=== PATIENT | female | born 1940 | race Caucasian/White ===

== ENCOUNTER 2017-05-04 11:15 | Observation (INO) | payer OTHER ==
[2017-05-04 12:42] VITALS: BMI 25.7
[2017-05-04 12:43] LABS: Absolute Lymphocytes (CBC) 1.1 K/uL (0.7-4.9); Absolute Monocytes 0.5 K/uL (0.1-1.3); Absolute Neutrophil 5.6 K/uL (1.8-8.0); Basophils % 0.8 % (0-1.3); Eosinophils % 1.9 % (0-4.4); Hematocrit 39.7 % (36.0-45.0); Lymphocytes % 14.3 % (15.3-44.8); MCH 28.5 pg (27.0-35.0); MCV 87.2 fL (80-100); MPV 8.8 fL (7.6-11.3); Monocytes % 7.4 % (3.3-12.3); RBC Red Blood Cell Count 4.55 M/uL (3.86-4.86)
[2017-05-04] MEDS ORDERED: DIPHENHYDRAMINE 25 MG TAB/CAP PO PRN (12:48)
[2017-05-04] MEDS ORDERED: POLYETHYL GLY 3350 17 GM/DOSE PO PRN (12:48)
[2017-05-04] MEDS ORDERED: ONDANSETRON 4 MG (ODT) TAB PO PRN (12:48)
[2017-05-04] MEDS ORDERED: ONDANSETRON 4 MG/2 ML VIAL IV PRN (12:48)
[2017-05-04] MEDS ORDERED: ACETAMINOPHEN 325 MG TABLET PO PRN (12:48)
[2017-05-04] MEDS ORDERED: LOPERAMIDE HCL 2 MG CAPSULE PO PRN (12:48)
[2017-05-04] MEDS ORDERED: ALBUTEROL 2.5 MG/3 ML NEB SOL NEB PRN (12:51)
[2017-05-04 12:56] LABS: Protime INR 0.98
[2017-05-04 13:02] LABS: Potassium 4.3 mEq/L (3.6-5.0)
[2017-05-04 13:08] LABS: Albumin 4.5 g/dL (3.2-5.5); Bilirubin Direct 0.1 mg/dL (0-0.2); Bilirubin Total 0.7 mg/dL (0.3-1.2); Phosphorus 3.2 mg/dL (2.5-4.3)
[2017-05-04 13:12] LABS: Urine Appearance CLEAR; Urine Bilirubin NEGATIVE (NEG); Urine Blood NEGATIVE (NEG); Urine Color YELLOW; Urine Glucose NEGATIVE (NEG); Urine Protein NEGATIVE (NEG); Urine Specific Gravity <=1.005 (1.005-1.030); Urine Urobilinogen 0.2 mg/dL (0.2-1.0)
--- NOTE | 2017-05-04 13:27 | RAD REPORT ---
EXAM DESCRIPTION: RAD - Chest Pa And Lat (2 Views) - 05/04/2017 1:20 pm CLINICAL HISTORY: Abdominal pain, shortness of breath, pyelonephritis diagnosis COMPARISON: August 2016 TECHNIQUE: PA and lateral views of the chest were obtained. FINDINGS: The lungs are clear of a peripheral mass or consolidation. Lung base markings are accentua palma slightly believed to be atelectasis from a more shallow inspiratory effort. True lung base infilt rate is unlikely. No failure or volume overload. Trachea is midline. Heart size is normal and centr al vasculature is within normal limits. No pleural effusion or pneumothorax seen. No acute bony fin ding noted. No aortic abnormality. IMPRESSION: No acute cardiopulmonary process. No significant change from comparison.
[2017-05-04 13:41] LABS: Thyroid Stimulating Hormone 3.92 uIU/mL (0.34-5.60)
[2017-05-04] MEDS: LEVALBUTEROL 1.25 MG/3 ML NEB IH SCH ×2 (13:42→19:24)
[2017-05-04] MEDS: IPRATROPIUM BROM 0.5MG/2.5ML IH SCH ×2 (13:42→19:24)
[2017-05-04 13:49] LABS: Urine Microscopic Reflex ORDER UMIC
[2017-05-04 14:46] LABS: Urine Bacteria 20-50 /HPF (<20); Urine Culture Reflex Order NOT NEEDED; Urine RBC <5 /HPF (NONE SEEN)
[2017-05-04] MEDS: NACHLORIDE 0.45% 1,000 ML IV SCH (15:10)
[2017-05-04] MEDS: CEFTRIAXONE/SWI 1gm 1 GM/10 ML SYR IV SCH (15:10)
--- NOTE | 2017-05-04 16:26 | EKG ---
Test Date: 2017-05-04 Test Time: 14:19:36 Head Kiln Operator: CHEMO MEASUREMENT RESULTS: Intervals: Rate: 66 [place]: 146 QRSD: 84 QT: 410 QTc: 429 [place]: P: 55 [place]: 146 QRS: 52 T: 50 INTERPRETIVE STATEMENTS: Normal sinus rhythm Normal ECG Compared to ECG 01/07/2015 04:45:26 Sinus arrhythmia no longer present Electronically Signed On 05-04-17 16:24:23 CDT by Maximilian Hayes
[2017-05-04] MEDS ORDERED: GLUCAGON 1 MG/VIAL IM PRN (17:22)
[2017-05-04] MEDS ORDERED: D50W 25 GM/50 ML SYRINGE IV PRN (17:22)
[2017-05-04] MEDS: INSULIN -REGULAR HUMAN 50 UNIT/0.5 ML ML SQ SCH (20:59)
[2017-05-05] MEDS: IPRATROPIUM BROM 0.5MG/2.5ML IH SCH ×4 (01:17→14:07)
[2017-05-05] MEDS: LEVALBUTEROL 1.25 MG/3 ML NEB IH SCH ×4 (01:17→14:07)
[2017-05-05 06:19] LABS: Absolute Lymphocytes (CBC) 1.3 K/uL (0.7-4.9); Absolute Monocytes 0.7 K/uL (0.1-1.3); Absolute Neutrophil 5.5 K/uL (1.8-8.0); Basophils % 0.5 % (0-1.3); Eosinophils % 1.8 % (0-4.4); Hematocrit 36.6 % (36.0-45.0); Lymphocytes % 17.5 % (15.3-44.8); MCH 28.4 pg (27.0-35.0); MCV 86.6 fL (80-100); MPV 8.7 fL (7.6-11.3); Monocytes % 8.6 % (3.3-12.3); RBC Red Blood Cell Count 4.23 M/uL (3.86-4.86)
[2017-05-05 06:47] LABS: Potassium 4.8 mEq/L (3.6-5.0)
[2017-05-05] MEDS: INSULIN -REGULAR HUMAN 50 UNIT/0.5 ML ML SQ SCH ×4 (07:30→20:43)
[2017-05-05] MEDS: NACHLORIDE 0.45% 1,000 ML IV SCH ×2 (08:10→09:45)
[2017-05-05 11:10] LABS: A1c Component 0.68 mg/dL; Hemoglobin A1c 7.3 % (4-6.0)
--- NOTE | 2017-05-05 13:14 | RAD REPORT ---
EXAM DESCRIPTION: RAD - Chest Single View - 05/05/2017 12:07 pm CLINICAL HISTORY: Device placement PICC line placement COMPARISON: May 04, 2017 FINDINGS: A PICC line has been inserted with its tip in the superior vena cava. The lungs appear clear of acute infiltrate. The heart is normal size. IMPRESSION: PICC line with its tip in the superior vena cava
[2017-05-05] MEDS: CEFTRIAXONE/SWI 1gm 1 GM/10 ML SYR IV SCH (13:17)
[2017-05-05] MEDS ORDERED: METFORMIN HCL 500 MG PO PRN (17:38)
--- NOTE | 2017-05-05 17:46 | P.PN ---
Subjective Date of Service: 05/05/17 Chief Complaint: NO ISSUES WITH IV ABX. FEELS A LOT BETTER. Subjective: Improving Review of Systems 10-point ROS is otherwise unremarkable Physical Examination - Vital Signs Temperature: 97.3 F Blood Pressure: 108/58 Pulse: 67 Respirations: 18 Pulse Ox (%): 99 - Physical Exam General: Alert, In no apparent distress HEENT: Atraumatic, PERRLA, EOMI Neck: Supple, JVD not distended Respiratory: Clear to auscultation bilaterally, Normal air movement Cardiovascular: Regular rate/rhythm, Normal S1 S2 Gastrointestinal: Normal bowel sounds, No tenderness Musculoskeletal: No tenderness Integumentary: No rashes Neurological: Normal speech, Normal tone, Normal affect Lymphatics: No axilla or inguinal lymphadenopathy - Studies Laboratory Data (last 24 hrs) 05/05/17 05:57: Sodium 139, Potassium 4.8, BUN 16, Creatinine 0.89, Glucose 165 H, Magnesium 2.0 05/05/17 05:57: WBC 7.6, Hgb 12.0, Hct 36.6, Plt Count 183 Medications List Reviewed: Yes Assessment And Plan - Current Problems (Diagnosis) (1) Acute pyelonephritis Onset Date: 05/05/17 Current Visit: Yes Status: Acute Plan: CLINICAL DIAGNOSIS LOT BETTER ON IV ROCEPHIN SHE IS ALLERGIC TO MOST ORAL ABX- MAINLY DYSPNEA, ETC BUT I EXPECTED IT IS NOT ACTUAL ABX BUT THE FILLER SHE IS ALLERGIC TO. I WOULD HOPE TO GIVE HER 10 DAYS OF ROCEPHIN (2) Flank pain Onset Date: 05/05/17 Current Visit: Yes Status: Acute
[2017-05-05] MEDS ORDERED: METFORMIN HCL 500 MG TAB PO PRN (18:10)
[2017-05-05] MEDS ORDERED: INSULIN ASPART 1 UNIT SQ SCH (21:00)
[2017-05-06] MEDS: NACHLORIDE 0.45% 1,000 ML IV SCH (05:34)
[2017-05-06 05:41] LABS: Absolute Lymphocytes (CBC) 1.4 K/uL (0.7-4.9); Absolute Monocytes 0.7 K/uL (0.1-1.3); Absolute Neutrophil 5.4 K/uL (1.8-8.0); Basophils % 0.5 % (0-1.3); Eosinophils % 3.7 % (0-4.4); Hematocrit 37.8 % (36.0-45.0); Lymphocytes % 17.5 % (15.3-44.8); MCV 86.7 fL (80-100); MPV 8.4 fL (7.6-11.3); Monocytes % 9.3 % (3.3-12.3); RBC Red Blood Cell Count 4.36 M/uL (3.86-4.86)
[2017-05-06] MEDS ORDERED: LEVOTHYROXINE SOD 0.025 MG TAB PO SCH (06:00)
[2017-05-06 06:22] LABS: Potassium 5.2 mEq/L (3.6-5.0)
[2017-05-06] MEDS ORDERED: INSULIN LISPRO 100 UNIT/1 ML SQ SCH (07:30)
[2017-05-06] MEDS: INSULIN -REGULAR HUMAN 50 UNIT/0.5 ML ML SQ SCH (07:30)
[2017-05-06] MEDS ORDERED: LACTOBACILLUS/ACIDOPHILUS TAB PO SCH (09:00)
[2017-05-06] MEDS ORDERED: BISOPROLOL 5 MG TABLET PO SCH (09:00)
[2017-05-06] MEDS ORDERED: HOME MED 1 EA UNK (Multivitamin [Multivitamins] 1 CAP) PO SCH (09:00)
[2017-05-06] MEDS ORDERED: MULTIVITAMIN TAB PO SCH (09:00)
[2017-05-06] MEDS ORDERED: ASPIRIN 81 MG CHEWABLE TABLET PO SCH (09:00)
[2017-05-06] MEDS ORDERED: HOME MED 1 EA UNK (L.Acidoph,Paracasei, B.Lactis [Probiotic] 1 EACH) PO SCH (09:00)
[2017-05-06 11:45] VITALS: O2SAT 97
[2017-05-06 13:34] VITALS: BP 130/63; TEMP 97.9
[2017-05-06] MEDS: CEFTRIAXONE/SWI 1gm 1 GM/10 ML SYR IV SCH (13:49)
--- NOTE | 2017-06-08 13:11 | P.DS ---
Discharge Date: 06/08/17 Disposition: DC HOME/HOME HEALTH CARE Discharge Condition: FAIR Reason for Admission: NO ISSUES WITH IV ABX. FEELS A LOT BETTER. - Problems (1) Acute pyelonephritis Onset Date: 05/05/17 Status: Acute (2) Flank pain Onset Date: 05/05/17 Status: Acute Hospital Course: MS. CABRAL HAS UTI , RESISTANT TO MANY ABX AND ALSO SHE IS ALLERGIC TO MOST ORAL ABX. SHE MAY HAVE ALLERGY TO THE FILLER OF THE ABX . SO FAR ON IV ROCEPHIN SHE IS DOING GOOD. SHE IS DC ED HOME ON IV ABX FOR 10 DAYS ABOUT. Vital Signs/Physical Exam: Temp Pulse Resp BP Pulse Ox 97.9 F 66 18 130/63 93 05/06/17 12:00 05/06/17 12:00 05/06/17 12:00 05/06/17 12:00 05/06/17 12:00 Laboratory Data at Discharge: WBC 7.8 K/uL (4.3-10.9) 05/06/17 05:24 Hgb 12.6 g/dL (12.0-15.0) 05/06/17 05:24 Hct 37.8 % (36.0-45.0) 05/06/17 05:24 Plt Count 188 K/uL (152-406) 05/06/17 05:24 PT 11.6 SECONDS (9.5-12.5) 05/04/17 12:20 INR 0.98 05/04/17 12:20 APTT 28.3 SECONDS (24.3-36.9) 05/04/17 12:20 Sodium 140 mEq/L (135-145) 05/06/17 05:24 Potassium 5.2 mEq/L (3.6-5.0) H 05/06/17 05:24 BUN 16 mg/dL (6-20) 05/06/17 05:24 Creatinine 0.82 mg/dL (0.44-1.00) 05/06/17 05:24 Glucose 138 mg/dL (65-120) H 05/06/17 05:24 Phosphorus 3.2 mg/dL (2.5-4.3) 05/04/17 12:20 Magnesium 2.0 mg/dL (1.8-2.5) 05/06/17 05:24 Total Bilirubin 0.7 mg/dL (0.3-1.2) 05/04/17 12:20 AST 26 IU/L (10-42) 05/04/17 12:20 ALT 22 IU/L (10-60) 05/04/17 12:20 Alkaline Phosphatase 61 IU/L (42-121) 05/04/17 12:20 Home Medications: Aspirin 81 mg PO DAILY 01/07/15 Bisoprolol Fumarate [Zebeta*] 2.5 mg PO DAILY 01/07/15 Cinnamon Bark [Cinnamon] 500 mg PO BID 01/07/15 Insulin Aspart [Novolog Flexpen] 1 unit SQ BID 01/07/15 Metformin HCl [Glucophage] 500 mg PO PRN PRN 01/07/15 Multivitamin [Multivitamins] 1 cap PO DAILY 01/07/15 L.acidoph,Paracasei, B.lactis [Probiotic] 1 each PO DAILY 05/04/17 Levothyroxine [Synthroid] 25 mcg PO [id number] 05/04/17 Ceftriaxone 1 gm/Ns 50 ml [Rocephin 1Gm/50 ml Ivpb] 1 gm IV DAILY 10 Days bag 05/06/17 New Medications: Ceftriaxone 1 gm/Ns 50 ml [Rocephin 1Gm/50 ml Ivpb] 1 gm IV DAILY 10 Days bag Followup: Leonard Tavares MD [Primary Care Provider] - 1 Week (follow up in the office in 1 week.)
== END 2017-05-06 14:35 | disposition home health service (06) ==
LOC: 4TH 11:37
PROVIDERS: ADMIT Internal Medicine; ATTEND Internal Medicine
PROC: 02HV33Z Insertion of Infusion Device into Superior Vena Cava, Percutaneous Approach (ICD-10-PCS; principal; 2017-05-05)
DX: N10 Acute pyelonephritis (principal); E11.9 Type 2 diabetes mellitus without complications; Z88.2 Allergy status to sulfonamides; Z88.0 Allergy status to penicillin
CPT/HCPCS: 36415 ×3; 36569; 71045; 71046; 80048 ×3; 80076; 82306; 82607; 82962 ×8; 83036; 83735 ×3; 84100; 84443; 85025 ×3; 85610; 85730; 87086; 87088; 93005; 94640; G0378; G0379; J0696 ×3; 81003; 81015

== ENCOUNTER 2017-10-28 12:00 | Emergency (ER) | payer OTHER ==
[2017-10-28 12:58] LABS: Protime INR 1.01
--- NOTE | 2017-10-28 12:58 | RAD REPORT ---
EXAM DESCRIPTION: RAD - Chest Single View - 10/28/2017 12:36 pm CLINICAL HISTORY: Chest pain;Congestion Chest pain. COMPARISON: Chest Pa And Lat (2 Views) dated 07/13/2017; Chest Single View dated 05/05/2017; Chest Pa A nd Lat (2 Views) dated 05/04/2017; Chest Pa And Lat (2 Views) dated 08/21/2016 FINDINGS: Portable technique limits examination quality. The lungs are grossly clear. The heart is normal in size. No displaced fractures.Left sided electroni c device obscures a portion of the left mid lung parenchyma. IMPRESSION: No acute intrathoracic process suspected.
[2017-10-28 13:00] LABS: ALT/SGPT 27 U/L (12-78); AST/SGOT 21 U/L (15-37); Absolute Lymphocytes (CBC) 1.5 K/uL (0.7-4.9); Absolute Monocytes 0.5 K/uL (0.1-1.3); Absolute Neutrophil 4.3 K/uL (1.8-8.0); Alkaline Phosphatase 74 U/L (45-117); BUN Blood Urea Nitrogen 18 mg/dL (7-18); Basophils % 0.7 % (0-1.3); Bicarbonate 29 mmol/L (21-32); Bilirubin Direct 0.2 mg/dL (0-0.2); Bilirubin Total 0.6 mg/dL (0.2-1.0); Glucose Level 184 mg/dL (74-106); Hematocrit 39.6 % (36.0-45.0); MCH 29.3 pg (27.0-35.0); MCV 87.1 fL (80-100); MPV 9.1 fL (7.6-11.3); Magnesium 2.2 mg/dL (1.8-2.4); Monocytes % 8.2 % (3.3-12.3); NT PRO-BNP 115 pg/mL (<450); Potassium 3.9 mmol/L (3.5-5.1); Protein, Total 8.1 g/dL (6.4-8.2); RBC Red Blood Cell Count 4.55 M/uL (3.86-4.86); Sodium Level 140 mmol/L (136-145); Troponin (Emerg Dept Use Only) < 0.02 ng/mL (0.0-0.045)
[2017-10-28 14:02] LABS: Urine Blood NEGATIVE (NEG); Urine Glucose NEGATIVE (NEG); Urine Protein NEGATIVE (NEG); Urine Specific Gravity 1.015 (1.005-1.030); Urine pH 6.5 (5.0-7.0)
--- NOTE | 2017-10-28 14:20 | ER ---
Nurse's Notes [facility] Name: Marie Puri Age: 76 yrs Sex: Female : 1940 Arrival Date: 10/28/2017 Time: 12:01 Bed 2 Private MD: Leonard Tavares V Diagnosis: Syncope and collapse-Near;Weakness Presentation: 10/28 12:06 Presenting complaint: Patient states: "I was just out eating lunch with my friend and aa5 all of a sudden I felt heavy all over and lightheaded like I was going to pass out". Pt also reports chest pressure. Pt also reports mild SOB. Pt states "I've been having this episodes and I see a doctor at [facility] and he put a heart monitor on me about 2 weeks ago". Transition of care: patient was not received from another setting of care. Onset of symptoms was October 2017. Risk Assessment: Do you want to hurt yourself or someone else? Patient reports no desire to harm self or others. Initial Sepsis Screen: Does the patient meet any 2 criteria? No. Patient's initial sepsis screen is negative. Does the patient have a suspected source of infection? No. Patient's initial sepsis screen is negative. Care prior to arrival: None. 12:06 Method Of Arrival: Wheelchair aa5 12:06 Acuity: ARGELIA 2 aa5 Historical: - Allergies: 12:09 Stadol; aa5 12:09 Morphine; aa5 12:09 Toprol XL; aa5 12:09 Phenergan; aa5 - PMHx: 12:09 Diverticulitis; mitral valve prolapse; Pancreatitis; Kidney stones; fatty liver; aa5 Hypothyroidism; Diabetes - IDDM; - PSHx: 12:08 cardiac ablations; Cholecystectomy; colon resection; aa5 - Immunization history:: Adult Immunizations unknown. - Social history:: Smoking status: Patient/guardian denies using tobacco. - Ebola Screening: : No symptoms or risks identified at this time. Screenin:44 Abuse screen: Denies threats or abuse. Nutritional screening: No deficits noted. tw2 Tuberculosis screening: No symptoms or risk factors identified. Fall Risk None identified. Assessment: 12:42 General: Appears in no apparent distress. well groomed, Behavior is calm, cooperative, tw2 appropriate for age. Pain: Complains of pain in chest Pain does not radiate. Pain began suddenly. Neuro: Level of Consciousness is awake, alert, obeys commands, Oriented to person, place, time, situation. Cardiovascular: Reports chest pressure Heart tones S1 S2 Capillary refill < 3 seconds Patient's skin is warm and dry. pt is wearing heart monitor from [facility] MD will fax result of monitor to our facility. Respiratory: Airway is patent Respiratory effort is even, unlabored, Respiratory pattern is regular, symmetrical, Breath sounds are clear bilaterally. GI: No signs and/or symptoms were reported involving the gastrointestinal system. Abdomen is flat, Bowel sounds present X 4 quads. : No signs and/or symptoms were reported regarding the genitourinary system. EENT: No signs and/or symptoms were reported regarding the EENT system. Derm: Skin is intact, is healthy with good turgor, Skin temperature is warm. Musculoskeletal: Range of motion: intact in all extremities. 12:45 Reassessment: Patient appears in no apparent distress at this time. No changes from tw2 previously documented assessment. Patient and/or family updated on plan of care and expected duration. Pain level reassessed. Patient is alert, oriented x 3, equal unlabored respirations, skin warm/dry/pink. 13:42 Reassessment: assisted to the bathroom;. hj 13:45 Reassessment: Patient appears in no apparent distress at this time. No changes from tw2 previously documented assessment. Patient and/or family updated on plan of care and expected duration. Pain level reassessed. Patient is alert, oriented x 3, equal unlabored respirations, skin warm/dry/pink. 14:31 Reassessment: Patient appears in no apparent distress at this time. No changes from tw2 previously documented assessment. Patient and/or family updated on plan of care and expected duration. Pain level reassessed. Patient is alert, oriented x 3, equal unlabored respirations, skin warm/dry/pink. Vital Signs: 12:09 BP 162 / 58; Pulse 62; Resp 16 S; Temp 97.7(TE); Pulse Ox 98% on R/A; Weight 65.77 kg aa5 (R); Height 5 ft. 2 in. (157.48 cm) (R); Pain 3/10; 12:45 BP 161 / 82; Pulse 62; Resp 19; Pulse Ox 99% on R/A; tw2 13:42 BP 136 / 64; Pulse 65; Resp 18; Pulse Ox 99% on R/A; hj 14:24 BP 126 / 66; Pulse 54; Resp 17; Pulse Ox 100% on R/A; tw2 12:09 Body Mass Index 26.52 (65.77 kg, 157.48 cm) aa5 ED Course: 12:01 Patient arrived in ED. mr 12:01 Leonard Tavares MD is Private Physician. mr 12:07 Triage completed. aa5 12:07 Arm band placed on. aa5 12:10 Placed in gown. Bed in low position. Side rails up X2. Adult w/ patient. Cardiac tw2 monitor on. Pulse ox on. NIBP on. Warm blanket given. 12:14 Russel Nguyen MD is Attending Physician. kdr 12:19 Zari Ramirez RN is Primary Nurse. tw2 12:19 Inserted saline lock: 22 gauge in right antecubital area, using aseptic technique. tw2 Blood collected. Patient maintains SpO2 saturation greater than 95% on room air. 12:35 XRAY Chest (1 view) In Process Unspecified. EDMS 13:04 Urine collected: clean catch specimen, cloudy, andrew colored. jb1 14:18 Leonard Tavares MD is Referral Physician. kdr 14:32 No provider procedures requiring assistance completed. IV discontinued, intact, tw2 bleeding controlled, No redness/swelling at site. Pressure dressing applied. Administered Medications: No medications were administered Outcome: 14:19 Discharge ordered by . kdr 14:32 Discharged to home ambulatory, with friend. tw2 14:32 Condition: stable 14:32 Discharge instructions given to patient, friend, Instructed on discharge instructions, follow up and referral plans. Demonstrated understanding of instructions, follow-up care. 14:32 Patient left the ED. tw2 Signatures: Dispatcher [employer] EDMS Mau Croft jb1 Russel Nguyen MD MD kdr Rivera, Maria ChavarriaEva, RN RN aa5 Demetrio Robles, Zari Miller RN, ISAIAS RN tw2 Corrections: (The following items were deleted from the chart) 12:07 12:06 Presenting complaint: Patient states: "I was just out eating lunch with my friend aa5 and all of a sudden I felt heavy all over and lightheaded like I was going to pass out". Pt also reports chest pressure. Pt also reports mild SOB. aa5 12:10 12:06 Acuity: ARGELIA 3 aa5 aa5
--- NOTE | 2017-10-28 14:20 | EDPHYS ---
Physician Documentation [facility] Name: Marie Puri Age: 76 yrs Sex: Female : 1940 Arrival Date: 10/28/2017 Time: 12:01 Bed 2 Private MD: Leonard Tavares V ED Physician Russel Nguyen HPI: 10/28 18:39 This 76 yrs old Female presents to ER via Wheelchair with complaints of Chest kdr Pressure. 18:39 The patient has experienced near-syncope. Onset: The symptoms/episode began/occurred kdr suddenly, just prior to arrival. Duration: This was a single episode, that lasted 15 minute(s). Context: the episode(s) was witnessed, by a bystander, by a friend, occurred at a restaurant, occurred while the patient was eating, Just prior to the episode the patient experienced. Associated injury: The patient did not suffer any apparent associated injury. Associated signs and symptoms: Pertinent positives: dizziness, lightheadedness, palpitations, shortness of breath, tingling. Current symptoms: Currently, the patient is not experiencing any symptoms, the patient feels back to baseline. The patient has experienced similar episodes in the past, This has been an ongoing problem for the last year or two that has become worse in the last few months. Historical: - Allergies: 12:09 Stadol; aa5 12:09 Morphine; aa5 12:09 Toprol XL; aa5 12:09 Phenergan; aa5 - PMHx: 12:09 Diverticulitis; mitral valve prolapse; Pancreatitis; Kidney stones; fatty liver; aa5 Hypothyroidism; Diabetes - IDDM; - PSHx: 12:08 cardiac ablations; Cholecystectomy; colon resection; aa5 - Immunization history:: Adult Immunizations unknown. - Social history:: Smoking status: Patient/guardian denies using tobacco. - Ebola Screening: : No symptoms or risks identified at this time. ROS: 18:39 Constitutional: Negative for fever, chills, and weight loss, Eyes: Negative for injury, kdr pain, redness, and discharge, ENT: Negative for injury, pain, and discharge, Neck: Negative for injury, pain, and swelling, Respiratory: Negative for shortness of breath, cough, wheezing, and pleuritic chest pain, Abdomen/GI: Negative for abdominal pain, nausea, vomiting, diarrhea, and constipation, Back: Negative for injury and pain, : Negative for injury, bleeding, discharge, and swelling, MS/Extremity: Negative for injury and deformity, Skin: Negative for injury, rash, and discoloration, Psych: Negative for depression, anxiety, suicide ideation, homicidal ideation, and hallucinations, Allergy/Immunology: Negative for hives, rash, and allergies, Endocrine: Negative for neck swelling, polydipsia, polyuria, polyphagia, and marked weight changes, Hematologic/Lymphatic: Negative for swollen nodes, abnormal bleeding, and unusual bruising. 18:39 Cardiovascular: Positive for palpitations, Negative for chest pain, edema, orthopnea, paroxysmal nocturnal dyspnea. Exam: 18:39 Constitutional: This is a well developed, well nourished patient who is awake, alert, kdr and in no acute distress. Head/Face: Normocephalic, atraumatic. Eyes: Pupils equal round and reactive to light, extra-ocular motions intact. Lids and lashes normal. Conjunctiva and sclera are non-icteric and not injected. Cornea within normal limits. Periorbital areas with no swelling, redness, or edema. Neck: Trachea midline, no thyromegaly or masses palpated, and no cervical lymphadenopathy. Supple, full range of motion without nuchal rigidity, or vertebral point tenderness. No Meningismus. Chest/axilla: Normal chest wall appearance and motion. Nontender with no deformity. No lesions are appreciated. Cardiovascular: Regular rate and rhythm with a normal S1 and S2. No gallops, murmurs, or rubs. Normal PMI, no JVD. No pulse deficits. Respiratory: Lungs have equal breath sounds bilaterally, clear to auscultation and percussion. No rales, rhonchi or wheezes noted. No increased work of breathing, no retractions or nasal flaring. Abdomen/GI: Soft, non-tender, with normal bowel sounds. No distension or tympany. No guarding or rebound. No evidence of tenderness throughout. Back: No spinal tenderness. No costovertebral tenderness. Full range of motion. Skin: Warm, dry with normal turgor. Normal color with no rashes, no lesions, and no evidence of cellulitis. MS/ Extremity: Pulses equal, no cyanosis. Neurovascular intact. Full, normal range of motion. Neuro: Awake and alert, GCS 15, oriented to person, place, time, and situation. Cranial nerves II-XII grossly intact. Motor strength 5/5 in all extremities. Sensory grossly intact. Cerebellar exam normal. Normal gait. Psych: Awake, alert, with orientation to person, place and time. Behavior, mood, and affect are within normal limits. Vital Signs: 12:09 BP 162 / 58; Pulse 62; Resp 16 S; Temp 97.7(TE); Pulse Ox 98% on R/A; Weight 65.77 kg aa5 (R); Height 5 ft. 2 in. (157.48 cm) (R); Pain 3/10; 12:45 BP 161 / 82; Pulse 62; Resp 19; Pulse Ox 99% on R/A; tw2 13:42 BP 136 / 64; Pulse 65; Resp 18; Pulse Ox 99% on R/A; hj 14:24 BP 126 / 66; Pulse 54; Resp 17; Pulse Ox 100% on R/A; tw2 12:09 Body Mass Index 26.52 (65.77 kg, 157.48 cm) aa5 MDM: 14:19 Patient medically screened. kdr 18:39 Data reviewed: vital signs, nurses notes, lab test result(s), EKG, radiologic studies. kdr Counseling: I had a detailed discussion with the patient and/or guardian regarding: the historical points, exam findings, and any diagnostic results supporting the discharge/admit diagnosis, lab results, radiology results, the need for outpatient follow up. Physician consultation: Leonard Tavares MD regarding admission, consult, patient's condition, and will see patient in office, tomorrow. 10/28 12:15 Order name: Basic Metabolic Panel; Complete Time: 14: kdr 10/28 12:15 Order name: CBC with Diff; Complete Time: 14: kdr 10/28 12:15 Order name: LFT's; Complete Time: 14: kdr 10/28 12:15 Order name: Magnesium; Complete Time: 14: kdr 10/28 12:15 Order name: NT PRO-BNP; Complete Time: 14: kdr 10/28 12:15 Order name: PT-INR; Complete Time: 14: kdr 10/28 12:15 Order name: Troponin (emerg Dept Use Only); Complete Time: 14: kdr 10/28 12:15 Order name: XRAY Chest (1 view); Complete Time: 14:01 [facility] 10/28 12:15 Order name: EKG; Complete Time: 12:15 [facility] 10/28 12:15 Order name: Cardiac monitoring; Complete Time: 12: [facility] 10/28 12:15 Order name: EKG - Nurse/Tech; Complete Time: 12: [facility] 10/28 12:15 Order name: IV Saline Lock; Complete Time: 12: [facility] 10/28 12:15 Order name: Labs collected and sent; Complete Time: 12: [facility] 10/28 13:14 Order name: Urine Dipstick--Ancillary (enter results); Complete Time: 14:17 10/28 12:15 Order name: O2 Per Protocol; Complete Time: : [facility] 10/28 12:15 Order name: O2 Sat Monitoring; Complete Time: : [facility] Administered Medications: No medications were administered Disposition: 10/28/17 14:19 Discharged to Home. Impression: Syncope and collapse - Near, Weakness. - Condition is Stable. - Discharge Instructions: Near-Syncope, [id number], Weakness, [id number]. - Medication Reconciliation Form, Thank You Letter form. - Follow up: Leonard Tavares MD; When: Tomorrow; Reason: If symptoms return, Further diagnostic work-up, Recheck today's complaints, Continuance of care, Re-evaluation by your physician. - Problem is an acute exacerbation. - Symptoms are resolved. Signatures: Dispatcher [employer] EDOK Russel Nguyen MD MD kdr Eva Chavarria RN RN aa5 Zari Ramirez RN RN tw2 Corrections: (The following items were deleted from the chart) 14:32 14:19 10/28/2017 14:19 Discharged to Home. Impression: Syncope and collapse - Near; tw2 Weakness. Condition is Stable. Forms are Medication Reconciliation Form, Thank You Letter, Antibiotic Education, Prescription Opioid Use. Follow up: Leonard Tavares; When: Tomorrow; Reason: If symptoms return, Further diagnostic work-up, Recheck today's complaints, Continuance of care, Re-evaluation by your physician. Problem is an acute exacerbation. Symptoms are resolved. kdr
[2017-10-28 15:01] VITALS: TEMP 97.7
[2017-10-28 15:04] VITALS: BP 126/66; O2SAT 100
--- NOTE | 2017-10-29 06:56 | EKG ---
Test Date: 2017-10-28 Test Time: 12:19:09 [place] Sweep: CHEMO MEASUREMENT RESULTS: Intervals: Rate: 65 [place]: 146 QRSD: 80 QT: 398 QTc: 413 [place]: P: 55 [place]: 146 QRS: 41 T: 43 INTERPRETIVE STATEMENTS: Normal sinus rhythm Normal ECG Compared to ECG 05/04/2017 14:19:36 No significant changes Electronically Signed On 10-29-17 06:54:46 CDT by Maximilian Hayes
== END 2017-10-28 14:32 | disposition home or self-care (01) ==
LOC: ER 12:00
DX: R53.1 Weakness (principal); I34.1 Nonrheumatic mitral (valve) prolapse; Z88.5 Allergy status to narcotic agent; Z88.8 Allergy status to other drugs, medicaments and biological substances
CPT/HCPCS: 36415; 71045; 80048; 80076; 81003; 83735; 83880; 84484; 85025; 85610; 93005; 99285

== ENCOUNTER 2017-11-09 12:12 | Observation (INO) | payer OTHER ==
[2017-11-09 13:20] LABS: Urine Appearance CLEAR; Urine Bilirubin NEGATIVE (NEG); Urine Blood NEGATIVE (NEG); Urine Color YELLOW; Urine Glucose NEGATIVE (NEG); Urine Protein NEGATIVE (NEG); Urine Urobilinogen 0.2 mg/dL (0.2-1.0)
[2017-11-09 13:31] LABS: Urine Microscopic Reflex ORDER UMIC
[2017-11-09 13:39] LABS: Urine Bacteria 20-50 /HPF (<20); Urine Culture Reflex Order REFLEXED; Urine RBC <5 /HPF (NONE SEEN)
[2017-11-09] MEDS ORDERED: INFLUENZA VACCINE (for 3y+) 0.5 ML DOSE IMVAC ONE (14:00)
[2017-11-09] MEDS ORDERED: ONDANSETRON 4 MG/2 ML VIAL IV PRN (14:00)
[2017-11-09] MEDS ORDERED: ACETAMINOPHEN 325 MG TABLET PO PRN (14:00)
[2017-11-09] MEDS ORDERED: DIPHENHYDRAMINE 25 MG TAB/CAP PO PRN (14:00)
[2017-11-09] MEDS ORDERED: POLYETHYL GLY 3350 17 GM/DOSE PO PRN (14:00)
[2017-11-09] MEDS ORDERED: ONDANSETRON 4 MG (ODT) TAB PO PRN (14:00)
[2017-11-09] MEDS ORDERED: LOPERAMIDE HCL 2 MG CAPSULE PO PRN (14:00)
[2017-11-09] MEDS: NACHLORIDE 0.45% 1,000 ML IV SCH (14:55)
[2017-11-09] MEDS: Ciprofloxacin 200mg IV 200 MG/100 ML IV.SOLN. IV SCH ×2 (14:56→21:46)
--- NOTE | 2017-11-09 14:59 | RAD REPORT ---
EXAM DESCRIPTION: RAD - Chest Pa And Lat (2 Views) - 11/09/2017 2:47 pm CLINICAL HISTORY: recurrent UTI Chest pain. COMPARISON: Chest Single View dated 10/28/2017; Chest Pa And Lat (2 Views) dated 07/13/2017; Chest Sing le View dated 05/05/2017; Chest Pa And Lat (2 Views) dated 05/04/2017 FINDINGS: The lungs are clear. The heart is normal in size. No displaced fractures. IMPRESSION: No acute or concerning finding suspected.
[2017-11-09 15:31] LABS: Absolute Lymphocytes (CBC) 1.2 K/uL (0.7-4.9); Absolute Monocytes 0.5 K/uL (0.1-1.3); Absolute Neutrophil 4.5 K/uL (1.8-8.0); Basophils % 0.6 % (0-1.3); Eosinophils % 2.3 % (0-4.4); Hematocrit 38.2 % (36.0-45.0); MCH 29.2 pg (27.0-35.0); MCV 87.1 fL (80-100); MPV 8.5 fL (7.6-11.3); Monocytes % 8.1 % (3.3-12.3); RBC Red Blood Cell Count 4.39 M/uL (3.86-4.86)
[2017-11-09 16:06] VITALS: BMI 25.0
[2017-11-09 16:18] LABS: Albumin 3.9 g/dL (3.4-5.0); Bilirubin Direct 0.1 mg/dL (0-0.2); Bilirubin Total 0.6 mg/dL (0.2-1.0); Magnesium 2.3 mg/dL (1.8-2.4); Phosphorus 3.1 mg/dL (2.5-4.9); Thyroid Stimulating Hormone 2.5 uIU/mL (0.360-3.740)
[2017-11-09] MEDS ORDERED: PNEUMOCOCCAL VACCINE 0.5 ML IMVAC ONE (17:00)
[2017-11-09] MEDS ORDERED: GLUCAGON 1 MG/VIAL IM PRN (20:40)
[2017-11-09] MEDS ORDERED: D50W 25 GM/50 ML SYRINGE IV PRN (20:40)
[2017-11-09] MEDS: INSULIN -REGULAR HUMAN 50 UNIT/0.5 ML ML SQ SCH (21:00)
[2017-11-09] MEDS: DIAZEPAM 5 MG TABLET PO SCH (21:00)
[2017-11-09 23:34] LABS: UR MICROALBUMIN < 0.5 mg/dL (< 1.9)
[2017-11-10] MEDS: LEVOTHYROXINE SOD 0.025 MG TAB PO SCH (05:19)
[2017-11-10 06:35] LABS: Potassium 4.1 mmol/L (3.5-5.1)
--- NOTE | 2017-11-10 06:41 | RAD REPORT ---
EXAM DESCRIPTION: CT - Abdomen Pelvis Wo Contrast - 11/10/2017 12:43 am CLINICAL HISTORY: Left-sided abdominal pain, history of fatty liver disease, pancreatitis in diverti culosis.; patient is status post appendectomy, cholecystectomy and bowel resection COMPARISON: CT study December 2016 TECHNIQUE: Axial [address] imaging of the abdomen and pelvis was performed without IV contrast. No IV contrast was given because of allergy, abnormal renal function, patient refusal or physician re quest. Oral contrast was given. All CT scans are performed using dose optimization technique as appropriate and may include automated exposure control or mA/KV adjustment according to patient size. FINDINGS: No suspicious findings in the lung bases. Normal size liver shows fatty infiltration pattern. No focal abnormality on noncontrast imaging. No p ancreatitis findings or acute pancreatic process. No splenic abnormality. [place] artifact is present f rom clips in the midline upper abdomen. Gallbladder is absent. No biliary tree dilatation. There is slight fullness of each renal pelvis without caliceal dilatation. No hydroureter. No obstruc ting ureteral calculi. There is a single nonobstructing calyx calcification in each kidney. No perine phric stranding. No significant adrenal finding. Isodense renal masses and pyelonephritis cannot be excluded in the absence of IV contrast. The urinary bladder is without significant finding. No dilated bowel loops or bowel wall thickening. No free air, free fluid or inflammatory stranding. R ectosigmoid region anastomosis shows no acute finding. Patient has a relatively mild left-sided diver ticulosis pattern. Oral contrast has reached the distal rectum. An active GI process is not confirmed . Numerous surgical clips are seen in the lower pelvis. No hernia, mass or bulky lymphadenopathy. Pat ient does have a mild congested appearance to the central mesenteric fat that matches prior imaging. Patient has central mesenteric lymph node pattern that matches the December 2016 study. Disc and bony degenerative changes are present. Uterus and ovaries show no suspicious findings. No ac [place] vascular finding suspected on a noncontrast study. IMPRESSION: No obstruction, free air or surgically emergent finding. Central mesenteric fat congestion and mesenteric lymph node pattern is similar to December 2016. This is nonspecific. The periaortic lymph node pattern is stable as well. Fatty infiltration of the liver. No new or progressive finding from December 2016. Full assessment is limited is the absence of IV contrast.
--- NOTE | 2017-11-10 06:53 | EKG ---
Test Date: 2017-11-09 Test Time: 14:56:55 Jewelry Enameler: CHEMO MEASUREMENT RESULTS: Intervals: Rate: 58 SC: 152 QRSD: 78 QT: 406 QTc: 398 [place]: P: 52 SC: 152 QRS: 61 T: 45 INTERPRETIVE STATEMENTS: Sinus bradycardia with sinus arrhythmia Nonspecific T wave abnormality Abnormal ECG Compared to ECG 10/28/2017 12:19:09 T-wave abnormality now present Sinus rhythm no longer present Electronically Signed On 11-10-17 06:50:44 CDT by Maximilian Hayes
[2017-11-10] MEDS: INSULIN -REGULAR HUMAN 50 UNIT/0.5 ML ML SQ SCH ×4 (07:30→21:00)
[2017-11-10 07:51] LABS: Absolute Lymphocytes (CBC) 1.4 K/uL (0.7-4.9); Absolute Monocytes 0.7 K/uL (0.1-1.3); Absolute Neutrophil 4.4 K/uL (1.8-8.0); Basophils % 0.7 % (0-1.3); Eosinophils % 3.3 % (0-4.4); Hematocrit 36.4 % (36.0-45.0); Lymphocytes % 20.6 % (15.3-44.8); MCH 29.7 pg (27.0-35.0); MCV 85.9 fL (80-100); Monocytes % 10.5 % (3.3-12.3); RBC Red Blood Cell Count 4.24 M/uL (3.86-4.86)
[2017-11-10] MEDS: ENOXAPARIN 40 MG/0.4 ML SQ SCH ×2 (09:00→09:31)
[2017-11-10] MEDS: Ciprofloxacin 200mg IV 200 MG/100 ML IV.SOLN. IV SCH ×3 (09:00→22:40)
[2017-11-10] MEDS: NACHLORIDE 0.45% 1,000 ML IV SCH ×2 (09:30→23:20)
--- NOTE | 2017-11-10 17:36 | P.PN ---
Subjective Date of Service: 11/10/17 Chief Complaint: UTI Subjective: Improving (CLIFTON IS DOING A LOT BETTER JUST WITH 3 CIPRO INJECTIONS.) Review of Systems 10-point ROS is otherwise unremarkable Physical Examination - Vital Signs Temperature: 97.2 F Blood Pressure: 127/60 Pulse: 63 Respirations: 16 Pulse Ox (%): 98 - Physical Exam General: Alert, In no apparent distress HEENT: Atraumatic, PERRLA, EOMI Neck: Supple, JVD not distended Respiratory: Clear to auscultation bilaterally, Normal air movement Cardiovascular: Regular rate/rhythm, Normal S1 S2 Gastrointestinal: Normal bowel sounds, No tenderness Musculoskeletal: No tenderness Integumentary: No rashes Neurological: Normal speech, Normal tone, Normal affect Lymphatics: No axilla or inguinal lymphadenopathy - Studies Laboratory Data (last 24 hrs) 11/10/17 06:53: WBC 6.7, Hgb 12.6, Hct 36.4, Plt Count 166 11/10/17 05:50: Sodium 142, Potassium 4.1, BUN 15, Creatinine 0.80, Glucose 128 H, Magnesium 2.0 Medications List Reviewed: Yes Assessment And Plan - Current Problems (Diagnosis) (1) Diabetes type 2, controlled Current Visit: Yes Status: Chronic Plan: LOW DOSE. SHE GETS SE OF ALMOST ANY MEDICATION SHE TAKES AGAIN AND AGAIN. EVEN LANTUS MAKES HER MILD SHORT OF BREATH Qualifiers: Diabetes mellitus skilled nursing insulin use: with skilled nursing use (2) Recurrent UTI Onset Date: 11/10/17 Current Visit: Yes Status: Acute Plan: SHE HAS TOLERATED CIPRO IV BUT NOT ORAL IN [facility]. SHE WANTS TO TRY ORAL ABX AGAIN. SHE IS NOT WANTING TO DO PICC LINE AND IV ABX AT HOME. WE HAVE ONLY TWO DAYS HERE FOR OBSERVATION. SHE IS AWARE. I TALKED TO GERRY AND TWO DAYS WERE OKAY BY MEDICARE FOR OBSERVATION.
[2017-11-10] MEDS: DIAZEPAM 5 MG TABLET PO SCH (21:00)
[2017-11-11 05:13] LABS: Absolute Lymphocytes (CBC) 1.5 K/uL (0.7-4.9); Absolute Monocytes 0.6 K/uL (0.1-1.3); Absolute Neutrophil 4.4 K/uL (1.8-8.0); Basophils % 0.6 % (0-1.3); Eosinophils % 3.2 % (0-4.4); Hematocrit 35.3 % (36.0-45.0); Lymphocytes % 21.5 % (15.3-44.8); MCH 29.5 pg (27.0-35.0); MCV 86.1 fL (80-100); MPV 8.9 fL (7.6-11.3); Monocytes % 9.4 % (3.3-12.3)
[2017-11-11 05:26] LABS: Magnesium 2.1 mg/dL (1.8-2.4); Potassium 4.2 mmol/L (3.5-5.1)
[2017-11-11] MEDS: LEVOTHYROXINE SOD 0.025 MG TAB PO SCH (06:00)
[2017-11-11] MEDS: INSULIN -REGULAR HUMAN 50 UNIT/0.5 ML ML SQ SCH (07:30)
[2017-11-11 08:44] VITALS: O2SAT 97
[2017-11-11] MEDS ORDERED: CIPROFLOXACIN HCL 250 MG TAB PO SCH (09:00)
[2017-11-11] MEDS: ENOXAPARIN 40 MG/0.4 ML SQ SCH (09:32)
--- NOTE | 2017-11-11 13:10 | P.DS ---
Admission Date: 11/09/17 Discharge Date: 11/11/17 Disposition: ROUTINE DISCHARGE Discharge Condition: FAIR Reason for Admission: UTI - Problems (1) Diabetes type 2, controlled Status: Chronic Qualifiers: Diabetes mellitus custodial insulin use: with intermediate frame tender use (2) Recurrent UTI Onset Date: 11/10/17 Status: Acute Hospital Course: SHE TOLERATED CIPRO- ORALLY ALSO . DC HOME WITH 2 WEEKS OF ABX. Vital Signs/Physical Exam: Temp Pulse Resp BP Pulse Ox 97.4 F 61 16 133/61 98 11/11/17 08:00 11/11/17 08:00 11/11/17 08:00 11/11/17 08:00 11/11/17 08:00 General: Alert, In no apparent distress HEENT: Atraumatic, PERRLA, EOMI Neck: Supple, JVD not distended Respiratory: Clear to auscultation bilaterally, Normal air movement Cardiovascular: Regular rate/rhythm, Normal S1 S2 Gastrointestinal: Normal bowel sounds, No tenderness Musculoskeletal: No tenderness Integumentary: No rashes Neurological: Normal speech, Normal tone, Normal affect Lymphatics: No axilla or inguinal lymphadenopathy Laboratory Data at Discharge: WBC 6.8 K/uL (4.3-10.9) 11/11/17 04:18 Hgb 12.1 g/dL (12.0-15.0) 11/11/17 04:18 Hct 35.3 % (36.0-45.0) L 11/11/17 04:18 Plt Count 185 K/uL (152-406) 11/11/17 04:18 PT 11.8 SECONDS (9.5-12.5) 11/09/17 15:16 INR 1.00 11/09/17 15:16 APTT 33.1 SECONDS (24.3-36.9) 11/09/17 15:16 Sodium 140 mmol/L (136-145) 11/11/17 04:18 Potassium 4.2 mmol/L (3.5-5.1) 11/11/17 04:18 BUN 13 mg/dL (7-18) 11/11/17 04:18 Creatinine 0.80 mg/dL (0.55-1.3) 11/11/17 04:18 Glucose 129 mg/dL (74-106) H 10/04/18 04:18 Phosphorus 3.1 mg/dL (2.5-4.9) 11/09/17 15:16 Magnesium 2.1 mg/dL (1.8-2.4) 11/11/17 04:18 Total Bilirubin 0.6 mg/dL (0.2-1.0) 11/09/17 15:16 AST 19 U/L (15-37) 11/09/17 15:16 ALT 26 U/L (12-78) 11/09/17 15:16 Alkaline Phosphatase 70 U/L (45-117) 11/09/17 15:16 Home Medications: Bisoprolol Fumarate [Zebeta*] 5 mg PO DAILY 11/09/17 Diazepam [Valium] 5 mg PO BEDTIME 11/09/17 Insulin Aspart [Novolog Flexpen] See Protocol SQ ACHS 11/09/17 Levothyroxine Sodium 25 mcg PO [id number] 11/09/17 Metformin HCl [Metformin HCl ER] 500 mg PO BID PRN 11/09/17 Ciprofloxacin HCl [Cipro 250 MG Tablet*] 250 mg PO BID #14 tab 11/11/17 New Medications: Ciprofloxacin HCl [Cipro 250 MG Tablet*] 250 mg PO BID #14 tab Followup: Leonard Tavares MD [Primary Care Provider] - 1-2 Weeks
[2017-11-11 13:58] VITALS: BP 148/2; TEMP 97.2
[2017-11-13 13:47] LABS: Vitamin D 1,25-Dihydroxy Total 43 pg/mL (18-72); Vitamin D,1,25-OH2, D2 <8 pg/mL
== END 2017-11-11 12:52 | disposition home or self-care (01) ==
LOC: 2ND 12:34
PROVIDERS: ADMIT Internal Medicine; ATTEND Internal Medicine
DX: N39.0 Urinary tract infection, site not specified (principal); E11.9 Type 2 diabetes mellitus without complications; Z88.0 Allergy status to penicillin; Z88.2 Allergy status to sulfonamides
CPT/HCPCS: 36415 ×2; 71046; 74176; 80048 ×3; 80076; 82043; 82570; 82607; 82652; 82962 ×8; 83036; 83735 ×3; 84100; 84443; 85025 ×3; 85610; 85730; 87040; 87077; 87086; 87088; 87186; 93005; G0378; G0379; J0744 ×4; J1650; 81003; 81015

== ENCOUNTER 2019-03-18 10:14 | Emergency (ER) | payer OTHER ==
--- OUTSIDE RECORDS SUMMARY | 2019-03-18 10:16 | XMS REPORT ---
:1940 [facility] Address [address] [place] [address] Care Team Providers Name Role Phone Unavailable Unavailable Unavailable Payers Payer Name Policy Type Policy Number Effective Date Expiration Date Problems This patient has no known problems. Allergies, Adverse Reactions, Alerts Allergy Name Allergy Status Severity Reaction(s) Onset Inactive Treating Comments Type Date Date Clinician Beta-Blockers DA Active SV 2017-02 (Beta-Adrenerg 02-23 ic Bloc 00:00: 00 morphine DA Active SV 2017-02 00:00: 00 metoprolol DA Active SV 2017-02 00:00: 00 promethazine DA Active SV 2017-02 00:00: 00 butorphanol DA Active SV 2017-02 00:00: 00 Medications This patient has no known medications. Results Test Description Test Time Test Comments Text Results Atomic Results Result Comments BASIC METABOLIC PANEL 2018-05-17 09:20:00 Test Item Value Reference Range Comments SODIUM (test code=NA) 140 MMOL/L 137-145 POTASSIUM (test code=K) 4.2 MMOL/L 3.5-5.1 CHLORIDE (test code=CL) 105 MMOL/L 98-107 CARBON DIOXIDE (test code=CO2) 27 MMOL/L 22-30 GLUCOSE (test code=GLU) 166 MG/DL 74-106 BLOOD UREA NITROGEN (test 19 MG/DL 7-17 code=BUN) GLOMERULAR FILTRATION RATE (test > 60 Reporting units: ml/min/1.73 m2 code=GFR) (Modified MDRD Formula)Reference Range: > or=60 ml/min/1.73 m2 CREATININE (test code=CREAT) 0.90 MG/DL 0.52-1.04 CALCIUM (test code=CA) 9.8 MG/DL 8.4-10.2 [id number] 09:20:00 Test Item Value Reference Range Comments MAGNESIUM (test code=MAG) 2.0 MG/DL 1.6-2.3 PROTHROMBIN [id number] 09:17:00 Test Item Value Reference Range Comments PROTHROMBIN TIME PATIENT (test 10.2 SECONDS 9.6-11.6 code=PTP) INTERNATIONAL NORMAL RATIO 1.0 0.8-1.1 The INR is to be used only (test code=INR) for monitoring oral anticoagulanttherapy. INDICATION INR VALUE 1. Prophylaxis, deep venous thrombosis, including high risk surgery. 2.0 - 3.0 2. Prophylaxis, deep venous thrombosis, hip surgery, treatment for deep venous thrombosis or pulmonary prevention of systemic embolism in patients with valvular heart disease, atrial fibrillation, tissue heart valve, or acute myocardial infarction. 2.0 - 3.0 3. Mechanical prosthesis heart valves, recurrent systemic embolism. 3.0 - 4.5 PTT [id number] 09:17:00 Test Item Value Reference Range Comments PTT ACTIVATED (test code=APTT) 29.1 SECONDS 22.0-33.0 CBC W/AUTO [id number] 09:12:00 Test Item Value Reference Range Comments WHITE BLOOD CELL (test code=WBC) 6.4 K/MM3 3.8-9.8 RED BLOOD CELL (test code=RBC) 4.60 M/MM3 3.58-4.97 HEMOGLOBIN (test code=HGB) 13.1 G/DL 11.2-14.9 HEMATOCRIT (test code=HCT) 40.3 % 33.2-43.5 MEAN CELL VOLUME (test code=MCV) 88 fL 80.7-99.1 MEAN CELL HGB (test code=MCH) 28.5 pg 27.0-34.1 MEAN CELL HGB CONCETRATION (test code=MCHC) 32.5 % 32.2-35.7 RED CELL DISTRIBUTION WIDTH (test code=RDW) 13.2 % 12.1-15.2 PLATELET COUNT (test code=PLT) 186 K/MM3 129-368 MEAN PLATELET VOLUME (test code=MPV) 10.3 fl 7.4-10.4 NEUTROPHIL % (test code=NT%) 66.3 % 43-75 IMMATURE GRANULOCYTE % (test code=IG%) 0.3 % 0.0-2.0 LYMPHOCYTE % (test code=LY%) 20.6 % 14-44 MONOCYTE % (test code=MO%) 8.9 % 4-13 EOSINOPHIL % (test code=EO%) 3.1 % 0-6 BASOPHIL % (test code=BA%) 0.8 % 0-2 NUCLEATED RBC % (test code=NRBC%) 0.0 % 0-1.0 NEUTROPHIL # (test code=NT#) 4.24 K/mm3 2.0-7.6 IMMATURE GRANULOCYTE # (test code=IG#) 0.02 x10 3/uL 0-0.03 LYMPHOCYTE # (test code=LY#) 1.32 K/mm3 1.0-3.8 MONOCYTE # (test code=MO#) 0.57 K/mm3 0.1-0.8 EOSINOPHIL # (test code=EO#) 0.20 K/mm3 0.0-0.2 BASOPHIL # (test code=BA#) 0.05 K/mm3 0.0-0.2 NUCLEATED RBC # (test code=NRBC#) 0.00 K/mm3 0.0-0.1 BASIC METABOLIC [id number] 13:19:00 Test Item Value Reference Range Comments SODIUM (test code=NA) 140 MMOL/L 137-145 POTASSIUM (test code=K) 4.8 MMOL/L 3.5-5.1 CHLORIDE (test code=CL) 105 MMOL/L 98-107 CARBON DIOXIDE (test code=CO2) 26 MMOL/L 22-30 GLUCOSE (test code=GLU) 138 MG/DL 74-106 BLOOD UREA NITROGEN (test 21 MG/DL 7-17 code=BUN) GLOMERULAR FILTRATION RATE > 60 Reporting units: ml/min/1.73 (test code=GFR) m2 (Modified MDRD Formula)Reference Range: > or=60 ml/min/1.73 m2 CREATININE (test code=CREAT) 0.80 MG/DL 0.52-1.04 CALCIUM (test code=CA) 10.3 MG/DL 8.4-10.2 [id number] 13:19:00 Test Item Value Reference Range Comments MAGNESIUM (test code=MAG) 1.8 MG/DL 1.6-2.3 PROTHROMBIN [id number] 13:08:00 Test Item Value Reference Range Comments PROTHROMBIN TIME PATIENT (test 10.4 SECONDS 9.6-11.6 code=PTP) INTERNATIONAL NORMAL RATIO 1.0 0.8-1.1 The INR is to be used only (test code=INR) for monitoring oral anticoagulanttherapy. INDICATION INR VALUE 1. Prophylaxis, deep venous thrombosis, including high risk surgery. 2.0 - 3.0 2. Prophylaxis, deep venous thrombosis, hip surgery, treatment for deep venous thrombosis or pulmonary prevention of systemic embolism in patients with valvular heart disease, atrial fibrillation, tissue heart valve, or acute myocardial infarction. 2.0 - 3.0 3. Mechanical prosthesis heart valves, recurrent systemic embolism. 3.0 - 4.5 CBC W/AUTO [id number] 12:57:00 Test Item Value Reference Range Comments WHITE BLOOD CELL (test code=WBC) 6.8 K/MM3 3.8-9.8 RED BLOOD CELL (test code=RBC) 4.53 M/MM3 3.58-4.97 HEMOGLOBIN (test code=HGB) 12.9 G/DL 11.2-14.9 HEMATOCRIT (test code=HCT) 39.5 % 33.2-43.5 MEAN CELL VOLUME (test code=MCV) 87 fL 80.7-99.1 MEAN CELL HGB (test code=MCH) 28.5 pg 27.0-34.1 MEAN CELL HGB CONCETRATION (test code=MCHC) 32.7 % 32.2-35.7 RED CELL DISTRIBUTION WIDTH (test code=RDW) 13.0 % 12.1-15.2 PLATELET COUNT (test code=PLT) 195 K/MM3 129-368 MEAN PLATELET VOLUME (test code=MPV) 10.2 fl 7.4-10.4 NEUTROPHIL % (test code=NT%) 72.2 % 43-75 IMMATURE GRANULOCYTE % (test code=IG%) 0.4 % 0.0-2.0 LYMPHOCYTE % (test code=LY%) 17.5 % 14-44 MONOCYTE % (test code=MO%) 8.0 % 4-13 EOSINOPHIL % (test code=EO%) 1.3 % 0-6 BASOPHIL % (test code=BA%) 0.6 % 0-2 NUCLEATED RBC % (test code=NRBC%) 0.0 % 0-1.0 NEUTROPHIL # (test code=NT#) 4.9 K/mm3 2.0-7.6 IMMATURE GRANULOCYTE # (test code=IG#) 0.03 x10 3/uL 0-0.03 LYMPHOCYTE # (test code=LY#) 1.2 K/mm3 1.0-3.8 MONOCYTE # (test code=MO#) 0.54 K/mm3 0.1-0.8 EOSINOPHIL # (test code=EO#) 0.1 K/mm3 0.0-0.2 BASOPHIL # (test code=BA#) 0.04 K/mm3 0.0-0.2 NUCLEATED RBC # (test code=NRBC#) 0.0 K/mm3 0.0-0.1
[2019-03-18] MEDS ORDERED: NA CHLORIDE 0.9% 1,000 ML ONE (10:31)
[2019-03-18 10:44] LABS: Urine Bacteria <20 /HPF (<20); Urine RBC <5 /HPF (NONE SEEN)
[2019-03-18 10:45] LABS: Urine Culture Reflex Order NOT NEEDED
[2019-03-18 10:56] LABS: Absolute Lymphocytes (CBC) 1.4 K/uL (0.7-4.9); Basophils % 0.6 % (0-1.3); Hematocrit 42.5 % (36.0-45.0); Lymphocytes % 18.7 % (15.3-44.8); MPV 8.5 fL (7.6-11.3); RBC Red Blood Cell Count 4.85 M/uL (3.86-4.86)
[2019-03-18 11:09] LABS: Albumin 4.3 g/dL (3.4-5.0); Bilirubin Direct 0.2 mg/dL (0-0.2); Bilirubin Total 0.7 mg/dL (0.2-1.0); Potassium 3.7 mmol/L (3.5-5.1); Protein, Total 8.7 g/dL (6.4-8.2)
--- NOTE | 2019-03-18 12:09 | RAD REPORT ---
EXAM DESCRIPTION: CT - Abdomen Pelvis W Contrast - 03/18/2019 11:42 am CLINICAL HISTORY: Abdominal pain COMPARISON: 2016 TECHNIQUE: Computed axial tomography of the abdomen pelvis was obtained. 100 cc [id number] was admin istered intravenously. Oral contrast was not requested which limits evaluation of bowel. All CT scans are performed using dose optimization technique as appropriate and may include automated exposure control or mA/KV adjustment according to patient size. FINDINGS: The liver, spleen, pancreas, adrenal and kidneys appear unremarkable. There is no evidence of diverticulitis. Sigmoidectomy. Resolution of abdominal lymphadenopathy Mild stranding persists within the mesentery IMPRESSION: No acute abnormality is displayed.
--- NOTE | 2019-03-18 13:50 | ER ---
Nurse's Notes [facility] Name: Marie Puri Age: 78 yrs Sex: Female : 1940 Arrival Date: 03/18/2019 Time: 10:15 Bed 8 Private MD: Diagnosis: Unspecified abdominal pain Presentation: 03/18 10:26 Presenting complaint: Patient states: LLQ PAIN AND URINARY FREQUENCY, H/O bp DIVERTICULITIS AND UTI. Transition of care: patient was not received from another setting of care. Onset of symptoms is unknown. Risk Assessment: Do you want to hurt yourself or someone else? Patient reports no desire to harm self or others. Initial Sepsis Screen: Does the patient meet any 2 criteria? No. Patient's initial sepsis screen is negative. Does the patient have a suspected source of infection? No. Patient's initial sepsis screen is negative. Care prior to arrival: None. 10:26 Method Of Arrival: Ambulatory bp 10:26 Acuity: ARGELIA 3 bp Triage Assessment: 10:27 General: Appears in no apparent distress. comfortable, Behavior is cooperative, bp appropriate for age, anxious. Pain: Complains of pain in abdomen. EENT: No deficits noted. Neuro: No deficits noted. Cardiovascular: No deficits noted. Respiratory: No deficits noted. GI: Reports lower abdominal pain. 10:29 : Reports urinary frequency. Derm: No deficits noted. Musculoskeletal: No deficits bp noted. Historical: - Allergies: 10:27 Morphine; bp 10:27 Phenergan; bp 10:27 Stadol; bp 10:27 Toprol XL; bp - Home Meds: 10:27 Unable to obtain [Active]; bp - PMHx: 10:27 Diabetes - IDDM; Diverticulitis; fatty liver; Hypothyroidism; Kidney stones; mitral bp valve prolapse; Pancreatitis; - Immunization history:: Adult Immunizations up to date. - Coronavirus screen:: The patient has NOT traveled to [place], [place], or [place] in the past 14 days. Proceed with normal triage process as indicated. The patient has NOT had contact with known/suspected case of Coronavirus? Proceed with normal triage procedures. - Social history:: Smoking status: Patient denies any tobacco usage or history of. - Ebola Screening: : No symptoms or risks identified at this time. Screenin:29 Abuse screen: Denies threats or abuse. Denies injuries from another. Nutritional bp screening: No deficits noted. Tuberculosis screening: No symptoms or risk factors identified. Fall Risk None identified. Assessment: 10:29 General: SEE TRIAGE NOTE. bp 11:40 Reassessment: PT RETURNED FROM CT. ALL CURRENT ORDERS COMPLETED. hb 13:48 Reassessment: PER PROVIDER, DISPO ON HOLD FOR FINAL LAB RESULTS. LAB CONTACTED FOR bp RESULTS. 14:27 Reassessment: PT D/C HOME AMBULATORY WITH FAMILY, DX WITH ABDOMINAL PAIN. bp Vital Signs: 10:27 BP 154 / 69; Pulse 64; Resp 19; Temp 98; Pulse Ox 100% ; Pain 4/10; bp 11:39 BP 117 / 57; Pulse 56; Resp 17; Pulse Ox 98% ; hb 12:39 BP 142 / 60; Pulse 66; Resp 19; Pulse Ox 99% ; bp 13:49 BP 130 / 59; Pulse 56; Resp 17; Temp 98; Pulse Ox 99% ; bp 14:27 BP 123 / 70; Pulse 57; Resp 17; Temp 98; Pulse Ox 100% ; bp ED Course: 10:15 Patient arrived in ED. as 10:18 Domingo Merrill, DAMASO is PHCP. pm1 10:18 Bright Pacheco MD is Attending Physician. pm1 10:20 Daniel Pastrana, ISAIAS is Primary Nurse. bp 10:27 Triage completed. bp 10:27 Arm band placed on. bp 10:29 Patient has correct armband on for positive identification. Bed in low position. Call bp light in reach. Side rails up X2. 10:31 Radiology exam delayed due to lab results not completed at this time. (BUN/Creatinine). mw3 10:50 Inserted saline lock: 20 gauge in right antecubital area, using aseptic technique. hb Blood collected. 11:04 Urine Microscopic Only Sent. bp 11:31 CT completed. Patient tolerated procedure well. Patient moved back from CT. bq 11:44 CT Abd/Pelvis - IV Contrast Only In Process Unspecified. EDMS 14:27 No provider procedures requiring assistance completed. IV discontinued, intact, bp bleeding controlled, No redness/swelling at site. Pressure dressing applied. Administered Medications: 10:40 Drug: NS 0.9% 1000 ml Route: IV; Rate: 1000 ml; Site: right antecubital; bp 14:29 Follow up: IV Status: Completed infusion; IV Intake: 1000ml bp Intake: 14:29 IV: 1000ml; Total: 1000ml. bp Outcome: 13:50 Discharge ordered by . pm1 14:27 Discharged to home ambulatory, with family. bp 14:27 Condition: stable 14:27 Discharge instructions given to patient, Instructed on discharge instructions, follow up and referral plans. medication usage, Demonstrated understanding of instructions, follow-up care, medications, Prescriptions given X 2. 14:30 Patient left the ED. bp Signatures: Dispatcher [employer] EDMS Liberty Costello Amelia as Marinas, Patrick, SAFETY OFFICER SAFETY OFFICER pm1 Amanda Evans, RN RN Daniel Laguna RN RN Verito Mccauley mw3
--- NOTE | 2019-03-18 13:50 | EDPHYS ---
Physician Documentation [facility] Name: Marie Puri Age: 78 yrs Sex: Female : 1940 Arrival Date: 03/18/2019 Time: 10:15 Bed 8 Private MD: ED Physician Bright Pacheco HPI: 03/18 10:37 This 78 yrs old Female presents to ER via Ambulatory with complaints of pm1 Abdominal Pain. 10:37 The patient presents with abdominal pain in the left lower quadrant. Onset: The pm1 symptoms/episode began/occurred yesterday. The symptoms do not radiate. Associated signs and symptoms: Pertinent positives: nausea, increased urinary frequency, elevated blood sugar readings, Pertinent negatives: chest pain, diarrhea, fever, headache, shortness of breath, vomiting. The symptoms are described as crampy, Bloated. Modifying factors: The symptoms are alleviated by nothing, the symptoms are aggravated by nothing. Severity of pain: in the emergency department the pain is a 4 / 10. The patient has experienced similar episodes in the past, a few times, today's symptoms are similar, to when the patient was apparently diagnosed with to clinical diagnosis of diverticulitis and urinary tract infections. The patient has not recently seen a physician, the patient's primary care provider is Dr. Tavares. Historical: - Allergies: 10:27 Morphine; bp 10:27 Phenergan; bp 10:27 Stadol; bp 10:27 Toprol XL; bp - Home Meds: 10:27 Unable to obtain [Active]; bp - PMHx: 10:27 Diabetes - IDDM; Diverticulitis; fatty liver; Hypothyroidism; Kidney stones; mitral bp valve prolapse; Pancreatitis; - Immunization history:: Adult Immunizations up to date. - Coronavirus screen:: The patient has NOT traveled to [place], [place], or [place] in the past 14 days. Proceed with normal triage process as indicated. The patient has NOT had contact with known/suspected case of Coronavirus? Proceed with normal triage procedures. - Social history:: Smoking status: Patient denies any tobacco usage or history of. - Ebola Screening: : No symptoms or risks identified at this time. ROS: 10:37 Constitutional: Negative for fever, chills, and weight loss, Cardiovascular: Negative pm1 for chest pain, palpitations, and edema, Respiratory: Negative for shortness of breath, cough, wheezing, and pleuritic chest pain. 10:37 Back: Negative for injury and pain. 10:37 MS/Extremity: Negative for injury and deformity, Skin: Negative for injury, rash, and discoloration, Neuro: Negative for headache, weakness, numbness, tingling, and seizure. 10:37 Abdomen/GI: Positive for abdominal pain, nausea, Negative for vomiting, diarrhea, constipation. 10:37 : Positive for urinary frequency, Negative for flank pain, burning with urination. 10:37 All other systems are negative. Exam: 10:37 Constitutional: This is a well developed, well nourished patient who is awake, alert, pm1 and in no acute distress. Head/Face: Normocephalic, atraumatic. Neck: Trachea midline, no thyromegaly or masses palpated, and no cervical lymphadenopathy. Supple, full range of motion without nuchal rigidity, or vertebral point tenderness. No Meningismus. Chest/axilla: Normal chest wall appearance and motion. Nontender with no deformity. No lesions are appreciated. Cardiovascular: Regular rate and rhythm with a normal S1 and S2. No gallops, murmurs, or rubs. No pulse deficits. Respiratory: Lungs have equal breath sounds bilaterally, clear to auscultation and percussion. No rales, rhonchi or wheezes noted. No increased work of breathing, no retractions or nasal flaring. Abdomen/GI: Soft, non-tender, with normal bowel sounds. No distension or tympany. No guarding or rebound. No evidence of tenderness throughout. Back: No spinal tenderness. No costovertebral tenderness. Full range of motion. Skin: Warm, dry with normal turgor. Normal color with no rashes, no lesions, and no evidence of cellulitis. MS/ Extremity: Pulses equal, no cyanosis. Neurovascular intact. Full, normal range of motion. 10:37 Neuro: Orientation: is normal, Motor: is normal, moves all fours. Vital Signs: 10:27 BP 154 / 69; Pulse 64; Resp 19; Temp 98; Pulse Ox 100% ; Pain 4/10; bp 11:39 BP 117 / 57; Pulse 56; Resp 17; Pulse Ox 98% ; hb 12:39 BP 142 / 60; Pulse 66; Resp 19; Pulse Ox 99% ; bp 13:49 BP 130 / 59; Pulse 56; Resp 17; Temp 98; Pulse Ox 99% ; bp 14:27 BP 123 / 70; Pulse 57; Resp 17; Temp 98; Pulse Ox 100% ; bp MDM: 10:19 Patient medically screened. pm1 10:34 ED course: Patient reports current pain 4/10. Patient denies nausea that was present pm1 yesterday. Refused pain and nausea medications offered in the ER. 10:34 Data reviewed: vital signs. Data interpreted: Pulse oximetry: on room air is 100 %. pm1 Interpretation: normal. 13:49 Counseling: I had a detailed discussion with the patient and/or guardian regarding: the pm1 historical points, exam findings, and any diagnostic results supporting the discharge/admit diagnosis, lab results, radiology results, the need for outpatient follow up, to return to the emergency department if symptoms worsen or persist or if there are any questions or concerns that arise at home. 13:49 Differential diagnosis: appendicitis, bowel obstruction, diverticulitis, Mesenteric pm1 ischemia or infarction, non-specific abd pain, pancreatitis, Pyelonephritis, urinary tract infection, Adhesions. 13:49 Special discussion: Based on the patient's Hx, exam, and Dx evaluation, there is no pm1 indication for emergent surgery or inpatient Tx. It is understood by the patient/guardian that if the Sx's persist or worsen they need to return immediately for re-evaluation. 13:49 Special discussion: I discussed with the patient/guardian in detail that at this point pm1 there is no indication for admission to the hospital. It is understood, however, that if the symptoms persist or worsen the patient needs to return immediately for re-evaluation. 03/18 10:26 Order name: Basic Metabolic Panel; Complete Time: 11:48 pm03/18 10:26 Order name: CBC with Diff; Complete Time: 11:02 pm03/18 10:26 Order name: Creatinine for Radiology; Complete Time: 11:48 pm03/18 10:26 Order name: Hepatic Function; Complete Time: 11:48 pm03/18 10:26 Order name: Lipase; Complete Time: 11:48 pm03/18 10:26 Order name: Urine Microscopic Only pm1 03/18 10:26 Order name: IV Saline Lock; Complete Time: 11:03 pm03/18 10:26 Order name: Labs collected and sent; Complete Time: 11:03 pm1 03/18 10:26 Order name: CT Abd/Pelvis - IV Contrast Only; Complete Time: 12:17 pm1 03/18 10:26 Order name: Urine Dipstick-Ancillary (obtain specimen); Complete Time: 10:37 pm1 03/18 10:45 Order name: Urine Microscopic Only EDMS Administered Medications: 10:40 Drug: NS 0.9% 1000 ml Route: IV; Rate: 1000 ml; Site: right antecubital; bp 14:29 Follow up: IV Status: Completed infusion; IV Intake: 1000ml bp Disposition: 15:03 Co-signature as Attending Physician, Bright Pacheco MD. rn Disposition: 03/18/19 13:50 Discharged to Home. Impression: Unspecified abdominal pain. - Condition is Stable. - Discharge Instructions: Abdominal Pain, Adult. - Prescriptions for Bentyl 20 mg Oral Tablet - take 1 tablet by ORAL route every 6 hours As needed; 20 tablet. Zofran 4 mg Oral Tablet - take 1 tablet by ORAL route every 12 hours As needed; 20 tablet. - Medication Reconciliation Form, Thank You Letter, Antibiotic Education, Prescription Opioid Use form. - Follow up: Emergency Department; When: As needed; Reason: Worsening of condition. Follow up: Private Physician; When: 2 - 3 days; Reason: Recheck today's complaints, Continuance of care, Re-evaluation by your physician. - Problem is new. - Symptoms have improved. Signatures: Dispatcher [employer] EDVT Bright Pacheco MD MD rn Marinas, Patrick, DAMASO HANG GLIDING INSTRUCTOR pm1 Daniel Pastrana RN RN bp Corrections: (The following items were deleted from the chart) 14:30 13:50 03/18/2019 13:50 Discharged to Home. Impression: Unspecified abdominal pain. bp Condition is Stable. Forms are Medication Reconciliation Form, Thank You Letter, Antibiotic Education, Prescription Opioid Use. Follow up: Emergency Department; When: As needed; Reason: Worsening of condition. Follow up: Private Physician; When: 2 - 3 days; Reason: Recheck today's complaints, Continuance of care, Re-evaluation by your physician. Problem is new. Symptoms have improved. pm1
[2019-03-18 14:48] VITALS: TEMP 98
[2019-03-18 14:53] VITALS: BP 123/70; O2SAT 100
== END 2019-03-18 14:30 | disposition home or self-care (01) ==
LOC: ER 10:14
DX: R10.32 Left lower quadrant pain (principal); Z88.5 Allergy status to narcotic agent; Z88.6 Allergy status to analgesic agent; Z88.8 Allergy status to other drugs, medicaments and biological substances
CPT/HCPCS: 96361; 85025; 80048; 36415; 80076; 81015; 83690; 74177; 96360; 99284; Q9967; J7030

== ENCOUNTER 2020-08-30 13:59 | Emergency (ER) | payer OTHER ==
--- OUTSIDE RECORDS SUMMARY | 2020-08-30 14:02 | XMS REPORT | Continuity of Care Document ---
:1940 Author Organization [facility] t Address [address] [place] [address] Care Team Providers Name Role Phone Unavailable Unavailable Unavailable Payers Payer Name Policy Type Policy Number Effective Date Expiration Date S ource Problems This patient has no known problems. Allergies, Adverse Reactions, Alerts Allergy Allergy Status Severity Reaction(s) Onset Inactive Treating Comm ents Source Name Type Date Date Clinician Beta-Blo DA Active 2017-02 [facility] ckers 02-23 (Beta-Ad 00:00: [address] morphine DA Active SV 2017-02 [facility] 02-23 00:00: [address] metoprol DA Active SV 2017-02 [facility] ol 02-23 00:00: [address] prometha DA Active SV 2017-02 [facility] zine 02-23 00:00: [address] butorpha DA Active SV 2017-02 [facility] nol 02-23 00:00: [address] Medications This patient has no known medications. Procedures This patient has no known procedures. Results Test Description Test Time Test Comments Results Result Comments Source BASIC METABOLIC PANEL 2018-05-17 09:20:00 Test Item Value Reference Range Interpretation Comme nts SODIUM (test code = NA) 140 MMOL/L 137-145 N POTASSIUM (test code = K) 4.2 MMOL/L 3.5-5.1 N CHLORIDE (test code = CL) 105 MMOL/L 98-107 N CARBON DIOXIDE (test code = CO2) 27 MMOL/L 22-30 N GLUCOSE (test code = GLU) 166 MG/DL 74-106 H BLOOD UREA NITROGEN (test code = 19 MG/DL 7-17 H BUN) GLOMERULAR FILTRATION RATE (test > 60 Reporting units: ml/min/1.73 code = GFR) m2 (Modified M DRD Formula)Referen ce Range: > or = 60 ml/min/1.7 3 m2 CREATININE (test code = CREAT) 0.90 MG/DL 0.52-1.04 N CALCIUM (test code = CA) 9.8 MG/DL 8.4-10.2 N [id number] 09:20:00 Test Item Value Reference Range Interpretation Comments MAGNESIUM (test code = MAG) 2.0 MG/DL 1.6-2.3 N PROTHROMBIN [id number] 09:17:00 Test Item Value Reference Range Interpretation Comments PROTHROMBIN TIME 10.2 SECONDS 9.6-11.6 N PATIENT (test code = PTP) INTERNATIONAL NORMAL 1.0 0.8-1.1 N The INR is to be RATIO (test code = used only for INR) monitoring oral anticoagulantth erap y. INDICATION I NR VALUE ---- ---- ---- -------1. Prophylaxis, de ep venous thrombos is, including hig h risk surgery. 2.0 - 3.0 2. Prophylaxis, de ep venous thrombos is, hip surgery, treatment for d eep venous thrombosis or pulmonary prevention of systemic emboli sm in patients wit h valvular heart disease, atrial fibrillation, tissue heart va lve, or acute myocar dial infarction. 2.0 - 3 .0 3. Mechanical prosthesis hear t valves, recurrent syste bebeto embolism. 3.0 - 4.5 PTT [id number] 09:17:00 Test Item Value Reference Range Interpretation Comments PTT ACTIVATED (test code = APTT) 29.1 SECONDS 22.0-33.0 N CBC W/AUTO [id number] 09:12:00 Test Item Value Reference Range Interpretation Comments WHITE BLOOD CELL (test code = 6.4 K/MM3 3.8-9.8 N WBC) RED BLOOD CELL (test code = 4.60 M/MM3 3.58-4.97 N RBC) HEMOGLOBIN (test code = HGB) 13.1 G/DL 11.2-14.9 N HEMATOCRIT (test code = HCT) 40.3 % 33.2-43.5 N MEAN CELL VOLUME (test code = 88 fL 80.7-99.1 N MCV) MEAN CELL HGB (test code = MCH) 28.5 pg 27.0-34.1 N MEAN CELL HGB CONCETRATION 32.5 % 32.2-35.7 N (test code = MCHC) RED CELL DISTRIBUTION WIDTH 13.2 % 12.1-15.2 N (test code = RDW) PLATELET COUNT (test code = 186 K/MM3 129-368 N PLT) MEAN PLATELET VOLUME (test code 10.3 fl 7.4-10.4 N = MPV) NEUTROPHIL % (test code = NT%) 66.3 % 43-75 N IMMATURE GRANULOCYTE % (test 0.3 % 0.0-2.0 N code = IG%) LYMPHOCYTE % (test code = LY%) 20.6 % 14-44 N MONOCYTE % (test code = MO%) 8.9 % 4-13 N EOSINOPHIL % (test code = EO%) 3.1 % 0-6 N BASOPHIL % (test code = BA%) 0.8 % 0-2 N NUCLEATED RBC % (test code = 0.0 % 0-1.0 N NRBC%) NEUTROPHIL # (test code = NT#) 4.24 K/mm3 2.0-7.6 N IMMATURE GRANULOCYTE # (test 0.02 x10 3/uL 0-0.03 N code = IG#) LYMPHOCYTE # (test code = LY#) 1.32 K/mm3 1.0-3.8 N MONOCYTE # (test code = MO#) 0.57 K/mm3 0.1-0.8 N EOSINOPHIL # (test code = EO#) 0.20 K/mm3 0.0-0.2 N BASOPHIL # (test code = BA#) 0.05 K/mm3 0.0-0.2 N NUCLEATED RBC # (test code = 0.00 K/mm3 0.0-0.1 N NRBC#) BASIC METABOLIC [id number] 13:19:00 Test Item Value Reference Range Interpretation Comments SODIUM (test code = 140 MMOL/L 137-145 N NA) POTASSIUM (test code = 4.8 MMOL/L 3.5-5.1 N K) CHLORIDE (test code = 105 MMOL/L 98-107 N CL) CARBON DIOXIDE (test 26 MMOL/L 22-30 N code = CO2) GLUCOSE (test code = 138 MG/DL 74-106 H GLU) BLOOD UREA NITROGEN 21 MG/DL 7-17 H (test code = BUN) GLOMERULAR FILTRATION > 60 Report ing units: RATE (test code = GFR) ml/mi n/1.73 m2 (Modified MDRD Formula)Referen ce Range: > or = 6 0 ml/min/1.73 m2 CREATININE (test code 0.80 MG/DL 0.52-1.04 N = CREAT) CALCIUM (test code = 10.3 MG/DL 8.4-10.2 H CA) [id number] 13:19:00 Test Item Value Reference Range Interpretation Comments MAGNESIUM (test code = MAG) 1.8 MG/DL 1.6-2.3 N PROTHROMBIN [id number] 13:08:00 Test Item Value Reference Range Interpretation Comments PROTHROMBIN TIME 10.4 SECONDS 9.6-11.6 N PATIENT (test code = PTP) INTERNATIONAL NORMAL 1.0 0.8-1.1 N The INR is to be RATIO (test code = used only for INR) monitoring oral anticoagulantth erap y. INDICATION I NR VALUE ---- ---- ---- -------1. Prophylaxis, de ep venous thrombos is, including hig h risk surgery. 2.0 - 3.0 2. Prophylaxis, de ep venous thrombos is, hip surgery, treatment for d eep venous thrombosis or pulmonary prevention of systemic emboli sm in patients wit h valvular heart disease, atrial fibrillation, tissue heart va lve, or acute myocar dial infarction. 2.0 - 3 .0 3. Mechanical prosthesis hear t valves, recurrent syste bebeto embolism. 3.0 - 4.5 CBC W/AUTO [id number] 12:57:00 Test Item Value Reference Range Interpretation Comments WHITE BLOOD CELL (test code = 6.8 K/MM3 3.8-9.8 N WBC) RED BLOOD CELL (test code = 4.53 M/MM3 3.58-4.97 N RBC) HEMOGLOBIN (test code = HGB) 12.9 G/DL 11.2-14.9 N HEMATOCRIT (test code = HCT) 39.5 % 33.2-43.5 N MEAN CELL VOLUME (test code = 87 fL 80.7-99.1 N MCV) MEAN CELL HGB (test code = MCH) 28.5 pg 27.0-34.1 N MEAN CELL HGB CONCETRATION 32.7 % 32.2-35.7 N (test code = MCHC) RED CELL DISTRIBUTION WIDTH 13.0 % 12.1-15.2 N (test code = RDW) PLATELET COUNT (test code = 195 K/MM3 129-368 N PLT) MEAN PLATELET VOLUME (test code 10.2 fl 7.4-10.4 N = MPV) NEUTROPHIL % (test code = NT%) 72.2 % 43-75 N IMMATURE GRANULOCYTE % (test 0.4 % 0.0-2.0 N code = IG%) LYMPHOCYTE % (test code = LY%) 17.5 % 14-44 N MONOCYTE % (test code = MO%) 8.0 % 4-13 N EOSINOPHIL % (test code = EO%) 1.3 % 0-6 N BASOPHIL % (test code = BA%) 0.6 % 0-2 N NUCLEATED RBC % (test code = 0.0 % 0-1.0 N NRBC%) NEUTROPHIL # (test code = NT#) 4.9 K/mm3 2.0-7.6 N IMMATURE GRANULOCYTE # (test 0.03 x10 3/uL 0-0.03 N code = IG#) LYMPHOCYTE # (test code = LY#) 1.2 K/mm3 1.0-3.8 N MONOCYTE # (test code = MO#) 0.54 K/mm3 0.1-0.8 N EOSINOPHIL # (test code = EO#) 0.1 K/mm3 0.0-0.2 N BASOPHIL # (test code = BA#) 0.04 K/mm3 0.0-0.2 N NUCLEATED RBC # (test code = 0.0 K/mm3 0.0-0.1 N NRBC#)
[2020-08-30 16:26] LABS: Urine Blood Negative (Negative); Urine Glucose Negative (Negative); Urine Protein Negative (Negative); Urine Specific Gravity 1.015 (1.005-1.030); Urine pH 7.5 (5.0-7.0)
[2020-08-30 17:09] LABS: Basophils % 0.7 % (0-1.3); Hematocrit 36.7 % (36.0-45.0); Lymphocytes % 17.8 % (15.3-44.8); MPV 8.4 fL (7.6-11.3); RBC Red Blood Cell Count 4.38 M/uL (3.86-4.86)
[2020-08-30 17:15] LABS: Albumin 3.6 g/dL (3.4-5.0); Bilirubin Direct 0.1 mg/dL (0-0.2); Bilirubin Total 0.5 mg/dL (0.2-1.0); Potassium 4.1 mmol/L (3.5-5.1); Protein, Total 7.6 g/dL (6.4-8.2)
--- NOTE | 2020-08-30 17:44 | ER ---
Nurse's Notes [facility] Name: Marie Puri Age: 79 yrs Sex: Female : 1940 Arrival Date: 08/30/2020 Time: 14:15 Bed 8 Private MD: Leonard Tavares V Diagnosis: Hyperglycemia, unspecified Presentation: 08/30 15:12 Chief complaint: Patient states: Blood sugar was 253 this morning. I had nausea, kg diarrhea, brain fog all starting about 10:00 am. I took 3 units of novolog flex pen and its gone back down and I feel better now. Blood sugar in triage is 105. Coronavirus screen: Client denies travel out of the [place] in the last 14 days. At this time, unable to obtain information related to travel outside the [place] At this time, the client does not indicate any symptoms associated with coronavirus-19. Ebola Screen: Patient negative for fever greater than or equal to 101.5 degrees Fahrenheit, and additional compatible Ebola Virus Disease symptoms Patient denies exposure to infectious person. Patient denies travel to an Ebola-affected area in the 21 days before illness onset. Initial Sepsis Screen: Does the patient meet any 2 criteria? No. Patient's initial sepsis screen is negative. Does the patient have a suspected source of infection? No. Patient's initial sepsis screen is negative. Risk Assessment: Do you want to hurt yourself or someone else? Patient reports no desire to harm self or others. Onset of symptoms was August 30, 2020. 15:12 Method Of Arrival: Ambulatory kg 15:12 Acuity: ARGELIA 3 kg Triage Assessment: 15:18 General: Appears Behavior is calm, cooperative, appropriate for age, quiet. Pain: kg Complains of pain in Generalized and joints and muscles. Historical: - Allergies: 15:18 Morphine; kg 15:18 Phenergan; kg 15:18 Stadol; kg 15:18 Toprol XL; kg 15:18 Albuterol; kg - PMHx: 15:18 Diabetes - IDDM; Diverticulitis; fatty liver; Hypothyroidism; Kidney stones; mitral kg valve prolapse; Pancreatitis; - PSHx: 15:18 Colonresection; kg - Immunization history:: Adult Immunizations up to date, Client reports receiving the 2nd dose of the Covid vaccine, Date received: April 2020. - Social history:: Smoking status: Patient denies any tobacco usage or history of. Screenin:23 Abuse screen: Denies threats or abuse. Denies injuries from another. Nutritional kg screening: No deficits noted. Tuberculosis screening: No symptoms or risk factors identified. Fall Risk None identified. No fall in past 12 months (0 pts). No secondary diagnosis (0 pts). IV access (20 points). Ambulatory Aid- None/Bed Rest/Nurse Assist (0 pts). Gait- Normal/Bed Rest/Wheelchair (0 pts) Mental Status- Oriented to own ability (0 pts). Total Dejesus Fall Scale indicates No Risk (0-24 pts). Assessment: 17:15 General: Appears in no apparent distress. comfortable, Behavior is calm, cooperative, ap3 appropriate for age, talkitive. General: Reports feeling ill for. Pain: Denies pain. Neuro: Level of Consciousness is awake, alert, obeys commands, Oriented to person, place, time, situation, Appropriate for age. Cardiovascular: Denies chest pain. Respiratory: Airway is patent Respiratory effort is even, unlabored, Respiratory pattern is regular, symmetrical. GI: Reports diarrhea, nausea, Patient currently denies vomiting. : No signs and/or symptoms were reported regarding the genitourinary system. EENT: No signs and/or symptoms were reported regarding the EENT system. Derm: No signs and/or symptoms reported regarding the dermatologic system. Vital Signs: 15:12 BP 143 / 60; Pulse 57; Resp 20; Temp 97.4(TE); Pulse Ox 100% on R/A; Weight 65.32 kg; kg Height 5 ft. 2 in. (157.48 cm); Pain 7/10; 17:14 BP 138 / 89; Pulse 84; Resp 17; Pulse Ox 98% on R/A; ap3 15:12 Body Mass Index 26.34 (65.32 kg, 157.48 cm) kg ED Course: 14:15 Patient arrived in ED. am2 14:15 Leonard Tavares MD is Private Physician. am2 15:18 Triage completed. kg 15:23 Patient has correct armband on for positive identification. kg 16:09 [facility] Saenz [facility]-C [facility] kb 16:09 Vitor So MD is Attending Physician. kb 16:16 Margarita Segura, RN is Primary Nurse. ap3 17:16 Arm band placed on right wrist. ap3 17:44 Acetone, Serum Sent. sv 17:53 IV discontinued, intact, bleeding controlled, No redness/swelling at site. Pressure dh3 dressing applied. 18:25 No provider procedures requiring assistance completed. ap3 18:26 IV discontinued. ap3 Administered Medications: No medications were administered Outcome: 17:44 Discharge ordered by MD. kb 18:26 Discharged to home ambulatory, with friend. ap3 18:26 Condition: good 18:26 Discharge instructions given to patient, Instructed on discharge instructions, follow up and referral plans. Demonstrated understanding of instructions, follow-up care. 18:26 Patient left the ED. ap3 Signatures: Sharona Saenz, ROUGHER OPERATOR-C ROUGHER OPERATOR-Shakira Hawthorne RN ISAIAS Margarita Franz am2 aRnda Alexander 3 Margarita Segura RN RN ap3 Stephani Garg RN RN kg
--- NOTE | 2020-08-30 17:44 | EDPHYS ---
Physician Documentation [facility] Name: Marie Puri Age: 79 yrs Sex: Female : 1940 Arrival Date: 08/30/2020 Time: 14:15 Bed 8 Private MD: Leonard Tavares V ED Physician Vitor So HPI: 08/30 18:24 This 79 yrs old Female presents to ER via Ambulatory with complaints of High kb Blood Sugar. 18:24 The patient or guardian reports hyperglycemia. Onset: The symptoms/episode kb began/occurred 3 week(s) ago. Associated signs and symptoms: Pertinent positives: diarrhea, nausea. Current symptoms: In the emergency department the patient's symptoms have resolved. The patient has experienced similar episodes in the past. The patient has not recently seen a physician. Patient reports episodes of nausea diarrhea malaise and weakness daily for 2 to 3 weeks. States normally associated with high blood sugar, sometimes low. Had symptoms today, Blood sugar read high, took insulin and sugar came back down to normal; symptoms resolved after that. States she googled her symptoms and read about ketoacidosis and was concerned that she had it so she came in to get checked. . Historical: - Allergies: 15:18 Morphine; kg 15:18 Phenergan; kg 15:18 Stadol; kg 15:18 Toprol XL; kg 15:18 Albuterol; kg - PMHx: 15:18 Diabetes - IDDM; Diverticulitis; fatty liver; Hypothyroidism; Kidney stones; mitral kg valve prolapse; Pancreatitis; - PSHx: 15:18 Colonresection; kg - Immunization history:: Adult Immunizations up to date, Client reports receiving the 2nd dose of the Covid vaccine, Date received: April 2020. - Social history:: Smoking status: Patient denies any tobacco usage or history of. ROS: 18:28 Cardiovascular: Negative for chest pain, palpitations, and edema, Respiratory: Negative kb for shortness of breath, cough, wheezing, and pleuritic chest pain. 18:28 Constitutional: Positive for malaise. 18:28 Abdomen/GI: Positive for nausea, diarrhea, Negative for abdominal pain. 18:28 All other systems are negative. Exam: 18:28 Constitutional: This is a well developed, well nourished patient who is awake, alert, kb and in no acute distress. Head/Face: Normocephalic, atraumatic. ENT: Moist Mucous membranes Cardiovascular: Regular rate and rhythm with a normal S1 and S2. No gallops, murmurs, or rubs. No pulse deficits. Respiratory: Respirations even and unlabored. No increased work of breathing, no retractions or nasal flaring. Abdomen/GI: Soft, non-tender. No distention Skin: Warm, dry with normal turgor. Normal color. MS/ Extremity: Pulses equal, no cyanosis. Neurovascular intact. Full, normal range of motion. Neuro: Awake and alert, GCS 15, oriented to person, place, time, and situation. Moves all extremities. Normal gait. Psych: Awake, alert, with orientation to person, place and time. Behavior, mood, and affect are within normal limits. Vital Signs: 15:12 BP 143 / 60; Pulse 57; Resp 20; Temp 97.4(TE); Pulse Ox 100% on R/A; Weight 65.32 kg; kg Height 5 ft. 2 in. (157.48 cm); Pain 7/10; 17:14 BP 138 / 89; Pulse 84; Resp 17; Pulse Ox 98% on R/A; ap3 15:12 Body Mass Index 26.34 (65.32 kg, 157.48 cm) kg MDM: 16:09 Patient medically screened. kb 18:27 Data reviewed: vital signs, nurses notes. Data interpreted: Pulse oximetry: on room air kb is 98 %. Interpretation: normal. Counseling: I had a detailed discussion with the patient and/or guardian regarding: the historical points, exam findings, and any diagnostic results supporting the discharge/admit diagnosis, lab results, the need for outpatient follow up, a family practitioner, to return to the emergency department if symptoms worsen or persist or if there are any questions or concerns that arise at home. 08/30 15:47 Order name: Glucose, Ancillary Testing; Complete Time: 16:09 EDMS 08/30 16:10 Order name: Basic Metabolic Panel; Complete Time: 17:38 kb 08/30 16:10 Order name: CBC with Diff; Complete Time: 17:38 kb 08/30 16:10 Order name: Hepatic Function; Complete Time: 17:38 kb 08/30 16:10 Order name: Lipase; Complete Time: 17:38 kb 08/30 16:15 Order name: Acetone, Serum kb 08/30 16:10 Order name: IV Saline Lock; Complete Time: 16:55 kb 08/30 16:10 Order name: Labs collected and sent; Complete Time: 16:55 kb 08/30 16:16 Order name: Acetone Level; Complete Time: 17:05 EDMS 08/30 16:17 Order name: Urine Dipstick-Ancillary (obtain specimen); Complete Time: 16:28 kb 08/30 16:26 Order name: Urine Dipstick-Ancillary; Complete Time: 16:29 EDMS Administered Medications: No medications were administered Disposition Summary: 08/30/20 17:44 Discharge Ordered Location: Home kb Condition: Stable kb Diagnosis - Hyperglycemia, unspecified kb Followup: kb - With: Emergency Department - When: As needed - Reason: Worsening of condition Followup: kb - With: Private Physician - When: 2 - 3 days - Reason: Recheck today's complaints, Continuance of care, Re-evaluation by your physician Discharge Instructions: - Discharge Summary Sheet kb - Hyperglycemia, [id number] kb Forms: - Medication Reconciliation Form kb - Thank You Letter kb - Antibiotic Education kb - Prescription Opioid Use kb Addendum: 09/01/2020 17:08 Co-signature as Attending Physician, Vitor So MD. m a2 Signatures: Dispatcher [employer] Sharona Villar, [employer]-C [employer]-Vitor Sommer MD MD ma2 Stephani Garg, RN RN kg
[2020-08-30 19:09] VITALS: TEMP 97.4
[2020-08-30 19:10] VITALS: BP 138/89; O2SAT 98
== END 2020-08-30 18:26 | disposition home or self-care (01) ==
LOC: ER 13:59
DX: E11.65 Type 2 diabetes mellitus with hyperglycemia (principal); Z88.5 Allergy status to narcotic agent; Z88.8 Allergy status to other drugs, medicaments and biological substances
CPT/HCPCS: 36415; 80048; 80076; 81003; 82010; 82947; 83690; 85025; 99283

== ENCOUNTER 2022-03-05 06:10 | Emergency (ER) | payer OTHER ==
--- OUTSIDE RECORDS SUMMARY | 2022-03-05 06:15 | XMS REPORT | Continuity of Care Document ---
:1940 Author Organization [facility] t Address [address] [place] [address] Care Team Providers Name Role Phone GIOVANNY MOSQUEDA Primary Care Physician Unavailable ANAMARIA WESLEY Attending Clinician Unavailable GEORGI Attending Clinician Unavailable Carol ESPARZA, Edward Hernadez Attending Clinician Unavailable MEREDITH BAE Attending Clinician Unavailable Jimi Spring MD Attending Clinician Meredith Bae MD Attending Clinician GEORGI Admitting Clinician Unavailable MEREDITH BAE Admitting Clinician Unavailable Meredith Bea MD Admitting Clinician Payers Payer Name Policy Type Policy Number Effective Date Expiration Date S anamaria MEDICARE PART A [id number] 2005 \\T\\ [id number] 00:00:00 MEDICAID OF [place] [id number] 2011 00:00:00 Problems Condition Condition Condition Status Onset Resolution Last Treating Co mments Source Name Details Category Date Date Treatment Clinician Date Chest Chest Disease Active 2022-0 Univers pain, pain, 7-06 ity of unspec[place] type d type 00 [facility] Branch Urinary Urinary Disease Active Univers tract tract 1-06 [place]y of infection, [place], [place] site site 00 Medical unspecifie unspecifie Br anch d d Primary Primary Disease Active Univers hypothyroi hypothyroi 3-08 it y of dism dism 00:00: [place] [facility] Left Left Disease Active Univers carotid carotid 3-08 ity of bruit bruit 00:00: [place] [facility] Obesity Obesity Disease Active Overview: Univ ers 6-04 Formattin ity of 00:00: g of this [place] note Medical might be Branch different from the original. 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 Utility Allergies, Adverse Reactions, Alerts Allergy Allergy Status Severity Reaction(s) Onset Inactive Treating Comm ents Source Name Type Date Date Clinician Beta-Blo DA Active 2017-02 [facility] ckers 02-23 (Beta-Ad 00:00: Onemo [facility] 00 [facility] morphine DA Active 2017-02 [facility] 02-23 00:00: [address] metoprol DA Active 2017-02 [facility] ol 02-23 00:00: [address] prometha DA Active 2017-02 [facility] zine 02-23 00:00: [address] butorpha DA Active 2017-02 [facility] nol 02-23 00:00: [address] Epinephr Propensi Active Palpitations 2011-02 Univers ine ty to 2-19 ity of adverse 00:00: [place] reaction 00 Medical s Branch Pentazoc Propensi Active Hallucinatio 2011-02 Univers ine ty to ns 2-19 ity of Lactate adverse 00:00: [place] reaction 00 Medical s Branch EPINEPHR DRUG Active Palpitations 2011-02 Un tay INE INGREDI 2-19 ity of 00:00: [place] 00 Medical Branch PENTAZOC DRUG Active Hallucinates 2011-02 Un tay INE INGREDI 2-19 ity of LACTATE 00:00: [place] 00 Medical Branch Butorpha Propensi Active Shortness of Can't Univers nol ty to Breath 4-14 breath ity of Tartrate adverse 00:00: [place] reaction 00 Medical s Branch BUTORPHA DRUG Active SOB Univers NOL INGREDI 4-14 ity of TARTRATE 00:00: [place] 00 Medical Branch Sitaglip Propensi Active Unknown - [place] Univers tin ty to See comments 4-14 ed and ity of adverse 00:00: dizzy [place] reaction 00 spells Medical s Branch Metformi Propensi Active Unknown - Severe Uni vers n ty to See comments 4-14 abdominal i ty of adverse 00:00: cramps,ga [place] reaction 00 s and Medical s nausea Branch Morphine Propensi Active Shortness of Can't Univers ty to Breath 4-14 breath ity of adverse 00:00: [place] reaction 00 Medical s Branch Prometha Propensi Active Unknown - Muscle Uni vers zine Hcl ty to See comments 4-14 spasms it y of adverse 00:00: [place] reaction 00 Medical s Branch Metoprol Propensi Active Shortness of Can't Univers ol ty to Breath 4-14 breath ity of Succinat adverse 00:00: [place] e reaction 00 Medical s Branch SITAGLIP DRUG Active Unknown-Cmnt Un tay TIN INGREDI 4-14 ity of 00:00: [place] 00 Medical Branch METFORMI DRUG Active Unknown-Cmnt Un tay N INGREDI 4-14 ity of 00:00: [place] 00 Medical Branch MORPHINE DRUG Active SOB Univers INGREDI 4-14 ity of 00:00: [place] 00 Medical Branch PROMETHA DRUG Active Unknown-Cmnt Un tay ZINE HCL INGREDI 4-14 ity of 00:00: [place] 00 Medical Branch METOPROL DRUG Active SOB Univers OL INGREDI 4-14 ity of SUCCINAT 00:00: [place] E 00 Medical Branch Social History Social Habit Start Date Stop Date Quantity Comments Source Exposure to 2021-08-04 2021-08-14 Not sure University SARS-CoV-2 00:00:00 00:29:00 [place] [facility] (event) Branch Alcohol intake 2021-08-14 2021-08-14 Current University of 00:00:00 00:00:00 non-drinker of [facility] alcohol Branch (finding) Sex Ass[birth year] At [birth year] Universit y of 00:00:00 00:00:00 [facility] Smoking Status Start Date Stop Date Source Never smoker [facility] [place] Medications Ordered Filled Start Stop Current Ordering Indication Dosage Frequency Signature Comments Components Source Medication Medication Date Date Medication? Clinician (SIG) Name Name enoxaparin Yes 40mg 40 mg, Unive rs (LOVENOX) 08-14 Subcutaneo ity of injection 22:00: [place], [place]ILY, [place] 40 mg 00 First dose Medical on Anai Branch 08/14/21 at 1700, Until Discontinu ed, Routine insulin Yes 5U 5 Units, Univer s glargine 08-14 Subcutaneo ity o f (LANTUS 14:00: us, DAILY, [place] U-100) 00 First dose Medical injection 5 on Anai Branch Units 08/14/21 at 0900, Until Discontinu ed, Routine MULTI-VITAM Yes alpha-amarilys Univers IN ORAL 08-14 c- 1 ity of 13:23: tablet [place] 21 daily Medical Branch ASPIRIN 81 Yes 1 daily Univ ers MG ORAL TAB 07 ity of 13:23: [place] [id number] Medical Branch bisoprolol Yes 2.5mg Take 2.5 Un tay (ZEBETA) 5 7-07 mg by ity of mg tablet 13:23: mouth 2 [place] 21 (two) Medical times Branch daily. Alpha Yes 1{tbl} Take 1 Tab Univ ers Lipoic Acid -07 by mouth ity of (THIOCTIC 13:23: daily. [place] ACID) 200 21 Medical mg Tab Branch TURMERIC Yes 400mg Take 400 Univ ers ROOT 7-07 mg by ity of EXTRACT 13:23: mouth [place] ORAL 21 daily. Medical Branch MULTI-VITAM Yes alpha-amarilys Univers IN ORAL - c- 1 ity of 13:23: tablet [place] 21 daily Medical Branch ASPIRIN 81 Yes 1 daily Univ ers MG ORAL TAB 7-07 ity of 13:23: [place] 21 Medical Branch bisoprolol 0 Yes 2.5mg Take 2.5 Un tay (ZEBETA) 5 7-07 mg by ity of mg tablet 13:23: mouth 2 [place] 21 (two) Medical times Branch daily. Alpha 2021-0 Yes 1{tbl} Take 1 Tab Univ ers Lipoic Acid 07 by mouth ity of (THIOCTIC 13:23: daily. [place] ACID) 200 21 Medical mg Tab Branch TURMERIC 0 Yes 400mg Take 400 Univ ers ROOT 7-07 mg by ity of EXTRACT 13:23: mouth [place] ORAL 21 daily. Medical Branch pantoprazol Yes 40mg 40 mg, Univ ers e 08-14 Slow IV ity of (PROTONIX) 13:00: Push, [place] injection 00 Q12H, Medical 40 mg First dose Branch on Anai 08/14/21 at 0800, Until Discontinu ed metoprolol Yes 25mg 25 mg, Unive rs tartrate 08-14 Oral, BID, ity o f (LOPRESSOR) 13:00: First dose [place] tablet 25 00 on Anai Medical mg 08/14/21 at Branch 0800, Until Discontinu ed Sliding 0 Yes Subcutaneo [facility] ers Scale 08-14 us, TID ity of Insulin - 13:00: MEALS, [place] Lispro 00 First dose Medical (HumaLOG) + on Anai Branch Fsbg 08/14/21 at Testing 0800, Until Discontinu ed, Routine magnesium 0 Yes 400mg 400 mg, Univ ers oxide 08-14 Oral, BID, ity of (MAG-OX 13:00: First [place] 400) tablet 00 on Anai Medica l 400 mg 08/14/21 at Branch 0800, Until Discontinu ed, Routine sucralfate 0 Yes 1g 1,000 mg Uni vers (CARAFATE) 08-14 (1 g), ity of 100 mg/mL 12:30: Oral, [place] suspension 00 AC+HS, Medical 1,000 mg First dose Branc h on Anai 08/14/21 at 0730, Until Discontinu ed, Routine levothyroxi 0 Yes 25ug 25 mcg, Uni vers ne 7-07 Oral, ity of (SYNTHROID) 11:00: QAM-0600, [place] tablet 25 00 First dose Medi favian mcg on Anai Branch 08/14/21 at 0600, Until Discontinu ed, Routine aspirin 0 Yes 81mg 81 mg, Univers chewable 08-14 Oral, QAM ity of tablet 81 11:00: WITH [place] mg 00 BREAKFAST, Medical First dose Branch on Anai 08/14/21 at 0600, Until Discontinu ed, Routine ondansetron 0 Yes 4mg 4 mg, Slow Univers (ZOFRAN 08-14 IV Push, ity of (PF)) 10:44: Q6HPRN, [place] injection 4 33 Starting Medi favian mg on Anai Branch 08/14/21 at 0544, Until Discontinu ed, Routine, Nausea and Vomiting (N/V) glucagon Yes 1mg 1 mg, Univers (GLUCAGEN 08-14 Intramuscu ity of DIAGNOSTIC 10:42: lar, PRN, [place] KIT) 49 Starting Medical injection 1 on Anai Branch mg 08/14/21 at 0542, Until Discontinu ed, ARMANDO, Blood Glucose < or = 70 mg/dL and patient is unable to swallow or has mental changes. dextrose 0 Yes 250mL 250 mL, IV Un tay 10% (D10W) 08-14 Infusion, ity of bolus 10:42: PRN - SEE [place] infusion 49 INSTRUCTIO Medic al 250 mL NS, Branch Administer over 60 Minutes, Other, If blood glucose is < or = 70 mg/dL and patient is unable to swallow or has mental status changes, Starting on Anai 08/14/21 at 0542
If blood glucose is < or = 70 mg/dL and patient is unable to swallow or has mental status changes (Give glucagon order if patient needs fluid restrictio n): IF IV access available: Dextrose 10%. 1. 125 mL (? bag) of D10W IV infusion - equivalent to 12.5 g dextrose 2. Blood glucose - draw blood glucose 15 minutes after D10W Administra tion. 3. If blood glucose is < 80 mg/dL, repeat.
aspirin [id number] No 324mg 324 mg, Unive rs chewable 08-14 Oral, ONCE ity of tablet 324 04:45: 03:38 NOW, 1 [place] mg 00 :00 dose, On Medical 08/13/21 Branch at 2345, Routine iopamidol 2021- No [id number] 80mL 80 mL, U nivers (ISOVUE 08-14 Intravenou ity o f 370-500 mL) 04:07: 04:07 s, ONCE, 1 [place] injection 00 :00 dose, On Medica l 80 mL 08/13/21 Branch at 2315, Routine pantoprazol 2021- No [id number] 40mg Take 1 Univers e 40 mg EC 08-14 tablet by ity of tablet 00:00: 04:59 mouth [place] 00 :00 daily for Medical 30 days. [place] pantoprazol 2021- No [id number] 40mg Take 1 Univers e 40 mg EC 08-14 tablet by ity of tablet 00:00: 04:59 mouth [place] 00 :00 daily for Medical 30 days. [place] LEVOTHYROXI Yes [id number] TAKE 1 Univers NE 25 mcg 6-13 TABLET BY ity o f tablet 00:00: MOUTH ONCE 00 DAILY IN [facility] THE [place] MORNING LEVOTHYROXI Yes [id number] TAKE 1 Univers NE 25 mcg 6-13 TABLET BY ity o f tablet 00:00: MOUTH ONCE [place] 00 DAILY IN [facility] THE [place] MORNING insulin Yes [id number] INJECT 5 U nivers aspart 2-20 UNITS ity of U-100 00:00: UNDER THE [place] (NOVOLOG 00 SKIN THREE Medic al FLEXPEN TIMES A Branch U-100 DAY BEFORE INSULIN) MEAL 100 unit/mL injection insulin Yes [id number] INJECT 5 U nivers aspart 2-20 UNITS ity of U-100 00:00: UNDER THE [place] (NOVOLOG 00 SKIN THREE Medic al FLEXPEN TIMES A Branch U-100 DAY BEFORE INSULIN) MEAL 100 unit/mL injection Insulin Yes QID, Univers [place], 7-05 DX:E11.9 ity of Disposable, 00:00: [place] (NOVOFINE 00 30) 30 Branch gauge x 1/3" Ndle Insulin 2017-0 Yes QID, Univers [place], 7-05 DX:E11.9 ity of Disposable, 00:00: [place] (NOVOFINE 00 Medical 30) 30 Branch gauge x 1/3" Ndle estradiol 2016-0 Yes 2g Insert 2 g Un tay (ESTRACE) 1-12 into ity of 0.01 % (0.1 00:00: vagina [place] mg/gram) 00 weekly. Medical vaginal Branch cream estradiol 2016-0 Yes 2g Insert 2 g Un tay (ESTRACE) 1-12 into ity of 0.01 % (0.1 00:00: vagina [place] mg/gram) 00 weekly. Medical vaginal Branch cream blood sugar Yes Use as Univ ers diagnostic 3-28 directed, ity of (ONETOUCH 00:00: TID, [place] VERIO) 00 DX:E11.9 Medical strip Branch lancets Yes Use as Univers (ONE TOUCH 3-28 directed, ity of DELICA) 33 00:00: TID, [place] gauge Misc 00 DX:E11.9 Medic al Branch blood sugar 0 Yes Use as Univ ers diagnostic 3-28 directed, ity of (ONETOUCH 00:00: TID, [place] VERIO) 00 DX:E11.9 Medical strip Branch lancets 0 Yes Use as Univers (ONE TOUCH 3-28 directed, ity of DELICA) 33 00:00: TID, [place] gauge Misc 00 DX:E11.9 Medic al Branch Vital Signs Vital Name Observation Time Observation Value Comments Source Systolic blood 2021-08-14 17:01:00 131 mm[Hg] Univer sity of pressure [facility] Diastolic blood 2021-08-14 17:01:00 66 mm[Hg] Unive rsity of pressure [facility] Heart rate 2021-08-14 17:01:00 55 /min General acute hospital Body temperature 2021-08-14 17:01:00 35.94 Lita [facility] Respiratory rate 2021-08-14 17:01:00 18 /min [facility] Oxygen saturation in 2021-08-14 17:01:00 95 /min [facility] Arterial blood by [facility] Pulse oximetry Branch Body weight 2021-08-14 09:22:00 65.998 kg General acute hospital BMI 2021-08-14 09:22:00 26.61 kg/m2 General acute hospital Body height 2021-08-14 05:27:00 157.5 cm General acute hospital Procedures Procedure Date / Time Performing Clinician Source Performed POCT GLUCOSE (AUTOMATED) 2021-08-14 17:01:00 Meredith Bae [facility] TRANSTHORACIC ECHO (TTE) 2021-08-14 15:00:00 Meredith Bae [facility] COMPLETE [facility] POCT GLUCOSE (AUTOMATED) 2021-08-14 13:04:00 Meredith Bae [facility] SODIUM, URINE RANDOM 2021-08-14 11:46:00 Meredith Bae [facility] PROTEIN CREAT RATIO 2021-08-14 11:46:00 Meredith Bae [facility] URINE RANDOM [facility] URINALYSIS 2021-08-14 09:54:00 Meredith Bae [facility] FREE T4 2021-08-14 09:53:00 Kindra Monzon [facility] acute hospital THYROID STIMULATING 2021-08-14 09:53:00 Meredith Bae [facility] HORMONE [facility] BASIC METABOLIC PANEL 2021-08-14 09:53:00 Meredith Bae [facility] (NA, K, CL, CO2, Medical Branch GLUCOSE, BUN, CREATININE, CA) LIPID PANEL 2021-08-14 09:53:00 Meredith Bae [facility] ([id number])(TOTAL Medical Branch CHOLESTEROL, TRIGLYCERIDES, HDL) PROTHROMBIN TIME / INR 2021-08-14 09:53:[address] [facility] N-TERMINAL PRO-BNP 2021-08-14 09:53:00 Meredith Bae [facility] FREE T3 2021-08-14 09:53:00 Kindra Monzon [facility] acute hospital PROCALCITONIN 2021-08-14 09:53:00 Meredith Bae [facility] MAGNESIUM 2021-08-14 09:53:00 Kathia, [facility] TROPONIN I 2021-08-14 09:53:00 Kathia margarita [facility] CT CHEST PULMONARY 2021-08-14 04:11:51 Jimi Spring [facility] ANGIOGRAM [facility] Branch COVID-19 (ID NOW RAPID 2021-08-14 03:56:00 Jimi Spring [facility] TESTING) Medical [place] COMP. METABOLIC PANEL 2021-08-14 03:38:00 Jimi Spring [facility] ([id number]) [facility] CBC WITH DIFF 2021-08-14 03:38:00 Clementine, [facility] GLYCOSYLATED HEMOGLOBIN 2021-08-14 03:38:00 Kathia [facility] (A1C) [facility] N-TERMINAL PRO-BNP 2021-08-14 03:38:00 ClementineJimi hernadez [facility] PHOSPHORUS 2021-08-14 03:38:00 Clementine, [facility] MAGNESIUM 2021-08-14 03:38:00 Clementine, [facility] TROPONIN I 2021-08-14 03:38:00 Clementine, [facility] HB ECG ROUTINE & RHYTHM 2021-08-14 03:28:10 Clementine [facility] STRIP [facility] Encounters Start End Encounter Admission Attending Care Care Encounter Source Date/Time Date/Time Type Type Clinicians Facility Department ID 2021-10-01 2021-10-01 Outpatient Lew WESLEY [facility] [id number] Univers 00:00:00 00:00:00 ANAMARIA ity [facility] 2021-09-04 2021-09-04 Outpatient TREVOR KELLER [address] [place] 00:00:00 00:00:00 HN [id number] da [facility] Outre h Program 2021-08-15 2021-08-15 Transition JASON Medina [id number] Univers 00:00:00 00:00:00 of Care Edward THOMPSON [id number] itRachel [id number] [facility] [id number] [facility] 403 Branch 2021-08-13 2021-08-14 Outpatient X KATHIA [facility] KHANH [id number] Univers 22:23:00 13:20:00 MEREDITH ity [facility] 2021-08-13 2021-08-14 Emergency Jimi Spring [facility] [id number] Univers 22:23:00 13:20:00 [id number] [id number] [facility] 081 Branch 2020-03-21 2020-03-21 Outpatient [facility] [id number] [facility] 00:00:00 00:00:00 Results Test Description Test Time Test Comments Results Result Comments Source Transthoracic echo (TTE) 2021-08-14 17:28:13 Test Item Value Reference Range Interpretation Comme nts Height (test code = 1438759881) in Weight (test code = 0753999927) lbs Systolic BP (test code = 4089907526) mmHg Diastolic BP (test code = 7917199650) mmHg Heart Rate (test code = 9129587196) bpm BSA (test code = 9636864154) 1.67 m2 LVOT diameter (test code = 9893862655) 2.01 cm LA size (test code = 6401123483) 3.6 cm Ao root annulus (test code = 2.37 cm 3508706634) Ao root diam (test code = 8259347184) 2.37 cm Aortic root (test code = 1204868954) 2.37 cm IVS (test code = 4420540276) 0.74 cm Interventricular Septum Diastolic 0.74 cm Thickness by 2D (test code = 0791291) LVIDD (test code = 7807805645) 4.10 cm EF(Teich) (test code = 8726063608) 58.50 % LVIDS (test code = 7799867542) 2.90 cm FS (test code = 7123841433) 31 % EF - 2D (test code = 36408496) 58.50 % LAV(MOD-sp4) (test code = 0120265177) 21.90 mL E wave decelartion time (test code = 0.23 s 2417172091) MV Peak A Jose (test code = 0736622748) 69.1 cm/s MV Peak E Jose (test code = 8037179006) 79.6 cm/s E/A ratio (test code = 1271256649) ratio MV E/e' septal (test code = 9579637154) 7.4 cm/s Tapse (test code = 3290634794) 2.40 cm LVOT stroke volume (test code = 75.50 cm3 3033466289) LVOT peak jose (test code = 7490477408) 104.9 cm/s LVOT mn grad (test code = 5633436990) mmHg AV LVOT peak gradient (test code = mmHg 0766630406) LVOT peak VTI (test code = 6803122424) 23.9 cm LV V1 mean (test code = 5751779508) 65.20 cm/s Aortic valve mean velocity (test code = 73.4 cm/s 7263143409) Ao peak jose (test code = 3183020039) 109.1 cm/s Ao VTI (test code = 9693514387) 23.8 cm AV area by cont VTI (test code = 3.2 cm2 5104888556) AV area peak jose (test code = 3.0 cm2 3896388261) Ao max PG (test code = 6132339766) 4.80 mm[Hg] AV peak gradient (test code = mmHg 6642868292) AV valve area (test code = 6728444393) 3.20 cm2 AV mean gradient (test code = mmHg 9345237243) TR Peak Jose (test code = 8929012542) 223.9 cm/s Triscuspid Valve Regurgitation Peak mmHg Gradient (test code = 5207987950) LA Volume Index (BP) (test code = 14.7 mL/m2 5140934497) LA volume (BP) (test code = 7941537905) 24.5 mL LAV(MOD-sp2) (test code = 6979938636) 27.00 mL Radiology Study observation (narrative) (test code = 63572-2) TAMI (test code = TAMI) ?Left?Ventricle: Left ventricle size is normal. Normal wall thickness. Normal wall motion. Normal systolic function with a visually estimated EF of 60 - 65%. Indeterminate diastolic func tion. ?Tricuspid?Valve: Right ventricular systolic pressure is normal. ?RA pressure is 0-5 mmHg. ?Right?Ventricle: Normal systolic function. [facility]14 17:04:45 Test Item Value Reference Range Interpretation Comments POCT GLU (test code = 5910802079) 137 mg/dL 70-110 H Lab Interpretation (test code = Abnormal 42239-7) [facility]-07 15:42:38 Test Item Value Reference Range Interpretation Comments Procalcitonin (test 0.02 ng/mL <0.07 code = 0916482764) TAMI (test code = TAMI) INTERPRETATION OF PROCALCITONIN RESULTS IN ADULTS >= 18 YEARS OF AGE Initiation and discontinuation of antibiotics on patients with suspected or confirmed Lower Respiratory Tract Infection in Adults >= 18 years of age. + +-------- --------+ + -----+|Procalcitonin |Interpretation ?|Antibiotic ? ? |Considerations ? |ng/mL ? | ?|recommendation | ? + +-------- --------+ + -----+| <0.1 ? | Bacterial ? ? ?| Strongly ? ? ?| ? | ?| infection very | discouraged ? | Overruling: ? | ?| unlikely ? ? ? | ? | ? Clinically unstable ? ? ? + +-------- --------+ + ? High risk for adverse ? ? | <0.25 ?| Bacterial ? ? ?| Discouraged ? | ? outcome ? | ?| infection ? ? ?| ? | ? SEE IMPORTANT NOTE ?| ?| unlikely ? ? ? | ? | ? + +-------- --------+ + -----+| >=0.25 ? ? ? | Bacterial ? ? ?| Encouraged ? ?| ? | ?| infection ? ? ?| ? | ? | ?| likely ? | ? | Consider treatment failure ?+ +------- ---------+ -+ if levels does not decrease | >0.5 ? | Bacterial ? ? ?| Strongly ? ? ?| appropriately ? | ?| infection very | encouraged ? ?| ? | ?| likely ? | ? | ? + +-------- --------+ + -----+ Discontinuation of antibiotics in high-acuity patients with suspected or confirmed sepsis in Adults >= 18 years of age. + +-------- --------+ + -----+|Procalcitonin |Interpretation ?|Antibiotic ? ? |Considerations ? |ng/mL ? | ?|recommendation | ? + +-------- --------+ + -----+| <0.25 ?| Bacterial ? ? ?| Strongly ? ? ?| ? | ?| infection very | discouraged ? | Overruling: ? | ?| unlikely ? ? ? | ? | ? Clinically unstable ? ? ? + +-------- --------+ + ? High risk for adverse ? ? | <0.5 or drop | Bacterial ? ? ?| Discouraged ? | ? outcome ? | >80% from ? ?| infection ? ? ?| ? | ? SEE IMPORTANT NOTE ?| highest PCT ?| unlikely ? ? ? | ? | ? | level ?| ?| ? | ? + +-------- --------+ + -----+| >=0.5 ?| Bacterial ? ? ?| Encouraged ? ?| ? | ?| infection ? ? ?| ? | ? | ?| likely ? | ? | Consider treatment failure ?+ +------- ---------+ -+ if levels does not decrease | >1.0 ? | Bacterial ? ? ?| Strongly ? ? ?| appropriately ? | ?| infection very | encouraged ? ?| ? | ?| likely ? | ? | ? + +-------- --------+ + -----+ Percentage of drop of Procalcitonin calculation for Discontinuation of antibiotics in high-acuity patients with suspected or confirmed sepsis in Adults >= 18 years of age. ? Procalcitonin highest{}-Procalcitonin current{}Delta Procalcitonin = x100% ? Procalcitonin current {} IMPORTANT NOTE: Procalcitonin may be elevated without bacterial infection by physiologic stress related to trauma, lawrence, chronic dialysis, metastatic cancer, surgery in the past seven days, malaria, some fungal infections, and some forms of vasculitis. The interpretation algorithm may not apply to patients with immunosuppression (equivalent of >10 mg of prednisone daily), HIV with CD4 cell count < 350 cells/mm3, active malignancy on systemic chemotherapy, solid organ transplant or hematopoietic stem cell transplantation, or hospital acquired pneumonia. Additionally, some clinical trials of procalcitonin have excluded patients with shock requiring vasopressor use, acute respiratory failure requiring mechanical ventilation, or those with known lung abscess/empyema. For further information please refer to:[email or web address] Lab Interpretation Normal (test code = 83287-3) [facility] [id number] 15:39:57 Test Item Value Reference Range Interpretation Comments FREE T3 (test code = 8780327758) 2.88 pg/mL 2.77-5.27 Lab Interpretation (test code = Normal 95937-4) [facility] [id number] 15:39:57 Test Item Value Reference Range Interpretation Comments FREE T4 (test code = See_Comment [Autom ated message] 0245278524) The system [employer] generated this result transmitted ref erence range: 0.78 - 2 .20 ng/dL:. The ref erence range was not u sed to interpret this result as normal/abnor mal. Lab Interpretation (test Normal code = 58316-4) [facility] GLUCOSE (AUTOMATED)2021-08-14 13:12:49 Test Item Value Reference Range Interpretation Comments POCT GLU (test code = 5337560081) 137 mg/dL 70-110 H Lab Interpretation (test code = Abnormal 28388-6) [facility] [id number] 12:18:53 Test Item Value Reference Range Interpretation Comments TSH (test code = See_Comment H [Automated message] [id number]) The system [employer] generated this result transmitted ref erence range: 0.45 - 4 .70 mIU/L. The refe rence range was not u sed to interpret this result as normal/abnor mal. Lab Interpretation (test Abnormal code = 84900-1) [facility]21)(TOTAL CHOLESTEROL, TRIGLYCERIDES, HDL)2021-08-14 11:48:08 Test Item Value Reference Range Interpretation Comments CHOL (test code = 180 mg/dL 120-200 6237980036) HDL (test code = 47 mg/dL >50 L 9539068523) HDLC RATIO (test code = See_Comment [Au tomated message] 6681955858) The system Fair[employer] generated this result transmit palma reference range : <=4.5. The refe rence range was not u sed to interpret th is result as normal/abnormal . TRIG (test code = 101 mg/dL 30-170 5980871773) LDL CHOL (test code = 113 mg/dL See_Comment [Auto mated message] 22342-5) The system [employer] generated this result transmit palma reference range : <=160. The refe rence range was not u sed to interpret th is result as normal/abnormal . VLDL (test code = 20 mg/dL 5-60 1066648266) Lab Interpretation (test Abnormal code = 18358-2) [facility]TR[facility] [id number] 11:17:30 Test Item Value Reference Interpretation Comments Range TROPONIN I (test 0.003 ng/mL See_Comment [Automated code = 8376945727) message] The system which generated this result transmitted reference range : <=0.034. The reference range was not used to interpret this result as normal/abnormal . TAMI (test code = Reference (Normal) TAMI) Range (defined by the 99th percentile reference limit): <= 0.034 ng/mL Note: Cardiac troponin begins to rise 3-4 hours after the onset of ischemia. Repeat in 4-6 hours if the sample was drawn within 3-4 hours of the onset of the symptom and found normal. Diagnosis of myocardial injury is made with acute changes in cTn concentrations with at least one serial sample above the 99th percentile upper reference limit (URL), taken together with the patient's clinical presentation. Biotin has been reported to cause a negative bias, interpret results relative to patient's use of biotin. Lab Interpretation Normal (test code = 10417-7) [facility] [id number] 11:13:08 Test Item Value Reference Range Interpretation Comments NT-proBNP (test code 225 pg/mL See_Comment [Autom ated = 4746232715) message] The system which generated this result transmitted reference range : <=450. The reference range was not used to interpret this result as normal/abnormal . TAMI (test code = TAMI) Biotin has been reported to cause a negative bias, interpret results relative to patient's use of biotin. Lab Interpretation Normal (test code = 71387-2) [facility]2022-07-07 10:54:42 Test Item Value Reference Range Interpretation Comments MAGNESIUM (test code = 7867376795) 1.9 mg/dL 1.7-2.4 Lab Interpretation (test code = Normal 93407-6) [facility]OL[facility] PAN[facility] (NA, K, CL, CO2, GLUCOSE, BUN, CREATININE, CA)2021-08-14 10:54:22 Test Item Value Reference Range Interpretation Comments NA (test code = 138 mmol/L 135-145 2823928983) K (test code = 4.1 mmol/L 3.5-5.0 8604217130) CL (test code = 104 mmol/L 98-108 8626740082) CO2 TOTAL (test code = 27 mmol/L 23-31 3309173092) AGAP (test code = 2-16 0216583293) BUN (test code = 16 mg/dL 7-23 6275222245) GLUCOSE (test code = 149 mg/dL 70-110 H 0117557663) CREATININE (test code = 0.84 mg/dL 0.50-1.04 0857610717) CALCIUM (test code = 9.4 mg/dL 8.6-10.6 9366042747) eGFR (test code = mL/min/1.73m2 6603526384) TAMI (test code = TAMI) Association of Glomerular Filtration Rate (GFR) and Staging of Kidney Disease* + --+ --+ ------+| GFR (mL/min/1.73 m2) ?| With Kidney Damage ?| ?Without Kidney Damage+ --------+ --------+ +| ?>90 ?| ?Stage one ?| ? Normal ?+ ---+ ---+ -------+| ?60-89 ?| ?Stage two ?| ? Decreased GFR ? + --+ --+ ------+| ?30-59 ?| ?Stage three ?| ? Stage three ? + --+ --+ ------+| ?15-29 ?| ?Stage four ? | ? Stage four ?+ ---+ ---+ -------+| ?<15 (or dialysis) ? ?| ?Stage five ? | ? Stage five ?+ ---+ ---+ -------+ *Each stage assumes the associated GFR level has been in effect for at least three months. ?Stages 1 to 5, with or without kidney disease, indicate chronic kidney disease. Notes: Determination of stages one and two (with eGFR >59mL/min/1.73 m2) requires estimation of kidney damage for at least three months as defined by structural or functional abnormalities of the kidney, manifested by either:Pathological abnormalities or Markers of kidney damage (including abnormalities in the composition of the blood or urine or abnormalities in imaging tests). Lab Interpretation Abnormal (test code = 77921-6) [facility] AreaProthrombin Time / [id number] 10:44:01 Test Item Value Reference Range Interpretation Comments PROTIME PATIENT (test See_Comment [Auto mated message] code = 5964-2) The system [employer] generated this result transmitted ref erence range: 12.0 - 1 4.7 Seconds. The re ference range was not u sed to interpret this result as normal/abnor mal. INR (test code = 6301-6) Nor mal INR <1.1; Warfarin Therap eutic range 2.0 to 3. 0 or 2.5 to 3.5, dep ending upon the indica tions. Lab Interpretation (test Normal code = 08678-4) [facility] AreaGLYCOSYLATED HEMOGLOBIN (A1C)2021-08-14 10:13:38 Test Item Value Reference Range Interpretation Comments HGB A1C (test code = 7.8 % 4.0-5.7 H 4548-4) TAMI (test code = TAMI) Reference RangesNormal: <5.7%Prediabetes: 5.7 - 6.4%Diabetes: > 6.5% Lab Interpretation (test Abnormal code = 26418-0) [facility] AreaTR[facility]IN [id number] 04:14:57 Test Item Value Reference Interpretation Comments Range TROPONIN I (test 0.001 ng/mL See_Comment [Automated code = 2509648948) message] The system which generated this result transmitted reference range : <=0.034. The reference range was not used to interpret this result as normal/abnormal . TAMI (test code = Reference (Normal) TAMI) Range (defined by the 99th percentile reference limit): <= 0.034 ng/mL Note: Cardiac troponin begins to rise 3-4 hours after the onset of ischemia. Repeat in 4-6 hours if the sample was drawn within 3-4 hours of the onset of the symptom and found normal. Diagnosis of myocardial injury is made with acute changes in cTn concentrations with at least one serial sample above the 99th percentile upper reference limit (URL), taken together with the patient's clinical presentation. Biotin has been reported to cause a negative bias, interpret results relative to patient's use of biotin. Lab Interpretation Normal (test code = 12866-0) [facility] [id number] 04:11:41 Test Item Value Reference Range Interpretation Comments NT-proBNP (test code 192 pg/mL See_Comment [Autom ated = 9312311413) message] The system which generated this result transmitted reference range : <=450. The reference range was not used to interpret this result as normal/abnormal . TAMI (test code = TAMI) Biotin has been reported to cause a negative bias, interpret results relative to patient's use of biotin. Lab Interpretation Normal (test code = 99296-8) [facility]2022-07-07 04:03:40 Test Item Value Reference Range Interpretation Comments MAGNESIUM (test code = 5337357388) 1.8 mg/dL 1.7-2.4 Lab Interpretation (test code = Normal 26351-3) [facility] AreaCOMP. METABOLIC PANEL (55456)2021-08-14 04:03:20 Test Item Value Reference Range Interpretation Comments NA (test code = 138 mmol/L 135-145 0544287607) K (test code = 4.2 mmol/L 3.5-5.0 0816765627) CL (test code = 102 mmol/L 98-108 2585057760) CO2 TOTAL (test code = 27 mmol/L 23-31 0833321175) AGAP (test code = 2-16 8817225189) BUN (test code = 18 mg/dL 7-23 0518159440) GLUCOSE (test code = 207 mg/dL 70-110 H 0764591883) CREATININE (test code = 0.88 mg/dL 0.50-1.04 0312683229) TOTAL BILI (test code = 0.6 mg/dL 0.1-1.9 7494595635) CALCIUM (test code = 9.7 mg/dL 8.6-10.6 8890255823) T PROTEIN (test code = 7.1 g/dL 6.3-8.2 0652861945) ALBUMIN (test code = 4.3 g/dL 3.5-5.0 0047247066) ALK PHOS (test code = 77 U/L 34-122 3206537661) ALTv (test code = 21 U/L 5-35 1742-6) AST(SGOT) (test code = 29 U/L 13-40 7601967510) eGFR (test code = mL/min/1.73m2 1367282558) TAMI (test code = TAMI) Association of Glomerular Filtration Rate (GFR) and Staging of Kidney Disease* + --+ --+ ------+| GFR (mL/min/1.73 m2) ?| With Kidney Damage ?| ?Without Kidney Damage+ --------+ --------+ +| ?>90 ?| ?Stage one ?| ? Normal ?+ ---+ ---+ -------+| ?60-89 ?| ?Stage two ?| ? Decreased GFR ? + --+ --+ ------+| ?30-59 ?| ?Stage three ?| ? Stage three ? + --+ --+ ------+| ?15-29 ?| ?Stage four ? | ? Stage four ?+ ---+ ---+ -------+| ?<15 (or dialysis) ? ?| ?Stage five ? | ? Stage five ?+ ---+ ---+ -------+ *Each stage assumes the associated GFR level has been in effect for at least three months. ?Stages 1 to 5, with or without kidney disease, indicate chronic kidney disease. Notes: Determination of stages one and two (with eGFR >59mL/min/1.73 m2) requires estimation of kidney damage for at least three months as defined by structural or functional abnormalities of the kidney, manifested by either:Pathological abnormalities or Markers of kidney damage (including abnormalities in the composition of the blood or urine or abnormalities in imaging tests). Lab Interpretation Abnormal (test code = 24373-2) [facility]OSPH[facility]2022-[facility]-07 04:03:20 Test Item Value Reference Range Interpretation Comments PHOSPHORUS (test code = 0499225920) 3.3 mg/dL 2.5-5.0 Lab Interpretation (test code = Normal 51590-1) [facility] WITH [id number] 03:51:16 Test Item Value Reference Range Interpretation Comments WBC (test code = See_Comment [Automated message] 6690-2) The system [employer] generated this result transmitted ref erence range: 4.30 - 1 1.10 10*3/?L. The re ference range was not u sed to interpret this result as normal/abnor mal. RBC (test code = See_Comment [Automated message] 789-8) The system [employer] generated this result transmitted ref erence range: 3.93 - 5 .25 10*6/?L. The re ference range was not u sed to interpret this result as normal/abnor mal. HGB (test code = 12.2 g/dL 11.6-15.0 718-7) HCT (test code = 37.0 % 35.7-45.2 4544-3) MCV (test code = 85.3 fL 80.6-95.5 787-2) MCH (test code = 28.1 pg 25.9-32.8 785-6) MCHC (test code = 33.0 g/dL 31.6-35.1 786-4) RDW-SD (test code 41.0 fL 39.0-49.9 = 16904-3) RDW-CV (test code 13.0 % 12.0-15.5 = 788-0) PLT (test code = See_Comment [Automated message] 777-3) The system whic h generated this result transmitted ref erence range: 166 - 35 8 10*3/?L. The re ference range was not u sed to interpret this result as normal/abnor mal. MPV (test code = 9.9 fL 9.5-12.9 23736-1) NRBC/100 WBC (test See_Comment [Automat ed message] code = 7086339253) The syste m which generated this result transmitted ref erence range: 0.0 - 10 .0 /100 WBCs. The refer ence range was not u sed to interpret this result as normal/abnor mal. NRBC x10^3 (test <0.01 See_Comment [Automated message] code = 1777890358) The syste m which generated this result transmitted ref erence range: 10*3/?L. The reference range was not used to interpr et this result as normal/abnormal . GRAN MAT (NEUT) % 62.2 % (test code = 770-8) IMM GRAN % (test 0.30 % code = 1515019985) LYMPH % (test code 21.3 % = 736-9) MONO % (test code 11.8 % = 5905-5) EOS % (test code = 3.4 % 713-8) BASO % (test code 1.0 % = 706-2) GRAN MAT 4.33 10*3/uL 1.88-7.09 x10^3(ANC) (test code = 1505409910) IMM GRAN x10^3 <0.03 0.00-0.06 (test code = 0303290223) LYMPH x10^3 (test 1.48 10*3/uL 1.32-3.29 code = 731-0) MONO x10^3 (test 0.82 10*3/uL 0.33-0.92 code = 742-7) EOS x10^3 (test 0.24 10*3/uL 0.03-0.39 code = 711-2) BASO x10^3 (test 0.07 10*3/uL 0.01-0.07 code = 704-7) [facility]OL[facility] [id number] 09:20:00 Test Item Value Reference Range Interpretation Comments SODIUM (test code = 140 MMOL/L 137-145 N NA) POTASSIUM (test code = 4.2 MMOL/L 3.5-5.1 N K) CHLORIDE (test code = 105 MMOL/L 98-107 N CL) CARBON DIOXIDE (test 27 MMOL/L 22-30 N code = CO2) GLUCOSE (test code = 166 MG/DL 74-106 H GLU) BLOOD UREA NITROGEN 19 MG/DL 7-17 H (test code = BUN) GLOMERULAR FILTRATION > 60 Report ing units: RATE (test code = GFR) ml/mi n/1.73 m2 (Modified MDRD Formula)Referen ce Range: > or = 6 0 ml/min/1.73 m2 CREATININE (test code 0.90 MG/DL 0.52-1.04 N = CREAT) CALCIUM (test code = 9.8 MG/DL 8.4-10.2 N CA) [id number] 09:20:00 Test Item Value Reference Range Interpretation Comments MAGNESIUM (test code = MAG) 2.0 MG/DL 1.6-2.3 N PROTHROMBIN [id number] 09:17:00 Test Item Value Reference Range Interpretation Comments PROTHROMBIN TIME 10.2 SECONDS 9.6-11.6 N PATIENT (test code = PTP) INTERNATIONAL NORMAL 1.0 0.8-1.1 N The INR is to be RATIO (test code = used only for INR) monitoring oral anticoagulantth erap y. INDICATION I NR VALUE ---- ---- ---- -------1. Prophylaxis, de ep venous thrombos is, including high risk surgery. 2.0 - 3.0 2. Prophylaxis, deep venous thrombosis, hip surgery, treatm ent for deep venous thrombosis or pulmonary prevention of systemic emboli sm in patients wit h valvular heart disease, atrial fibrillation, tissue heart va lve, or acute myocar dial infarction. 2.0 - 3.0 3. Watch Electrician al prosthesis hear t valves, recurre nt systemic emboli sm. 3.0 - 4.5 PTT [id number] 09:17:00 Test Item Value Reference Range Interpretation Comments PTT ACTIVATED (test code = APTT) 29.1 SECONDS 22.0-33.0 N CBC W/AUTO [id number] 09:12:00 Test Item Value Reference Range Interpretation [...] 0.00 K/mm3 0.0-0.1 N NRBC#) BASIC METABOLIC [id number] 13:19:00 Test Item Value Reference Range Interpretation [...] code = 10.3 MG/DL 8.4-10.2 H CA) [id number] 13:19:00 Test Item Value Reference Range Interpretation Comments MAGNESIUM (test code = MAG) 1.8 MG/DL 1.6-2.3 N PROTHROMBIN [id number] 13:08:00 Test Item Value Reference Range Interpretation Comments PROTHROMBIN TIME 10.4 SECONDS 9.6-11.6 N PATIENT (test code = PTP) INTERNATIONAL NORMAL 1.0 0.8-1.1 N The INR is to be RATIO (test code = used only for INR) monitoring oral anticoagulantth erap y. INDICATION I NR VALUE ---- ---- ---- -------1. Prophylaxis, de ep venous thrombos is, including high risk surgery. 2.0 - 3.0 2. Prophylaxis, deep venous thrombosis, hip surgery, treatm ent for deep venous thrombosis or pulmonary prevention of systemic emboli sm in patients wit h valvular heart disease, atrial fibrillation, tissue heart va lve, or acute myocar dial infarction. 2.0 - 3.0 3. Watch Electrician al prosthesis hear t valves, recurre nt systemic emboli sm. 3.0 - 4.5 CBC W/AUTO [id number] 12:57:00 Test Item Value Reference Range Interpretation [...]
[2022-03-05 06:56] LABS: Absolute Lymphocytes (CBC) 1.2 K/uL (0.7-4.9); Hematocrit 36.8 % (36.0-45.0); Lymphocytes % 17.6 % (15.3-44.8); MCV 84.3 fL (80-100); MPV 7.9 fL (7.6-11.3); RBC Red Blood Cell Count 4.37 M/uL (3.86-4.86)
[2022-03-05 07:13] LABS: Troponin High Sensitivity 10.8 pg/mL (<58.9)
[2022-03-05 07:18] LABS: Potassium 4.3 mmol/L (3.5-5.1)
[2022-03-05] MEDS ORDERED: ONDANSETRON 4 MG/2 ML VIAL ONE (07:58)
[2022-03-05] MEDS ORDERED: NITROGLYCERIN 0.4 MG/TAB SL ONE (07:58)
--- NOTE | 2022-03-05 08:47 | RAD REPORT ---
EXAM DESCRIPTION: RAD - Chest Single View - 03/05/2022 7:01 am CLINICAL HISTORY: CHEST PAIN Chest pain. COMPARISON: Chest Pa And Lat (2 Views) dated 11/09/2017; Chest Single View dated 10/28/2017; Chest Pa And Lat (2 Views) dated 07/13/2017; Chest Single View dated 05/05/2017 FINDINGS: Portable technique limits examination quality. The lungs are grossly clear. The heart is normal in size. No displaced fractures. IMPRESSION: No acute intrathoracic process suspected.
--- NOTE | 2022-03-05 09:54 | ER ---
[facility]: Marie Puri Age: 81 yrs Sex: Female : 1940 Arrival Date: 03/05/2022 Time: 06:19 Bed 8 Private MD: Diagnosis: Chest pain, unspecified Presentation: 03/05 06:19 Chief complaint: EMS states: She woke up around 5 am this morning to go to the bathroom kd3 and she started having chest pressure that caused her to "feel a little faint". Pt did not fall or loose consciousness. On arrival pt blood pressure was 182/92. pt was given nitro and aspirin in route and pt states that her symptoms improved with the medications. Ebola Screen: No symptoms or risks identified at this time. Risk Assessment: Do you want to hurt yourself or someone else? Patient reports no desire to harm self or others. Onset of symptoms was March 05, 2022. 06:19 Method Of Arrival: EMS: [facility] kd3 06:19 Acuity: ARGELIA 3 kd3 06:30 Coronavirus screen: Vaccine status: Patient reports receiving the 2nd dose of the covid kd3 vaccine. moderna. Initial Sepsis Screen: Does the patient meet any 2 criteria? No. Patient's initial sepsis screen is negative. Does the patient have a suspected source of infection? No. Patient's initial sepsis screen is negative. Triage Assessment: 06:23 General: Appears in no apparent distress. Behavior is calm, cooperative. Pain: kd3 Complains of pain in chest and left upper quadrant. Neuro: Level of Consciousness is awake, alert, obeys commands, Oriented to person, place, time, situation. Cardiovascular: Patient's skin is warm and dry. Respiratory: Airway is patent Trachea midline Respiratory effort is even, unlabored, Respiratory pattern is regular, symmetrical. Historical: - Allergies: 06:23 Albuterol; kd3 06:23 Morphine; kd3 06:23 Phenergan; kd3 06:23 Stadol; kd3 06:23 Toprol XL; kd3 - Home Meds: 06:23 levothyroxine 25 mcg tab 1 tab once daily [Active]; bisoprolol fumarate 5 mg oral tab 1 kd3 tab 1/2 in the morning and 1/2 at night [Active]; Starlix 60 mg Oral tab 0.5 tab 3 times per day [Active]; Protonix 40 mg Oral TbEC 1 tab every other day [Active]; Zofran 4 mg Oral tab 1 tab 3 times per day for as needed [Active]; [place]-3 oral cap daily [Active]; CoQ-10 30 mg oral cap daily [Active]; Benadryl Oral prn at night for sleep [Active]; Novolog Sub-Q [Active]; - PMHx: 06:23 Diabetes - IDDM; Diverticulitis; fatty liver; Kidney stones; mitral valve prolapse; kd3 Pancreatitis; Hypothyroidism; - PSHx: 06:23 Colonresection; kd3 - Immunization history:: Adult Immunizations up to date. - Social history:: Smoking status: unknown. Screenin:50 [facility] ED Fall Risk Assessment (Adult) History of falling in the last 3 months, kl including since admission No falls in past 3 months (0 pts) Confusion or Disorientation No (0 pts) Intoxicated or Sedated No (0 pts) Impaired Gait No (0 pts) Mobility Assist Device Used No (0 pt) Altered Elimination No (0 pt) Score/Fall Risk Level 0 - 2 = Low Risk Oriented to surroundings, Maintained a safe environment. Abuse screen: Denies threats or abuse. Nutritional screening: No deficits noted. Tuberculosis screening: No symptoms or risk factors identified. Assessment: 06:49 General: Appears distressed, Behavior is anxious. Pain: Denies pain. Neuro: No deficits kl noted. Level of Consciousness is awake, alert, obeys commands, Oriented to person, place, time, situation, Gang Supervisor Pipe Lines are equal bilaterally Moves all extremities. Gait is steady, Speech is normal, Facial symmetry appears normal. Cardiovascular: Heart tones S1 S2 Rhythm is sinus bradycardia. Respiratory: No deficits noted. Airway is patent Trachea midline Respiratory effort is even, unlabored. GI: No deficits noted. No signs and/or symptoms were reported involving the gastrointestinal system. : No deficits noted. No signs and/or symptoms were reported regarding the genitourinary system. EENT: No deficits noted. No signs and/or symptoms were reported regarding the EENT system. Derm: No deficits noted. No signs and/or symptoms reported regarding the dermatologic system. 08:01 Reassessment: Pt reported burning feeling in chest/abdomen followed by heavy pressure ld1 in chest. Notified ERP. See MAR for orders. 2 repeat EKG's completed at bedside with ERP. Vital Signs: 06:30 BP 126 / 69; Pulse 51; Resp 19; Temp 98.3(O); Pulse Ox 98% on R/A; kd3 06:38 Weight 64.86 kg; Height 5 ft. 2 in. (157.48 cm); kd3 07:18 BP 123 / 57; Pulse 49; Resp 18; Pulse Ox 99% on R/A; ld1 08:02 BP 135 / 64; Pulse 60; Resp 20; Pulse Ox 95% on R/A; Pain 8/10; ld1 09:50 BP 121 / 57; Pulse 53; Resp 18; Pulse Ox 100% on R/A; Pain 3/10; ld1 06:38 Body Mass Index 26.15 (64.86 kg, 157.48 cm) kd3 ED Course: 06:19 Patient arrived in ED. kd3 06:21 Gaston Troncoso MD is Attending Physician. bs3 06:23 Triage completed. kd3 06:23 Arm band placed on right wrist. kd3 06:50 EKG completed in triage. Results shown to MD. kl 07:03 XRAY Chest (1 view) In Process Unspecified. EDMS 07:10 Attending Physician role handed off by Gaston Troncoso MD jr11 07:10 Dhruv Moctezuma MD is Attending Physician. jr11 07:18 Chantel Sharp, ISAIAS is Primary Nurse. ld1 10:14 Patient has correct armband on for positive identification. Placed in gown. Bed in low ld1 position. Call light in reach. Side rails up X2. quilt maker on. Pulse ox on. NIBP on. Door closed. Noise minimized. Warm blanket given. 10:14 No provider procedures requiring assistance completed. IV discontinued, intact, ld1 bleeding controlled, No redness/swelling at site. Administered Medications: 08:01 Drug: Zofran (Ondansetron) 4 mg Route: IVP; Site: right antecubital; ld1 08:38 Follow up: Response: No adverse reaction; Nausea is decreased ld1 08:01 Drug: Nitrostat (nitroglycerin) 0.4 mg Route: Sublingual; ld1 08:08 Drug: Nitrostat (nitroglycerin) 0.4 mg Route: Sublingual; ld1 08:38 Follow up: Response: No adverse reaction; Pain is decreased ld1 Medication: 10:14 VIS not applicable for this client. ld1 Outcome: 09:53 Discharge ordered by . tyler 10:14 Discharged to home ambulatory. ld1 10:14 Condition: stable 10:14 Discharge instructions given to patient, Instructed on discharge instructions, follow up and referral plans. Demonstrated understanding of instructions, follow-up care. 10:14 Patient left the ED. ld1 Signatures: Dispatcher [employer] EDAbida Reilly RN RN kl Chantel Sharp RN RN ld1 Michelle Mulligan RN RN kd3 Dhruv Moctezuma MD MD jr11 Gaston Troncoso MD MD bs3
--- NOTE | 2022-03-05 09:54 | EDPHYS ---
Physician Documentation [facility] Name: Marie Puri Age: 81 yrs Sex: Female : 1940 Arrival Date: 03/05/2022 Time: 06:19 Bed 8 Private MD: MERISSA Physician Dhruv Moctezuma HPI: 03/05 06:35 This 81 yrs old Female presents to ER via EMS with complaints of weakness, bs3 chest pain. 06:50 She reports a history of SVT status post 2 ablations, hypertension, diabetes chronic bs3 abdominal pain with a negative work-up in the past who presents with an episode of chest discomfort, abdominal discomfort and feeling of fogginess. It started suddenly today after going to the bathroom prior to arrival she notes that she went to urinate and then tried to have a bowel movement but was unable to she got up and felt fine she walked to her bed she sat down and then developed the symptoms she noted a fogginess without any associated numbness tingling or weakness, a vague left-sided chest discomfort abdominal discomfort EMS was called for EMS they performed an EKG which was normal they checked her glucose which was normal they gave her aspirin and nitroglycerin she now notes that she feels well. She notes similar symptoms happened in August for which she went to the hospital but had a negative work-up. She did have a sensation that she could not catch her breath when this was going on but now denies that symptom and feels like she is at her baseline she felt like she was going to pass out but did not actually pass out. Historical: - Allergies: 06:23 Albuterol; kd3 06:23 Morphine; kd3 06:23 Phenergan; kd3 06:23 Stadol; kd3 06:23 Toprol XL; kd3 - Home Meds: 06:23 levothyroxine 25 mcg tab 1 tab once daily [Active]; bisoprolol fumarate 5 mg oral tab 1 kd3 tab 1/2 in the morning and 1/2 at night [Active]; Starlix 60 mg Oral tab 0.5 tab 3 times per day [Active]; Protonix 40 mg Oral TbEC 1 tab every other day [Active]; Zofran 4 mg Oral tab 1 tab 3 times per day for as needed [Active]; Wann-3 oral cap daily [Active]; CoQ-10 30 mg oral cap daily [Active]; Benadryl Oral prn at night for sleep [Active]; Novolog Sub-Q [Active]; - PMHx: 06:23 Diabetes - IDDM; Diverticulitis; fatty liver; Kidney stones; mitral valve prolapse; kd3 Pancreatitis; Hypothyroidism; - PSHx: 06:23 Colonresection; kd3 - Immunization history:: Adult Immunizations up to date. - Social history:: Smoking status: unknown. ROS: 06:50 Constitutional: Negative for fever, chills ENT: Negative for injury, pain, and bs3 discharge, MS/Extremity: Negative for injury and deformity, Psych: Negative for depression, anxiety, suicide ideation, homicidal ideation, and hallucinations. Exam: 06:50 Constitutional: This is a well developed, well nourished patient who is awake, alert, bs3 and in no acute distress. Head/Face: Normocephalic, atraumatic. Eyes: Pupils equal round and reactive to light, extra-ocular motions intact. Lids and lashes normal. ENT: mmm, no posterior phyarngeal erythema Chest/axilla: Normal chest wall appearance and motion. Nontender with no deformity. No lesions are appreciated. Cardiovascular: Regular rate and rhythm with a normal S1 and S2. symmetric pulses in upper extremities Respiratory: Lungs have equal breath sounds bilaterally, clear to auscultation, no respiratory distress Abdomen/GI: Soft, non-tender, no rebound or guarding Skin: Warm, dry with normal turgor. Normal color with no rashes, no lesions, and no evidence of cellulitis. MS/ Extremity: Pulses equal, no cyanosis. Neurovascular intact. Full, normal range of motion. Neuro: Awake and alert, GCS 15, oriented to person, place, time, and situation. Cranial nerves II-XII grossly intact. Motor strength 5/5 in all extremities. Sensory grossly intact. Patient with normal gait no orthostatic symptoms 07:12 ECG was reviewed by the Attending Physician. EKG interpreted by me shows sinus jr11 bradycardia, normal axis, normal intervals, normal axis, no acute ST changes. Vital Signs: 06:30 BP 126 / 69; Pulse 51; Resp 19; Temp 98.3(O); Pulse Ox 98% on R/A; kd3 06:38 Weight 64.86 kg; Height 5 ft. 2 in. (157.48 cm); kd3 07:18 BP 123 / 57; Pulse 49; Resp 18; Pulse Ox 99% on R/A; ld1 08:02 BP 135 / 64; Pulse 60; Resp 20; Pulse Ox 95% on R/A; Pain 8/10; ld1 09:50 BP 121 / 57; Pulse 53; Resp 18; Pulse Ox 100% on R/A; Pain 3/10; ld1 06:38 Body Mass Index 26.15 (64.86 kg, 157.48 cm) kd3 MDM: 06:22 Patient medically screened. bs3 06:50 Differential diagnosis: acute myocardial infarction, anxiety, pulmonary embolus, bs3 Syncope, TIA, gastritis. HEART Score: History: Slightly Suspicious (0), ECG: Normal (0), Age: > or = 65 years (2), Risk Factors: 1 or 2 risk factors (1), Troponin:. The patient was not given aspirin in the Emergency Department. Administered by EMS. Data reviewed: vital signs, nurses notes, lab test result(s), EKG. Management of patient was discussed with the following: Primary Care Provider: Discussed case with Dr. Tavares who agrees with the plan. Independent interpretation of the following test(s) in the Emergency Department EKG: See my EKG interpretation above. ED course: plan to do serial trop, telemetry, unlikely cva/tia given no unilateral symptoms, slurred speech. Pt feeling well now, I considered imaging of her abdomen but she is pain free currently, I considered dissection but pain was not ripping or tearing, she is at her baseline now, with normal vitals. ED course: ecg nsr [address] elevation or depression qtc normal. 07:47 HEART Score: History: Slightly Suspicious (0), ECG: Normal (0), Age: > or = 65 years jr11 (2), Risk Factors: > or = 3 Risk factors for atherosclerotic disease (2), Troponin: > 1 and < 3 x normal limit (1), Total Score = 5. ED course: Pt again with nausea and CP, EKG interpreted by me shows sinus bradycardia normal axis, normal intervals, no acute ST changes. Given persistent pain, will admit for provocative testing and a heart score 5.. 08:27 Consideration of Admission/Observation Escalation of care including jr11 admission/observation considered. cardiology . ED course: spoke with Jim Barr, will see in clinic today with repeat trop. 09:52 ED course: HEART score now 4, d/w cards, rec OP follow up today. I also spoke w Jesika scott who said to follow cards recs. . 03/05 06:34 Order name: Basic Metabolic Panel; Complete Time: 07:18 bs3 03/05 06:34 Order name: CBC with Diff; Complete Time: 07:18 bs3 03/05 06:34 Order name: Troponin HS; Complete Time: 07:18 bs3 03/05 06:34 Order name: XRAY Chest (1 view); Complete Time: 08:52 bs3 03/05 06:43 Order name: Glucose, Ancillary Testing; Complete Time: 07:18 EDMS 03/05 09:05 Order name: Troponin High Sensitivity; Complete Time: 09:51 jr11 03/05 06:34 Order name: EKG; Complete Time: 06:35 bs3 03/05 06:34 Order name: Cardiac monitoring; Complete Time: 06:50 bs3 03/05 06:34 Order name: EKG - Nurse/Tech; Complete Time: 06:50 bs3 03/05 06:34 Order name: IV Saline Lock; Complete Time: 06:50 bs3 03/05 06:34 Order name: Labs collected and sent; Complete Time: 06:51 bs3 03/05 06:34 Order name: O2 Per Protocol; Complete Time: 06:52 bs3 03/05 06:34 Order name: O2 Sat Monitoring; Complete Time: 06:52 bs3 Administered Medications: 08:01 Drug: Zofran (Ondansetron) 4 mg Route: IVP; Site: right antecubital; ld1 08:38 Follow up: Response: No adverse reaction; Nausea is decreased ld1 08:01 Drug: Nitrostat (nitroglycerin) 0.4 mg Route: Sublingual; ld1 08:08 Drug: Nitrostat (nitroglycerin) 0.4 mg Route: Sublingual; ld1 08:38 Follow up: Response: No adverse reaction; Pain is decreased ld1 Disposition Summary: 03/05/22 09:53 Discharge Ordered Location: Home [facility] Condition: Stable [facility] Diagnosis - Chest pain, unspecified jr11 Discharge Instructions: - Discharge Summary Sheet jr11 - Nonspecific Chest Pain, Adult jr11 Forms: - Medication Reconciliation Form jr11 - Thank You Letter jr11 - Antibiotic Education jr11 - Prescription Opioid Use jr11 Signatures: Dispatcher [employer] EDChantel Ross RN RN ld1 Michelle Mulligan RN RN kd3 Dhruv Moctezuma MD MD jr11 Gaston Troncoso MD MD bs3
[2022-03-05 10:21] VITALS: TEMP 98.3
[2022-03-05 10:25] VITALS: BP 121/57; O2SAT 100
--- NOTE | 2022-03-06 13:18 | EKG ---
Test Date: 2022-03-05 Test Time: 07:43:33 Information Technology Program Manager: KYARA MEASUREMENT RESULTS: Intervals: Rate: 55 DE: 152 QRSD: 88 QT: 424 QTc: 405 [place]: P: 52 DE: 152 QRS: 46 T: 38 INTERPRETIVE STATEMENTS: Sinus bradycardia Otherwise normal ECG Compared to ECG 03/05/2022 07:38:42 Sinus arrhythmia no longer present Electronically Signed On 03-06-22 13:15:32 LEASE ADMINISTRATION ANALYST by Kenneth Hager
--- NOTE | 2022-03-06 13:19 | EKG ---
Test Date: 2022-03-05 Test Time: 07:38:42 Continuous Improvement Coordinator: LUISA MEASUREMENT RESULTS: Intervals: Rate: 57 CA: 150 QRSD: 86 QT: 426 QTc: 414 [place]: P: 50 CA: 150 QRS: 44 T: 31 INTERPRETIVE STATEMENTS: Sinus bradycardia with marked sinus arrhythmia Otherwise normal ECG Compared to ECG 03/05/2022 06:22:17 No significant changes Electronically Signed On 03-06-22 13:15:34 REAL ESTATE ASSET MANAGER by Kenneth Hager
--- NOTE | 2022-03-06 13:19 | EKG ---
Test Date: 2022-03-05 Test Time: 06:22:17 Roller Hand: PAUL MEASUREMENT RESULTS: Intervals: Rate: 51 DE: 158 QRSD: 80 QT: 420 QTc: 387 [place]: P: 50 DE: 158 QRS: 41 T: 37 INTERPRETIVE STATEMENTS: Sinus bradycardia Otherwise normal ECG Compared to ECG 03/05/2022 06:21:51 No significant changes Electronically Signed On 03-06-22 13:15:36 HEAD SAWYER AUTOMATIC by Kenneth Hager
--- NOTE | 2022-03-06 13:19 | EKG ---
Test Date: 2022-03-05 Test Time: 06:21:51 [facility] Sales: PAUL MEASUREMENT RESULTS: Intervals: Rate: 53 TN: 144 QRSD: 86 QT: 426 QTc: 399 [place]: P: 93 TN: 144 QRS: 45 T: 24 INTERPRETIVE STATEMENTS: Sinus bradycardia Otherwise normal ECG Compared to ECG 11/09/2017 14:56:55 Sinus arrhythmia no longer present T-wave abnormality no longer present Electronically Signed On 03-06-22 13:15:39 PUBLIC HEALTH SANITARIAN by Kenneth Hager
== END 2022-03-05 10:14 | disposition home or self-care (01) ==
LOC: ER 06:10
DX: R07.89 Other chest pain (principal); E11.9 Type 2 diabetes mellitus without complications; E03.9 Hypothyroidism, unspecified; I34.1 Nonrheumatic mitral (valve) prolapse; Z79.4 Long term (current) use of insulin; Z88.5 Allergy status to narcotic agent; Z88.8 Allergy status to other drugs, medicaments and biological substances
CPT/HCPCS: 93005 ×4; 85025; 80048; 36415; 82947; 84484 ×2; 71045; 96374; 99284; J2405

== ENCOUNTER 2022-03-19 01:07 | Observation (INO) | payer OTHER ==
--- OUTSIDE RECORDS SUMMARY | 2022-03-19 01:11 | XMS REPORT | Continuity of Care Document ---
:1940 [facility] t Address [address] [place] [address] Care Team Providers Name Role Phone Leonard Suarez Primary Care Physician Doctor Unassigned, [place] Attending Clinician Unavailable ANAMARIA WESLEY Attending Clinician Unavailable GEORGI Attending Clinician Unavailable Edward Medina RN Attending Clinician Unavailable MEREDITH BAE Attending Clinician Unavailable Jimi Spring MD Attending Clinician Meredith Bae MD Attending Clinician GEORGI Admitting Clinician Unavailable MEREDITH BAE Admitting Clinician Unavailable Meredith Bae MD Admitting Clinician Payers Payer Name Policy Type Policy Number Effective Date Expiration Date S ource Problems Condition Condition Condition Status Onset Resolution Last Treating Co mments Source Name Details Category Date Date Treatment Clinician Date SVT SVT Disease Active Univers (supravent (supravent 08-16 it y of ricular ricular 00:00: [place] tachycardi tachycardi 00 Me dical a) a) Branch History of History of Disease Active U nivers cardiac cardiac 7 [place] radiof[place] radiofrequ [place] en[place] ency 00 Medical ablation ablation Branch Chest Chest Disease Active Univers pain, pain, 706 ity of unspecifie unspecifie [place] d type d type 00 Medical Branch Urinary Urinary Disease Active Univers tract tract 1-06 [place] of infection, [place], [place] 00 Medical unspecifie unspecifie Br anch d d Primary Primary Disease Active Univers hypothyroi hypothyroi 3-08 it y of dism dism 00:00: [place] 00 Medical Branch Left Left Disease Active Univers carotid carotid 308 ity of bruit bruit 00:00: [place] 00 Medical Branch Obesity Obesity Disease Active Overview: Univ ers 6 Formattin ity of 00:00: g of this [place] 00 note Medical might be Branch different from the original. 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 Allergies, Adverse Reactions, Alerts Allergy Allergy Status Severity Reaction(s) Onset Inactive Treating Comm ents Source Name Type Date Date Clinician Beta-Blo DA Active SV 2017-02 [facility] ckers 02-23 (Beta-Ad 00:00: [place] renergic 00 [facility] morphine DA Active SV 2017-02 [facility] 02-23 00:[facility]: [address] metoprol DA Active SV 2017-02 [facility] ol 02-23 00:00: [address] prometha DA Active SV 2017-02 [facility] zine 02-23 00:00: [address] butorpha DA Active SV 2017-02 [facility] nol 02-23 00:00: [address] Epinephr Propensi Active Palpitations 2011-02 Univers ine ty to 2-19 ity of adverse 00:00: [place] reaction 00 Medical s Branch Pentazoc Propensi Active Hallucinatio 2011-02 Univers ine ty to ns 2-19 ity of Lactate adverse 00:00: [place] reaction 00 Medical s Branch EPINEPHR DRUG Active Palpitations 2011-02 Un tay INE INGREDI 2-19 ity of 00:00: [place] 00 Medical Branch PENTAZOC DRUG Active Hallucinates [...] s Branch Metoprol Propensi Active Shortness of 0 Can't Univers ol ty to Breath 4-14 [...] OL INGREDI 4-14 ity of SUCCINAT 00:00: [place] E 00 Medical [place] Social History Social Habit Start Date Stop Date Quantity Comments Source Exposure to 2021-08-04 2021-08-14 Not sure [facility]-CoV-2 00:00:00 00:29:00 [place] Medical (event) Branch Alcohol intake 2021-08-14 2021-08-14 Current University of 00:00:00 00:00:00 non-drinker of [facility] alcohol (finding) [place] Tobacco use and 2017-03-30 2017-03-30 Smokeless tobacco Un iversity of exposure 00:00:00 00:00:00 non-user [facility] Sex Assigned At [birth year] Universit y of 00:00:00 00:00:00 [facility] Smoking Status Start Date Stop Date Source Never smoked tobacco [facility] Medications Ordered Filled Start Stop Current Ordering [...] ity o f (LANTUS 14:00: [place], [place]ILY[place] U-100) 00 First dose Medical injection 5 on Anai Branch Units 08/14/21 at 0900, Until Discontinu ed, Routine MULTI-VITAM Yes alpha-amarilys Univers IN ORAL 08-14 c- 1 ity of 13:23: tablet [place] daily Medical Branch ASPIRIN 81 Yes 1 daily Univ ers MG ORAL TAB 08-14 ity of 13:23: [place] Medical Branch bisoprolol Yes 2.5mg Take 2.5 Un tay (ZEBETA) 5 -07 mg by ity of mg tablet 13:23: mouth 2 [place] [address] (two) Medical times Branch daily. Alpha Yes 1{tbl} Take 1 Tab Univ ers Lipoic Acid 07 by mouth ity of (THIOCTIC 13:23: daily. [place] ACID) 200 21 Medical mg Tab Branch TURMERIC Yes 400mg Take 400 Univ ers ROOT 7-07 mg by ity of EXTRACT 13:23: mouth [place] ORAL 21 daily. Medical Branch MULTI-VITAM Yes alpha-amarilys Univers IN ORAL 08-14 c- 1 ity of 13:23: tablet [place] 21 daily Medical Branch ASPIRIN 81 0 Yes 1 daily Univ ers MG ORAL TAB 7-07 ity of 13:23: Medical Branch bisoprolol Yes 2.5mg Take 2.5 Un tay (ZEBETA) 5 7-07 mg by ity of mg tablet 13:23: mouth 2 [place] 21 (two) Medical times Branch daily. Alpha Yes 1{tbl} Take 1 Tab Univ ers Lipoic Acid 7-07 by mouth ity of (THIOCTIC 13:23: daily. [place] ACID) 200 21 Medical mg Tab Branch TURMERIC Yes 400mg Take 400 Univ ers ROOT 7-07 mg by ity of EXTRACT 13:23: mouth [place] ORAL 21 daily. Medical Branch MULTI-VITAM Yes alpha-amarilys Univers IN ORAL 08-14 c- 1 ity of 13:23: tablet [place] 21 daily Medical Branch ASPIRIN 81 0 Yes 1 daily Univ ers MG ORAL TAB 7-07 ity of 13:23: Medical Branch bisoprolol Yes 2.5mg Take 2.5 Un tay (ZEBETA) 5 7-07 mg by ity of mg tablet 13:23: mouth 2 [place] (two) Medical times Branch daily. Alpha 0 Yes 1{tbl} Take 1 Tab Univ ers Lipoic Acid 7-07 by mouth ity of (THIOCTIC 13:23: daily. [place] ACID) 200 21 Medical mg Tab Branch TURMERIC Yes 400mg Take 400 Univ ers ROOT 7-07 mg by ity of EXTRACT 13:23: mouth [place] ORAL 21 daily. Medical Branch pantoprazol Yes 40mg 40 mg, Univ ers e 7-07 Slow IV ity of (PROTONIX) 13:00: Push, [place] injection 00 Q12H, Medical 40 mg First dose Branch on Wed08/14/21 at 0800, Until Discontinu ed metoprolol 0 Yes 25mg 25 mg, Unive rs tartrate 08-14 Oral, BID, ity o f (LOPRESSOR) 13:00: First dose [place] tablet 25 00 on Anai Medical mg 08/14/21 at Branch 0800, Until Discontinu ed Sliding 2021-0 Yes Subcutaneo Univ ers Scale 08-14 us, TID ity of Insulin - 13:00: MEALS, [place] Lispro 00 First dose Medical (HumaLOG) + on Anai Branch Fsbg 08/14/21 at Testing 0800, Until Discontinu ed, Routine magnesium Yes 400mg 400 mg, Univ ers oxide [...] at 0730, Until Discontinu ed, Routine levothyroxi Yes 25ug 25 mcg, Uni vers ne 08-14 Oral, ity of (SYNTHROID) 11:00: QAM-0600, T [...] to swallow or has mental changes. dextrose Yes 250mL 250 mL, IV Un tay 10% (D10W) 08-14 Infusion, ity of bolus 10:42: PRN - SEE [place] infusion 49 INSTRUCTIO Medic al 250 mL [...] glucose is < 80 mg/dL, repeat.
aspirin 2021- No 324mg 324 mg, Unive rs chewable 08-14 Oral, ONCE ity of tablet 324 04:45: 03:38 NOW, 1 [place] mg 00 :00 dose, On Medical 08/13/21 Branch at 2345, Routine iopamidol 2021- No [id number] 80mL 80 mL, U nivers (ISOVUE 08-14 Intravenou ity o f 370-500 mL) 04:07: 04:07 s, ONCE, 1 [place] injection 00 :00 dose, On Medica l 80 mL 08/13/21 Branch at 2315, Routine pantoprazol 2021- No [id number] 40mg Take 1 Univers e 40 mg EC 08-14 tablet by ity of tablet 00:00: 04:59 mouth [place] 00 :00 daily for Medical 30 days. Branch pantoprazol 2021- No [id number] 40mg Take 1 Univers e 40 mg EC 08-14 tablet by ity of tablet 00:00: 04:59 mouth [place] 00 :00 daily for Medical 30 days. Branch LEVOTHYROXI Yes [id number] TAKE 1 Univers NE 25 mcg 6-13 TABLET BY ity o f tablet 00:00: MOUTH ONCE [place] 00 DAILY IN Medical THE Branch MORNING LEVOTHYROXI Yes [id number] TAKE 1 Univers NE 25 mcg 6-13 TABLET BY ity o f tablet 00:00: MOUTH ONCE [place] 00 DAILY IN Medical THE Branch MORNING LEVOTHYROXI Yes [id number] TAKE 1 Univers NE 25 mcg 6-13 TABLET BY ity o f tablet 00:00: MOUTH ONCE [place] 00 DAILY IN [facility] THE Branch MORNING insulin Yes [id number] INJECT 5 U nivers aspart 2-20 UNITS ity of U-100 00:00: UNDER THE [place] (NOVOLOG 00 SKIN THREE Medic al FLEXPEN TIMES A Branch U-100 DAY BEFORE INSULIN) MEAL 100 unit/mL injection insulin Yes [id number] INJECT 5 U nivers aspart 2-20 UNITS ity of U-100 00:00: UNDER THE [place] (NOVOLOG 00 SKIN THREE Medic al FLEXPEN TIMES A Branch U-100 DAY BEFORE INSULIN) MEAL 100 unit/mL injection insulin Yes [id number] INJECT 5 U nivers aspart 2-20 UNITS ity of U-100 00:00: UNDER THE [place] (NOVOLOG 00 SKIN THREE Medic al FLEXPEN TIMES A Branch U-100 DAY BEFORE INSULIN) MEAL 100 unit/mL injection Insulin Yes QID, Univers [place], 7 DX:E11.9 ity of Disposable, 00:00: [place] (NOVOFINE 00 Medical 30) 30 Branch gauge x 1/3" Ndle Insulin Yes QID, Univers [place], 7 DX:E11.9 ity of Disposable, 00:00: [place] (NOVOFINE 00 Medical 30) 30 Branch gauge x 1/3" Ndle Insulin Yes QID, Univers [place], 7 DX:E11.9 ity of Disposable, 00:00: [place] (NOVOFINE Medical 30) 30 Branch gauge x 1/3" Ndle estradiol Yes 2g Insert 2 g Un tay (ESTRACE) 1-12 into ity of 0.01 % (0.1 00:00: vagina [place] mg/gram) 00 weekly. Medical vaginal Branch cream estradiol 2017-0 Yes 2g Insert 2 g Un tay (ESTRACE) 1-12 into ity of 0.01 % (0.1 00:00: vagina [place] mg/gram) 00 weekly. Medical vaginal Branch cream estradiol 2017-0 Yes 2g Insert 2 g Un tay (ESTRACE) 1-12 into ity of 0.01 % (0.1 00:00: vagina [place] mg/gram) 00 weekly. Medical vaginal Branch cream blood sugar 0 Yes Use as Univ ers diagnostic 3-28 directed, ity of (ONETOUCH 00:00: TID, [place] VERIO) 00 DX:E11.9 Medical strip Branch lancets 0 Yes Use as Univers (ONE TOUCH 3-28 directed, ity of DELICA) 33 00:00: TID, [place] gauge Misc 00 DX:E11.9 Medic al Branch blood sugar 0 Yes Use as Univ ers diagnostic 3-28 directed, ity of (ONETOUCH 00:00: TID, [place] VERIO) 00 DX:E11.9 Medical strip Branch lancets 2015-0 Yes Use as Univers (ONE TOUCH 3-28 directed, ity of DELICA) 33 00:00: TID, [place] gauge Misc 00 DX:E11.9 Medic al Branch blood sugar 2016-0 Yes Use as Univ ers diagnostic 3-28 directed, ity of (ONETOUCH 00:00: TID, [place] VERIO) 00 DX:E11.9 Medical strip Branch lancets 0 Yes Use as Univers (ONE TOUCH 3-28 directed, ity of DELICA) 33 00:00: TID, [place] gauge Misc 00 DX:E11.9 Medic al Branch Vital Signs Vital Name Observation Time Observation Value Comments Source Systolic blood 2021-08-14 17:01:00 131 mm[Hg] Univer sity of pressure [facility] Diastolic blood 2021-08-14 17:01:00 66 mm[Hg] Unive rsity of pressure [facility] Heart rate 2021-08-14 17:01:00 55 /min [facility] Body temperature 2021-08-14 17:01:00 35.94 Lita [facility] Respiratory rate 2021-08-14 17:01:00 18 /min [facility] Oxygen saturation in 2021-08-14 17:01:00 95 /min [facility] Arterial blood by [facility] Pulse oximetry [place] Body weight 2021-08-14 09:22:00 65.998 kg [facility] BMI 2021-08-14 09:22:00 26.61 kg/m2 [facility] Body height 2021-08-14 05:27:00 157.5 cm [facility] Procedures Procedure Date / Time Performing Clinician Source Performed EXTERNAL PROVIDER 2022-03-10 06:01:00 Doctor Unassigned, No [facility] RECORDS Name [facility] POCT GLUCOSE (AUTOMATED) 2021-08-14 17:01:00 Meredith Bae [facility] TRANSTHORACIC ECHO (TTE) 2021-08-14 15:00:00 Meredith Bae [facility] COMPLETE [facility] POCT GLUCOSE (AUTOMATED) 2021-08-14 13:04:00 Meredith Bae [facility] SODIUM, URINE RANDOM 2021-08-14 11:46:[address] [facility] PROTEIN CREAT RATIO 2021-08-14 11:46:00 Meredith Bae [facility] URINE RANDOM [facility] URINALYSIS 2021-08-14 09:54:00 Meredith Bae [facility] FREE T4 2021-08-14 09:53:00 Kindra Monzon [facility] THYROID STIMULATING 2021-08-14 09:53:00 Meredith Bae [facility] HORMONE [facility] BASIC METABOLIC PANEL 2021-08-14 09:53:00 Meredith Bae [facility] (NA, K, CL, CO2, Medical [place] GLUCOSE, BUN, CREATININE, CA) LIPID PANEL 2021-08-14 09:53:00 Meredith Bae [facility] ([id number])(TOTAL [facility] CHOLESTEROL, TRIGLYCERIDES, HDL) PROTHROMBIN TIME / INR 2021-08-14 09:53:00 Meredith Bae [facility] N-TERMINAL PRO-BNP 2021-08-14 09:53:00 Meredith Bae [facility] FREE T3 2021-08-14 09:53:00 Kindra Monzon [facility] PROCALCITONIN 2021-08-14 09:53:00 Kathia [facility] MAGNESIUM 2021-08-14 09:53:00 Kathia [facility] TROPONIN I 2021-08-14 09:53:[address] [facility] [address] CHEST PULMONARY 2021-08-14 04:11:51 Jimi Spring [facility] ANGIOGRAM [facility] COVID-19 (ID NOW RAPID 2021-08-14 03:56:00 Jimi Spring [facility] TESTING) [facility] COMP. METABOLIC PANEL 2021-08-14 03:38:00 Jimi Spring [facility] ([id number]) [facility] CBC WITH DIFF 2021-08-14 03:38:00 Clementine, [facility] GLYCOSYLATED HEMOGLOBIN 2021-08-14 03:38:00 Kathia [facility] (A1C) [facility] N-TERMINAL PRO-BNP 2021-08-14 03:38:00 Jimi Spring [facility] PHOSPHORUS 2021-08-14 03:38:00 Clementine [facility] MAGNESIUM 2021-08-14 03:38:00 Clementine [facility] TROPONIN I 2021-08-14 03:38:00 Clementine [facility] HB ECG ROUTINE & RHYTHM 2021-08-14 03:28:10 Clementine [facility] STRIP [facility] Encounters Start End Encounter Admission Attending Care Care Encounter Source Date/Time Date/Time Type Type Clinicians Facility Department ID 2022-03-10 2022-03-10 Orders Doctor PIERSON [id number] Univers 00:00:00 00:00:00 Only Unassigned, BAKARI [id number] ity of [place] [facility] [id number] [place] [id number] [facility] 009 Branch 2021-10-01 2021-10-01 Outpatient R LUPILLO [facility] [id number] Univers 00:00:00 00:00:00 [facility] 2021-09[facility]04 2021-09-04 Outpatient TREVOR KELLER [facility] [address]61 [place] 00:00:00 00:00:00 HN [id number] [facility] 2021-08-15 2021-08-15 Transition CarolESTEFANÍAAndrew [id number] Univers 00:00:00 00:00:00 of Care Edward [id number] [facility] [id number] [facility] [id number] [facility] 403 Branch 2021-08-13 2021-08-14 Outpatient X KATHIA [facility] [id number] Univers 22:23:00 13:20:00 [facility] 2021-08-13 2021-08-14 Emergency ClementineJimi [facility] [id number]. [id number] [facility] 22:23:00 13:20:00 Meredith Bae 350.1.13.10 ity [place] 4.2.7.2.686 [facility] [id number] [facility] 081 Branch 2020-03-21 2020-03-21 Outpatient SLEH SLE [id number] SLE 00:00:00 00:00:00 Results Test Description Test Time Test Comments Results Result Comments Source Transthoracic echo (TTE) 2021-08-14 17:28:13 Test Item Value Reference Range Interpretation Comme nts Height (test code = 6000130755) in Weight (test code = 8140269473) lbs Systolic BP (test code = 0099076724) mmHg Diastolic BP (test code = 0166805946) mmHg Heart Rate (test code = 9618836852) bpm BSA (test code = 9888710055) 1.67 m2 LVOT diameter (test code = 8011895694) 2.01 cm LA size (test code = 3301215474) 3.6 cm Ao root annulus (test code = 2.37 cm 9663660008) Ao root diam (test code = 8377112333) 2.37 cm Aortic root (test code = 2697605660) 2.37 cm IVS (test code = 9993877567) 0.74 cm Interventricular Septum Diastolic 0.74 cm Thickness by 2D (test code = 3473849) LVIDD (test code = 1085369576) 4.10 cm EF(Teich) (test code = 3715427525) 58.50 % LVIDS (test code = 0369518545) 2.90 cm FS (test code = 5562052697) 31 % EF - 2D (test code = 63394040) 58.50 % LAV(MOD-sp4) (test code = 1992789777) 21.90 mL E wave decelartion time (test code = 0.23 s 2126288246) MV Peak A [place] (test code = 9413617245) 69.1 cm/s MV Peak E [place] (test code = 6228105106) 79.6 cm/s E/A ratio (test code = 5846822809) ratio MV E/e' septal (test code = 5642817669) 7.4 cm/s Tapse (test code = 9392149164) 2.40 cm LVOT stroke volume (test code = 75.50 cm3 7953229968) LVOT peak jose (test code = 0505974699) 104.9 cm/s LVOT mn grad (test code = 2317806606) mmHg AV LVOT peak gradient (test code = mmHg 4270184052) LVOT peak VTI (test code = 7197410424) 23.9 cm LV V1 mean (test code = 6954658960) 65.20 cm/s Aortic valve mean velocity (test code = 73.4 cm/s 5932769247) Ao peak jose (test code = 6505948661) 109.1 cm/s Ao VTI (test code = 8639525226) 23.8 cm AV area by cont VTI (test code = 3.2 cm2 7365883210) AV area peak jose (test code = 3.0 cm2 4678142201) Ao max PG (test code = 6261946808) 4.80 mm[Hg] AV peak gradient (test code = mmHg 7345713159) AV valve area (test code = 8497905453) 3.20 cm2 AV mean gradient (test code = mmHg 3232742380) TR Peak [place] (test code = 3279436562) 223.9 cm/s Triscuspid Valve Regurgitation Peak mmHg Gradient (test code = 4239173970) LA Volume Index (BP) (test code = 14.7 mL/m2 8940508572) LA volume (BP) (test code = 8231287349) 24.5 mL LAV(MOD-sp2) (test code = 4559067994) 27.00 mL Radiology Study observation (narrative) (test code = 95349-9) TAMI (test code = TAMI) ?Left?Ventricle: Left ventricle size is normal. Normal wall thickness. Normal wall motion. Normal systolic function with a visually estimated EF of 60 - 65%. Indeterminate diastolic func tion. ?Tricuspid?Valve: Right ventricular systolic pressure is normal. ?RA pressure is 0-5 mmHg. ?Right?Ventricle: Normal systolic function. [facility]21-08-14 17:04:45 Test Item Value Reference Range Interpretation Comments POCT GLU (test code = 2971165222) 137 mg/dL 70-110 H Lab Interpretation (test code = Abnormal 22259-4) [facility]AL[facility]IN2022-07-07 15:42:38 Test Item Value Reference Range Interpretation Comments Procalcitonin (test 0.02 ng/mL <0.07 code = 2539251919) TAMI (test code = TAMI) INTERPRETATION OF [...] lung abscess/empyema. For further information please refer to:[email or web address] Lab Interpretation Normal (test code = 31771-5) [facility] [id number] 15:39:57 Test Item Value Reference Range Interpretation Comments FREE T3 (test code = 6476034137) 2.88 pg/mL 2.77-5.27 Lab Interpretation (test code = Normal 29488-4) [facility] HospitalFREE [id number] 15:39:57 Test Item Value Reference Range Interpretation Comments FREE T4 (test code = See_Comment [Autom ated message] 6929675256) The system Efield generated this result transmitted ref erence range: 0.78 - 2 .20 ng/dL:. The ref erence range was not u sed to interpret this result as normal/abnor mal. Lab Interpretation (test Normal code = 98006-2) [facility]ATED)2021-08-14 13:12:49 Test Item Value Reference Range Interpretation Comments POCT GLU (test code = 6962668913) 137 mg/dL 70-110 H Lab Interpretation (test code = Abnormal 36849-8) [facility] HospitalTHYROID STIMULATING [id number] 12:18:53 Test Item Value Reference Range Interpretation Comments TSH (test code = See_Comment H [Automated message] 9533388082) The system [employer] generated this result transmitted ref erence range: 0.45 - 4 .70 mIU/L. The refe rence range was not u sed to interpret this result as normal/abnor mal. Lab Interpretation (test Abnormal code = 69520-2) [facility] HospitalLIPID PANEL (48283)(TOTAL CHOLESTEROL, TRIGLYCERIDES, HDL)2021-08-14 11:48:08 Test Item Value Reference Range Interpretation Comments CHOL (test code = 180 mg/dL 120-200 0072804639) HDL (test code = 47 mg/dL >50 L 2133969725) HDLC RATIO (test code = See_Comment [Au tomated message] 2894180859) The system Efield generated this result transmit palma reference range : <=4.5. The refe rence range was not u sed to interpret th is result as normal/abnormal . TRIG (test code = 101 mg/dL 30-170 5833049429) LDL CHOL (test code = 113 mg/dL See_Comment [Auto mated message] 92148-3) The system [employer] generated this result transmit palma reference range : <=160. The refe rence range was not u sed to interpret th is result as normal/abnormal . VLDL (test code = 20 mg/dL 5-60 7665285560) Lab Interpretation (test Abnormal code = 44540-0) [facility] HospitalTROPONIN [id number] 11:17:30 Test Item Value Reference Interpretation Comments Range TROPONIN I (test 0.003 ng/mL See_Comment [Automated code = 0024743002) message] The system which generated this result [...] biotin. Lab Interpretation Normal (test code = 19742-6) [facility] HospitalN-TERMINAL [id number] 11:13:08 Test Item Value Reference Range Interpretation Comments NT-proBNP (test code 225 pg/mL See_Comment [Autom ated = 5394853037) message] The system which generated this result transmitted reference range : <=450. The reference range was not used to interpret this result as normal/abnormal . TAMI (test code = TAMI) Biotin has been reported to cause a negative bias, interpret results relative to patient's use of biotin. Lab Interpretation Normal (test code = 33988-5) [facility]MAG[facility]UM2022-07-07 10:54:42 Test Item Value Reference Range Interpretation Comments MAGNESIUM (test code = 3549275691) 1.9 mg/dL 1.7-2.4 Lab Interpretation (test code = Normal 05556-2) [facility] HospitalBASI METABOLIC PANEL (NA, K, CL, CO2, GLUCOSE, BUN, CREATININE, CA)2021-08-14 10:54:22 Test Item Value Reference Range Interpretation Comments NA (test code = 138 mmol/L 135-145 9388559600) K (test code = 4.1 mmol/L 3.5-5.0 1430483313) CL (test code = 104 mmol/L 98-108 8539157639) CO2 TOTAL (test code = 27 mmol/L 23-31 1706513454) AGAP (test code = 2-16 5640264937) BUN (test code = 16 mg/dL 7-23 4422992127) GLUCOSE (test code = 149 mg/dL 70-110 H 3399453824) CREATININE (test code = 0.84 mg/dL 0.50-1.04 2848026626) CALCIUM (test code = 9.4 mg/dL 8.6-10.6 5974386487) eGFR (test code = mL/min/1.73m2 4412617292) TAMI (test code = TAMI) Association of [...] tests). Lab Interpretation Abnormal (test code = 89867-6) [facility] HospitalProthrombin Time / [id number] 10:44:01 Test Item Value Reference Range Interpretation Comments PROTIME PATIENT (test See_Comment [Auto mated message] code = 5964-2) The system wh ich generated this result transmitted ref erence range: 12.0 - 1 4.7 Seconds. The re ference range was not u sed to interpret this result as normal/abnor mal. INR (test code = 6301-6) Nor mal INR <1.1; Warfarin Therap eutic range 2.0 to 3. 0 or 2.5 to 3.5, dep ending upon the indica tions. Lab Interpretation (test Normal code = 13490-4) [facility] HospitalGLYCOSYLATED HEMOGLOBIN (A1C)2021-08-14 10:13:38 Test Item Value Reference Range Interpretation Comments HGB A1C (test code = 7.8 % 4.0-5.7 H 4548-4) TAMI (test code = TAMI) Reference RangesNormal: <5.7%Prediabetes: 5.7 - 6.4%Diabetes: > 6.5% Lab Interpretation (test Abnormal code = 56914-5) [facility] HospitalTROPON[facility] [id number] 04:14:57 Test Item Value Reference Interpretation Comments Range TROPONIN I (test 0.001 ng/mL See_Comment [Automated code = 2461100265) message] The system which generated this result [...] biotin. Lab Interpretation Normal (test code = 84759-9) [facility] HospitalN-TERMINAL [id number] 04:11:41 Test Item Value Reference Range Interpretation Comments NT-proBNP (test code 192 pg/mL See_Comment [Autom ated = 5318090536) message] The system which generated this result transmitted reference range : <=450. The reference range was not used to interpret this result as normal/abnormal . TAMI (test code = TAMI) Biotin has been reported to cause a negative bias, interpret results relative to patient's use of biotin. Lab Interpretation Normal (test code = 27820-1) [facility] Test Item Value Reference Range Interpretation Comments MAGNESIUM (test code = 1668797584) 1.8 mg/dL 1.7-2.4 Lab Interpretation (test code = Normal 73212-0) [facility] ([id number])2021-08-14 04:03:20 Test Item Value Reference Range Interpretation Comments NA (test code = 138 mmol/L 135-145 0539270732) K (test code = 4.2 mmol/L 3.5-5.0 1756823914) CL (test code = 102 mmol/L 98-108 0569121192) CO2 TOTAL (test code = 27 mmol/L 23-31 1984923752) AGAP (test code = 2-16 6132455794) BUN (test code = 18 mg/dL 7-23 5358111977) GLUCOSE (test code = 207 mg/dL 70-110 H 4247446386) CREATININE (test code = 0.88 mg/dL 0.50-1.04 0908601333) TOTAL BILI (test code = 0.6 mg/dL 0.1-1.8 2321086362) CALCIUM (test code = 9.7 mg/dL 8.6-10.6 9296219441) T PROTEIN (test code = 7.1 g/dL 6.3-8.2 3550489803) ALBUMIN (test code = 4.3 g/dL 3.5-5.0 2759524087) ALK PHOS (test code = 77 U/L 34-122 6879931883) ALTv (test code = 21 U/L 5-35 1742-6) AST(SGOT) (test code = 29 U/L 13-40 0613892617) eGFR (test code = mL/min/1.73m2 3464395292) TAMI (test code = TAMI) Association of [...] tests). Lab Interpretation Abnormal (test code = 91374-2) [facility] Test Item Value Reference Range Interpretation Comments PHOSPHORUS (test code = 3934269305) 3.3 mg/dL 2.5-5.0 Lab Interpretation (test code = Normal 98171-8) [facility] WITH [id number] 03:51:16 Test Item Value Reference Range Interpretation Comments WBC (test code = See_Comment [Automated message] 6690-2) The system [employer] generated this result transmitted ref erence range: 4.30 - 1 1.10 10*3/?L. The re ference range was not u sed to interpret this result as normal/abnor mal. RBC (test code = See_Comment [Automated message] 789-8) The system [employer] generated this result transmitted ref erence range: [...] RDW-SD (test code 41.0 fL 39.0-49.9 = 40512-2) RDW-CV (test code 13.0 % 12.0-15.5 = 788-0) PLT (test code = See_Comment [Automated message] 777-3) The system [employer] generated this result transmitted ref erence range: 166 - 35 8 10*3/?L. The re ference range was not u sed to interpret this result as normal/abnor mal. MPV (test code = 9.9 fL 9.5-12.9 52004-5) NRBC/100 WBC (test See_Comment [Automat ed message] code = 9803642603) The syste m which generated this result transmitted ref erence range: 0.0 - 10 .0 /100 WBCs. The refer ence range was not u sed to interpret this result as normal/abnor mal. NRBC x10^3 (test <0.01 See_Comment [Automated message] code = 3912637189) The syste m which generated this result transmitted ref erence range: 10*3/?L. The reference range was not used to interpr et this result as normal/abnormal . GRAN MAT (NEUT) % 62.2 % (test code = 770-8) IMM GRAN % (test 0.30 % code = 1837842194) LYMPH % (test code 21.3 % = 736-9) MONO % (test code 11.8 % = 5905-5) EOS % (test code = 3.4 % 713-8) BASO % (test code 1.0 % = 706-2) GRAN MAT 4.33 10*3/uL 1.88-7.09 x10^3(ANC) (test code = 4994010117) IMM GRAN x10^3 <0.03 0.00-0.06 (test code = 3222865632) LYMPH x10^3 (test 1.48 10*3/uL 1.32-3.29 code = 731-0) MONO x10^3 (test 0.82 10*3/uL 0.33-0.92 code = 742-7) EOS x10^3 (test 0.24 10*3/uL 0.03-0.39 code = 711-2) BASO x10^3 (test 0.07 10*3/uL 0.01-0.07 code = 704-7) [facility] [id number] 09:20:00 Test Item Value Reference Range Interpretation [...] code = 9.8 MG/DL 8.4-10.2 N CA) [id number] 09:20:00 Test Item Value Reference Range Interpretation Comments MAGNESIUM (test code = MAG) 2.0 MG/DL 1.6-2.3 N PROTHROMBIN [id number] 09:17:00 Test Item Value Reference Range Interpretation Comments PROTHROMBIN TIME 10.2 SECONDS 9.6-11.6 N PATIENT (test code = PTP) INTERNATIONAL NORMAL 1.0 0.8-1.1 N The INR is to be RATIO (test code = used only for INR) monitoring oral anticoagulantth erap y. INDICATION INR VALUE ---- ---- ---- -------1. Prophylaxis, de ep venous thrombos is, including high risk surgery. 2.0 - 3.0 2. Prophylaxis, deep venous thrombosis, hip surgery, treatm ent for deep venous thrombosis or pulmonary prevention of systemic emboli sm in patients wit h valvular heart disease, atrial fibrillation, tissue heart va lve, or acute myocar dial infarction. 2.0 - 3.0 3. Professional Employer Consultant al prosthesis hear t valves, recurre nt systemic emboli sm. 3.0 - 4.5 PTT [id number] 09:17:00 Test Item Value Reference Range Interpretation Comments PTT ACTIVATED (test code = APTT) 29.1 SECONDS 22.0-33.0 N CBC W/AUTO [id number] 09:12:00 Test Item Value Reference Range Interpretation [...] 0.00 K/mm3 0.0-0.1 N NRBC#) BASIC METABOLIC [id number] 13:19:00 Test Item Value Reference Range Interpretation [...] code = 10.3 MG/DL 8.4-10.2 H CA) [id number] 13:19:00 Test Item Value Reference Range Interpretation Comments MAGNESIUM (test code = MAG) 1.8 MG/DL 1.6-2.3 N PROTHROMBIN [id number] 13:08:00 Test Item Value Reference Range Interpretation Comments PROTHROMBIN TIME 10.4 SECONDS 9.6-11.6 N PATIENT (test code = PTP) INTERNATIONAL NORMAL 1.0 0.8-1.1 N The INR is to be RATIO (test code = used only for INR) monitoring oral anticoagulantth erap y. INDICATION INR VALUE ---- ---- ---- -------1. Prophylaxis, de ep venous thrombos is, including high risk surgery. 2.0 - 3.0 2. Prophylaxis, deep venous thrombosis, hip surgery, treatm ent for deep venous thrombosis or pulmonary prevention of systemic emboli sm in patients wit h valvular heart disease, atrial fibrillation, tissue heart va lve, or acute myocar dial infarction. 2.0 - 3.0 3. Professional Employer Consultant al prosthesis hear t valves, recurre nt systemic emboli sm. 3.0 - 4.5 CBC W/AUTO [id number] 12:57:00 Test Item Value Reference Range Interpretation [...]
[2022-03-19] MEDS ORDERED: ASPIRIN 81 MG CHEWABLE TABLET ONE ×2 (01:45→08:20)
[2022-03-19 02:00] LABS: Absolute Lymphocytes (CBC) 1.4 K/uL (0.7-4.9); Hematocrit 37.6 % (36.0-45.0); Lymphocytes % 20.2 % (15.3-44.8); MCV 83.3 fL (80-100); MPV 7.9 fL (7.6-11.3); RBC Red Blood Cell Count 4.52 M/uL (3.86-4.86)
[2022-03-19 02:18] LABS: Urine Blood Negative (Negative); Urine Glucose Negative (Negative); Urine Protein Negative (Negative)
[2022-03-19 02:21] LABS: Potassium 3.9 mmol/L (3.5-5.1); Troponin High Sensitivity 10.4 pg/mL (<58.9)
--- NOTE | 2022-03-19 02:34 | EDPHYS ---
Physician Documentation [facility] Name: Marie Puri Age: 81 yrs Sex: Female : 1940 Arrival Date: 03/19/2022 Time: 01:11 Bed 17 Private MD: ED Physician Zac Lester HPI: 03/19 02:24 This 81 yrs old Female presents to ER via EMS with complaints of Shortness Of gerardo Breath. 02:24 The patient has shortness of breath at rest, with light activity. Onset: The gerardo symptoms/episode began/occurred 1 day(s) ago. Duration: The symptoms are intermittent, with no pattern. The patient's shortness of breath is aggravated by nothing, is alleviated by nothing. Associated signs and symptoms: Pertinent positives: non-productive cough. Severity of symptoms: At their worst the symptoms were mild in the emergency department the symptoms are unchanged. The patient has experienced similar episodes in the past. Historical: - Allergies: 01:20 Morphine; aa9 01:20 Phenergan; aa9 01:20 Stadol; aa9 01:20 Toprol XL; aa9 01:20 Albuterol; aa9 01:20 PENICILLINS; aa9 - Home Meds: 01:20 levothyroxine 25 mcg tab 1 tab once daily [Active]; Novolog Sub-Q [Active]; Zofran 4 mg aa9 Oral tab 1 tab 3 times per day for as needed [Active]; Starlix 60 mg Oral tab 0.5 tab 3 times per day [Active]; Protonix 40 mg Oral TbEC 1 tab Every other day [Active]; - PMHx: 01:20 Diabetes - IDDM; fatty liver; Hypothyroidism; Kidney stones; Pancreatitis; mitral valve aa9 prolapse; - PSHx: 01:20 Colonresection; aa9 - Immunization history:: Client reports receiving the 2nd dose of the Covid vaccine. - Social history:: Smoking status: Patient denies any tobacco usage or history of. ROS: 02:25 Constitutional: Negative for fever, chills, and weight loss, Eyes: Negative for injury, gerardo pain, redness, and discharge, ENT: Negative for injury, pain, and discharge, Neck: Negative for injury, pain, and swelling, Abdomen/GI: Negative for abdominal pain, nausea, vomiting, diarrhea, and constipation, Back: Negative for injury and pain, : Negative for injury, bleeding, discharge, and swelling, MS/Extremity: Negative for injury and deformity, Skin: Negative for injury, rash, and discoloration, Neuro: Negative for headache, weakness, numbness, tingling, and seizure, Psych: Negative for depression, anxiety, suicide ideation, homicidal ideation, and hallucinations, Allergy/Immunology: Negative for hives, rash, and allergies, Endocrine: Negative for neck swelling, polydipsia, polyuria, polyphagia, and marked weight changes, Hematologic/Lymphatic: Negative for swollen nodes, abnormal bleeding, and unusual bruising. 02:25 Cardiovascular: Positive for chest pain. 02:25 Respiratory: Positive for shortness of breath. Exam: 02:25 Constitutional: This is a well developed, well nourished patient who is awake, alert, gerardo and in no acute distress. Head/Face: Normocephalic, atraumatic. Eyes: Pupils equal round and reactive to light, extra-ocular motions intact. Lids and lashes normal. Conjunctiva and sclera are non-icteric and not injected. Cornea within normal limits. Periorbital areas with no swelling, redness, or edema. ENT: Nares patent. No nasal discharge, no septal abnormalities noted. Tympanic membranes are normal and external auditory canals are clear. Oropharynx with no redness, swelling, or masses, exudates, or evidence of obstruction, uvula midline. Mucous membranes moist. Neck: Trachea midline, no thyromegaly or masses palpated, and no cervical lymphadenopathy. Supple, full range of motion without nuchal rigidity, or vertebral point tenderness. No Meningismus. Chest/axilla: Normal chest wall appearance and motion. Nontender with no deformity. No lesions are appreciated. Cardiovascular: Regular rate and rhythm with a normal S1 and S2. No gallops, murmurs, or rubs. Normal PMI, no JVD. No pulse deficits. Respiratory: Lungs have equal breath sounds bilaterally, clear to auscultation and percussion. No rales, rhonchi or wheezes noted. No increased work of breathing, no retractions or nasal flaring. Abdomen/GI: Soft, non-tender, with normal bowel sounds. No distension or tympany. No guarding or rebound. No evidence of tenderness throughout. Back: No spinal tenderness. No costovertebral tenderness. Full range of motion. Skin: Warm, dry with normal turgor. Normal color with no rashes, no lesions, and no evidence of cellulitis. MS/ Extremity: Pulses equal, no cyanosis. Neurovascular intact. Full, normal range of motion. Neuro: Awake and alert, GCS 15, oriented to person, place, time, and situation. Cranial nerves II-XII grossly intact. Motor strength 5/5 in all extremities. Sensory grossly intact. Cerebellar exam normal. Normal gait. Psych: Awake, alert, with orientation to person, place and time. Behavior, mood, and affect are within normal limits. 02:25 ECG was reviewed by the Attending Physician. Vital Signs: 01:18 BP 148 / 67; Pulse 54; Resp 16 S; Temp 97.8(O); Pulse Ox 99% on R/A; Weight 63.5 kg aa9 (R); Height 5 ft. 1 in. (154.94 cm) (R); Pain 0/10; 01:45 BP 123 / 62; Pulse 55; Resp 19 S; Pulse Ox 94% on R/A; aa9 01:18 Body Mass Index 26.45 (63.50 kg, 154.94 cm) aa9 MDM: 01:24 Patient medically screened. gerardo 02:26 Differential diagnosis: Anemia Anxiety Reaction CHF exacerbation, abnormal EKG, acute gerardo pericarditis, coronary artery disease chest wall pain, Cholelithiasis esophagitis, gastritis, hiatal hernia, pancreatitis, pneumonia, pulmonary embolus, stable angina, thoracic aortic disection, unstable angina, Myocardial Infarction pulmonary edema, Pulmonary Embolism reactive airway disease, Sepsis. Antibiotic administration: Not indicated. HEART Score: History: Slightly Suspicious (0), ECG: Non specific repolarization disturbance / LBTB / PM (1), Age: > or = 65 years (2), Risk Factors: > or = 3 Risk factors for atherosclerotic disease (2), [Hypercholesterolemia] [Hypertension] [+ Family HX] Troponin: < or = 1 x Normal Limit (0). The patient was given aspirin in the Emergency Department. Immunization status: Pneumococcal vaccine: within last 5 years. Influenza vaccine: within last 5 years. Data reviewed: vital signs, nurses notes, lab test result(s), EKG, radiologic studies, CT scan. Consideration of Admission/Observation Patient was admitted/placed on observation. 03/19 01:12 Order name: Basic Metabolic Panel; Complete Time: 02:22 tw5 03/19 01:12 Order name: CBC with Diff; Complete Time: 02:22 tw5 03/19 01:12 Order name: D-Dimer; Complete Time: 02:22 tw03/19 01:12 Order name: NT PRO-BNP; Complete Time: 02:22 tw5 03/19 01:12 Order name: Troponin HS; Complete Time: 02:22 tw5 03/19 01:12 Order name: COVID-19/FLU A+B tw5 03/19 01:12 Order name: XRAY Chest (1 view) tw5 03/19 01:53 Order name: Lipase; Complete Time: 02:22 EDHI 03/19 02:18 Order name: Urine Dipstick-Ancillary; Complete Time: 02:22 EDHI 03/19 02:31 Order name: CT Aorta for Dissection: RO PE/DVT [facility] 03/19 02:45 Order name: Echo with Doppler EDHI 03/19 04:52 Order name: Troponin High Sensitivity EDHI 03/19 01:12 Order name: EKG; Complete Time: 01:13 tw5 03/19 01:12 Order name: Cardiac monitoring; Complete Time: 01:36 tw03/19 01:12 Order name: EKG - Nurse/Tech; Complete Time: 02:01 03/19 01:12 Order name: IV Saline Lock; Complete Time: 01:36 tw03/19 01:12 Order name: Labs collected and sent; Complete Time: 01:36 tw03/19 01:12 Order name: O2 Per Protocol; Complete Time: 01:36 tw03/19 01:12 Order name: O2 Sat Monitoring; Complete Time: 01:36 tw03/19 01:30 Order name: Urine Dipstick-Ancillary (obtain specimen); Complete Time: 02:16 [facility] 03/19 02:41 Order name: CONS Physician Consult EDHI EC:25 Rate is 49 beats/min. Rhythm is regular. QRS [place] is Normal. [place] interval is normal. QRS gerardo interval is normal. QT interval is normal. No Q waves. T waves are Normal. No ST changes noted. Clinical impression: Sinus bradycardia and No evidence of ischemia. Interpreted by me. Reviewed by me. Administered Medications: 02:01 Drug: Aspirin Chewable Tablet 162 mg Route: PO; aa9 02:51 Follow up: Response: No adverse reaction aa9 02:52 Drug: ProTONIX (pantoprazole) 40 mg Route: IVP; Site: right antecubital; aa9 11:24 Follow up: Response: No adverse reaction ll1 Disposition Summary: 03/19/22 02:33 Hospitalization Ordered Hospitalization Status: Observation gerardo Provider: Leonard Tavares cha Condition: Stable gerardo Problem: new gerardo Symptoms: have improved gerardo Bed/Room Type: Standard gerardo Location: [facility] ER HOLD(03/19/22 02:56) Room Assignment: ERHOLD-(03/19/22 02:56) Diagnosis - Chest pain, unspecified gerardo - Functional dyspepsia gerardo - Dyspnea gerardo - Bradycardia, unspecified gerardo - Diverticulosis of large intestine without perforation or abscess without bleeding gerardo Forms: - Medication Reconciliation Form gerardo - SBAR form gerardo Signatures: Dispatcher [employer] EDMS Zac Lester MD MD cha Garcia, Cindy RN RN Vaishali Nunn tw5 Rach Moeller RN RN aaMary Weinstein RN ll1 Corrections: (The following items were deleted from the chart) 01:52 01:29 LIPASE+C.LAB.BRZ ordered. [facility] EDHI 02:56 02:33 Telemetry/MedSurg (observation) [facility] 02:56 02:33 [facility]
--- NOTE | 2022-03-19 02:34 | ER ---
Nurse's Notes [facility] Name: Marie Puri Age: 81 yrs Sex: Female : 1940 Arrival Date: 03/19/2022 Time: 01:11 Bed 17 Private MD: Diagnosis: Chest pain, unspecified;Functional dyspepsia;Dyspnea;Bradycardia, unspecified;Diverticulosis of large intestine without perforation or abscess without bleeding Presentation: 03/19 01:18 Chief complaint: EMS states: toned out for 81 F with chest pain radiating to the back aa9 and SOB, FSBS 120, pt stable en route. Coronavirus screen: Vaccine status: Patient reports receiving the 2nd dose of the covid vaccine. Ebola Screen: No symptoms or risks identified at this time. Initial Sepsis Screen: Does the patient meet any 2 criteria? No. Patient's initial sepsis screen is negative. Does the patient have a suspected source of infection? No. Patient's initial sepsis screen is negative. Risk Assessment: Do you want to hurt yourself or someone else? Patient reports no desire to harm self or others. Onset of symptoms was March 18, 2022 at 22:00. 01:18 Method Of Arrival: EMS: [facility] aa9 01:18 Acuity: ARGELIA 3 aa9 Triage Assessment: 01:21 General: Appears comfortable, Behavior is calm, cooperative, appropriate for age. Pain: aa9 Denies pain. Neuro: Level of Consciousness is awake, alert, obeys commands, Oriented to person, place, time, situation. Cardiovascular: Reports nausea, shortness of breath, Patient's skin is warm and dry. Respiratory: Reports shortness of breath at rest Airway is patent Respiratory effort is even, unlabored, Onset: The symptoms/episode began/occurred just prior to arrival. GI: Abdomen is flat, non-distended, Reports epigastric pain. : No signs and/or symptoms were reported regarding the genitourinary system. Derm: Skin is intact, is fragile. Musculoskeletal: No signs and/or symptoms reported regarding the musculoskeletal system. 03:26 Respiratory: the patient has mild shortness of breath. aa9 Historical: - Allergies: 01:20 Morphine; aa9 01:20 Phenergan; aa9 01:20 Stadol; aa9 01:20 Toprol XL; aa9 01:20 Albuterol; aa9 01:20 PENICILLINS; aa9 - Home Meds: 01:20 levothyroxine 25 mcg tab 1 tab once daily [Active]; Novolog Sub-Q [Active]; Zofran 4 mg aa9 Oral tab 1 tab 3 times per day for as needed [Active]; Starlix 60 mg Oral tab 0.5 tab 3 times per day [Active]; Protonix 40 mg Oral TbEC 1 tab Every other day [Active]; - PMHx: 01:20 Diabetes - IDDM; fatty liver; Hypothyroidism; Kidney stones; Pancreatitis; mitral valve aa9 prolapse; - PSHx: 01:20 Colonresection; aa9 - Immunization history:: Client reports receiving the 2nd dose of the Covid vaccine. - Social history:: Smoking status: Patient denies any tobacco usage or history of. Screenin:37 Abuse screen: Denies threats or abuse. Denies injuries from another. Nutritional aa9 screening: No deficits noted. Tuberculosis screening: No symptoms or risk factors identified. 03:26 [facility] ED Fall Risk Assessment (Adult) History of falling in the last 3 months, aa9 including since admission No falls in past 3 months (0 pts) Confusion or Disorientation No (0 pts) Intoxicated or Sedated No (0 pts) Impaired Gait No (0 pts) Mobility Assist Device Used No (0 pt) Altered Elimination No (0 pt) Score/Fall Risk Level 0 - 2 = Low Risk Oriented to surroundings, Maintained a safe environment. Assessment: 01:23 General: Reports neighbor states, "I don't know what is wrong with her, she was fine aa9 this morning but lately she has been c/o chest pain and ABD pain, her regular doctors have done a MRI, CT and X-ray with everything coming back normal. I don't think there is anything actually wrong with her. The last few months she has been like this, I don't know ifs like Alzheimer's or something.". 03:06 Reassessment: Patient appears in no apparent distress at this time. Patient and/or aa9 family updated on plan of care and expected duration. Pain level reassessed. Sofia Palmer (Neighbor) [phone]. 03:27 Cardiovascular: Rhythm is sinus bradycardia. aa9 03:27 Respiratory: Breath sounds are clear. aa9 11:23 Reassessment: No changes from previously documented assessment. Patient and/or family ll1 updated on plan of care and expected duration. Pain level reassessed. Patient is alert, oriented x 3, equal unlabored respirations, skin warm/dry/pink. Vital Signs: 01:18 BP 148 / 67; Pulse 54; Resp 16 S; Temp 97.8(O); Pulse Ox 99% on R/A; Weight 63.5 kg aa9 (R); Height 5 ft. 1 in. (154.94 cm) (R); Pain 0/10; 01:45 BP 123 / 62; Pulse 55; Resp 19 S; Pulse Ox 94% on R/A; aa9 01:18 Body Mass Index 26.45 (63.50 kg, 154.94 cm) aa9 ED Course: 01:11 Patient arrived in ED. tw5 01:18 Rach Moeller, RN is Primary Nurse. aa9 01:20 Triage completed. aa9 01:23 Arm band placed on. aa9 01:24 Zac Lester MD is Attending Physician. gerardo 01:29 XRAY Chest (1 view) In Process Unspecified. EDMS 01:35 Inserted saline lock: 20 gauge in right antecubital area, using aseptic technique. aa9 Blood collected. 01:36 COVID-19/FLU A+B Sent. aa9 01:36 Basic Metabolic Panel Sent. aa9 01:36 Troponin HS Sent. aa9 01:36 CBC with Diff Sent. aa9 01:36 D-Dimer Sent. aa9 01:36 NT PRO-BNP Sent. aa9 02:32 Leonard Tavares MD is Hospitalizing Provider. gerardo 02:51 CT Aorta for Dissection: RO PE/DVT Sent. aa9 03:06 Patient has correct armband on for positive identification. Bed in low position. Call aa9 light in reach. Side rails up X2. Adult w/ patient. 03:26 No provider procedures requiring assistance completed. Patient admitted, IV remains in aa9 place. 11:23 IV discontinued, intact, bleeding controlled, No redness/swelling at site. Pressure ll1 dressing applied. Administered Medications: 02:01 Drug: Aspirin Chewable Tablet 162 mg Route: PO; aa9 02:51 Follow up: Response: No adverse reaction aa9 02:52 Drug: ProTONIX (pantoprazole) 40 mg Route: IVP; Site: right antecubital; aa9 11:24 Follow up: Response: No adverse reaction ll1 Medication: 03:06 VIS not applicable for this client. aa9 Outcome: 02:33 Decision to Hospitalize by Provider. gerardo 03:27 Admitted to ER Hold. Please see [facility] for further documentation. aa9 03:27 Condition: stable 03:27 Instructed on the need for admit. 11:24 Patient left the ED. ll1 Signatures: Dispatcher [employer] EDZac Pickett MD MD cha Lewis, Lynsay, ISAIAS RN ll1 Vaishali Nunn tw5 Rach Moeller RN RN aa9
[2022-03-19] MEDS ORDERED: PANTOPRAZOLE 40 MG INJ ONE ×2 (02:44→08:21)
[2022-03-19 02:51] LABS: SARS-COV-2 RT PCR NEGATIVE (NEGATIVE)
[2022-03-19] MEDS ORDERED: ONDANSETRON 4 MG/2 ML VIAL IV PRN (03:28)
[2022-03-19] MEDS ORDERED: SODIUM CHLORIDE 0.9% 10ML INJ IV PRN (03:28)
[2022-03-19] MEDS ORDERED: ACETAMINOPHEN 325 MG TABLET PO PRN (03:28)
[2022-03-19] MEDS ORDERED: MORPHINE 2 MG/ML SYR IV PRN (03:28)
[2022-03-19 03:49] VITALS: BMI 26.4
--- NOTE | 2022-03-19 07:54 | EKG ---
Test Date: 2022-03-19 Test Time: 01:57:28 Manufacturing Plant Technician: NICANOR MEASUREMENT RESULTS: Intervals: Rate: 49 ME: 154 QRSD: 82 QT: 438 QTc: 395 [place]: P: 45 ME: 154 QRS: 38 T: 37 INTERPRETIVE STATEMENTS: Marked sinus bradycardia with sinus arrhythmia Abnormal ECG Compared to ECG 03/05/2022 07:43:33 No significant changes Electronically Signed On 03-19-22 07:53:43 JUNIOR HIGH SCHOOL TEACHER by Kenneth Hager
[2022-03-19] MEDS ORDERED: PNEUMOCOCCAL VACCINE 0.5 ML IMVAC ONE (08:00)
[2022-03-19] MEDS ORDERED: INFLUENZA VACCINE (for 6+ mo) 0.5 ML DOSE IMVAC ONE (08:00)
[2022-03-19] MEDS ORDERED: ENOXAPARIN 60 MG/0.6 ML SQ ONE (08:21)
[2022-03-19] MEDS ORDERED: ENOXAPARIN 60 MG/0.6 ML SQ SCH (09:00)
[2022-03-19] MEDS ORDERED: PANTOPRAZOLE 40 MG INJ IVP SCH (09:00)
[2022-03-19] MEDS ORDERED: ASPIRIN EC 81 MG TAB PO SCH (09:00)
[2022-03-19 09:33] VITALS: O2SAT 94
[2022-03-19 11:25] VITALS: BP 111/44; TEMP 97.7
--- NOTE | 2022-03-19 16:29 | RAD REPORT ---
EXAM DESCRIPTION: RAD - Chest Single View - 03/19/2022 1:27 am CLINICAL HISTORY: SOB TECHNIQUE: Frontal view of the chest. COMPARISON: No relevant prior studies available. FINDINGS: Lungs: Unremarkable. No consolidation. Pleural space: Unremarkable. No pneumothorax. Heart: Unremarkable. No cardiomegaly. Mediastinum: Unremarkable. Bones/joints: Unremarkable. Vasculature: Thoracic aortic atherosclerosis. IMPRESSION: No acute disease. Electronically signed by: Samir Partida MD 03/19/2022 1:35 AM TRAINS SERVICE CONDUCTOR Due to temporary technical issues with the PACS/Fluency reporting system, reports are being signed by the in house radiologists without review as a courtesy to insure prompt reporting. The interpreting radiologist is fully responsible for the content of the report.
--- NOTE | 2022-03-19 16:41 | RAD REPORT ---
EXAM DESCRIPTION: CT - Angio Aorta For Dissection - 03/19/2022 7:08 am CLINICAL HISTORY: The patient is 81 years old and is Female; CHEST AND ABD PAIN TECHNIQUE: Axial computed tomographic angiography images of the chest, abdomen and pelvis with intra venous contrast. Sagittal and coronal reformatted images were created and reviewed. This CT exam was performed using one or more of the following dose reduction techniques: automated exposure cont rol, adjustment of the mA and/or kV according to patient size, and/or use of iterative reconstruction technique. MIP reconstructed images were created and reviewed. COMPARISON: No relevant prior studies available. FINDINGS: VASCULATURE: AORTA: No acute findings. No aortic aneurysm. No dissection. PULMONARY ARTERIES: Unremarkable as visualized. No pulmonary embolism is identified. GREAT VESSELS OF AORTIC ARCH: No acute findings. No dissection. No arterial occlusion or sig nificant stenosis. CELIAC TRUNK AND MESENTERIC ARTERIES: No acute findings. No occlusion or significant stenosis. RENAL ARTERIES: No acute findings. No occlusion or significant stenosis. ILIAC ARTERIES: No acute findings. No occlusion or significant stenosis. CHEST: LUNGS: Unremarkable. No mass. No consolidation. PLEURAL SPACE: Unremarkable. No significant effusion. No pneumothorax. HEART: Unremarkable. No cardiomegaly. No significant pericardial effusion. ABDOMEN: LIVER: Unremarkable. No mass. GALLBLADDER AND BILE DUCTS: The gallbladder is not seen and is likely surgically absent. No du ctal dilation. PANCREAS: The pancreas is atrophic. No ductal dilation. SPLEEN: Unremarkable. No splenomegaly. ADRENALS: Unremarkable. No mass. KIDNEYS AND URETERS: Unremarkable. No hydronephrosis. No solid mass. STOMACH AND BOWEL: The stomach is filled with fluid and air. The small bowel is normal in calibe r. Stool is present throughout colon. No evidence of bowel obstruction. No significant bowel wall thi ckening. Colonic diverticulosis is noted, without associated inflammatory changes to suggest divertic ulitis. PELVIS: APPENDIX: No findings to suggest acute appendicitis. BLADDER: The bladder is well distended. REPRODUCTIVE: Unremarkable as visualized. CHEST, ABDOMEN and PELVIS: INTRAPERITONEAL SPACE: Calcified phleboliths are present within the pelvis. No significant flu id collection. No free air. BONES/JOINTS: Multilevel degenerative change of the spine is present. There is no acute fractu re. No dislocation. SOFT TISSUES: Unremarkable. LYMPH NODES: Unremarkable. No enlarged lymph nodes. IMPRESSION: 1. No evidence of aortic aneurysm or dissection. 2. Colonic diverticulosis without evidence of diverticulitis. Electronically signed by: Carmen Joseph MD 03/19/2022 3:32 AM MACHINE SORTER Due to temporary technical issues with the PACS/Fluency reporting system, reports are being signed by the in house radiologists without review as a courtesy to insure prompt reporting. The interpreting radiologist is fully responsible for the content of the report.
--- NOTE | 2022-03-19 21:32 | P.SSS ---
Patient History Date of Service: 03/19/22 Reason for admission: ABDOMEN PAIN History of Present Illness: CLIFTON HAS MANY COMPLAINTS WITH VERY FEW PHYSICAL EVIDENCE AND ONCE AGAIN AFTER MRA DONE OF ABDOMEN SHE HAD LUQ ABDOMNE PAIN AND SHE ENDS UP IN ER. ER DOCTOR ENDED UP ADMITTING HER BUT I SEE NO NEW FINDINGS. SHE HAS NORMAL LAB, NORMAL MRA, NORMAL CT SCAN. SHE HAS HAD NORMAL EGD, NORMAL COLONOSCOPY BUT HAS CHRONIC COMPLAINTS OF ABDOMEN OR HEART. PUGH BY DR HAMLIN IS NORMAL ALSO. SHE MAY HE HYPOCHONDRIAC AND SYMPTOMS EXACERBATE WITH HER WORRIES ABOUT THEM. SHE IS STABLE. I SENT RX FOR HYOSCIAMINE SL. SHE KNOWS TO AVOID ER UNLESS SHE HAS ANY NEW SYMPTOMS. TOO MANY CT SCANS BY ER DOCTOR FOR NO REASON IS NOT A GOOD IDEA FOR ONE'S HEALTH. Allergies albuterol Allergy (Verified 05/04/17 12:13) Anaphylaxis amoxicillin [From Augmentin] Allergy (Verified 11/09/17 13:38) Anaphylaxis azithromycin [From Zithromax] Allergy (Verified 11/09/17 13:38) Anaphylaxis cefuroxime [From Ceftin] Allergy (Verified 11/09/17 13:38) Anaphylaxis Cephalosporins Allergy (Verified 11/09/17 13:38) Anaphylaxis ciprofloxacin Allergy (Verified 11/09/17 13:38) Anaphylaxis clavulanic acid [From Augmentin] Allergy (Verified 11/09/17 13:38) Anaphylaxis glimepiride Allergy (Verified 11/09/17 13:38) Nausea/Vomiting insulin aspart Allergy (Verified 11/09/17 13:38) Anaphylaxis insulin detemir [From Levemir U-100 Insulin] Allergy (Verified 11/09/17 13:38) Nausea/Vomiting iodine Allergy (Verified 11/09/17 13:38) Itching levofloxacin [From Levaquin] Allergy (Verified 11/09/17 13:38) Anaphylaxis metformin [From Glucophage] Allergy (Verified 11/09/17 13:38) Nausea/Vomiting metoprolol succinate [From Toprol XL] Allergy (Verified 05/04/17 12:13) Anaphylaxis morphine Allergy (Verified 05/04/17 12:13) Anaphylaxis Penicillins Allergy (Verified 11/09/17 13:38) Anaphylaxis pentazocine [From Talwin] Allergy (Verified 11/09/17 13:38) Anaphylaxis Phenothiazines Allergy (Verified 11/09/17 13:38) Anaphylaxis promethazine HCl [From Phenergan] Allergy (Verified 05/04/17 12:13) Anaphylaxis Quinolones Allergy (Verified 11/09/17 13:38) Anaphylaxis sitagliptin [From Januvia] Allergy (Verified 11/09/17 13:38) Nausea/Vomiting Sulfa (Sulfonamide Antibiotics) Allergy (Verified 11/09/17 13:38) Anaphylaxis Stadol NS Allergy (Uncoded 01/07/15 03:44) Anaphylaxis Home Medications: Diazepam [Valium] 5 mg PO BEDTIME 11/09/17 Insulin Aspart [Novolog Flexpen] See Protocol SQ ACHS 11/09/17 Levothyroxine Sodium 25 mcg PO SYUSP8UR 11/09/17 Metformin HCl [Metformin ER Osmotic] 500 mg PO BID PRN 11/09/17 bisoproloL fumarate [Zebeta*] 5 mg PO DAILY 11/09/17 Ciprofloxacin HCl [Cipro 250 MG Tablet*] 250 mg PO BID #14 tab 11/11/17 - Past Medical/Surgical History Has patient received pneumonia vaccine in the past: No Diabetic: Yes -: Hypothyroidism -: svt- HX OF ARRYTHMIAS -: IDDM -: KIDNEY STONES -: FATTY LIVER -: MVP -: DIVERTICULITIS -: PANCREATITIS -: UTI -: colon resection -: 2 heart ablasions -: Cholesystectomy -: Appendectomy - Family History Father -: Diabetes Notes: dementia Mother Notes: parkinsons - Social History Smoking Status: Never smoker Alcohol use: No CD- Drugs: No Caffeine use: No Physical Examination - Vital Signs Temperature: 97.7 F Blood Pressure: 111/44 Pulse: 52 Respirations: 17 Pulse Ox (%): 99 - Physical Exam General: Alert, In no apparent distress HEENT: Atraumatic, PERRLA, Mucous membr. moist/pink, EOMI, Sclerae nonicteric Neck: Supple, 2+ carotid pulse no bruit, No LAD, Without JVD or thyroid abnormality Respiratory: Clear to auscultation bilaterally, Normal air movement Cardiovascular: Regular rate/rhythm, Normal S1 S2 Gastrointestinal: Normal bowel sounds, No tenderness Musculoskeletal: No tenderness Integumentary: No rashes Neurological: Normal gait, Normal speech, Normal strength at 5/5 x4 extr, Normal tone, Normal affect Lymphatics: No axilla or inguinal lymphadenopathy - Studies Laboratory Data (last 24 hrs) 03/19/22 01:33: WBC 7.00, Hgb 12.4, Hct 37.6, Plt Count 235 03/19/22 01:33: Sodium 135 L, Potassium 3.9, BUN 14, Creatinine 1.03 H, Glucose 136 H, Lipase 195 03/19/22 01:28: Lipase Cancelled - Diagnosis (Problem(s)) (1) Pain in the abdomen Status: Acute Plan: NONSPECIFIC POSSIBLE ANXIETY RELATED HYPOCHONDRIAC FINDING. SHE HAS NO POSITIVE REPORTS IBS AND SPASTIC COLON ARE POSSIBLE. SHE IS TAKING XANAX LEFT BY SON AT HOME. Qualifiers: Abdominal location: upper abdomen, unspecified Qualified Code(s): R10.10 - Upper abdominal pain, unspecified - Disposition Disposition: DC HOME/HOME HEALTH CARE Condition: GOOD
== END 2022-03-19 11:23 | disposition home health service (06) ==
LOC: ER 01:07 → ERHOLD 02:36
PROVIDERS: ADMIT Internal Medicine; ATTEND Internal Medicine
DX: R10.10 Upper abdominal pain, unspecified (principal); E03.9 Hypothyroidism, unspecified; E11.8 Type 2 diabetes mellitus with unspecified complications; K85.90 Acute pancreatitis without necrosis or infection, unspecified; Z88.1 Allergy status to other antibiotic agents; Z91.09 Other allergy status, other than to drugs and biological substances; Z88.6 Allergy status to analgesic agent; Z88.8 Allergy status to other drugs, medicaments and biological substances; Z79.4 Long term (current) use of insulin; Z20.822 Contact with and (suspected) exposure to COVID-19; Z23 Encounter for immunization
CPT/HCPCS: 0240U; 36415; 71045; 71275; 74175; 80048; 81003; 83690; 83880; 84484; 85025; 85379; 93005; C9113; G0378; J1650; Q9967

== ENCOUNTER 2022-06-19 01:28 | Inpatient (IN) | payer OTHER ==
--- OUTSIDE RECORDS SUMMARY | 2022-06-19 01:33 | XMS REPORT | Continuity of Care Document ---
:1940 Author Organization [facility] t Address [address] [facility] [address] [place] [address] Care Team Providers Name Role Phone Kristian Suarezesh Primary Care Physician JOSE DAVID SCHWAB Attending Clinician Unavailable MD MIRANDA SEXTON Attending Clinician Unavailable Doctor Unassigned, [place] Attending Clinician Unavailable ANAMARIA WESLEY Attending Clinician Unavailable GEORGI Attending Clinician Unavailable Edward Medina RN Attending Clinician Unavailable MEREDITH BAE Attending Clinician Unavailable Jimi Spring MD Attending Clinician Meredith Bae MD Attending Clinician MD MIRANDA SEXTON Admitting Clinician Unavailable GEORGI Admitting Clinician Unavailable MEREDITH BAE Admitting [...] of Disease Active U nivers cardiac cardiac 08-16 [place]y [place] en[place] 00 Medical ablation ablation Branch Chest Chest Disease Active Univers pain, pain, 7 ity of unspecifie [place] d type d type 00 Medical Branch Urinary Urinary Disease Active Univers tract tract 1-06 [place]y of infection, infection, [place] site 00 Medical unspecifie unspecifie Br anch d d Primary Primary Disease Active Univers hypothyroi hypothyroi 308 it y of dism dism 00:00: [place] 00 Medical Branch Left Left Disease Active Univers carotid carotid 308 ity of bruit bruit 00:00: [place] 00 Medical Branch Obesity Obesity Disease Active Overview: Univ ers 6-04 Formattin ity of 00:00: g of this [place] 00 note Medical might be Branch different from the original. 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 Allergies, Adverse Reactions, Alerts Allergy Allergy Status Severity Reaction(s) Onset Inactive Treating Comm ents Source Name Type Date Date Clinician Beta-Blo DA Active SV 2017-02 [facility] ckers 02-23 (Beta-Ad 00:00: [place] renergic 00 [facility] morphine DA Active SV 2017-02 [facility] 02-23 00:00: [address] metoprol DA Active SV 2017-02 [facility] ol 02-23 00:00: [address] prometha DA Active SV 2017-02 [facility] zine 02-23 00:00: [address] butorpha DA Active SV 2017-02 [facility] nol 02-23 00:00: [address] Epinephr Propensi Active Palpitations 2011-02 Univers [...] ZINE HCL INGREDI 4-14 ity of 00:00: [place] 00 [facility] METOPROL DRUG Active SOB [facility] OL INGREDI 4-14 ity of SUCCINAT 00:00: [place] E [address] [place] [address] Social History Social Habit Start Date Stop Date Quantity Comments Source Exposure to 2021-08-04 2021-08-14 Not sure [facility] 00:00:00 00:29:00 [place] Medical (event) [place] Alcohol intake 2021-08-14 2021-08-14 Current University 00:00:00 00:00:00 non-drinker of [facility] alcohol (finding) [place] Tobacco use and 2017-03-30 2017-03-30 Smokeless tobacco Un iversity of exposure 00:00:00 00:00:00 non-user [facility] Sex Assigned At [birth year] [facility]:00 [facility] Smoking Status Start Date Stop Date Source Never smoked tobacco [facility] Medications Ordered Filled Start Stop Current Ordering [...] 08-14 c- 1 ity of 13:23: tablet [place] daily Medical Branch ASPIRIN 81 Yes 1 daily Univ ers MG ORAL TAB 08-14 ity of 13:23: [place] [facility] bisoprolol Yes 2.5mg Take 2.5 Un tay (ZEBETA) 5 08-14 mg by ity of mg tablet 13:23: mouth [address] [place] [address] (two) Medical times Branch daily. Alpha 2022-0 Yes 1{tbl} Take 1 Tab Univ ers Lipoic Acid 7-07 by mouth ity of (THIOCTIC 13:23: daily. [place] ACID) 200 21 Medical mg Tab Branch TURMERIC 0 Yes 400mg Take 400 Univ ers ROOT 7-07 mg by ity of EXTRACT 13:23: mouth [place] ORAL 21 daily. Medical Branch MULTI-VITAM Yes alpha-amarilys Univers IN ORAL 7-07 c- 1 ity of 13:23: tablet [place] 21 daily Medical Branch ASPIRIN 81 2021-0 Yes 1 daily Univ ers MG ORAL TAB 7-07 ity of 13:23: [place] 21 Medical Branch bisoprolol Yes 2.5mg Take 2.5 [...] Branch MULTI-VITAM Yes alpha-amarilys Univers IN ORAL 07 c- 1 ity of 13:23: tablet [place] 21 daily Medical Branch ASPIRIN 81 0 Yes 1 daily Univ ers MG ORAL TAB 7-07 ity of 13:23: Medical Branch bisoprolol 0 Yes 2.5mg Take [...] [place] ORAL 21 daily. Medical Branch pantoprazol 0 Yes 40mg 40 mg, Univ ers e [...] Until Discontinu ed Sliding 0 Yes Subcutaneo Univ ers Scale 08-14 us, [...] g), ity of 100 mg/mL 12:30: Oral, [place] suspension 00 AC+HS, Medical 1,000 mg First [...] at 0600, Until Discontinu ed, Routine ondansetron Yes 4mg 4 mg, Slow Univers (ZOFRAN 08-14 IV Push, ity of (PF)) 10:44: Q6HPRN, [place] injection 4 33 Starting Medi favian mg [...] ity of bolus 10:42: PRN - SEE [place] infusion 49 INSTRUCTIO Medic al 250 mL [...] Branch at 2345, Routine iopamidol 2021- No [id number] 80mL 80 mL, U nivers (ISOVUE 08-14 Intravenou ity o f 370-500 mL) 04:07: 04:07 s, ONCE, 1 [place] injection 00 :00 dose, On Medica l 80 mL 08/13/21 Branch at 2315, Routine pantoprazol 2021- No [id number] 40mg Take 1 Univers e 40 mg EC 08-14 tablet by ity of tablet 00:00: 04:59 mouth [place] 00 :00 daily for Medical 30 days. [place] pantoprazol 0 2021- No [id number] 40mg Take 1 Univers e 40 mg EC 08-14 tablet by ity of tablet 00:00: 04:59 mouth [place] 00 :00 daily for Medical 30 days. Branch LEVOTHYROXI 2018- Yes [id number] TAKE 1 Univers NE 25 mcg 6-13 TABLET BY ity o f tablet 00:00: MOUTH ONCE [place] 00 DAILY IN [facility] THE [place] MORNING LEVOTHYROXI 2018- Yes [id number] TAKE 1 Univers NE 25 mcg 6-13 TABLET BY ity o f tablet 00:00: MOUTH ONCE [place] 00 DAILY IN [facility] THE [place] MORNING LEVOTHYROXI Yes [id number] TAKE 1 Univers NE 25 mcg 6-13 TABLET BY ity o f tablet 00:00: MOUTH ONCE [place] 00 DAILY IN [facility] THE [place] MORNING insulin 2018- Yes [id number] INJECT 5 U nivers aspart 2-20 UNITS ity of U-100 00:00: UNDER THE [place] (NOVOLOG 00 SKIN THREE Medic al FLEXPEN TIMES A Branch U-100 DAY BEFORE INSULIN) MEAL 100 unit/mL injection insulin 2018- Yes [id number] INJECT 5 U nivers aspart 2-20 UNITS ity of U-100 00:00: UNDER THE [place] (NOVOLOG 00 SKIN THREE Medic al FLEXPEN TIMES A Branch U-100 DAY BEFORE INSULIN) MEAL 100 unit/mL injection insulin 2018- Yes [id number] INJECT 5 U nivers aspart 2-20 UNITS ity of U-100 00:00: UNDER THE [place] (NOVOLOG 00 SKIN THREE Medic al FLEXPEN TIMES A Branch U-100 DAY BEFORE INSULIN) MEAL 100 unit/mL injection Insulin 2017- Yes QID, Univers [place], 7-05 DX:E11.9 ity of Disposable, 00:00: [place] (NOVOFINE Medical 30) 30 Branch gauge x 1/3" Ndle Insulin 2017- Yes QID, Univers [place], 7-05 DX:E11.9 ity of Disposable, 00:00: [place] (NOVOFINE 00 Medical 30) 30 Branch gauge x 1/3" Ndle Insulin 2017-0 Yes QID, Univers [place], 7-05 DX:E11.9 ity of Disposable, 00:00: [place] (NOVOFINE 00 Medical 30) 30 Branch gauge x 1/3" Ndle estradiol 2017-0 Yes 2g Insert 2 g [...] 00 DX:E11.9 Medic al Branch blood sugar 2015-0 Yes Use as Univ ers diagnostic 3-28 directed, ity of (ONETOUCH 00:00: TID, [place] VERIO) 00 DX:E11.9 Medical strip Branch lancets 2016-0 Yes Use as Univers (ONE TOUCH 3-28 directed, ity of DELICA) 33 00:00: TID, [place] gauge Misc 00 DX:E11.9 Medic al Branch blood sugar 2016-0 Yes Use as Univ ers diagnostic 3-28 directed, ity of (ONETOUCH 00:00: TID, [place] VERIO) 00 DX:E11.9 Medical strip Branch lancets 2016-0 Yes Use as Univers (ONE TOUCH 3-28 [...] [place] Heart rate 2021-08-14 17:01:00 55 /min [facility] Body temperature 2021-08-14 17:01:00 35.94 Lita [facility] Respiratory rate 2021-08-14 17:01:00 18 /min [facility] Oxygen saturation in 2021-08-14 17:01:00 95 /min [facility] Arterial blood by [facility] Pulse oximetry Branch Body weight 2021-08-14 09:22:00 65.998 kg [facility] BMI 2021-08-14 09:22:00 26.61 kg/m2 [facility] Body height 2021-08-14 05:27:00 157.5 cm [facility] Procedures Procedure Date / Time Performing Clinician Source Performed EXTERNAL PROVIDER 2022-03-10 06:01:00 Doctor Unassigned, No [facility] RECORDS Name [facility] POCT GLUCOSE (AUTOMATED) 2021-08-14 17:01:00 Meredith Bae [facility] TRANSTHORACIC ECHO (TTE) 2021-08-14 15:00:00 Meredith Bae [facility] COMPLETE [facility] POCT GLUCOSE (AUTOMATED) 2021-08-14 13:04:00 Meredith Bae [facility] SODIUM, URINE RANDOM 2021-08-14 11:46:00 Meredith Bae [facility] PROTEIN CREAT RATIO 2021-08-14 11:46:00 Meredith Bae [facility] URINE RANDOM [facility] URINALYSIS 2021-08-14 09:54:00 Meredith Bae [facility] FREE T4 2021-08-14 09:53:00 Kindra Monzon [facility] THYROID STIMULATING 2021-08-14 09:53:00 Meredith Bae [facility] HORMONE [facility] BASIC METABOLIC PANEL 2021-08-14 09:53:00 Meredith Bae [facility] (NA, K, CL, CO2, Medical Branch GLUCOSE, BUN, CREATININE, CA) LIPID PANEL 2021-08-14 09:53:00 Meredith Bae [facility] ([id number])(TOTAL Medical Branch CHOLESTEROL, TRIGLYCERIDES, HDL) PROTHROMBIN TIME / INR 2021-08-14 09:53:00 Kathia margarita [facility] N-TERMINAL PRO-BNP 2021-08-14 09:53:00 Kathia margarita [facility] FREE T3 2021-08-14 09:53:00 Kindra Monzon [facility] PROCALCITONIN 2021-08-14 09:53:00 Kathia margarita [facility] MAGNESIUM 2021-08-14 09:53:00 Kathia [facility] TROPONIN I 2021-08-14 09:53:00 Kathia [facility] CT CHEST PULMONARY 2021-08-14 04:11:51 Jimi Spring [facility] ANGIOGRAM [facility] Branch COVID-19 (ID NOW RAPID 2021-08-14 03:56:00 Jimi Spring [facility] TESTING) Medical Branch COMP. METABOLIC PANEL 2021-08-14 03:38:00 Jimi Spring [facility] ([id number]) [facility] CBC WITH DIFF 2021-08-14 03:38:00 Clementine [facility] GLYCOSYLATED HEMOGLOBIN 2021-08-14 03:38:00 Kathia [facility] (A1C) [facility] N-TERMINAL PRO-BNP 2021-08-14 03:38:00 Jimi Spring [facility] PHOSPHORUS 2021-08-14 03:38:00 Clementine Jimi Felipe [facility] MAGNESIUM 2021-08-14 03:38:00 Clementine, [facility] TROPONIN I 2021-08-14 03:38:00 Clementine [facility] HB ECG ROUTINE & RHYTHM 2021-08-14 03:28:10 Clementine [facility] [place] [facility] STRIP [facility] Branch Encounters Start End Encounter Admission Attending Care Care Encounter Source Date/Time Date/Time Type Type Clinicians Facility Department ID 2022-05-11 2022-05-11 Outpatient JOSE DAVID SCHWAB [facility] [id number] [place] 00:00:00 00:00:00 687 Method i 2022-05-11 2022-05-11 Outpatient ZAHEER, JOSE DAVID [facility] [id number] [place] 00:00:00 00:00:[address] 2022-05-11 2022-05-11 Outpatient ZAHEER, JOSE DAVID [facility] [id number] [place] 00:00:00 00:00:00 942 Method i 2022-05-11 2022-05-11 Outpatient ZAHEER, JOSE DAVID [facility] [id number] [place] 00:00:00 00:00:00 121 Method i 2022-03-26 2022-03-26 Emergency DARSHAN, [facility] [id number] [place] 00:00:00 00:00:00 MIRANDA 355 Method i 2022-03-10 2022-03-10 Orders Doctor DANGELO [id number] Univers 00:00:00 00:00:00 Only Unassigned, BAKARI 350.1.13.10 [facility] 4.2.7[facility]2.686 [place] [id number] [facility] 009 Branch 2021-10-01 2021-10-01 Outpatient R LUPILLO [facility] [id number] Univers 00:00:00 00:00:00 ANAMARIA [facility] 2021-09-04 2021-09-04 Outpatient TREVOR KELLER [facility] 861 [facility] 00:00:00 00:00:00 HN 0728 da [facility] Program 2021-08-15 2021-08-15 Transition JASON Medina [id number] Univers 00:00:00 00:00:00 of Care Edward THOMPSON 350.1.13.10 ity of [place] 4[place]2.686 [place] [id number] [facility] 403 Branch 2021-08-13 2021-08-14 Outpatient X KATHIA [facility]EN [facility] [id number] Univers 22:23:00 13:20:00 MEREDITH [facility] 2021-08-13 2021-08-14 Emergency Jimi Sprign [facility] 1.2.840. [id number] Univers 22:23:00 13:20:00 Meredith [facility]ae [facility] 4.2.7.2.686 [facility] [id number] [facility] 081 Branch 2020-03-21 2020-03-21 Outpatient SLE SLE [id number] SLE 00:00:00 00:00:00 Results Test Description Test Time Test Comments Results Result Comments Source Influenza virus A and B and 2022-03-26 23:23:12 Test Item Value Reference Range Interpretation Comme nts SARS-CoV-2 (COVID-19) RNA [Presence] in Respiratory specimen by Not detected ANNABELLE with probe detection (test code = 59261-3) Whether patient resides in a congregate care setting (test code = N o 05291-8) Date and time of symptom onset (test code = 46701-2) Unknown Whether the patient was hospitalized for condition of interest No (test code = 23033-5) Whether the patient was admitted to intensive care unit (ICU) for N o condition of interest (test code = 05489-8) Whether patient is employed in a healthcare setting (test code = No 10379-4) Whether the patient has symptoms related to condition of interest N o (test code = 08805-6) status (test code = 60189-2) No ALBERT HARVEY ELDONTransthoracic echo (TTE)2021-08-14 17:28:13 Test Item Value Reference Range Interpretation Comments Height (test code = in 9195947646) Weight (test code = lbs 6098201321) Systolic BP (test code = mmHg 9914842182) Diastolic BP (test code mmHg = 9131114988) Heart Rate (test code = bpm 4294881169) BSA (test code = 1.67 m2 9295847744) LVOT diameter (test code 2.01 cm = 6008403240) LA size (test code = 3.6 cm 7674471299) Ao root annulus (test 2.37 cm code = 7486454013) Ao root diam (test code 2.37 cm = 5447129267) Aortic root (test code = 2.37 cm 8769076379) IVS (test code = 0.74 cm 3591998416) Interventricular Septum 0.74 cm Diastolic Thickness by 2D (test code = 5772230) LVIDD (test code = 4.10 cm 9741056936) EF(Teich) (test code = 58.50 % 2578171438) LVIDS (test code = 2.90 cm 3385769264) FS (test code = 31 % 2464818393) EF - 2D (test code = 58.50 % 81568649) LAV(MOD-sp4) (test code 21.90 mL = 4431672353) E wave decelartion time 0.23 s (test code = 7760598033) MV Peak A Jose (test code 69.1 cm/s = 0419637169) MV Peak E Jose (test code 79.6 cm/s = 8080720751) E/A ratio (test code = ratio 2177429377) MV E/e' septal (test 7.4 cm/s code = 2157327023) Tapse (test code = 2.40 cm 8582336418) LVOT stroke volume (test 75.50 cm3 code = 4635474069) LVOT peak jose (test code 104.9 cm/s = 9891129666) LVOT mn grad (test code mmHg = 1284511827) AV LVOT peak gradient mmHg (test code = 7278756225) LVOT peak VTI (test code 23.9 cm = 2403873828) LV V1 mean (test code = 65.20 cm/s 6107362855) Aortic valve mean 73.4 cm/s velocity (test code = 2230286820) Ao peak jose (test code = 109.1 cm/s 0346094607) Ao VTI (test code = 23.8 cm 3711979264) AV area by cont VTI 3.2 cm2 (test code = 0123148902) AV area peak jose (test 3.0 cm2 code = 3697694534) Ao max PG (test code = 4.80 mm[Hg] 1184467222) AV peak gradient (test mmHg code = 9978871467) AV valve area (test code 3.20 cm2 = 9240352482) AV mean gradient (test mmHg code = 9291201547) TR Peak Jose (test code = 223.9 cm/s 1184577553) Triscuspid Valve mmHg Regurgitation Peak Gradient (test code = 8010213858) LA Volume Index (BP) 14.7 mL/m2 (test code = 9872327657) LA volume (BP) (test 24.5 mL code = 5395106303) LAV(MOD-sp2) (test code 27.00 mL = 0553083251) Radiology Study observation (narrative) (test code = 77560-0) TAMI (test code = TAMI) ?Left?Ventricle: Left ventricle size is normal. Normal wall thickness. Normal wall motion. Normal systolic function with a visually estimated EF of 60 - 65%. Indeterminate diastolic function. ?Tricuspid?Valve: Right ventricular systolic pressure is normal. ?RA pressure is 0-5 mmHg. ?Right?Ventricle: Normal systolic function. [facility]2021-[facility]-14 17:04:45 Test Item Value Reference Range Interpretation Comments POCT GLU (test code = 4019149731) 137 mg/dL 70-110 H Lab Interpretation (test code = Abnormal 77998-8) [facility]2022-07-07 15:42:38 Test Item Value Reference Range Interpretation Comments Procalcitonin (test 0.02 ng/mL <0.07 code = 1406192939) TAMI (test code = TAMI) INTERPRETATION OF [...] lung abscess/empyema. For further information please refer to:[email or web address] Lab Interpretation Normal (test code = 45563-3) [facility] [id number] 15:39:57 Test Item Value Reference Range Interpretation Comments FREE T3 (test code = 2454552600) 2.88 pg/mL 2.77-5.27 Lab Interpretation (test code = Normal 13227-7) [facility] [id number] 15:39:57 Test Item Value Reference Range Interpretation Comments FREE T4 (test code = See_Comment [Autom ated message] 3742764620) The system [employer] generated this result transmitted ref erence range: 0.78 - 2 .20 ng/dL:. The ref erence range was not u sed to interpret this result as normal/abnor mal. Lab Interpretation (test Normal code = 71387-3) [facility]2021-08-14 13:12:49 Test Item Value Reference Range Interpretation Comments POCT GLU (test code = 9047435395) 137 mg/dL 70-110 H Lab Interpretation (test code = Abnormal 65059-1) [facility] STIMULATING [id number] 12:18:53 Test Item Value Reference Range Interpretation Comments TSH (test code = See_Comment H [Automated message] 2563955057) The system [employer] generated this result transmitted ref erence range: 0.45 - 4 .70 mIU/L. The refe rence range was not u sed to interpret this result as normal/abnor mal. Lab Interpretation (test Abnormal code = 97794-3) [facility] (92280)(TOTAL CHOLESTEROL, TRIGLYCERIDES, HDL)2021-08-14 11:48:08 Test Item Value Reference Range Interpretation Comments CHOL (test code = 180 mg/dL 120-200 5019847007) HDL (test code = 47 mg/dL >50 L 6537298936) HDLC RATIO (test code = See_Comment [Au tomated message] 4383941014) The system [employer] generated this result transmit palma reference range : <=4.5. The refe rence range was not u sed to interpret th is result as normal/abnormal . TRIG (test code = 101 mg/dL 30-170 0982714442) LDL CHOL (test code = 113 mg/dL See_Comment [Auto mated message] 87982-8) The system [employer] generated this result transmit palma reference range : <=160. The refe rence range was not u sed to interpret th is result as normal/abnormal . VLDL (test code = 20 mg/dL 5-60 4729274968) Lab Interpretation (test Abnormal code = 66638-1) [facility]TR[facility] [id number] 11:17:30 Test Item Value Reference Interpretation Comments Range TROPONIN I (test 0.003 ng/mL See_Comment [Automated code = 9274327432) message] The system which generated this result [...] biotin. Lab Interpretation Normal (test code = 85850-0) [facility] System[facility]MINAL [id number] 11:13:08 Test Item Value Reference Range Interpretation Comments NT-proBNP (test code 225 pg/mL See_Comment [Autom ated = 5896498480) message] The system which generated this result transmitted reference range : <=450. The reference range was not used to interpret this result as normal/abnormal . TAMI (test code = TAMI) Biotin has been reported to cause a negative bias, interpret results relative to patient's use of biotin. Lab Interpretation Normal (test code = 82938-3) [facility]UM2022-07-07 10:54:42 Test Item Value Reference Range Interpretation Comments MAGNESIUM (test code = 3196724652) 1.9 mg/dL 1.7-2.4 Lab Interpretation (test code = Normal 20252-1) [facility]OLIC PANEL (NA, K, CL, CO2, GLUCOSE, BUN, CREATININE, CA)2021-08-14 10:54:22 Test Item Value Reference Range Interpretation Comments NA (test code = 138 mmol/L 135-145 0102841672) K (test code = 4.1 mmol/L 3.5-5.0 1614257005) CL (test code = 104 mmol/L 98-108 9206888057) CO2 TOTAL (test code = 27 mmol/L 23-31 1448758782) AGAP (test code = 2-16 5576537823) BUN (test code = 16 mg/dL 7-23 0121620620) GLUCOSE (test code = 149 mg/dL 70-110 H 3963810467) CREATININE (test code = 0.84 mg/dL 0.50-1.04 2710445842) CALCIUM (test code = 9.4 mg/dL 8.6-10.6 7735408079) eGFR (test code = mL/min/1.73m2 1537633994) TAMI (test code = TAMI) Association of [...] tests). Lab Interpretation Abnormal (test code = 12470-7) [facility] SystemProthrombin Time / [id number] 10:44:01 Test Item Value Reference Range Interpretation Comments PROTIME PATIENT (test See_Comment [Auto mated message] code = 5964-2) The system [employer] generated this result transmitted ref erence range: 12.0 - 1 4.7 Seconds. The re ference range was not u sed to interpret this result as normal/abnor mal. INR (test code = 6301-6) Nor mal INR <1.1; Warfarin Therap eutic range 2.0 to 3. 0 or 2.5 to 3.5, dep ending upon the indica tions. Lab Interpretation (test Normal code = 31165-3) [facility] SystemGLYCOSYLATED HEMOGLOBIN (A1C)2021-08-14 10:13:38 Test Item Value Reference Range Interpretation Comments HGB A1C (test code = 7.8 % 4.0-5.7 H 4548-4) TAMI (test code = TAMI) Reference RangesNormal: <5.7%Prediabetes: 5.7 - 6.4%Diabetes: > 6.5% Lab Interpretation (test Abnormal code = 69599-4) [facility] SystemTROP[facility]IN [id number] 04:14:57 Test Item Value Reference Interpretation Comments Range TROPONIN I (test 0.001 ng/mL See_Comment [Automated code = 9788518961) message] The system which generated this result [...] biotin. Lab Interpretation Normal (test code = 39832-2) [facility] SystemN-TERMINAL [id number] 04:11:41 Test Item Value Reference Range Interpretation Comments NT-proBNP (test code 192 pg/mL See_Comment [Autom ated = 0825155087) message] The system which generated this result transmitted reference range : <=450. The reference range was not used to interpret this result as normal/abnormal . TAMI (test code = TAMI) Biotin has been reported to cause a negative bias, interpret results relative to patient's use of biotin. Lab Interpretation Normal (test code = 75552-1) [facility]UM2022-07-07 04:03:40 Test Item Value Reference Range Interpretation Comments MAGNESIUM (test code = 2341765993) 1.8 mg/dL 1.7-2.4 Lab Interpretation (test code = Normal 22156-5) [facility] SystemCOMP. METABOLIC PANEL (58621)2021-08-14 04:03:20 Test Item Value Reference Range Interpretation Comments NA (test code = 138 mmol/L 135-145 0377741058) K (test code = 4.2 mmol/L 3.5-5.0 5186236436) CL (test code = 102 mmol/L 98-108 9729936233) CO2 TOTAL (test code = 27 mmol/L 23-31 2085856152) AGAP (test code = 2-16 9532266346) BUN (test code = 18 mg/dL 7-23 5732055635) GLUCOSE (test code = 207 mg/dL 70-110 H 2639858688) CREATININE (test code = 0.88 mg/dL 0.50-1.04 6482693666) TOTAL BILI (test code = 0.6 mg/dL 0.1-1.9 9955820215) CALCIUM (test code = 9.7 mg/dL 8.6-10.6 5495518911) T PROTEIN (test code = 7.1 g/dL 6.3-8.2 9282413537) ALBUMIN (test code = 4.3 g/dL 3.5-5.0 2576715150) ALK PHOS (test code = 77 U/L 34-122 8633638369) ALTv (test code = 21 U/L 5-35 1742-6) AST(SGOT) (test code = 29 U/L 13-40 9862505125) eGFR (test code = mL/min/1.73m2 3165701281) TAMI (test code = TAMI) Association of [...] tests). Lab Interpretation Abnormal (test code = 22461-3) [facility] Test Item Value Reference Range Interpretation Comments PHOSPHORUS (test code = 0924777924) 3.3 mg/dL 2.5-5.0 Lab Interpretation (test code = Normal 18758-2) [facility] WITH [id number] 03:51:16 Test Item Value Reference Range Interpretation Comments WBC (test code = See_Comment [Automated message] 6690-2) The system [employer] generated this result transmitted ref erence range: 4.30 - 1 1.10 10*3/?L. The re ference range was not u sed to interpret this result as normal/abnor mal. RBC (test code = See_Comment [Automated message] 789-8) The system [employer] generated this result transmitted ref erence range: [...] RDW-SD (test code 41.0 fL 39.0-49.9 = 45810-0) RDW-CV (test code 13.0 % 12.0-15.5 = 788-0) PLT (test code = See_Comment [Automated message] 777-3) The system [employer] generated this result transmitted ref erence range: 166 - 35 8 10*3/?L. The re ference range was not u sed to interpret this result as normal/abnor mal. MPV (test code = 9.9 fL 9.5-12.9 44314-1) NRBC/100 WBC (test See_Comment [Automat ed message] code = 0683709532) The syste m which generated this result transmitted ref erence range: 0.0 - 10 .0 /100 WBCs. The refer ence range was not u sed to interpret this result as normal/abnor mal. NRBC x10^3 (test <0.01 See_Comment [Automated message] code = 9220316979) The syste m which generated this result transmitted ref erence range: 10*3/?L. The reference range was not used to interpr et this result as normal/abnormal . GRAN MAT (NEUT) % 62.2 % (test code = 770-8) IMM GRAN % (test 0.30 % code = 4584375256) LYMPH % (test code 21.3 % = 736-9) MONO % (test code 11.8 % = 5905-5) EOS % (test code = 3.4 % 713-8) BASO % (test code 1.0 % = 706-2) GRAN MAT 4.33 10*3/uL 1.88-7.09 x10^3(ANC) (test code = 1969989427) IMM GRAN x10^3 <0.03 0.00-0.06 (test code = 2975781877) LYMPH x10^3 (test 1.48 10*3/uL 1.32-3.29 code = 731-0) MONO x10^3 (test 0.82 10*3/uL 0.33-0.92 code = 742-7) EOS x10^3 (test 0.24 10*3/uL 0.03-0.39 code = 711-2) BASO x10^3 (test 0.07 10*3/uL 0.01-0.07 code = 704-7) [facility] MET[facility]OL[facility] [id number] 09:20:00 Test Item Value Reference Range Interpretation [...] code = 9.8 MG/DL 8.4-10.2 N CA) [id number] 09:20:00 Test Item Value Reference Range Interpretation Comments MAGNESIUM (test code = MAG) 2.0 MG/DL 1.6-2.3 N PROTHROMBIN [id number] 09:17:00 Test Item Value Reference Range Interpretation [...] myocar dial infarction. 2.0 - 3.0 3. [employer] Inspector al prosthesis hear t valves, recurre nt systemic emboli sm. 3.0 - 4.5 PTT [id number] 09:17:00 Test Item Value Reference Range Interpretation Comments PTT ACTIVATED (test code = APTT) 29.1 SECONDS 22.0-33.0 N CBC W/AUTO [id number] 09:12:00 Test Item Value Reference Range Interpretation [...] 0.00 K/mm3 0.0-0.1 N NRBC#) BASIC METABOLIC [id number] 13:19:00 Test Item Value Reference Range Interpretation [...] code = 10.3 MG/DL 8.4-10.2 H CA) [id number] 13:19:00 Test Item Value Reference Range Interpretation Comments MAGNESIUM (test code = MAG) 1.8 MG/DL 1.6-2.3 N PROTHROMBIN [id number] 13:08:00 Test Item Value Reference Range Interpretation [...] va lve, or acute myocar dial infarction. 2. 0 - 3.0 3. [employer] Inspector al prosthesis hear t valves, recurre nt systemic emboli sm. 3.0 - 4.5 CBC W/AUTO [id number] 12:57:00 Test Item Value Reference Range Interpretation [...]
[2022-06-19 03:03] LABS: Absolute Lymphocytes (CBC) 1.4 K/uL (0.7-4.9); Hematocrit 34.9 % (36.0-45.0); Lymphocytes % 20.3 % (15.3-44.8); MCV 82.3 fL (80-100); MPV 7.9 fL (7.6-11.3); RBC Red Blood Cell Count 4.24 M/uL (3.86-4.86)
[2022-06-19 03:17] LABS: Troponin High Sensitivity 10.8 pg/mL (<58.9)
--- NOTE | 2022-06-19 05:55 | EDPHYS ---
Physician Documentation [facility] Name: Marie Puri Age: 81 yrs Sex: Female : 1940 Arrival Date: 06/19/2022 Time: 01:28 Bed 14 Private MD: ED Physician Bright Pacheco HPI: 06/19 01:56 This 81 yrs old Female presents to ER via Ambulatory with complaints of Weakness, Chest rn Pressure, Nausea, High Blood Pressure. 01:57 The patient or guardian reports chest pain that is located primarily in the substernal rn area. Onset: yesterday. The pain does not radiate. Associated signs and symptoms: Pertinent positives: shortness of breath, Pertinent negatives: abdominal pain, cough, lower extremity swelling, syncope. The chest pain is described as aching. Duration: The patient or guardian reports multiple episodes, that are intermittent. Modifying factors: The symptoms are alleviated by nothing. the symptoms are aggravated by nothing. Severity of pain: At its worst the pain was mild in the emergency department the pain is unchanged. The patient has not experienced similar symptoms in the past. The patient has not recently seen a physician. Historical: - Allergies: 01:45 Albuterol; vc1 01:45 Morphine; vc1 01:45 PENICILLINS; vc1 01:45 Phenergan; vc1 01:45 Stadol; vc1 01:45 Toprol XL; vc1 - Home Meds: 09:15 Benadryl Oral prn at night for sleep [Active]; bisoprolol fumarate 5 mg Oral tab 1 tab eh3 1/2 in the morning and 1/2 at night [Active]; CoQ-10 30 mg Oral cap daily [Active]; levothyroxine 20 mcg/mL oral solution [Active]; Novolog Sub-Q [Active]; [place]-3 Oral cap daily [Active]; Protonix 40 mg Oral TbEC 1 tab Every other day [Active]; Starlix 60 mg Oral tab 0.5 tab 3 times per day [Active]; Zofran 4 mg Oral tab 1 tab 3 times per day for as needed [Active]; - PMHx: 01:45 Diabetes - IDDM; Diverticulitis; fatty liver; Hypothyroidism; Kidney stones; mitral vc1 valve prolapse; Pancreatitis; - PSHx: 01:45 Colonresection; vc1 01:49 Heart ablation X2; vc1 - Immunization history:: Client reports receiving the 2nd dose of the Covid vaccine, Moderna. - Social history:: Smoking status: Patient denies any tobacco usage or history of. - Family history:: not pertinent. - Hospitalizations: : No recent hospitalization is reported. ROS: 01:57 Constitutional: Negative for fever, chills, and weight loss, Neck: Negative for injury, rn pain, and swelling, Cardiovascular: Negative for palpitations, and edema, Respiratory: Negative for cough, wheezing, and pleuritic chest pain, Abdomen/GI: Negative for abdominal pain, diarrhea, and constipation, Back: Negative for injury and pain, MS/Extremity: Negative for injury and deformity, Skin: Negative for injury, rash, and discoloration, Neuro: Negative for headache, numbness, tingling, and seizure. Exam: 01:59 Constitutional: This is a well developed, well nourished patient who is awake, alert, rn and in no acute distress. Appears anxious Head/Face: Normocephalic, atraumatic. Cardiovascular: Bradycardic, regular. No pulse deficits. Respiratory: No increased work of breathing, no retractions or nasal flaring. Abdomen/GI: soft, mild left upper abd tenderness, no distension Skin: Warm, dry MS/ Extremity: Pulses equal, no cyanosis. Neuro: Awake and alert, GCS 15, oriented to person, place, time, and situation. Cranial nerves II-XII grossly intact. Motor strength 5/5 in all extremities. Sensory grossly intact. Cerebellar exam normal. Normal gait. 02:16 ECG was reviewed by the Attending Physician. rn Vital Signs: 01:42 BP 130 / 79; Pulse 53; Resp 15; Temp 97.1; Pulse Ox 95% on R/A; vc1 02:31 BP 132 / 68; Pulse 56; Resp 19; Pulse Ox 98% on R/A; kd3 02:39 BP 120 / 61; Pulse 54; Resp 19; Pulse Ox 98% on R/A; kd3 03:21 BP 120 / 56; Pulse 56; Resp 14; Pulse Ox 98% on R/A; kd3 04:26 BP 140 / 65; Pulse 52; Resp 19; Pulse Ox 99% on R/A; kd3 05:05 BP 120 / 51; Pulse 55; Resp 19; Pulse Ox 96% on R/A; kd3 05:48 BP 117 / 51; Pulse 52; Resp 19; Pulse Ox 96% on R/A; kd3 06:46 BP 127 / 65; Pulse 51; Resp 19; Pulse Ox 98% on R/A; kd3 09:15 BP 150 / 65; Pulse 57; Resp 14; Pulse Ox 97% on R/A; eh3 MDM: 01:36 Patient medically screened. rn 05:53 Differential diagnosis: acute myocardial infarction, acute pericarditis, anxiety, rn coronary artery disease chest wall pain, congestive heart failure costochondritis, esophagitis, gastritis, gastroesophageal reflux disease (GERD), pancreatitis, pleurisy, pneumonia, pneumothorax, pulmonary embolus, thoracic aortic disection. Data reviewed: vital signs, nurses notes, lab test result(s), EKG, radiologic studies, CT scan, plain films, and as a result, I will admit patient. Consideration of Admission/Observation Patient was admitted/placed on observation. Escalation of care including admission/observation considered. Counseling: I had a detailed discussion with the patient and/or guardian regarding: the historical points, exam findings, and any diagnostic results supporting the discharge/admit diagnosis, lab results, radiology results, the need for further work-up and treatment in the hospital. Response to treatment: the patient's symptoms have mildly improved after treatment, and as a result, I will admit patient. 06/19 01:50 Order name: Basic Metabolic Panel; Complete Time: 03:30 rn 06/19 01:50 Order name: CBC with Diff; Complete Time: 03:30 rn 06/19 01:50 Order name: NT PRO-BNP; Complete Time: 03:30 rn 06/19 01:50 Order name: Troponin HS; Complete Time: 03:30 rn 06/19 01:50 Order name: XRAY Chest (1 view) rn 06/19 01:50 Order name: CT Chest For PE Angio rn 06/19 03:57 Order name: Abdomen EDME 06/19 01:50 Order name: EKG; Complete Time: 01:50 rn 06/19 01:50 Order name: Cardiac monitoring; Complete Time: 02:29 rn 06/19 01:50 Order name: EKG - Nurse/Tech; Complete Time: 02:29 rn 06/19 01:50 Order name: IV Saline Lock; Complete Time: 02: rn 06/19 01:50 Order name: Labs collected and sent; Complete Time: : rn 06/19 01:50 Order name: O2 Per Protocol; Complete Time: rn 06/19 01:50 Order name: O2 Sat Monitoring; Complete Time: 02:30 rn EC:16 Rate is 51 beats/min. Rhythm is regular. QRS Adrian is Normal. SC interval is normal. QRS rn interval is normal. QT interval is normal. No Q waves. T waves are Normal. No ST changes noted. Clinical impression: Sinus bradycardia. Interpreted by me. Reviewed by me. Administered Medications: No medications were administered Disposition Summary: 06/19/22 05:54 Hospitalization Ordered Hospitalization Status: Observation rn Provider: Leonard Tavares rn Location: Telemetry/MedSurg (observation) rn Condition: Stable rn Problem: new rn Symptoms: have improved rn Bed/Room Type: Standard rn Room Assignment: 221(06/19/22 07:53) jl7 Diagnosis - Chest pain, unspecified rn - Dyspnea, unspecified rn Forms: - Medication Reconciliation Form rn - SBAR form rn Signatures: Dispatcher [employer] EDBright Newell MD MD rn Leal, Jahala RN RN jl7 Halina Gorman RN RN 1 Jacquelyn Chairez, RN RN eh3 Corrections: (The following items were deleted from the chart) 07:53 05:54 rn jl7
--- NOTE | 2022-06-19 05:55 | ER ---
Nurse's Notes [facility] Name: Marie Puri Age: 81 yrs Sex: Female : 1940 Arrival Date: 06/19/2022 Time: 01:28 Bed 14 Private MD: Diagnosis: Chest pain, unspecified;Dyspnea, unspecified Presentation: 06/19 01:42 Chief complaint: Patient states: "I was out in the yard picking up limbs all of a vc1 sudden my chest felt tight, I got SOB and my stomach got upset. I took my blood pressure medicine and a zofran and laid down and I felt better. I woke up around 12 and it started doing the same thing.". 01:42 Method Of Arrival: Ambulatory vc1 01:50 Coronavirus screen: Vaccine status: Patient reports receiving the 2nd dose of the covid vc1 vaccine. Client denies travel out of the [place] in the last 14 days. At this time, the client does not indicate any symptoms associated with coronavirus-19. Ebola Screen: Patient negative for fever greater than or equal to 101.5 degrees Fahrenheit, and additional compatible Ebola Virus Disease symptoms Patient denies exposure to infectious person. Patient denies travel to an Ebola-affected area in the 21 days before illness onset. No symptoms or risks identified at this time. Initial Sepsis Screen: Does the patient meet any 2 criteria? No. Patient's initial sepsis screen is negative. Does the patient have a suspected source of infection? No. Patient's initial sepsis screen is negative. Risk Assessment: Do you want to hurt yourself or someone else? Patient reports no desire to harm self or others. Onset of symptoms was June 18, 2022 at 18:30. 01:50 Acuity: ARGELIA 3 vc1 Triage Assessment: 01:51 General: Appears in no apparent distress. uncomfortable, Behavior is calm, cooperative, vc1 appropriate for age. Pain: Complains of pain in chest Pain does not radiate. EENT: No deficits noted. No signs and/or symptoms were reported regarding the EENT system. Neuro: Level of Consciousness is awake, alert, obeys commands, Oriented to person, place, time, situation. Cardiovascular: Reports chest pain, shortness of breath, Chest pain is described as mild. Respiratory: Airway is patent Respiratory effort is even, unlabored, Respiratory pattern is regular, symmetrical. GI: No deficits noted. No signs and/or symptoms were reported involving the gastrointestinal system. : No deficits noted. No signs and/or symptoms were reported regarding the genitourinary system. Derm: No deficits noted. No signs and/or symptoms reported regarding the dermatologic system. Musculoskeletal: No deficits noted. No signs and/or symptoms reported regarding the musculoskeletal system. Historical: - Allergies: 01:45 Albuterol; vc1 01:45 Morphine; vc1 01:45 PENICILLINS; vc1 01:45 Phenergan; vc1 01:45 Stadol; vc1 01:45 Toprol XL; vc1 - Home Meds: 09:15 Benadryl Oral prn at night for sleep [Active]; bisoprolol fumarate 5 mg Oral tab 1 tab eh3 1/2 in the morning and 1/2 at night [Active]; CoQ-10 30 mg Oral cap daily [Active]; levothyroxine 20 mcg/mL oral solution [Active]; Novolog Sub-Q [Active]; [place]-3 Oral cap daily [Active]; Protonix 40 mg Oral TbEC 1 tab Every other day [Active]; Starlix 60 mg Oral tab 0.5 tab 3 times per day [Active]; Zofran 4 mg Oral tab 1 tab 3 times per day for as needed [Active]; - PMHx: 01:45 Diabetes - IDDM; Diverticulitis; fatty liver; Hypothyroidism; Kidney stones; mitral vc1 valve prolapse; Pancreatitis; - PSHx: 01:45 Colonresection; vc1 01:49 Heart ablation X2; vc1 - Immunization history:: Client reports receiving the 2nd dose of the Covid vaccine, Moderna. - Social history:: Smoking status: Patient denies any tobacco usage or history of. - Family history:: not pertinent. - Hospitalizations: : No recent hospitalization is reported. Screenin:51 [facility] ED Fall Risk Assessment (Adult) History of falling in the last 3 months, vc1 including since admission No falls in past 3 months (0 pts) Confusion or Disorientation No (0 pts) Intoxicated or Sedated No (0 pts) Impaired Gait No (0 pts) Mobility Assist Device Used No (0 pt) Altered Elimination No (0 pt) Score/Fall Risk Level 0 - 2 = Low Risk Oriented to surroundings, Maintained a safe environment, Educated pt \\T\\ family on fall prevention, incl call for assistance when getting out of bed. Abuse screen: Denies threats or abuse. Nutritional screening: No deficits noted. Tuberculosis screening: No symptoms or risk factors identified. Assessment: 02:30 General: Appears in no apparent distress. Behavior is calm, cooperative. Pain: Denies kd3 pain. Neuro: Level of Consciousness is awake, alert, obeys commands, Oriented to person, place, time, situation. Cardiovascular: Patient's skin is warm and dry. Respiratory: Airway is patent Trachea midline Respiratory effort is even, unlabored, Respiratory pattern is regular, symmetrical. 06:46 Reassessment: Patient appears in no apparent distress at this time. Patient and/or kd3 family updated on plan of care and expected duration. Pain level reassessed. Patient is alert, oriented x 3, equal unlabored respirations, skin warm/dry/pink. 09:15 General: Appears in no apparent distress. Behavior is calm, cooperative, appropriate eh3 for age. Pain: Denies pain. Neuro: Level of Consciousness is awake, alert, obeys commands, Oriented to person, place, time, situation. Cardiovascular: Capillary refill < 3 seconds Patient's skin is warm and dry. Respiratory: Airway is patent Respiratory effort is even, unlabored, Respiratory pattern is regular, symmetrical. Vital Signs: 01:42 BP 130 / 79; Pulse 53; Resp 15; Temp 97.1; Pulse Ox 95% on R/A; vc1 02:31 BP 132 / 68; Pulse 56; Resp 19; Pulse Ox 98% on R/A; kd3 02:39 BP 120 / 61; Pulse 54; Resp 19; Pulse Ox 98% on R/A; kd3 03:21 BP 120 / 56; Pulse 56; Resp 14; Pulse Ox 98% on R/A; kd3 04:26 BP 140 / 65; Pulse 52; Resp 19; Pulse Ox 99% on R/A; kd3 05:05 BP 120 / 51; Pulse 55; Resp 19; Pulse Ox 96% on R/A; kd3 05:48 BP 117 / 51; Pulse 52; Resp 19; Pulse Ox 96% on R/A; kd3 06:46 BP 127 / 65; Pulse 51; Resp 19; Pulse Ox 98% on R/A; kd3 09:15 BP 150 / 65; Pulse 57; Resp 14; Pulse Ox 97% on R/A; eh3 ED Course: 01:34 Patient arrived in ED. ja2 01:36 Bright Pacheco MD is Attending Physician. rn 01:50 Arm band placed on right wrist. vc1 01:51 Triage completed. vc1 01:54 Michelle Mulligan, RN is Primary Nurse. kd3 02:30 Basic Metabolic Panel Sent. kd3 02:30 CBC with Diff Sent. kd3 02:30 NT PRO-BNP Sent. kd3 02:30 Troponin HS Sent. kd3 02:30 Inserted saline lock: 20 gauge in right antecubital area, using aseptic technique. kd3 Blood collected. 02:31 Patient has correct armband on for positive identification. Placed in gown. Bed in low kd3 position. Call light in reach. Side rails up X2. Client placed on continuous cardiac and pulse oximetry monitoring. NIBP monitoring applied. monitoring analyst on. 02:41 XRAY Chest (1 view) In Process Unspecified. EDMS 04:20 CT Chest For PE Angio In Process Unspecified. EDMS 04:20 Abdomen In Process Unspecified. EDMS 05:54 Leonard Tavares MD is Hospitalizing Provider. rn 09:15 Assisted to bathroom. Ambulated independently to and from restroom, no issues eh3 encountered. 09:15 IV is patent, with fluids infusing freely, with good blood return. Patient maintains eh3 SpO2 saturation greater than 95% on room air. 10:00 No provider procedures requiring assistance completed. Patient admitted, IV remains in eh3 place. Administered Medications: No medications were administered Medication: 02:31 VIS not applicable for this client. kd3 Outcome: 05:54 Decision to Hospitalize by Provider. rn 09:59 Patient left the ED. eh3 10:00 Admitted to Med/surg accompanied by tech, via wheelchair, room 221, with chart, Report eh3 called to Rubi 10:00 Condition: stable 10:00 Instructed on the need for admit. Signatures: Dispatcher [employer] EDMS Bright Pacheco MD MD rn Alexander, Jessica ja2 Michelle Mulligan RN RN kd3 Halina Gorman RN RN vc1 Chairez, Jacquelyn, RN RN eh3
[2022-06-19 10:34] VITALS: BMI 27.3
[2022-06-19] MEDS: ASPIRIN EC 81 MG TAB PO SCH (11:05)
[2022-06-19] MEDS ORDERED: METFORMIN ER 500 MG TAB PO PRN (17:04)
--- NOTE | 2022-06-19 17:16 | P.HP ---
Certification for Inpatient Patient admitted to: Inpatient With expected LOS: >2 Midnights Practitioner: I am a practitioner with admitting privileges, knowledge of patient current condition, hospital course, and medical plan of care. Services: Services provided to patient in accordance with Admission requirements found in Title 42 Section 412.3 of the Code of Federal Regulations Patient History Date of Service: 06/19/22 Reason for admission: CHEST PAIN History of Present Illness: CLIFTON HAS BEEN HAVE CHEST PAIN ON MINIMAL EXERSION. SHE HAS HAD CATH BY DR. HAMLIN ABOUT 4 YEARS AGO. SHE HAS DM THAT IS MILD. SHE HAS LOT OF ANXIETY AND MANY ABDOMEN RELATED SYMPTOMS THAT AFTER MANY CT SCANS AND SCOPES HAVE NOT PANNED OUT AND THERAPY HAS NOT HELPED. Allergies albuterol Allergy (Verified 05/04/17 12:13) Anaphylaxis amoxicillin [From Augmentin] Allergy (Verified 11/09/17 13:38) Anaphylaxis azithromycin [From Zithromax] Allergy (Verified 11/09/17 13:38) Anaphylaxis cefuroxime [From Ceftin] Allergy (Verified 11/09/17 13:38) Anaphylaxis Cephalosporins Allergy (Verified 11/09/17 13:38) Anaphylaxis ciprofloxacin Allergy (Verified 11/09/17 13:38) Anaphylaxis clavulanic acid [From Augmentin] Allergy (Verified 11/09/17 13:38) Anaphylaxis glimepiride Allergy (Verified 11/09/17 13:38) Nausea/Vomiting insulin aspart Allergy (Verified 11/09/17 13:38) Anaphylaxis insulin detemir [From Levemir U-100 Insulin] Allergy (Verified 11/09/17 13:38) Nausea/Vomiting iodine Allergy (Verified 11/09/17 13:38) Itching levofloxacin [From Levaquin] Allergy (Verified 11/09/17 13:38) Anaphylaxis metformin [From Glucophage] Allergy (Verified 11/09/17 13:38) Nausea/Vomiting metoprolol succinate [From Toprol XL] Allergy (Verified 05/04/17 12:13) Anaphylaxis morphine Allergy (Verified 05/04/17 12:13) Anaphylaxis Penicillins Allergy (Verified 11/09/17 13:38) Anaphylaxis pentazocine [From Talwin] Allergy (Verified 11/09/17 13:38) Anaphylaxis Phenothiazines Allergy (Verified 11/09/17 13:38) Anaphylaxis promethazine HCl [From Phenergan] Allergy (Verified 05/04/17 12:13) Anaphylaxis Quinolones Allergy (Verified 11/09/17 13:38) Anaphylaxis sitagliptin [From Januvia] Allergy (Verified 11/09/17 13:38) Nausea/Vomiting Sulfa (Sulfonamide Antibiotics) Allergy (Verified 11/09/17 13:38) Anaphylaxis Stadol NS Allergy (Uncoded 01/07/15 03:44) Anaphylaxis Home Medications: Diazepam [Valium] 5 mg PO BEDTIME 11/09/17 Insulin Aspart [Novolog Flexpen] See Protocol SQ ACHS 11/09/17 Levothyroxine Sodium 25 mcg PO [id number] 11/09/17 Metformin HCl [Metformin ER Osmotic] 500 mg PO BID PRN 11/09/17 bisoproloL fumarate [Zebeta*] 5 mg PO DAILY 11/09/17 Ondansetron [Zofran (Odt)*] 4 mg PO PRN 06/19/22 Pantoprazole Sodium [Protonix] 40 mg PO DAILY 06/19/22 - Past Medical/Surgical History Diabetic: Yes -: Hypothyroidism -: svt- HX OF ARRYTHMIAS -: IDDM -: KIDNEY STONES -: FATTY LIVER -: MVP -: DIVERTICULITIS -: PANCREATITIS -: UTI -: colon resection -: 2 heart ablasions -: Cholesystectomy -: Appendectomy - Family History Father -: Diabetes Notes: dementia Mother Notes: parkinsons - Social History Smoking Status: Never smoker Alcohol use: No CD- Drugs: No Caffeine use: No Place of Residence: Home Review of Systems 10-point ROS is otherwise unremarkable Cardiovascular: Chest Pain Physical Examination - Vital Signs Temperature: 97.4 F Blood Pressure: 157/70 Pulse: 56 Respirations: 16 Pulse Ox (%): 93 - Physical Exam General: Alert, Acute distress, Mild distress HEENT: Atraumatic, PERRLA, Mucous membr. moist/pink, EOMI, Sclerae nonicteric Neck: Supple, 2+ carotid pulse no bruit, No LAD, Without JVD or thyroid abnormality Respiratory: Clear to auscultation bilaterally, Normal air movement Cardiovascular: Regular rate/rhythm, Normal S1 S2 Gastrointestinal: Normal bowel sounds, No tenderness Musculoskeletal: No tenderness Integumentary: No rashes Neurological: Normal gait, Normal speech, Normal strength at 5/5 x4 extr, Normal tone, Normal affect Lymphatics: No axilla or inguinal lymphadenopathy - Studies Laboratory Data (last 24 hrs) 06/19/22 02:26: WBC 6.70, Hgb 11.7 L, Hct 34.9 L, Plt Count 218 06/19/22 02:26: Sodium 135 L, Potassium 4.0, BUN 21 H, Creatinine 1.12 H, Glucose 161 H Assessment and Plan - Problems (Diagnosis) (1) Unstable angina Current Visit: Yes Status: Acute Plan: LOVENOX SC ASPRIN DAILY. OXYGEN. SHE IS PAINFREE A REST I CALLED IN DR. JACKSON AND HE AGREES WITH CORONARY NATURE OF PAIN. CATH ON [place]. SHE ALSO HAS SOME HYPOCHONDRIAC FACTOR KNOWING HER FOR LONG DURATION. (2) Diabetes Current Visit: Yes Status: Acute (3) IBS (irritable bowel syndrome) Current Visit: Yes Status: Acute - Advance Directives Does patient have a Living Will: No Does patient have a Durable POA for Healthcare: No
[2022-06-19] MEDS ORDERED: ONDANSETRON 4 MG (ODT) TAB PO SCH (18:00)
--- NOTE | 2022-06-19 18:26 | CON ---
Date of Consultation: 06/19/2022 Reason For Consultation: Chest pain and shortness of breath. History Of Present Illness: 81-year-old female with past medical history of diabetes for many years, hypothyroidism, hypertension, atrial fibrillation, mitral valve prolapse, status post ablation as pe r report. She presented with chest pain, pressure-like, related to activity, started in the past 2 w eeks and it is becoming more frequent and doing any mild work will get her chest tightness and signif icant shortness of breath forces her to stop. Denies having any chest pain at rest at this moment. No other complaints. Past Medical History: As outlined above in the HPI. Medications: Refer reconciliation sheet for detailed list. Allergies: SHE IS ALLERGIC TO CEFUROXIME, AZITHROMYCIN, AMOXICILLIN, ALBUTEROL. Family History: No premature coronary artery disease or cancer. Social History: She does not smoke or drink. Does not use any drugs. Review of Systems: All systems reviewed and they were negative except as mentioned in the HPI. Physical Examination: Vital Signs: Reviewed. Head and Neck: Pupils are equal, reactive to light. Intact eye movements. No JVD. No cervical lym phadenopathy. Neck is supple. Thyroid is not enlarged. Lungs: Clear to auscultation bilaterally. No rhonchi, wheezing, or crackles. No accessory muscle u se. Heart: Irregular. No extra sounds. Abdomen: Soft, nontender. Bowel sounds positive. No organomegaly. No masses or hernia. No rigidi ty or rebound. Extremities: No edema, clubbing, or cyanosis. Intact pulses. Skin: No rash. Neurologic: Alert, awake, oriented x3. No acute focal deficits appreciated. Lymph nodes: No cervical or axillary lymphadenopathy. Investigations: Cardiac enzymes x2 are negative. BUN 21, creatinine 1.1. Hemoglobin 11.7. Assessment And Recommendations: 1.Chest pain, new onset and it is at minimal exertion with shortness of breath. This is suggestive of unstable angina. Cardiac enzymes, so far, negative. Recommend aspirin and a beta-anupama if the heart rate and blood pressure allows and monitor throughout the week and we will plan for coronary an giogram early on Wednesday morning. 2.Hypertension. Resume home medications. Adjust further if needed. Recommend to start the patient on Lipitor 40 mg q.h.s. as well. Case discussed with Dr. Tavares. SR/MODL Voice ID: [id number] Report ID: [id number]
[2022-06-19] MEDS ORDERED: D50W 25 GM/50 ML SYRINGE IV PRN (21:14)
[2022-06-19] MEDS ORDERED: GLUCAGON 1 MG/VIAL IM PRN (21:14)
[2022-06-19] MEDS: INSULIN -REGULAR HUMAN 50 UNIT/0.5 ML ML SQ SCH (21:15)
[2022-06-19] MEDS: DIAZEPAM 5 MG TABLET PO SCH (21:39)
[2022-06-20] MEDS: ONDANSETRON 4 MG/2 ML VIAL IV PRN (04:07)
[2022-06-20 05:58] LABS: Hematocrit 36.6 % (36.0-45.0); MCV 81.9 fL (80-100); MPV 7.7 fL (7.6-11.3); RBC Red Blood Cell Count 4.47 M/uL (3.86-4.86)
[2022-06-20] MEDS: LEVOTHYROXINE SOD 0.025 MG TAB PO SCH (06:03)
[2022-06-20] MEDS: ASPIRIN EC 81 MG TAB PO SCH (08:32)
[2022-06-20] MEDS: INSULIN -REGULAR HUMAN 50 UNIT/0.5 ML ML SQ SCH ×4 (08:35→20:48)
[2022-06-20] MEDS: PANTOPRAZOLE 40MG TABLET PO SCH (08:38)
[2022-06-20] MEDS ORDERED: BISOPROLOL 5 MG TABLET PO SCH (09:00)
[2022-06-20] MEDS: LOSARTAN POTASSIUM 50 MG TABLET PO SCH (09:52)
--- NOTE | 2022-06-20 14:12 | PN ---
Date of Progress Note: 06/20/2022 Subjective: Seen by bedside. Continues to have chest pains with activities. Cardiac enzymes are ne gative. Review of Systems: Chest pain with activities. No nausea, vomiting, diarrhea. She has shortness of breath with exertio n. No history of polyuria or urinary urgency. All other systems reviewed and they were negative. Physical Examination: Vital Signs: Temperature is 97.7, pulse 58, breathing at 18, blood pressure 130/60, saturating 97%. General: Pleasant elderly female, in no apparent distress. Head and Neck: Pupils are equal, reactive to light. Intact eye movements. No JVD. No cervical lym phadenopathy. Neck is supple. Thyroid is not enlarged. Lungs: Clear to auscultation bilaterally. No rhonchi, wheezing, or crackles. No accessory muscle u se. Heart: Regular rate and rhythm. No extra sounds. Abdomen: Soft, nontender. Bowel sounds positive. No organomegaly. No masses or hernia. No rigidi ty or rebound. Extremities: No edema, clubbing, or cyanosis. Intact pulses. Skin: No rash. Neurologic: Alert, awake, oriented x3. No acute focal deficits appreciated. Investigations: BUN 18, creatinine 1.05, and troponins x3 are negative. Hemoglobin is 12.0. Assessment And Recommendations: 1.Chest pain with minimal activity and shortness of breath on exertion, suggestive of possible unsta ble angina. To monitor over the weekend, plan for coronary angiogram on Wednesday morning. 2.Hypertension. Blood pressure is controlled. Continue current management. SR/MODL Voice ID: [id number] Report ID: [id number]
[2022-06-20] MEDS ORDERED: NITROGLYCERIN 0.4 MG/TAB SL PRN (14:54)
--- NOTE | 2022-06-20 14:58 | P.PN ---
Subjective Date of Service: 06/20/22 Chief Complaint: CHEST PAIN Subjective: Improving HAD ONE EPISODE OF CHEST PAIN ONCE. Review of Systems 10-point ROS is otherwise unremarkable Physical Examination - Vital Signs Temperature: 97.7 F Blood Pressure: 130/60 Pulse: 58 Respirations: 20 Pulse Ox (%): 97 - Physical Exam General: Mild distress HEENT: Atraumatic, PERRLA, EOMI Neck: Supple, JVD not distended Respiratory: Clear to auscultation bilaterally, Normal air movement Cardiovascular: Regular rate/rhythm, Normal S1 S2 Gastrointestinal: Normal bowel sounds, No tenderness Musculoskeletal: No tenderness Integumentary: No rashes Neurological: Normal speech, Normal tone, Normal affect Lymphatics: No axilla or inguinal lymphadenopathy - Studies Medications List Reviewed: Yes Assessment And Plan - Current Problems (Diagnosis) (1) Unstable angina Current Visit: Yes Status: Acute Plan: LOVENOX SC ASPRIN DAILY. OXYGEN. SHE IS PAINFREE A REST I CALLED IN DR. JACKSON AND HE AGREES WITH CORONARY NATURE OF PAIN. CATH ON [place]. SHE ALSO HAS SOME HYPOCHONDRIAC FACTOR KNOWING HER FOR LONG DURATION. ADD NTG SL PRN. CHEST PAIN OFF AND ON BUT LESS FREQUENT. (2) Diabetes Current Visit: Yes Status: Chronic Plan: A1C IS DOWN TO 7 , DONE AT OFFICE. Qualifiers: Diabetes mellitus type: type 2 (3) IBS (irritable bowel syndrome) Current Visit: Yes Status: Chronic Qualifiers: Irritable bowel syndrome type: without diarrhea Qualified Code(s): K58.9 - Irritable bowel syndrome without diarrhea
[2022-06-20] MEDS: ENOXAPARIN 40 MG/0.4 ML SQ SCH (17:00)
[2022-06-20] MEDS: DIAZEPAM 5 MG TABLET PO SCH (20:50)
[2022-06-20] MEDS: BISOPROLOL 5 MG TABLET PO SCH (20:53)
[2022-06-21] MEDS: LEVOTHYROXINE SOD 0.025 MG TAB PO SCH (06:13)
[2022-06-21] MEDS: ONDANSETRON 4 MG/2 ML VIAL IV PRN (06:20)
[2022-06-21] MEDS: INSULIN -REGULAR HUMAN 50 UNIT/0.5 ML ML SQ SCH ×4 (07:30→21:30)
[2022-06-21] MEDS: LOSARTAN POTASSIUM 50 MG TABLET PO SCH (09:00)
[2022-06-21] MEDS: ASPIRIN EC 81 MG TAB PO SCH (10:29)
[2022-06-21] MEDS: PANTOPRAZOLE 40MG TABLET PO SCH (10:29)
--- NOTE | 2022-06-21 14:49 | EKG ---
Test Date: 2022-06-19 Test Time: 02:12:07 Faculty Support Coordinator: VALENTE MEASUREMENT RESULTS: Intervals: Rate: 51 MI: 158 QRSD: 80 QT: 418 QTc: 385 [place]: P: 49 MI: 158 QRS: 56 T: 37 INTERPRETIVE STATEMENTS: Sinus bradycardia with premature atrial complexes Otherwise normal ECG Compared to ECG 03/19/2022 01:57:28 Atrial premature complex(es) now present Sinus arrhythmia no longer present Electronically Signed On 06-21-22 14:45:28 CDT by Kenneth Hager
--- NOTE | 2022-06-21 15:09 | PN ---
Date of Progress Note: 06/21/2022 Subjective: Seen by bedside. Continues to have on and off chest pain. Review of Systems: Positive for chest pain on and off. No nausea, vomiting, diarrhea. No dysuria, polyuria, or urinary urgency. All other systems reviewed and they were negative. Physical Examination: Vital Signs: Reviewed. Head and Neck: Pupils are equal, reactive to light. Intact eye movements. No JVD. No cervical lym phadenopathy. Neck is supple. Thyroid is not enlarged. Lungs: Clear to auscultation bilaterally. No rhonchi, wheezing, or crackles. No accessory muscle u se. Heart: Regular rate and rhythm. No extra sounds. Abdomen: Soft, nontender. Bowel sounds positive. No organomegaly. No masses or hernia. No rigidi ty or rebound. Extremities: No edema, clubbing, or cyanosis. Intact pulses. Skin: No rash. Neurologic: Alert, awake, oriented x3. No acute focal deficits appreciated. Investigation: Labs were reviewed. Assessment And Recommendations: Unstable angina. Keep n.p.o. past midnight. Plan for coronary jorgito ogram tomorrow. SR/MODL Voice ID: [id number] Report ID: [id number]
[2022-06-21] MEDS: ENOXAPARIN 40 MG/0.4 ML SQ SCH (17:00)
[2022-06-21] MEDS: BISOPROLOL 5 MG TABLET PO SCH (21:00)
[2022-06-21] MEDS ORDERED: BISOPROLOL 5 MG TABLET PO PRN (21:30)
--- NOTE | 2022-06-21 22:20 | P.PN ---
Subjective Date of Service: 06/21/22 Chief Complaint: CHEST PAIN Subjective: No new changes HAD ONE EPISODE OF CHEST PAIN ONCE. SHE HAD ONE EPISODE OF PAIN THIS AM ALSO WITH MINIMAL EXERSION. Physical Examination - Vital Signs Temperature: 97.7 F Blood Pressure: 127/66 Pulse: 60 Respirations: 14 Pulse Ox (%): 96 - Physical Exam General: Oriented x3, Mild distress HEENT: Atraumatic, PERRLA, EOMI Neck: Supple, JVD not distended Respiratory: Clear to auscultation bilaterally, Normal air movement Cardiovascular: Regular rate/rhythm, Normal S1 S2 Gastrointestinal: Normal bowel sounds, No tenderness Musculoskeletal: No tenderness Integumentary: No rashes Neurological: Normal speech, Normal tone, Normal affect Lymphatics: No axilla or inguinal lymphadenopathy - Studies Medications List Reviewed: Yes Assessment And Plan - Current Problems (Diagnosis) (1) Unstable angina Current Visit: Yes Status: Acute Plan: LOVENOX SC ASPRIN DAILY. OXYGEN. SHE IS PAINFREE A REST I CALLED IN DR. JACKSON AND HE AGREES WITH CORONARY NATURE OF PAIN. CATH ON [place]. SHE ALSO HAS SOME HYPOCHONDRIAC FACTOR KNOWING HER FOR LONG DURATION. ADD NTG SL PRN. CHEST PAIN OFF AND ON BUT LESS FREQUENT. CATH IN AM. (2) Diabetes Current Visit: Yes Status: Chronic Plan: A1C IS DOWN TO 7 , DONE AT OFFICE. Qualifiers: Diabetes mellitus type: type 2 (3) IBS (irritable bowel syndrome) Current Visit: Yes Status: Chronic Qualifiers: Irritable bowel syndrome type: without diarrhea Qualified Code(s): K58.9 - Irritable bowel syndrome without diarrhea
[2022-06-21] MEDS: DIAZEPAM 5 MG TABLET PO SCH (22:39)
[2022-06-22] MEDS: LEVOTHYROXINE SOD 0.025 MG TAB PO SCH (06:00)
[2022-06-22] MEDS: INSULIN -REGULAR HUMAN 50 UNIT/0.5 ML ML SQ SCH ×4 (07:30→21:31)
[2022-06-22] MEDS: LOSARTAN POTASSIUM 50 MG TABLET PO SCH (08:17)
[2022-06-22] MEDS: ASPIRIN EC 81 MG TAB PO SCH (08:17)
[2022-06-22] MEDS: PANTOPRAZOLE 40MG TABLET PO SCH (08:20)
[2022-06-22] MEDS: ONDANSETRON 4 MG/2 ML VIAL IV PRN (10:42)
[2022-06-22] MEDS ORDERED: HEPA 1000U/500MLS 2,000 UNIT/1,000 ML BAG IV ONE (11:26)
[2022-06-22] MEDS ORDERED: FENTANYL CITR 100 MCG/2 ML ONE (11:26)
[2022-06-22] MEDS ORDERED: HEPARIN 5000 UNIT/ML 1 ML VIAL ONE (11:26)
[2022-06-22] MEDS ORDERED: LIDOCAINE 1% 20 ML MDV ONE ×2 (11:26→12:10)
[2022-06-22] MEDS ORDERED: MIDAZOLAM HCL 2 MG/2 ML INJ ONE (11:26)
[2022-06-22] MEDS ORDERED: CLOPIDOGREL 75 MG TABLET ONE (11:27)
[2022-06-22] MEDS ORDERED: HEPARIN 10,000 UNIT/10 ML VIAL IV ONE (11:27)
[2022-06-22] MEDS ORDERED: VERAPAMIL HCL 10 MG/4 ML VIAL IV ONE (11:27)
[2022-06-22] MEDS ORDERED: NITROGLYCERIN 100 MCG/ML SYR (for cath lab use only) IV ONE (11:28)
[2022-06-22] MEDS ORDERED: TICAGRELOR 90 MG TABLET PO ONE (11:28)
[2022-06-22] MEDS ORDERED: ATROPINE SULF 1 MG/10 ML SYR IV ONE (11:28)
[2022-06-22] MEDS ORDERED: NA CHLORIDE 0.9% 500 ML ONE (12:05)
[2022-06-22] MEDS ORDERED: METHYLPREDNISOLONE 125 MG INJ ONE (12:09)
[2022-06-22] MEDS ORDERED: DIPHENHYDRAMINE 50 MG/ML VIAL ONE (12:09)
[2022-06-22] MEDS ORDERED: ONDANSETRON 4 MG/2 ML VIAL ONE (13:14)
[2022-06-22] MEDS: ENOXAPARIN 40 MG/0.4 ML SQ SCH (17:29)
--- NOTE | 2022-06-22 18:50 | P.PN ---
Subjective Date of Service: 06/22/22 Chief Complaint: CHEST PAIN Subjective: Improving HAD ONE EPISODE OF CHEST PAIN ONCE. SHE HAD ONE EPISODE OF PAIN THIS AM ALSO WITH MINIMAL EXERSION. DAILY PAIN SHE HAS. CATH TODAY. Review of Systems 10-point ROS is otherwise unremarkable General: Weakness Physical Examination - Vital Signs Temperature: 97.3 F Blood Pressure: 131/60 Pulse: 54 Respirations: 18 Pulse Ox (%): 96 - Physical Exam General: Oriented x3, Mild distress HEENT: Atraumatic, PERRLA, EOMI Neck: Supple, JVD not distended Respiratory: Clear to auscultation bilaterally, Normal air movement Cardiovascular: Regular rate/rhythm, Normal S1 S2 Gastrointestinal: Normal bowel sounds, No tenderness Musculoskeletal: No tenderness Integumentary: No rashes Neurological: Normal speech, Normal tone, Normal affect Lymphatics: No axilla or inguinal lymphadenopathy - Studies Medications List Reviewed: Yes Assessment And Plan - Current Problems (Diagnosis) (1) Unstable angina Current Visit: Yes Status: Acute Plan: LOVENOX SC ASPRIN DAILY. OXYGEN. CATH POS ONE STENT PLACED LAD 90% BLOCKED. (2) Diabetes Current Visit: Yes Status: Chronic Plan: A1C IS DOWN TO 7 , DONE AT OFFICE. Qualifiers: Diabetes mellitus type: type 2 (3) IBS (irritable bowel syndrome) Current Visit: Yes Status: Chronic Qualifiers: Irritable bowel syndrome type: without diarrhea Qualified Code(s): K58.9 - Irritable bowel syndrome without diarrhea
--- NOTE | 2022-06-22 19:17 | OP ---
Date of Procedure: 06/22/2022 Surgeon: ERASMO JACKSON Procedures Performed: 1.Selective coronary angiogram. 2.Left heart catheterization. 3.PCI of severe proximal LAD, used 4.0 x 60 mm Synergy drug-eluting stent. Indication: Unstable angina. Access: Right radial artery 6-Senegalese closed with TR band. Anesthesia: Total sedation time was 45 minutes. Used fentanyl and Versed. Description Of Procedure: After risks, benefits, and alternatives were explained, the patient agreed to procedure and signed informed consent. The patient was brought into the cardiac catheterization laboratory, prepped and draped in the usual sterile fashion. Then, I accessed right radial artery us ing pediatric micropuncture kit, placed 6-Senegalese Slender sheath, then took a 5-Senegalese Louis[place] 4.[address] into the aortic root, over a J-wire, engaged left main and then the right coronary artery, took s tandard views. Then, the catheter was pushed over the wire into the LV, measured the LVEDP and pullb ack did not record any gradient. Then exchanged for 6-[place]e EBU3.5 guide, engaged left main using t he guide, gave systemic heparin to assure ACT level above 250 throughout the procedure and loaded wit h 180 of Brilinta. The patient received aspirin this morning. I took short Run-Through wire into th e left main and then LAD, placed it distally and using a 4.0 x 15 mm Compliant balloon, lesion expand ed very well and then placed 4.0 x 60 mm Synergy drug-eluting stent with excellent results and 0% res idual stenosis and BRITTNI-3 flow postprocedure. Then, I removed the wire and took final angiogram, whi ch was satisfactory. Then, I removed the guide and the sheath and placed TR band with good hemostasi s. Findings: 1.Left main; large, normal. 2.LAD; very large vessel with proximal 90% stenosis, status post successful PCI as outlined above. The rest of the LAD appears to be normal. Normal diagonal branches. 3.Left circumflex; normal, normal OM branches. 4.RCA; it is dominant circulation that is normal. No disease. 5.Elevated LVEDP at 18 mmHg. Conclusion: 1.Severe proximal LAD stenosis, status post successful PCI as above. 2.Elevated LVEDP. Recommendation: Brilinta, aspirin, and statin, low-dose diuretics. SR/MODL Voice ID: [id number] Report ID: [id number]
[2022-06-22] MEDS: DIAZEPAM 5 MG TABLET PO SCH (22:33)
[2022-06-23] MEDS: LEVOTHYROXINE SOD 0.025 MG TAB PO SCH (05:58)
[2022-06-23] MEDS: INSULIN -REGULAR HUMAN 50 UNIT/0.5 ML ML SQ SCH (07:30)
[2022-06-23 08:02] VITALS: BP 107/52; TEMP 97.4
[2022-06-23] MEDS: ASPIRIN EC 81 MG TAB PO SCH (08:11)
[2022-06-23] MEDS: PANTOPRAZOLE 40MG TABLET PO SCH (08:11)
[2022-06-23] MEDS: LOSARTAN POTASSIUM 50 MG TABLET PO SCH (08:12)
[2022-06-23 09:11] VITALS: O2SAT 96
--- NOTE | 2022-06-23 10:12 | RAD REPORT ---
EXAM DESCRIPTION: CT - Abdomen Pelvis W Contrast - 06/19/2022 5:[address] Angiography Chest and CT Abdomen and Pelvis With Intravenous Contrast CLINICAL HISTORY: The patient is 81 years old and is Female; LEFT SIDED ABD PAIN [facility] MAIN TECHNIQUE: Axial computed tomographic angiography images of the chest and axial computed tomography images of the abdomen and pelvis with intravenous contrast. Sagittal and coronal reformatted images were created and reviewed. This CT exam was performed using one or more of the following dose redu ction techniques: automated exposure control, adjustment of the mA and/or kV according to patient s ize, and/or use of iterative reconstruction technique. MIP reconstructed images were created and reviewed. COMPARISON: 03/19/2022 CT angiogram chest abdomen pelvis FINDINGS: CHEST: AORTA: No acute findings. No aortic aneurysm. No dissection. PULMONARY ARTERIES: Unremarkable as visualized. No pulmonary embolism. GREAT VESSELS OF AORTIC ARCH: No acute findings. No dissection. No arterial occlusion or signif icant stenosis. LUNGS: Mosaic appearance of the bilateral lung parenchyma, possibly related to pulmonary obstructiv e disease or alveolar pulmonary edema. PLEURAL SPACE: Unremarkable. No significant effusion. No pneumothorax. HEART: No cardiomegaly. No significant pericardial effusion. ABDOMEN: LIVER: Unremarkable. No mass. GALLBLADDER AND BILE DUCTS: Cholecystectomy. No ductal dilation. PANCREAS: Unremarkable. No ductal dilation. No mass. SPLEEN: Unremarkable. No splenomegaly. ADRENALS: Unremarkable. No mass. KIDNEYS AND URETERS: Unremarkable. No hydronephrosis. No solid mass. STOMACH AND BOWEL: Rectosigmoid anastomosis appears patent, without evidence of obstruction. Descending and remnant sigmoid colonic diverticulosis without evidence of acute diverticuliti s. Small transverse duodenal diverticulum. No evidence of small or large bowel obstruction or abnormal mucosal thickening. PELVIS: APPENDIX: No findings to suggest acute appendicitis. BLADDER: Unremarkable. No mass. REPRODUCTIVE: Unremarkable as visualized. CHEST, ABDOMEN and PELVIS: INTRAPERITONEAL SPACE: Unremarkable. No significant fluid collection. No free air. BONES/JOINTS: No acute fracture. No dislocation. SOFT TISSUES: Unremarkable. VASCULATURE: Moderate calcified atherosclerosis of the abdominal aorta without aneurysmal dilatatio n. Mild to moderate calcified atherosclerosis of the thoracic aorta without aneurysmal dilatatio n. Mild multivessel coronary artery calcifications. LYMPH NODES: Redemonstrated central mesenteric fat stranding and prominent lymph nodes, with larges t measuring 1.1 cm in short axis diameter (axial image 32/91, series CT #501), unchanged from most re cent CT exam, but increased in size compared to 09/30/2021 exam. IMPRESSION: 1. No pulmonary embolism. 2. Mosaic appearance of the bilateral lung parenchyma, possibly related to pulmonary obstructive di sease or alveolar pulmonary edema. In the absence of clinical evidence for pulmonary edema, conside r pulmonary medicine consultation and high-resolution CT for further evaluation. 3. Redemonstrated central mesenteric fat stranding and prominent lymph nodes, with largest measurin g 1.1 cm in short axis diameter (axial image 32/, series CT #501), unchanged from most recent CT ex am, but increased in size compared to 09/30/2021 exam. Nonspecific in that several etiologies, inclu ding sclerosing mesenteritis, enteritis, or lymphoproliferative disease, could have this appearance. Given progression of the largest lymph node, consider further characterization by CT guided biopsy or PET imaging. 4. No other acute thoracic or abdominopelvic abnormality. Electronically signed by: Neil Rowan MD 06/19/2022 4:57 AM CDT Due to temporary technical issues with the PACS/Fluency reporting system, reports are being signed by the in house radiologist without review as a courtesy to ensure prompt reporting. The interpreting r adiologist is fully responsible for the content of the report.
--- NOTE | 2022-06-23 10:49 | RAD REPORT ---
EXAM DESCRIPTION: RAD - Chest Single View - 06/19/2022 2:39 am CLINICAL HISTORY: 81 years, Female, Chest pain;Dyspnea COMPARISON: FINDINGS: Single view of the chest was obtained portable. Prior films were compared. External EKG le ads within the [id number] limits diagnosis. The cardiomediastinal silhouette demonstrate to be unr emarkable. The heart is not enlarged. The thoracic aorta is unremarkable. The pulmonary vasculature i s normal distribution. Costophrenic angles are sharp. No areas of consolidation or masses are seen. The rest of the soft tissue and bony structures demonstrate to be unremarkable. IMPRESSION: NO ACUTE CARDIOPULMONARY DISEASE SEEN. Electronically signed by: Mau Lacey MD 06/19/2022 2:53 AM CDT Due to temporary technical issues with the PACS/Fluency reporting system, reports are being signed by the in house radiologist without review as a courtesy to ensure prompt reporting. The interpreting r adiologist is fully responsible for the content of the report.
--- NOTE | 2022-06-23 17:45 | PN ---
Date of Progress Note: 06/23/2022 Ms. Murillo had a heart catheterization. She had an intervention by Dr. Hager. Overnight, there were no report of arrhythmia or telemetry changes, congestive heart failure or chest pain. Entry sit e of the catheterization was intact without any evidence of hematoma. The patient can go home today on her present regimen. We will see her in the office in the next 2 weeks. LISA/ROSALBA Voice ID: [id number] Report ID: [id number]
== END 2022-06-23 10:35 | disposition home or self-care (01) | DRG 247 ==
LOC: ER 01:28 → ERHOLD 06:28 → 2ND 09:52 → OBSVTOIN 06-21 14:02
PROVIDERS: ADMIT Internal Medicine; ATTEND Internal Medicine
PROC: 027034Z Dilation of Coronary Artery, One Artery with Drug-eluting Intraluminal Device, Percutaneous Approach (ICD-10-PCS; principal; 2022-06-22)
PROC: 4A023N7 Measurement of Cardiac Sampling and Pressure, Left Heart, Percutaneous Approach (ICD-10-PCS; 2022-06-22)
PROC: B2111ZZ Fluoroscopy of Multiple Coronary Arteries using Low Osmolar Contrast (ICD-10-PCS; 2022-06-22)
DX: I25.110 Atherosclerotic heart disease of native coronary artery with unstable angina pectoris (principal); E11.9 Type 2 diabetes mellitus without complications; K58.9 Irritable bowel syndrome, unspecified; I34.1 Nonrheumatic mitral (valve) prolapse; I48.91 Unspecified atrial fibrillation; E03.9 Hypothyroidism, unspecified; F41.9 Anxiety disorder, unspecified; K76.0 Fatty (change of) liver, not elsewhere classified; Z87.19 Personal history of other diseases of the digestive system; Z87.440 Personal history of urinary (tract) infections; Z79.4 Long term (current) use of insulin; Z79.84 Long term (current) use of oral hypoglycemic drugs; Z79.899 Other long term (current) drug therapy; Z88.0 Allergy status to penicillin; Z88.2 Allergy status to sulfonamides; Z88.3 Allergy status to other anti-infective agents; Z88.5 Allergy status to narcotic agent; Z88.8 Allergy status to other drugs, medicaments and biological substances; Z91.041 Radiographic dye allergy status; Z90.49 Acquired absence of other specified parts of digestive tract; Z83.3 Family history of diabetes mellitus; Z82.0 Family history of epilepsy and other diseases of the nervous system
CPT/HCPCS: 36415; 71045; 71275; 74177; 76937; 80048; 82947; 83880; 84484; 85025; 85347; 93005; 93458; 94760; 99285; C1725; C1893; C9600; G0378; J0461; J1200; J1644; J1650; J1815; J2001; J2250; J2405; J2930; J3010; J7040; Q0162; Q9967

== ENCOUNTER 2022-06-27 21:52 | Emergency (ER) | payer OTHER ==
--- OUTSIDE RECORDS SUMMARY | 2022-06-27 21:57 | XMS REPORT | Continuity of Care Document ---
:1940 Author Organization [facility] t Address [address] [place] [address] [place] [id number] Care Team Providers Name Role Phone Leonard Suarez Primary Care Physician Jose David Schwab MD Attending Clinician Jose العلي MD Attending Clinician Doctor Unassigned, [employer] Attending Clinician Unavailable ANAMARIA WESLEY Attending Clinician Unavailable GEORGI Attending Clinician Unavailable Carol ESPARZA, Edward Hernadez Attending Clinician Unavailable MEREDITH BAE Attending Clinician Unavailable Jimi Spring MD Attending Clinician Meredith Bae MD Attending Clinician MD JOSE العلي Admitting Clinician Unavailable GEORGI Admitting Clinician Unavailable [...] Chest Chest Disease Active Univers pain, pain, 08-13 ity of [place] 3-08 ity of bruit bruit 00:00: [place] 00 Medical Branch Obesity Obesity Disease Active Overview: Univ ers 6-04 Formattin ity of 00:00: g of this [place] 00 note Medical might be Branch different from the original. 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 ICD10 Diagnosis Term Assembler Filters Utility Allergies, Adverse Reactions, Alerts Allergy Allergy Status Severity Reaction(s) Onset Inactive Treating Comm ents Source Name Type Date Date Clinician Cefuroxi Propensi Active Shortness Of Methodi me ty to Breath 2-16 st Axetil adverse 00:00: Hospita reaction 00 l s to drug Morphine Propensi Active Shortness Of Methodi ty to Breath 2-16 st adverse 00:00: Hospita reaction 00 l s to drug Penicill Propensi Active GI Bleeding 2022- M ethodi ins ty to 2-16 st adverse 00:00: Hospita reaction 00 l s to drug Prometha Propensi Active Palpitations 0 Methodi zine ty to 2-16 st adverse 00:00: Hospita reaction 00 l s to drug Butorpha Propensi Active Drug Induced Methodi nol ty to Lupus -16 st adverse 00:00: Hospita reaction 00 l s to drug Metoprol Propensi Active GI Method i ol ty to Intolerance 16 st Succinat adverse 00:00: Hospita e reaction 00 l s to drug Beta-Blo DA Active SV 2017- [facility] ckers 02-23 (Beta-Ad 00:00: [facility] 00 [facility] morphine DA Active SV 2017-02 [facility] 02-23 00:00: [address] metoprol DA Active SV 2017- [facility] ol 02-23 00:00: [address] prometha DA Active SV 2017-02 [facility] zine 02-23 00:00: [address] butorpha DA Active SV 2017- [facility] nol [address] [place] 00:00: [address] Epinephr Propensi Active Palpitations 2011-02 Univers ine ty to 2-19 ity of adverse 00:00: [place] reaction Medical s Branch Pentazoc Propensi Active Hallucinatio 2011-02 Univers ine ty to ns 2-19 ity of Lactate adverse 00:00: [place] reaction Medical s [place] EPINEPHR DRUG Active Palpitations 2011-02 Un tay INE INGREDI 2-19 ity of 00:00: [place] Medical [place] PENTAZOC DRUG Active Hallucinates 2011-02 Un tay INE INGREDI 2-19 ity of LACTATE 00:00: Medical Branch Butorpha Propensi Active Shortness of Can't Univers nol ty to Breath 4-14 breath ity of Tartrate adverse 00:00: [place] reaction 00 Medical s Branch BUTORPHA DRUG Active SOB Univers NOL INGREDI 4-14 ity of TARTRATE 00:00: [place] [facility] Sitaglip Propensi Active Unknown - [...] 00 Medical Branch METOPROL DRUG Active SOB 2008- Univers OL INGREDI 4-14 ity of SUCCINAT 00:00: [place] E 00 Medical Branch Family History Family Member Diagnosis Comments Start Date Stop Date Source Natural brother Diabetes [facility] Natural father Cancer [facility] Natural father Diabetes [facility] Social History Social Habit Start Date Stop Date Quantity Comments Source Gender identity [facility] Sexual orientation [facility] Alcohol intake 2022-05-11 2022-05-11 Lifetime [facility] 00:00:00 00:00:00 non-drinker Hospital (finding) History of Social 2022-05-11 2022-05-[address] function 00:00:00 00:00:00 Hospital Tobacco use and 2022-03-26 2022-03-26 Smokeless [facility] exposure 00:00:00 00:00:00 tobacco non-user Hospital Exposure to 2021-08-04 2021-08-14 Not sure [facility]-CoV-2 (event) 00:00:00 00:29:00 [facility] Sex Assigned At [birth year] [facility] 00:00:00 00:00:00 Hospital Smoking Status Start Date Stop Date Source Never smoked tobacco [facility] Medications Ordered Filled Start Stop Current Ordering Indication Dosage Frequency Signature Comments Components Source Medication Medication Date Date Medication? Clinician (SIG) Name Name omega-3s-dh Yes Method i a-epa-fish 05-11 st oil 14:32: Hospita 350-100-225 27 l mg capsule ubidecareno Yes Method i ne/vitamin 05-11 st E mixed 14:32: Hospita (COQ10 SG 27 l 100 ORAL) sucralfate 2022- No 1g Q.25D Take 10 mL Methodi (Carafate) 16 -19 ([address] 100 mg/mL 00:00: 04:59 total) by Ho spita suspension 00 :00 mouth 4 l (four) times a day for 30 days. pantoprazol 2022- No 40mg QD Take 1 Met hodi e 2-16 -19 tablet (40 st (Protonix) 00:00: 04:59 mg total) H ospita 40 MG EC 00 :00 by mouth l tablet daily for 30 days. acetaminoph 2022- No 500mg Q6H Take 1 Me thodi en (Tylenol 2-16 -[address] Extra 00:00: 05:59 (500 mg Hospita Strength) 00 :00 total) by l 500 MG mouth tablet every 6 (six) hours as needed for moderate pain for up to 5 days. NovoLOG Yes INJECT 9 Method i FlexPen 1-[address] U-100 00:00: UNDER THE Hospita Insulin 100 00 SKIN l unit/mL (3 DIRECTED mL) insulin PER pen SLIDING SCALE: BLOOD GLUCOSE GREATER THAN 400 INJECT 12 UNITS UNDER THE SKIN, 301-400 INJECT 10 UNITS, 201-300 INJECT 8 UNITS, 140-200 INJECT 6 UNITS enoxaparin Yes 40mg 40 mg, Unive rs [...] MG ORAL TAB 08-14 ity of 13:23: Medical Branch bisoprolol Yes 2.5mg Take 2.5 Un tay (ZEBETA) 5 7-07 mg by ity of mg tablet 13:23: mouth 2 21 (two) Medical times Branch daily. Alpha [...] 1 daily Univ ers MG ORAL TAB -07 ity of 13:23: Medical Branch bisoprolol Yes 2.5mg Take 2.5 Un tay (ZEBETA) 5 7-07 mg by ity of mg tablet 13:23: mouth 2 21 (two) Medical times Branch daily. Alpha [...] MG ORAL TAB 08-14 ity of 13:23: [place] 21 Medical Branch [...] at Branch 0800, Until Discontinu ed Sliding Yes Subcutaneo Univ ers Scale 08-14 us, [...] Branch 0800, Until Discontinu ed, Routine sucralfate Yes 1g 1,000 mg Uni vers (CARAFATE) 08-14 (1 g), ity of 100 mg/mL 12:30: Oral, [place] suspension 00 AC+HS, Medical 1,000 mg First dose Branc h on Anai 08/14/21 at 0730, Until Discontinu ed, Routine levothyroxi 2021-0 Yes 25ug 25 mcg, Uni vers ne 08-14 Oral, ity of (SYNTHROID) 11:00: QAM-0600, [place] tablet 25 00 First dose Medi favian mcg on Anai Branch 08/14/21 at 0600, Until Discontinu ed, Routine aspirin 2021-0 Yes 81mg 81 mg, Univers chewable 08-14 Oral, QAM ity of tablet 81 11:00: WITH [place] mg 00 BREAKFAST, Medical First dose Branch on Anai 08/14/21 at 0600, Until Discontinu ed, Routine ondansetron 2021- Yes 4mg 4 mg, Slow Univers (ZOFRAN [...] ity of bolus 10:42: PRN - SEE [place] infusion 49 INSTRUCTIO Medic al 250 mL [...] glucose is < 80 mg/dL, repeat.
aspirin No 324mg 324 mg, Unive rs chewable 08-14 Oral, ONCE ity of tablet 324 04:45: 03:38 NOW, 1 [place] mg 00 :00 dose, On Medical 08/13/21 Branch at 2345, Routine iopamidol 2021- No [id number] 80mL 80 mL, U nivers (ISOVUE 08-14 Intravenou ity o f 370-500 mL) 04:07: 04:07 s, ONCE, 1 [place] injection 00 :00 dose, On Medica l 80 mL Wed08/13/21 Branch at 2315, Routine ondansetron Yes 4mg QD Take 1 Meth glenys (ZOFRAN) 4 08-14 tablet (4 st MG tablet 00:00: mg total) Hos seema 00 by mouth l daily. pantoprazol 2021- No [id number] 40mg Take 1 Univers e 40 mg EC 08-14 tablet by ity of tablet 00:00: 04:59 mouth [place] 00 :00 daily for Medical 30 days. [place] pantoprazol 2021- No [id number] 40mg Take 1 Univers e 40 mg EC 08-14 tablet by ity of tablet 00:00: 04:59 mouth [place] 00 :00 daily for Medical 30 days. [place] LEVOTHYROXI Yes [id number] TAKE 1 Univers NE 25 mcg 6-13 TABLET BY ity o f tablet 00:00: MOUTH ONCE [place] [address] [facility] MORNING LEVOTHYROXI Yes [id number] TAKE 1 Univers NE 25 mcg 6-13 TABLET BY ity o f tablet 00:00: MOUTH ONCE [place] [address] [facility] MORNING LEVOTHYROXI Yes [id number] TAKE 1 Univers NE 25 mcg 6-13 TABLET BY ity o f tablet 00:00: MOUTH ONCE [place] [address] [facility] MORNING levothyroxi Yes 25ug QD Take 1 Meth glenys ne 6-13 tablet (25 st (SYNTHROID) 00:00: mcg total) Hospita 25 mcg 00 by mouth l tablet daily. insulin Yes [id number] INJECT 5 U nivers aspart 2-20 UNITS ity of U-100 00:00: UNDER THE [place] (NOVOLOG 00 SKIN THREE Medic al FLEXPEN TIMES A Branch U-100 DAY BEFORE INSULIN) MEAL 100 unit/mL injection insulin Yes [id number] INJECT 5 U nivers aspart 2-20 UNITS ity of U-100 00:00: UNDER THE [place] (NOVOLOG 00 SKIN THREE Medic al FLEXPEN TIMES A Branch U-100 DAY BEFORE INSULIN) MEAL 100 unit/mL injection insulin Yes [id number] INJECT 5 U nivers aspart 2-20 UNITS ity of U-100 00:00: UNDER THE [place] (NOVOLOG 00 SKIN THREE Medic al FLEXPEN TIMES A Branch U-100 DAY BEFORE INSULIN) MEAL 100 unit/mL injection Insulin Yes QID, Univers [place], 7 DX:E11.9 ity of Disposable, 00:00: [place] (NOVOFINE 00 Medical 30) 30 Branch gauge x 1/3" Ndle Insulin Yes QID, Univers [place], 7 DX:E11.9 ity of Disposable, 00:00: [place] (NOVOFINE 00 Medical 30) 30 Branch gauge x 1/3" Ndle Insulin [id number] Yes QID, Univers [place], 7 DX:E11.9 ity of Disposable, 00:00: [place] (NOVOFINE 00 Medical 30) 30 Branch gauge x 1/3" Ndle estradiol Yes 2g Insert 2 g Un tay (ESTRACE) 1-12 into ity of 0.01 % (0.1 00:00: vagina [place] mg/gram) 00 weekly. Medical vaginal Branch cream estradiol Yes 2g Insert 2 g Un tay (ESTRACE) 1-12 into ity of 0.01 % (0.1 00:00: vagina [place] mg/gram) 00 weekly. Medical vaginal Branch cream estradiol Yes 2g Insert 2 g Un tay (ESTRACE) 1-12 into ity of 0.01 % (0.1 00:00: vagina [place] mg/gram) 00 weekly. Medical vaginal Branch cream blood sugar Yes Use as Univ ers diagnostic 3-28 directed, ity of (ONETOUCH 00:00: TID, [place] VER) 00 DX:E11.9 Medical strip Branch lancets 0 Yes Use as Univers (ONE TOUCH 3-28 directed, ity of DELICA) 33 00:00: TID, [facility] Mis 00 DX:E11.9 Medic al Branch blood sugar 0 Yes Use as Univ ers diagnostic 3-28 directed, ity of (ONETOUCH 00:00: TID, [place] VER) 00 DX:E11.9 Medical strip Branch lancets 0 Yes Use as Univers (ONE TOUCH 3-28 directed, ity of DELICA) 33 00:00: TID, [facility] Mis 00 DX:E11.9 Medic al Branch blood sugar Yes Use as Univ ers diagnostic 3-28 directed, ity of (ONETOUCH 00:00: TID, [place] VER) 00 DX:E11.9 Medical strip Branch lancets Yes Use as Univers (ONE TOUCH 3-28 directed, ity of DELICA) 33 00:00: TID, [facility] 00 DX:E11.9 Medic al Branch bisoprolol 2014-02 Yes 5mg QD Take 1 Metho di (ZEBETA) 5 1-30 tablet (5 st MG tablet 00:00: mg total) Hos seema 00 by mouth l daily. aspirin 81 2014-02 Yes 81mg QD Chew 1 Metho di mg chewable 1-30 tablet (81 st tablet 00:00: mg total) Hospit a 00 daily. l Vital Signs Vital Name Observation Time Observation Value Comments Source Systolic blood 2021-08-14 17:01:00 131 mm[Hg] Univer sity pressure [facility] Diastolic blood 2021-08-14 17:01:00 66 mm[Hg] Unive [facility] Heart rate 2021-08-14 17:01:00 55 /min [facility] Body temperature 2021-08-14 17:01:00 35.94 Lita [facility] Respiratory rate 2021-08-14 17:01:00 18 /min [facility] Oxygen saturation in 2021-08-14 17:01:00 95 /min [facility] blood by [facility] Pulse oximetry Branch Body weight 2021-08-14 09:22:00 65.998 kg [facility] BMI 2021-08-14 09:22:00 26.61 kg/m2 [facility] Body height 2021-08-14 05:27:00 157.5 cm [facility] Systolic blood 2022-05-11 19:25:00 137 mm[Hg[facility] pressure Diastolic blood 2022-05-11 19:25:00 81 mm[Hg] [facility] pressure Heart rate 2022-05-11 19:25:00 52 /min [facility] Body temperature 2022-05-11 19:25:00 36.5 Lita [facility] Body height 2022-05-11 19:25:00 154.9 cm [facility] Body weight 2022-05-11 19:25:00 65.772 kg [facility] BMI 2022-05-11 19:25:00 27.40 kg/m2 [facility] Oxygen saturation in 2022-05-11 19:25:00 98 /min [facility] Arterial blood by Pulse oximetry Respiratory rate 2022-03-27 05:22:00 16 /min [facility] Procedures Procedure Date / Time Performing Clinician Source Performed LACTIC ACID LEVEL 2022-03-27 03:53:00 Jose العلي [facility] CT ABDOMEN PELVIS W 2022-03-27 00:53:28 [facility] PRE[facility]ARY 2022-03-26 23:04:26 Jose العلي [facility] INTERPRETATION COVID-19, INFLUENZA A&B, 2022-03-26 22:53:00 [facility] AND RSV QUALITATIVE RT-PCR URINALYSIS SCREEN AND 2022-03-26 20:46:00 [facility] MICROSCOPY, WITH REFLEX TO CULTURE URINE CULTURE 2022-03-26 20:45:00 [facility] XR CHEST 2 VW 2022-03-26 20:24:48 [facility] CBC WITH PLATELET AND 2022-03-26 20:06:00 [facility]FFERENTIAL COMPREHENSIVE METABOLIC 2022-03-26 20:06:00 [facility] PANEL LIPASE LEVEL 2022-03-26 20:06:00 Hernandez, [facility] TROPONIN T 2022-03-26 20:06:00 Hernandez, [facility] B NATRIURETIC PEPTIDE 2022-03-26 20:06:[address] [facility] ESTIMATED GFR 2022-03-26 20:06:00 [facility] ECG 12-LEAD 2022-03-26 19:49:31 Hernandez, [facility] XR CHEST EXTERNAL STUDY 2022-03-19 07:23:35 Jose David Schwab [facility] MRI ABD/PELVIC EXTERNAL 2022-03-18 17:55:59 Jose David Schwab [facility] STUDY US ABDOMINAL EXTERNAL 2022-03-18 15:23:45 Jose David Schwab [facility] STUDY EXTERNAL PROVIDER RECORDS 2022-03-10 06:01:00 Doctor Unassigned, [facility] [employer] [facility] POCT GLUCOSE (AUTOMATED) 2021-08-14 17:01:00 Meredith Bae [facility] TRANSTHORACIC ECHO (TTE) 2021-08-14 15:00:[address] [facility] POCT GLUCOSE (AUTOMATED) 2021-08-14 13:04:00 Meredith Bae [facility] SODIUM, URINE RANDOM 2021-08-14 11:46:00 Meredith Bae [facility] PROTEIN CREAT RATIO URINE 2021-08-14 11:46:00 Meredith Bae [facility] URINALYSIS 2021-08-14 09:54:00 Deborah margarita [place] [facility] FREE T4 2021-08-14 09:53:00 Kindra Monzon [facility] THYROID STIMULATING 2021-08-14 09:53:00 Meredith Bae [facility] HORMONE [facility] BASIC METABOLIC PANEL 2021-08-14 09:53:00 Meredith Bae [facility] (NA, K, CL, CO2, GLUCOSE, Medica l Branch BUN, CREATININE, CA) LIPID PANEL ([id number])(TOTAL 2021-08-14 09:53:00 Meredith Bae [facility] CHOLESTEROL, [facility] TRIGLYCERIDES, HDL) PROTHROMBIN TIME / INR 2021-08-14 09:53:00 Meredith Bae [facility] N-TERMINAL PRO-BNP 2021-08-14 09:53:00 Deborah margarita [facility] FREE T3 2021-08-14 09:53:00 Kindra Monzon [facility] PROCALCITONIN 2021-08-14 09:53:00 Deborah [facility] MAGNESIUM 2021-08-14 09:53:00 Deborah [facility] TROPONIN I 2021-08-14 09:53:00 Deborah margarita [facility] CT CHEST PULMONARY 2021-08-14 04:11:51 Jimi Spring [facility] ANGIOGRAM [facility] Branch COVID-19 (ID NOW RAPID 2021-08-14 03:56:00 ClementineJiim hernadez [facility] TESTING) [facility] COMP. METABOLIC PANEL 2021-08-14 03:38:00 Jimi Spring [facility] (18022) [facility] CBC WITH DIFF 2021-08-14 03:38:00 Clementine, [facility] GLYCOSYLATED HEMOGLOBIN 2021-08-14 03:38:00 Deborah margarita [facility] (A1C) [facility] N-TERMINAL PRO-BNP 2021-08-14 03:38:00 ClementineJimi hernadez [facility] PHOSPHORUS 2021-08-14 03:38:00 Clementine, [facility] MAGNESIUM 2021-08-14 03:38:00 Clementine, [facility] TROPONIN I 2021-08-14 03:38:00 Clementine, [facility] HB ECG ROUTINE & RHYTHM 2021-08-14 03:28:10 Jimi Spring [facility] STRIP Medical Branch Plan of Care Planned Activity Planned Date Details Comments Source Future Scheduled 2022-06-14 SHINGLES VACCINES (1 [facility] Test 17:44:09 of 2) [code = SHINGLES VACCINES (1 of 2)] Future Scheduled 2022-06-14 65+ [facility]OCOCCAL [facility] Test 17:44:09 VACCINE (1 - PCV) [code = 65+ PNEUMOCOCCAL VACCINE (1 - PCV)] Future Scheduled 2022-06-14 COVID-19 VACCINE (3 - [facility] Test 17:44:09 Booster for Moderna series) [code = COVID-19 VACCINE (3 - Booster for Moderna series)] Future Scheduled 2022-06-14 INFLUENZA VACCINE [facility] Test 17:44:09 [code = INFLUENZA VACCINE] Encounters Start End Encounter Admission Attending Care Care Encounter Source Date/Time Date/Time Type Type Clinicians Facility Department ID 2022-05-11 2022-05-11 [facility] Jose David Schwab 1.2.840.1 [id number] Methodi 15:41:33 23:59:00 Encounter Russel [id number] 3.430.2.7 Hospit a .3.680469 l .8 2022-05-11 2022-05-11 Office Jose David Schwab 1.2.840.1 [id number] Methodi 14:30:00 16:14:02 Visit Russel [id number] 3.430.2.7 Hospit a .3.461858 l .8 2022-05-11 2022-05-11 [facility] Jose David Schwab 1.2.840.1 [id number] Methodi 15:40:24 15:40:24 Encounter Russel [address]8460.1.[address] 3.430.2.7 Hospit a .3.687835 l .8 2022-05-11 2022-05-11 [facility] Jose David Schwab 1.2.840.1 [id number] 2 [id number] Methodi 15:33:23 15:39:00 Encounter Russel [id number] 3.430.2.7 Hospit a .3.125968 l .8 2022-05-11 2022-05-11 Outpatient JOSE DAVID SCHWAB [facility] [id number] [place] 00:00:00 00:00:[address] 2022-05-11 2022-05-11 Orders Zaheer, Jose David 1.2.840.1 [id number] Methodi 00:00:00 00:00:00 Only Russel [id number] 3.430.2.7 Hospit a .3.054598 l .8 2022-05-11 2022-05-11 Travel 1.2.840.1 1.2.560.100 [id number] Methodi 00:00:00 00:00:[address] 3.430.2.7 0.2.7.3.698 Ho spita .3.373282 084.8 l .8 2022-05-11 2022-05-11 Outpatient ZAHEER[facility] [id number] [place] 00:00:00 00:00:[address] 2022-05-11 2022-05-11 Outpatient ZAHEER, JOSE DAVID [facility] [id number] [place] 00:00:00 00:00:[address] 2022-05-11 2022-05-11 Outpatient ZAHEER[facility] [id number] [place] 00:00:00 00:00:[address] 2022-04-13 2022-04-13 Telephone Zaheer, Jose David 1.2.840.1 [id number] Methodi 00:00:00 00:00:[id number] 3.430.2.7 Hospit a .3.300202 l .8 2022-03-26 2022-03-26 Emergency Darshan, 1.2.840.1 [id number] Methodi 13:42:00 23:22:[address] Hero 3.430.2.7 Hospit a .3.312574 l .8 2022-03-26 2022-03-26 Emergency DARSHAN, [facility] [id number] [place] 00:00:00 00:00:[address] JOSE [address] 2022-03-10 2022-03-10 Orders Doctor DANGELO 1.2.840.114 [id number] Univers 00:00:00 00:00:00 Only Unassigned, BAKARI 350.1.13.10 ity of [employer] [facility] 4.2.7.2.686 Jose as [id number] [facility] 009 Branch 2021-10-01 2021-10-01 [facility] [id number] Univers 00:00:00 00:00:00 [facility]-09-04 2021-09-04 Outpatient SAPPHIRE_JOSE G NYBAMBI [facility] 861 [place] 00:00:00 00:00:00 HN 0728 [facility] 2021-08-15 2021-08-15 Transition JASON Medina 1.2.840.114 [id number] Univers 00:00:00 00:00:00 of Care Edward THOMPSON 350.1.13.10 ity [facility] 4.2.7.2.686 [place] [id number] [facility] 403 Branch 2021-08-13 2021-08-14 Outpatient X [facility]AH [facility] [id number] Univers 22:23:00 13:20:00 MEREDITH [facility] 2021-08-13 2021-08-14 Emergency Jimi Spring [facility] 1.2.840. 114 [id number] Univers 22:23:00 13:20:00 Meredith Bae 350.1.13.10 ity of [place] 4.2.7.2.686 [place] [id number] [facility] 081 Branch 2020-03-21 2020-03-21 Outpatient SLEH SLEH [id number] SLE 00:00:00 00:00:00 Results Test Description Test Time Test Comments Results Result Comments Source ECG 12 lead 2022-03-27 13:30:27 Test Item Value Reference Range Interpretation Comme nts Ventricular rate (test code = 253) 53 Atrial rate (test code = 255) 53 IN interval (test code = 266) 142 QRSD interval (test code = 260) 78 QT interval (test code = 264) 418 QTC interval (test code = 265) 392 P axis 1 (test code = 267) 72 QRS axis 1 (test code = 268) 57 T wave axis (test code = 270) 40 EKG impression (test code = 273) Sinus bradycardia with sinus arrhythmia-Otherwise normal ECG-No previous ECGs available- [facility] and B [id number] 23:23:12 Test Item Value Reference Range Interpretation Comments SARS-CoV-2 (COVID-19) RNA Not detected [Presence] in Respiratory specimen by ANNABELLE with probe detection (test code = 62548-6) Whether patient resides in a No congregate care setting (test code = 60742-6) Date and time of symptom onset Unknown (test code = 48883-5) Whether the patient was No hospitalized for condition of interest (test code = 73821-1) Whether the patient was admitted No to intensive care unit (ICU) for condition of interest (test code = 34775-7) Whether patient is employed in a No healthcare setting (test code = 71440-8) Whether the patient has symptoms No related to condition of interest (test code = 84370-3) status (test code = No 77168-3) ALBERT HARVEY [facility] [id number] 22:29:00 Test Item Value Reference Range Interpretation Comments Urine culture (test SEE COMMENT Bacteriu anette screen code = 9565719) negative. [facility]E)2021-08-14 17:28:13 Test Item Value Reference Range Interpretation Comments Height (test code = in 5252738951) Weight (test code = lbs 1161227973) Systolic BP (test code = mmHg 0778003176) Diastolic BP (test code mmHg = 5373479662) Heart Rate (test code = bpm 8230689500) BSA (test code = 1.67 m2 5653365032) LVOT diameter (test code 2.01 cm = 8669900852) LA size (test code = 3.6 cm 7671213256) Ao root annulus (test 2.37 cm code = 9686112427) Ao root diam (test code 2.37 cm = 3130956385) Aortic root (test code = 2.37 cm 6483677431) IVS (test code = 0.74 cm 6075935903) Interventricular Septum 0.74 cm Diastolic Thickness by 2D (test code = 1540417) LVIDD (test code = 4.10 cm 4413301705) EF(Teich) (test code = 58.50 % 0803273197) LVIDS (test code = 2.90 cm 6947965794) FS (test code = 31 % 9090710351) EF - 2D (test code = 58.50 % 72632994) LAV(MOD-sp4) (test code 21.90 mL = 9224861920) E wave decelartion time 0.23 s (test code = 9310151043) MV Peak A Halima (test code 69.1 cm/s = 2292505461) MV Peak E Halima (test code 79.6 cm/s = 9242742134) E/A ratio (test code = ratio 9372454836) MV E/e' septal (test 7.4 cm/s code = 8489966148) Tapse (test code = 2.40 cm 8830796538) LVOT stroke volume (test 75.50 cm3 code = 1714645221) LVOT peak halima (test code 104.9 cm/s = 4852067121) LVOT mn grad (test code mmHg = 3446084649) AV LVOT peak gradient mmHg (test code = 8021852239) LVOT peak VTI (test code 23.9 cm = 5953342438) LV V1 mean (test code = 65.20 cm/s 0892588116) Aortic valve mean 73.4 cm/s velocity (test code = 2523909098) Ao peak halima (test code = 109.1 cm/s 7570193581) Ao VTI (test code = 23.8 cm 6777126131) AV area by cont VTI 3.2 cm2 (test code = 8118560825) AV area peak halima (test 3.0 cm2 code = 5267077540) Ao max PG (test code = 4.80 mm[Hg] 5266984540) AV peak gradient (test mmHg code = 3222922536) AV valve area (test code 3.20 cm2 = 5788597686) AV mean gradient (test mmHg code = 9108691690) TR Peak Halima (test code = 223.9 cm/s 5080389598) Triscuspid Valve mmHg Regurgitation Peak Gradient (test code = 5561604717) LA Volume Index (BP) 14.7 mL/m2 (test code = 7401649724) LA volume (BP) (test 24.5 mL code = 8148401293) LAV(MOD-sp2) (test code 27.00 mL = 9372460554) Radiology Study observation (narrative) (test code = 96500-9) TAMI (test code = TAMI) ?Left?Ventricle: Left ventricle size is normal. Normal wall thickness. Normal wall motion. Normal systolic function with a visually estimated EF of 60 - 65%. Indeterminate diastolic function. ?Tricuspid?Valve: Right ventricular systolic pressure is normal. ?RA pressure is 0-5 mmHg. ?Right?Ventricle: Normal systolic function. [facility] 17:04:45 Test Item Value Reference Range Interpretation Comments POCT GLU (test code = 2031631099) 137 mg/dL 70-110 H Lab Interpretation (test code = Abnormal 00831-4) [facility] 15:42:38 Test Item Value Reference Range Interpretation Comments Procalcitonin (test 0.02 ng/mL <0.07 code = 8426574442) TAMI (test code = TAMI) INTERPRETATION OF [...] lung abscess/empyema. For further information please refer to:[email or web address] Lab Interpretation Normal (test code = 93967-2) [facility] [id number] 15:39:57 Test Item Value Reference Range Interpretation Comments FREE T3 (test code = 1154909741) 2.88 pg/mL 2.77-5.27 Lab Interpretation (test code = Normal 18453-4) [facility] [id number] 15:39:57 Test Item Value Reference Range Interpretation Comments FREE T4 (test code = See_Comment [Autom ated message] 0267862335) The system [employer] generated this result transmitted ref erence range: 0.78 - 2 .20 ng/dL:. The ref erence range was not u sed to interpret this result as normal/abnor mal. Lab Interpretation (test Normal code = 16840-8) [facility]14 13:12:49 Test Item Value Reference Range Interpretation Comments POCT GLU (test code = 6765521574) 137 mg/dL 70-110 H Lab Interpretation (test code = Abnormal 74721-5) [facility] STIMULATING [id number] 12:18:53 Test Item Value Reference Range Interpretation Comments TSH (test code = See_Comment H [Automated message] 8311560997) The system [employer] generated this result transmitted ref erence range: 0.45 - 4 .70 mIU/L. The refe rence range was not u sed to interpret this result as normal/abnor mal. Lab Interpretation (test Abnormal code = 15613-8) [facility]LIP[facility] (30046)(TOTAL CHOLESTEROL, TRIGLYCERIDES, HDL)2021-08-14 11:48:08 Test Item Value Reference Range Interpretation Comments CHOL (test code = 180 mg/dL 120-200 8102676500) HDL (test code = 47 mg/dL >50 L 8259584720) HDLC RATIO (test code = See_Comment [Au tomated message] 4164002482) The system [employer] generated this result transmit palma reference range : <=4.5. The refe rence range was not u sed to interpret th is result as normal/abnormal . TRIG (test code = 101 mg/dL 30-170 4611426869) LDL CHOL (test code = 113 mg/dL See_Comment [Auto mated message] 63499-7) The system [employer] generated this result transmit palma reference range : <=160. The refe rence range was not u sed to interpret th is result as normal/abnormal . VLDL (test code = 20 mg/dL 5-60 6633894294) Lab Interpretation (test Abnormal code = 30772-6) [facility]TR[facility] [id number] 11:17:30 Test Item Value Reference Interpretation Comments Range TROPONIN I (test 0.003 ng/mL See_Comment [Automated code = 4248518379) message] The system which generated this result [...] biotin. Lab Interpretation Normal (test code = 30847-8) [facility]N-TERMINAL [id number] 11:13:08 Test Item Value Reference Range Interpretation Comments NT-proBNP (test code 225 pg/mL See_Comment [Autom ated = 3364257061) message] The system which generated this result transmitted reference range : <=450. The reference range was not used to interpret this result as normal/abnormal . TAMI (test code = TAMI) Biotin has been reported to cause a negative bias, interpret results relative to patient's use of biotin. Lab Interpretation Normal (test code = 00673-6) [facility]2022-[facility]-07 10:54:42 Test Item Value Reference Range Interpretation Comments MAGNESIUM (test code = 4633013326) 1.9 mg/dL 1.7-2.4 Lab Interpretation (test code = Normal 25763-0) [facility]OLIC PANEL (NA, K, CL, CO2, GLUCOSE, BUN, CREATININE, CA)2021-08-14 10:54:22 Test Item Value Reference Range Interpretation Comments NA (test code = 138 mmol/L 135-145 5630215080) K (test code = 4.1 mmol/L 3.5-5.0 9683192521) CL (test code = 104 mmol/L 98-108 1800100388) CO2 TOTAL (test code = 27 mmol/L 23-31 7213372017) AGAP (test code = 2-16 7322848228) BUN (test code = 16 mg/dL 7-23 7062776595) GLUCOSE (test code = 149 mg/dL 70-110 H 5248881412) CREATININE (test code = 0.84 mg/dL 0.50-1.04 7238321743) CALCIUM (test code = 9.4 mg/dL 8.6-10.6 5500758215) eGFR (test code = mL/min/1.73m2 3905166685) TAMI (test code = TAMI) Association of [...] tests). Lab Interpretation Abnormal (test code = 92063-4) [facility] CenterProthrombin Time / [id number] 10:44:01 Test Item Value Reference Range Interpretation [...] tions. Lab Interpretation (test Normal code = 14729-1) [facility] CenterGLYCOSYLATED HEMOGLOBIN (A1C)2021-08-14 10:13:38 Test Item Value Reference Range Interpretation Comments HGB A1C (test code = 7.8 % 4.0-5.7 H 4548-4) TAMI (test code = TAMI) Reference RangesNormal: <5.7%Prediabetes: 5.7 - 6.4%Diabetes: > 6.5% Lab Interpretation (test Abnormal code = 22989-5) [facility] CenterTROPONIN [id number] 04:14:57 Test Item Value Reference Interpretation Comments Range TROPONIN I (test 0.001 ng/mL See_Comment [Automated code = 1558070422) message] The system which generated this result [...] biotin. Lab Interpretation Normal (test code = 45272-0) [facility]N-TERMINAL [id number] 04:11:41 Test Item Value Reference Range Interpretation Comments NT-proBNP (test code 192 pg/mL See_Comment [Autom ated = 9202009347) message] The system which generated this result transmitted reference range : <=450. The reference range was not used to interpret this result as normal/abnormal . TAMI (test code = TAMI) Biotin has been reported to cause a negative bias, interpret results relative to patient's use of biotin. Lab Interpretation Normal (test code = 72169-5) [facility]2022-[facility]-07 04:03:40 Test Item Value Reference Range Interpretation Comments MAGNESIUM (test code = 4259220345) 1.8 mg/dL 1.7-2.4 Lab Interpretation (test code = Normal 62211-2) [facility] CenterCOM. METABOLIC PANEL (52848)2021-08-14 04:03:20 Test Item Value Reference Range Interpretation Comments NA (test code = 138 mmol/L 135-145 8581715708) K (test code = 4.2 mmol/L 3.5-5.0 4040440852) CL (test code = 102 mmol/L 98-108 7629594731) CO2 TOTAL (test code = 27 mmol/L 23-31 3875864848) AGAP (test code = 2-16 9816372183) BUN (test code = 18 mg/dL 7-23 2404583165) GLUCOSE (test code = 207 mg/dL 70-110 H 4085539682) CREATININE (test code = 0.88 mg/dL 0.50-1.04 8433856797) TOTAL BILI (test code = 0.6 mg/dL 0.1-1.3 4469588391) CALCIUM (test code = 9.7 mg/dL 8.6-10.6 1920468380) T PROTEIN (test code = 7.1 g/dL 6.3-8.2 4620950816) ALBUMIN (test code = 4.3 g/dL 3.5-5.0 3803436161) ALK PHOS (test code = 77 U/L 34-122 8818791535) ALTv (test code = 21 U/L 5-35 1742-6) AST(SGOT) (test code = 29 U/L 13-40 7866606155) eGFR (test code = mL/min/1.73m2 1237155746) TAMI (test code = TAMI) Association of [...] tests). Lab Interpretation Abnormal (test code = 64589-9) [facility]PHOSPHORUS2022-07-07 04:03:20 Test Item Value Reference Range Interpretation Comments PHOSPHORUS (test code = 6628613907) 3.3 mg/dL 2.5-5.0 Lab Interpretation (test code = Normal 10441-2) [facility] WITH [id number] 03:51:16 Test Item Value Reference Range Interpretation Comments WBC (test code = See_Comment [Automated message] 6690-2) The system [employer] generated this result transmitted ref erence range: 4.30 - 1 1.10 10*3/?L. The re ference range was not u sed to interpret this result as normal/abnor mal. RBC (test code = See_Comment [Automated message] 789-8) The system [employer] generated this result transmitted ref erence range: [...] RDW-SD (test code 41.0 fL 39.0-49.9 = 42965-8) RDW-CV (test code 13.0 % 12.0-15.5 = 788-0) PLT (test code = See_Comment [Automated message] 777-3) The system [employer] generated this result transmitted ref erence range: 166 - 35 8 10*3/?L. The re ference range was not u sed to interpret this result as normal/abnor mal. MPV (test code = 9.9 fL 9.5-12.9 24664-7) NRBC/100 WBC (test See_Comment [Automat ed message] code = 4324638502) The syste m which generated this result transmitted ref erence range: 0.0 - 10 .0 /100 WBCs. The refer ence range was not u sed to interpret this result as normal/abnor mal. NRBC x10^3 (test <0.01 See_Comment [Automated message] code = 4323705747) The syste m which generated this result transmitted ref erence range: 10*3/?L. The reference range was not used to interpr et this result as normal/abnormal . GRAN MAT (NEUT) % 62.2 % (test code = 770-8) IMM GRAN % (test 0.30 % code = 0849209182) LYMPH % (test code 21.3 % = 736-9) MONO % (test code 11.8 % = 5905-5) EOS % (test code = 3.4 % 713-8) BASO % (test code 1.0 % = 706-2) GRAN MAT 4.33 10*3/uL 1.88-7.09 x10^3(ANC) (test code = 3603993791) IMM GRAN x10^3 <0.03 0.00-0.06 (test code = 2082523927) LYMPH x10^3 (test 1.48 10*3/uL 1.32-3.29 code = 731-0) MONO x10^3 (test 0.82 10*3/uL 0.33-0.92 code = 742-7) EOS x10^3 (test 0.24 10*3/uL 0.03-0.39 code = 711-2) BASO x10^3 (test 0.07 10*3/uL 0.01-0.07 code = 704-7) [facility] METABOLIC [id number] 09:20:00 Test Item Value Reference Range Interpretation [...] code = 9.8 MG/DL 8.4-10.2 N CA) [id number] 09:20:00 Test Item Value Reference Range Interpretation Comments MAGNESIUM (test code = MAG) 2.0 MG/DL 1.6-2.3 N PROTHROMBIN [id number] 09:17:00 Test Item Value Reference Range Interpretation [...] myocar dial infarction. 2.0 - 3.0 3. 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 3.0 - 4.5 PTT [id number] 09:17:00 Test Item Value Reference Range Interpretation Comments PTT ACTIVATED (test code = APTT) 29.1 SECONDS 22.0-33.0 N CBC W/AUTO [id number] 09:12:00 Test Item Value Reference Range Interpretation [...] 0.00 K/mm3 0.0-0.1 N NRBC#) BASIC METABOLIC [id number] 13:19:00 Test Item Value Reference Range Interpretation [...] code = 10.3 MG/DL 8.4-10.2 H CA) [id number] 13:19:00 Test Item Value Reference Range Interpretation Comments MAGNESIUM (test code = MAG) 1.8 MG/DL 1.6-2.3 N PROTHROMBIN [id number] 13:08:00 Test Item Value Reference Range Interpretation [...] myocar dial infarction. 2.0 - 3.0 3. 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 3.0 - 4.5 CBC W/AUTO [id number] 12:57:00 Test Item Value Reference Range Interpretation [...] code = 0.0 K/mm3 0.0-0.1 N NRBC#) Notes Date/Time Note Provider Source 2018-05-19 08:22:00-00:00 [id number] [place] [address] PATIENT NAME: FAVIAN Peace ADMIT DATE: 05/17/18 ACCOUNT NO: [id number] ROOM NO: [facility] AGE: 77 REPORT TYPE: HISTORY AND PHYSICAL SEX: F ADMITTING PHYSICIAN:Akash Morris MD ATTENDING PHYSICIAN:Akash Morris MD ADMISSION DATE: 05/17/2018 REASON FOR ADMISSION: Diagnostic electrophysiolo gy study. HISTORY OF PRESENT ILLNESS: This is a 77-year-ol d female who has a history of prior arrhythmia with prior ablation one in 2003 and the initial one in 1996. She has had a 2-year history of palpitations ass ociated with dyspnea and dizziness. The episodes occur daily and last for hours. There was associated chest pressure. She has had a negative myocardia l perfusion scan. HOME MEDICATIONS: Multivitamins, aspirin, metfor min, levothyroxine, NovoLog insulin, vitamin D, bisoprolol, turmeric, probio tic. PAST MEDICAL HISTORY: Mixed hyperlipidemia, hypertension, mitral insufficiency, premature ventricular contractions, PSVT, sinus bradycardia, chest pain, palpitations. PAST SURGICAL HISTORY: Heart ablation x2, kidney stones, colon resection, and appendectomy. FAMILY HISTORY: Mother had a history of diabetes and hypertension. Father had a history of myocardial infarction. SOCIAL HISTORY: No tobacco. No alcohol. ALLERGIES: STADOL, MORPHINE, TOPROL, PENICILLIN, CEFTRIAXONE, BACTRIM, AND PHENERGAN. REVIEW OF SYSTEMS: Persistent recurrent palpitat ions on a daily basis associated with chest pain and lightheadedness. PHYSICAL EXAMINATION: GENERAL: Elderly female, in no acute distress. VITAL SIGNS: Per the nursing notes. HEENT: Atraumatic, normocephalic. RESPIRATORY: Normal effort. LUNGS: Clear to auscultation bilaterally. CARDIOVASCULAR: Normal S1 and S2. No S3 or S4. EXTREMITIES: No edema. NECK: JVP is normal. No carotid bruits. NEUROLOGIC: Cranial nerves II through XII are in tact. No focal motor deficits noted. PATIENT NAME: FAVIAN Peace ACCOUNT #: Z [id number] DIAGNOSTIC STUDIES: Event monitor shows 3-beat run of wide complex tachycardia consistent with nonsustained ventricular tachyca rdia. IMPRESSION: 1. Nonsustained ventricular tachycardia. 2. Symptomatic with palpitations. 3. Diabetes. 4. Mitral insufficiency. RECOMMENDATIONS: Electrophysiology study and abl ation. I have explained the procedure to the patient in detail as well as risks, benefits, and alternatives. All of her questions were answered and she elect s to proceed. Dictated By: Akash Morris MD WT: HP:SIMON/JANE/MARIO ALBERTO Conf#: [id number]/DID#: [id number] Authenticated and Edited by Akash Morris MD On 05/19/18 2:14:13 PM at 1417 PATIENT NAME: FAVIAN Peace ACCOUNT #: Z [id number] 2018-05-19 08:17:00-00:00 [id number] [facility] [address] [place] [address] PATIENT NAME: FAVIAN Peace ADMIT DATE: 05/17/18 ACCOUNT NO: [id number] ROOM NO: Z.358 AGE: 77 REPORT TYPE: DISCHARGE SUMMARY REPORT SEX: F ADMITTING PHYSICIAN:Akash Morris MD ATTENDING PHYSICIAN:Akash Morris MD ADMISSION DATE: 05/17/2018 DISCHARGE DATE: 05/17/2018 ADMISSION DIAGNOSES: 1. Nonsustained ventricular tachycardia. 2. Recurrent symptomatic palpitations. DISCHARGE DIAGNOSES: 1. Nonsustained ventricular tachycardia. 2. Recurrent symptomatic palpitations. HOSPITAL COURSE: This is a 77-year-old female wh o had a history of recurrent tachycardia with palpitation s and nonsustained ventricular tachycardia recorded on an event monitor, was admitted and un derwent a diagnostic electrophysiology study. No sustained arrhythmia was inducible. e patient was discharged home in stable condition. DISCHARGE DIET: Heart healthy. FOLLOWUP: The patient is to follow up in 1 week. DISCHARGE MEDICATIONS: Per the medical reconcili ation report. Dictated By: Akash Morris MD WT: DS:SIMON/JANE/MARIO ALBERTO Conf#: [id number]/DID#: [id number] Authenticated by Akash Morris MD On 05/21/19 09:26:01 AM at 0926 PATIENT NAME: FAVIAN Peace ACCOUNT #: Z [id number] 2018-05-19 07:36:00-00:00 7928-1460 [facility] [address] [place] [address] PATIENT NAME: FAVIAN Peace ADMIT DATE: 05/17/18 ACCOUNT NO: [id number] ROOM NO: Z.358 AGE: 77 REPORT TYPE: CARDIAC CATHETERIZATION REPORT SEX: F ADMITTING PHYSICIAN:Akash Morris MD ATTENDING PHYSICIAN:Akash Morris MD PROCEDURE DATE: 05/17/2018 PROCEDURE: 1. Diagnostic electrophysiology study with attem pted induction. 2. Left atrial recordings. PREPROCEDURE DIAGNOSES: 1. Nonsustained ventricular tachycardia recorded on event monitor. 2. Recurrent symptomatic palpitations. POSTPROCEDURE DIAGNOSES: 1. Nonsustained ventricular tachycardia recorded on event monitor. 2. Recurrent symptomatic palpitations. PROCEDURE DETAILS: After informed consent was ob tained explaining to the patient risks, benefits, and alternatives, jay banks was brought to the cardiac catheterization lab in the fasting posta bsorptive state. She was prepped and draped in sterile fashion. Local ane sthesia was supplied over the left and right femoral veins with 1% lidocaine. Access to the veins was obtained using modified Seldinger technique with a micropuncture kit. A 7-[place] and two 8-[place] sheaths were placed in left femoral vein. A locking 8-[place] sheath was placed in the right femoral vein. All sheaths were aspirated and flushed and connected to h eparinized saline infusion. A standard 8-[place] sheath was also placed in the r ight femoral vein. Ultrasound guidance and micropuncture kit were utilized for access. A Decapolar catheter was advanced via the locking 8-[place] sheath and chano rocio in the coronary sinus. A 5-[place] Cournand catheter was advanced via the 6-[place] sheath and placed in the right ventricular apex. A steerable quadripo lar catheter was advanced via the standard 8-[place] sheath on the left and chano rocio in the HIS position. A Govind catheter was then advanced via the remaining sheath and placed in the high right atrium. Adequate pacing and sensing w as confirmed. Program stimulation was performed. The Cournand catheter in the right ventricular apex was then advanced into the right ventricular out flow tract. Further program stimulation was performed. As no sustained tachy cardia was inducible, the procedure was terminated. At the end of the proc edure, all catheters were removed. All sheaths were aspirated and flushed. The sheaths were removed and hemostasis achieved with local pressure. The pat ient tolerated the procedure well with no complications. FINDINGS: 1. Baseline conduction intervals, normal. 2. Isolated monomorphic premature ventricular co mplexes were occasionally PATIENT NAME: FAVIAN Peace ACCOUNT #: Z [id number] induced. There was a rare couplet noted. No sust ained ventricular or supraventricular tachycardias were inducible. Re trograde conduction was concentric. CONCLUSIONS: 1. Baseline rhythm normal sinus with normal cond uction intervals. 2. No sustained ventricular or supraventricular arrhythmias were inducible. 3. Estimated blood loss negligible. 4. No complications. Dictated By: Akash Morris MD WT: CATH:AMANUEL/PEPCAROLANN/NTS Conf#: [id number]/DID#: [id number] cc: Shay Logan MD Authenticated by Akash Morris MD On 05/20/19 08:23:23 AM at 0823 PATIENT NAME: FAVIAN Peace ACCOUNT #: Z [id number] 2018-05-17 09:24:00-00:00 [id number] [place] [address] PATIENT NAME: FAVIAN Peace ADMIT DATE: 05/17/18 ACCOUNT NO: [id number] ROOM NO: Z.358 AGE: 77 REPORT TYPE: ELECTROCARDIOGRAM SEX: F ADMITTING PHYSICIAN:Akash Morris MD ATTENDING PHYSICIAN:Akash Morris MD Order: [id number] Test Reason : VTACH Test Date/Time Stamp: WedMay 17 2018 09:24:48 Blood Pressure : / mmHG Vent. Rate : 061 BPM Atrial Rate : 061 BPM P-R Int : 144 ms QRS Dur : 074 ms QT Int : 414 ms P-R-T Axes : 062 064 057 degree s QTc Int : 416 ms Normal sinus rhythm with sinus arrhythmia Normal ECG When compared with ECG of 03-MAR-2018 13:38, No significant change was found Confirmed by SHAY LOGAN ([id number]) on 05/17/2018 3 :54:22 PM Referred By: Akash Morris Confirmed by:SHAY JUÁREZ at 1554 PATIENT NAME: FAVIAN Peace ACCOUNT #: Z [id number] 2018-03-03 17:26:00-00:00 [id number] [address] [place] [address] PATIENT NAME: FAVIAN Peace ADMIT DATE: 03/03/18 ACCOUNT NO: [id number] ROOM NO: AGE: 77 REPORT TYPE: DISCHARGE SUMMARY REPORT SEX: F ADMITTING PHYSICIAN: ATTENDING PHYSICIAN:Akash Morris MD ADMISSION DATE: 03/03/2018 DISCHARGE DATE: 03/03/2018 The patient was scheduled fo r an EP study and ablation today. The procedure was delayed due to an emergent procedure in the cath lab manager requiring the electrophysiology room. The case was canceled an d will be rescheduled. Dictated By: Akash Morris MD WT: DS:SIMON/JANE/MARIO ALBERTO Conf#: [id number]/DID#: [id number] Authenticated by Akash Morris MD On 03/07/19 06:56:45 AM at 0657 PATIENT NAME: FAVIAN Peace ACCOUNT #: Z [id number] 2018-03-03 13:38:00-00:00 [id number] [place] [address] PATIENT NAME: FAVIAN Peace ADMIT DATE: 03/03/18 ACCOUNT NO: [id number] ROOM NO: AGE: 77 REPORT TYPE: ELECTROCARDIOGRAM SEX: F ADMITTING PHYSICIAN: ATTENDING PHYSICIAN:Akash Morris MD Order: [id number] Test Reason : CAD Test Date/Time Stamp: WedMar 03 2018 13:38:39 Blood Pressure : / mmHG Vent. Rate : 062 BPM Atrial Rate : 062 BPM P-R Int : 140 ms QRS Dur : 076 ms QT Int : 420 ms P-R-T Axes : 032 043 047 degree s QTc Int : 426 ms Normal sinus rhythm Normal ECG When compared with ECG of 25-DEC-2017 05:29, No significant change was found Confirmed by LEV PROCTOR, CARRIE ([id number]) on 9 1:18:25 PM Referred By: Akash Morris Confirmed by:CARRIE SALCIDO MD Electronically Signed by Carrie Garcia MD on 0 03/04/18 at 1318 PATIENT NAME: ABDIAZIZ PeaceKYLIECarmen Lew ACCOUNT #: Z [id number]
[2022-06-27 22:36] LABS: Absolute Lymphocytes (CBC) 1.7 K/uL (0.7-4.9); Hematocrit 33.3 % (36.0-45.0); Lymphocytes % 21.4 % (15.3-44.8); MCV 81.8 fL (80-100); MPV 7.9 fL (7.6-11.3); RBC Red Blood Cell Count 4.07 M/uL (3.86-4.86)
[2022-06-27] MEDS ORDERED: ONDANSETRON 4 MG/2 ML VIAL ONE (23:00)
[2022-06-27 23:15] LABS: Protime INR 0.99
[2022-06-27 23:25] LABS: Albumin 3.3 g/dL (3.4-5.0); Bilirubin Direct 0.1 mg/dL (0-0.2); Bilirubin Indirect, Calculated 0.2 mg/dL (0.2-0.8); Bilirubin Total 0.3 mg/dL (0.2-1.0); Magnesium 1.9 mg/dL (1.6-2.4); Potassium 4.3 mEq/L (3.5-5.1); Protein, Total 7.3 g/dL (6.4-8.2); Troponin High Sensitivity 14.9 pg/mL (<58.9)
--- NOTE | 2022-06-28 00:52 | EDPHYS ---
Physician Documentation [facility] Name: Marie Puri Age: 81 yrs Sex: Female : 1940 Arrival Date: 06/27/2022 Time: 21:52 Bed 4 Private MD: ED Physician Gaston Troncoso HPI: 06/27 22:16 This 81 yrs old Female presents to ER via Unassigned with complaints of Shortness Of snw Breath, Chest Pain, Post Surgical Pain, 06/23/22-HEART CATH/STINT-DR JACKSON. 22:16 The patient has shortness of breath at rest. Onset: The symptoms/episode began/occurred snw acutely. Duration: The symptoms are continuous. The patient's shortness of breath is aggravated by supine position. Associated signs and symptoms: Pertinent positives: a little chest pressure. Severity of symptoms: At their worst the symptoms were mild in the emergency department the symptoms are unchanged. The patient has experienced a previous episode. cardiac stent placed 06/23/[address] Jackson. Historical: - Allergies: 22:17 Albuterol; kd3 22:17 Morphine; kd3 22:17 PENICILLINS; kd3 22:17 Stadol; kd3 22:17 Toprol XL; kd3 22:17 Phenergan; kd3 - PMHx: 22:17 Kidney stones; Hypothyroidism; Pancreatitis; mitral valve prolapse; fatty liver; kd3 Diverticulitis; Diabetes - IDDM; - PSHx: 22:17 Colonresection; Heart ablation X2; kd3 - Immunization history:: Adult Immunizations up to date. - Social history:: Smoking status: Patient denies any tobacco usage or history of. ROS: 22:48 Constitutional: Negative for fever, chills, and weight loss, Eyes: Negative for injury, snw pain, redness, and discharge, ENT: Negative for injury, pain, and discharge, Neck: Negative for injury, pain, and swelling, Abdomen/GI: Negative for abdominal pain, nausea, vomiting, diarrhea, and constipation, Back: Negative for injury and pain, : Negative for injury, bleeding, discharge, and swelling, MS/Extremity: Negative for injury and deformity, Skin: Negative for injury, rash, and discoloration, Neuro: Negative for headache, weakness, numbness, tingling, and seizure, Psych: Negative for depression, anxiety, suicide ideation, homicidal ideation, and hallucinations. 22:48 Cardiovascular: Positive for chest pain, of the chest. 22:48 Respiratory: Positive for shortness of breath, at rest. Exam: 22:16 Head/Face: Normocephalic, atraumatic. Eyes: Pupils equal round and reactive to light, snw extra-ocular motions intact. Lids and lashes normal. Conjunctiva and sclera are non-icteric and not injected. Cornea within normal limits. Periorbital areas with no swelling, redness, or edema. ENT: Nares patent. No nasal discharge, no septal abnormalities noted. Tympanic membranes are normal and external auditory canals are clear. Oropharynx with no redness, swelling, or masses, exudates, or evidence of obstruction, uvula midline. Mucous membranes moist. Neck: Trachea midline, no thyromegaly or masses palpated, and no cervical lymphadenopathy. Supple, full range of motion without nuchal rigidity, or vertebral point tenderness. No Meningismus. Chest/axilla: Normal chest wall appearance and motion. Nontender with no deformity. No lesions are appreciated. Cardiovascular: Regular rate and rhythm with a normal S1 and S2. No gallops, murmurs, or rubs. Normal PMI, no JVD. No pulse deficits. Respiratory: Lungs have equal breath sounds bilaterally, clear to auscultation and percussion. No rales, rhonchi or wheezes noted. No increased work of breathing, no retractions or nasal flaring. Abdomen/GI: Soft, non-tender, with normal bowel sounds. No distension or tympany. No guarding or rebound. No evidence of tenderness throughout. Back: No spinal tenderness. No costovertebral tenderness. Full range of motion. Skin: Warm, dry with normal turgor. Normal color with no rashes, no lesions, and no evidence of cellulitis. MS/ Extremity: Pulses equal, no cyanosis. Neurovascular intact. Full, normal range of motion. Neuro: Awake and alert, GCS 15, oriented to person, place, time, and situation. Cranial nerves II-XII grossly intact. Motor strength 5/5 in all extremities. Sensory grossly intact. Cerebellar exam normal. Normal gait. Psych: Awake, alert, with orientation to person, place and time. Behavior, mood, and affect are within normal limits. 22:16 Constitutional: The patient appears alert, awake, pale. Vital Signs: 22:10 BP 139 / 63; Pulse 62; Resp 20; Pulse Ox 98% on R/A; ha1 22:14 Weight 65.32 kg; Height 5 ft. 2 in. ; kd3 06/28 00:00 BP 119 / 55; Pulse 54; Resp 14; Pulse Ox 100% on R/A; ha1 06/27 22:14 Body Mass Index 26.34 (65.32 kg, 157.48 cm) kd3 Procedures: 06/27 22:15 Ultrasound: Type: heart, performed by the emergency department physician, Dr. Troncoso, no snw large pericardial effusion or PE. MDM: 22:02 Patient medically screened. snw 22:49 Differential diagnosis: Anemia Anxiety Reaction CHF exacerbation, Myocardial Infarction snw pulmonary edema, Unstable Angina. 23:51 Data reviewed: vital signs, nurses notes, lab test result(s), radiologic studies. snw 06/28 00:48 Data interpreted: Pulse oximetry: on room air is 98 %. Interpretation: normal. snw Counseling: I had a detailed discussion with the patient and/or guardian regarding: the historical points, exam findings, and any diagnostic results supporting the discharge/admit diagnosis, lab results, radiology results, the need for outpatient follow up, a dehydrogenation operator head, to return to the emergency department if symptoms worsen or persist or if there are any questions or concerns that arise at home. Response to treatment: the patient's symptoms have mildly improved after treatment. Special discussion: Based on the history and exam findings, there is no indication for further emergent testing or inpatient evaluation. I discussed with the patient/guardian the need to see the dehydrogenation operator head for further evaluation of the symptoms. ED course: Pt states she is feeling better. "I really think it is the Brilinta". . 06/27 22:03 Order name: Basic Metabolic Panel; Complete Time: 23:26 snw 06/27 22:03 Order name: CBC with Diff; Complete Time: 22:37 snw 06/27 22:03 Order name: LFT's; Complete Time: 23:26 snw 06/27 22:03 Order name: Magnesium; Complete Time: 23:26 snw 06/27 22:03 Order name: NT PRO-BNP; Complete Time: 23:26 snw 06/27 22:03 Order name: PT-INR; Complete Time: 23:16 snw 06/27 22:03 Order name: Troponin HS; Complete Time: 23:26 snw 06/27 22:03 Order name: XRAY Chest (1 view) snw 06/27 22:03 Order name: CT Chest For PE Angio snw 06/27 22:03 Order name: EKG; Complete Time: 22:04 snw 06/27 22:03 Order name: Cardiac monitoring; Complete Time: :27 snw 06/27 22:03 Order name: EKG - Nurse/Tech; Complete Time: :27 snw 06/27 22:03 Order name: IV Saline Lock; Complete Time: 23: snw 06/27 22:03 Order name: Labs collected and sent; Complete Time: :27 snw 06/27 22:03 Order name: O2 Per Protocol; Complete Time: :27 snw 06/27 22:03 Order name: O2 Sat Monitoring; Complete Time: 22:28 snw EC/20 22:18 Rate is 58 beats/min. Rhythm is irregular. QRS [place] is Normal. [place] interval is normal. snw QRS interval is normal. QT interval is normal. Clinical impression: Abnormal EKG without significant change. Administered Medications: 22:55 Drug: Ondansetron IVP 4 mg Route: IVP; Site: right forearm; ha1 06/28 01:09 Follow up: Response: No adverse reaction ll3 Disposition Summary: 06/28/22 00:51 Discharge Ordered Location: Home snw Condition: Stable snw Diagnosis - Shortness of breath snw Followup: snw - With: Emergency Department - When: As needed - Reason: Worsening of condition Followup: snw - With: Kenneth Jackson MD - When: 1 - 2 days - Reason: Recheck today's complaints, Continuance of care, Re-evaluation by your physician Discharge Instructions: - Discharge Summary Sheet snw - Shortness of Breath, Adult snw Forms: - Medication Reconciliation Form snw - Thank You Letter snw - Antibiotic Education snw - Prescription Opioid Use snw Prescriptions: - Plavix 75 mg Oral Tablet - take 1 tablet by ORAL route once daily; 20 tablet; Refills: 0, Product snw Selection Permitted Signatures: Dispatcher [employer] Qing Stoll, VENEER STACKER-C VENEER STACKER-Csnw Michelle Mulligan, RN RN kd3 Nini Richard RN RN ha1 Constance Lyons RN ll3
--- NOTE | 2022-06-28 00:52 | ER ---
Nurse's Notes [facility] Name: Marie Puri Age: 81 yrs Sex: Female : 1940 Arrival Date: 06/27/2022 Time: 21:52 Bed 4 Private MD: Diagnosis: Shortness of breath Presentation: 06/27 22:14 Chief complaint: Patient states: I just had a heart cath done on 06/23/22 and now i am kd3 having shortness of breath and chest pain. Coronavirus screen: Vaccine status: Patient reports receiving the 2nd dose of the covid vaccine. Ebola Screen: No symptoms or risks identified at this time. Initial Sepsis Screen: Does the patient meet any 2 criteria? No. Patient's initial sepsis screen is negative. Does the patient have a suspected source of infection? No. Patient's initial sepsis screen is negative. Risk Assessment: Do you want to hurt yourself or someone else? Patient reports no desire to harm self or others. Onset of symptoms was June 27, 2022. 22:14 Method Of Arrival: Ambulatory kd3 22:14 Acuity: ARGELIA 2 kd3 Triage Assessment: 22:17 General: Appears uncomfortable, Behavior is calm, cooperative. Pain: Complains of pain kd3 in chest. Respiratory: Reports shortness of breath at rest Onset: The symptoms/episode began/occurred today, the patient has moderate shortness of breath. Historical: - Allergies: 22:17 Albuterol; kd3 22:17 Morphine; kd3 22:17 PENICILLINS; kd3 22:17 Stadol; kd3 22:17 Toprol XL; kd3 22:17 Phenergan; kd3 - PMHx: 22:17 Kidney stones; Hypothyroidism; Pancreatitis; mitral valve prolapse; fatty liver; kd3 Diverticulitis; Diabetes - IDDM; - PSHx: 22:17 Colonresection; Heart ablation X2; kd3 - Immunization history:: Adult Immunizations up to date. - Social history:: Smoking status: Patient denies any tobacco usage or history of. Screenin:04 Abuse screen: Denies threats or abuse. Denies injuries from another. Nutritional ha1 screening: No deficits noted. Tuberculosis screening: No symptoms or risk factors identified. 06/28 01:08 [facility] ED Fall Risk Assessment (Adult) History of falling in the last 3 months, ll3 including since admission No falls in past 3 months (0 pts) Confusion or Disorientation No (0 pts) Intoxicated or Sedated No (0 pts) Impaired Gait No (0 pts) Mobility Assist Device Used No (0 pt) Altered Elimination No (0 pt) Score/Fall Risk Level 0 - 2 = Low Risk Oriented to surroundings, Maintained a safe environment, Educated pt \T\ family on fall prevention, incl call for assistance when getting out of bed. Assessment: 06/26 22:10 General: Appears comfortable, Behavior is calm, cooperative. Pain: Denies pain. Neuro: ha1 Level of Consciousness is awake, alert, obeys commands, Oriented to person, place, time, situation. Cardiovascular: Capillary refill < 3 seconds Patient's skin is warm and dry. Cardiovascular: Rhythm is regular. Respiratory: Airway is patent Respiratory effort is even, unlabored, Respiratory pattern is regular, symmetrical, Breath sounds are clear bilaterally. Respiratory: Reports shortness of breath at rest. 06/27 23:00 Reassessment: going to CT. ha1 23:00 Reassessment: Patient and/or family updated on plan of care and expected duration. Pain ha1 level reassessed. Patient is alert, oriented x 3, equal unlabored respirations, skin warm/dry/pink. 06/28 00:00 Reassessment: Patient and/or family updated on plan of care and expected duration. Pain ha1 level reassessed. Patient is alert, oriented x 3, equal unlabored respirations, skin warm/dry/pink. Vital Signs: 06/27 22:10 BP 139 / 63; Pulse 62; Resp 20; Pulse Ox 98% on R/A; ha1 22:14 Weight 65.32 kg; Height 5 ft. 2 in. ; kd3 06/28 00:00 BP 119 / 55; Pulse 54; Resp 14; Pulse Ox 100% on R/A; ha1 06/27 22:14 Body Mass Index 26.34 (65.32 kg, 157.48 cm) kd3 ED Course: 06/27 21:55 Patient arrived in ED. jj6 21:57 Qing Stoll FNP-C [facility]. snw 21:57 Gaston Troncoso MD is Attending Physician. snw 22:06 Patient has correct armband on for positive identification. Placed in gown. Bed in low ha1 position. Call light in reach. Side rails up X 1. Adult w/ patient. 22:17 Triage completed. kd3 22:17 Arm band placed on right wrist. kd3 22:34 XRAY Chest (1 view) In Process Unspecified. EDMS 22:45 Inserted saline lock: 22 gauge in right forearm, using aseptic technique. Blood ha1 collected. 23:01 Basic Metabolic Panel Sent. ha1 23:01 LFT's Sent. ha1 23:01 Magnesium Sent. ha1 23:01 NT PRO-BNP Sent. ha1 23:01 PT-INR Sent. ha1 23:01 Troponin HS Sent. ha1 23:05 Nini Richard, RN is Primary Nurse. ha1 23:15 CT Chest For PE Angio In Process Unspecified. EDMS 06/28 00:52 Kenneth Hager MD is Referral Physician. snw 01:08 No provider procedures requiring assistance completed. IV discontinued, intact, ll3 bleeding controlled, No redness/swelling at site. Pressure dressing applied. Administered Medications: 06/27 22:55 Drug: Ondansetron IVP 4 mg Route: IVP; Site: right forearm; ha1 06/28 01:09 Follow up: Response: No adverse reaction ll3 Medication: 01:09 VIS not applicable for this client. ll3 Outcome: 00:51 Discharge ordered by . snw 01:08 Discharged to home ambulatory, with friend. ll3 01:08 Condition: stable 01:08 Discharge instructions given to patient, friend, Instructed on discharge instructions, follow up and referral plans. medication usage, Demonstrated understanding of instructions, follow-up care, medications, Prescriptions given X 1. 01:09 Patient left the ED. ll3 Signatures: Dispatcher [employer] Qing Stoll, IT OPERATIONS SPECIALIST-C IT OPERATIONS SPECIALIST-Csnw Yvonne Stevens [id number] Constance Lyons RN RN 3 Michelle Mulligan RN RN 3 Nini Richard, RN RN 1
[2022-06-28 01:51] VITALS: BP 119/55; O2SAT 100
--- NOTE | 2022-06-29 10:34 | RAD REPORT ---
EXAM DESCRIPTION: Chest Single View CLINICAL HISTORY: Chest pain TECHNIQUE: AP chest COMPARISON: June 19 FINDINGS: CHEST: Heart: The cardiomediastinal silhouette is within normal limits. Lungs: No focal consolidation. Mild bilateral basilar atelectatic changes. Mediastinum: Unremarkable Pleura: No appreciable effusion. No pneumothorax. Bones: Intact IMPRESSION: No acute cardiopulmonary disease. Electronically signed by: Dhruv Hernandez MD 06/27/2022 11:41 PM CDT Due to temporary technical issues with the PACS/Fluency reporting system, reports are being signed by the in house radiologist without review as a courtesy to ensure prompt reporting. The interpreting r adiologist is fully responsible for the content of the report.
--- NOTE | 2022-06-29 10:42 | RAD REPORT ---
EXAM DESCRIPTION: CT Angiography Chest With Intravenous Contrast CLINICAL HISTORY: Chest pain; SOB TECHNIQUE: Axial computed tomographic angiography images of the chest with intravenous contrast. S agittal and coronal reformatted images were created and reviewed. This CT exam was performed using one or more of the following dose reduction techniques: automated exposure control, adjustment of t he mA and/or kV according to patient size, and/or use of iterative reconstruction technique. MIP reconstructed images were created and reviewed. COMPARISON: CTA Chest dated 06/19/2022 FINDINGS: Pulmonary arteries: Unremarkable. No pulmonary arterial filling defects. Aorta: Mild atherosclerotic disease. No thoracic aortic aneurysm. Lungs: Mosaic attenuation within the lungs bilaterally. Left lower lobe calcified granuloma. No mass. Pleural space: Unremarkable. No significant effusion. No pneumothorax. Heart: The heart is not enlarged. Coronary artery calcification. No significant pericardial eff usion. No evidence of RV dysfunction. Bones/joints: Mild multilevel spondylosis. No acute fracture. No dislocation. Soft tissues: Unremarkable. Lymph nodes: Unremarkable. No enlarged lymph nodes. Spleen: Splenic parenchymal calcifications compatible with remote granulomatous organism exposure. IMPRESSION: 1. No pulmonary embolic disease. 2. Mosaic attenuation within the lungs bilaterally. Differential considerations include small air ways disease, small vessel disease and interstitial infiltrates. 3. Other findings as above. Electronically signed by: Samir Partida MD 06/28/2022 12:25 AM CDT Due to temporary technical issues with the PACS/Fluency reporting system, reports are being signed by the in house radiologist without review as a courtesy to ensure prompt reporting. The interpreting r adiologist is fully responsible for the content of the report.
--- NOTE | 2022-06-29 15:24 | EKG ---
Test Date: 2022-06-27 Test Time: 22:14:56 Carpentry Supervisor: DIANNE MEASUREMENT RESULTS: Intervals: Rate: 58 NV: 164 QRSD: 80 QT: 424 QTc: 416 [place]: P: 37 NV: 164 QRS: 49 T: 30 INTERPRETIVE STATEMENTS: Sinus bradycardia with premature atrial complexes in a pattern of bigeminy Nonspecific ST abnormality Abnormal ECG Compared to ECG 06/19/2022 02:12:07 ST (T wave) deviation now present Electronically Signed On 06-29-22 15:22:00 CDT by Maximilian Hayes
== END 2022-06-28 01:09 | disposition home or self-care (01) ==
LOC: ER 21:52
DX: R06.02 Shortness of breath (principal); R07.9 Chest pain, unspecified; Z98.890 Other specified postprocedural states; E11.9 Type 2 diabetes mellitus without complications; Z88.0 Allergy status to penicillin; Z88.5 Allergy status to narcotic agent; Z88.8 Allergy status to other drugs, medicaments and biological substances
CPT/HCPCS: 93005; 85025; 80048; 36415; 83735; 85610; 82565; 80076; 84484; 83880; 71275; 71045; Q9967; J2405

== ENCOUNTER 2022-07-14 12:50 | Inpatient (IN) | payer OTHER ==
[2022-07-14 13:24] LABS: Absolute Lymphocytes (CBC) 1.6 K/uL (0.7-4.9); Hematocrit 36.9 % (36.0-45.0); Lymphocytes % 21.3 % (15.3-44.8); MCV 83.1 fL (80-100); MPV 7.8 fL (7.6-11.3); RBC Red Blood Cell Count 4.44 M/uL (3.86-4.86)
[2022-07-14 13:28] LABS: Protime INR 0.94
--- NOTE | 2022-07-14 13:34 | RAD REPORT ---
EXAM DESCRIPTION: RAD - Chest Single View - 07/14/2022 1:24 pm CLINICAL HISTORY: CHEST PAIN Chest pain. COMPARISON: Chest Single View dated 06/27/2022; Chest Single View dated 06/19/2022; Chest Single View dated 03/19/2022; Chest Single View dated 03/05/2022 FINDINGS: Portable technique limits examination quality. The lungs are grossly clear. The heart is normal in size. No displaced fractures. IMPRESSION: No acute intrathoracic process suspected.
--- OUTSIDE RECORDS SUMMARY | 2022-07-14 13:40 | XMS REPORT | Continuity of Care Document ---
:1940 Author Organization [facility] t Address [address] [place] [address] [place] [id number] Care Team Providers Name Role Phone Chaitanya PROCTOR, Leonard Primary Care Physician Carri PROCTOR, Wale Goode Attending Clinician Jose العلي MD Attending Clinician Doctor Unassigned, Boron Attending Clinician Unavailable ANAMARIA WESLEY Attending Clinician Unavailable GEORGI Attending Clinician Unavailable Carol ESPARZA, Edward Tracey Attending Clinician Unavailable MEREDITH BAE Attending Clinician Unavailable Jimi Spring MD Attending Clinician Meredith Bae MD Attending Clinician MD JOSE العلي Admitting Clinician Unavailable MARLINDANGELO Admitting Clinician Unavailable MEREDITH BAE Admitting Clinician [...] different from the original. ICD10 Diagnosis Term Home Hospice Aide Utility Type 2 Type 2 Disease Active Overview: [facility] s diabetes diabetes 9 Formattin ity of mellitus mellitus 00:00: g of this Jose as without without 00 note Medical complicati complicati might be Branch ons ons different from the original. ICD10 Diagnosis Term Home Hospice Aide Utility Allergies, Adverse Reactions, Alerts Allergy Allergy [...] to drug Penicill Propensi Active GI Bleeding M ethodi ins ty to 2-16 st adverse 00:00: Hospita reaction 00 l s to drug Prometha Propensi Active Palpitations 0 Methodi zine ty to 2-16 st adverse 00:00: Hospita reaction 00 l s to drug Butorpha Propensi Active Drug Induced Methodi nol ty to Lupus 2-16 st adverse 00:00: Hospita reaction 00 l s to drug Metoprol Propensi Active GI Method i ol ty to Intolerance 2-16 st Succinat adverse 00:00: Hospita e reaction 00 l s to drug Beta-Blo DA Active SV 2017- [facility] [address] (Beta-Ad 00:00: [place] [facility] 00 [facility] morphine DA Active SV 2017-02 [facility] 02-23 00:00: [address] metoprol DA Active SV 2017-02 [facility] ol 02-23 00:00: [address] prometha DA Active SV 2017-02 [facility] zine [address] 00:00: [address] butorpha DA Active SV 2017-02 [facility] nol 16 00:00: [address] Epinephr Propensi Active Palpitations 2011-02 Univers ine ty to 2-19 ity of adverse 00:00: [place] reaction Medical s Branch Pentazoc Propensi Active Hallucinatio 2011-02 Univers ine ty to ns 2-19 ity of Lactate adverse 00:00: [place] reaction 00 Medical s Branch EPINEPHR DRUG Active Palpitations 2011-02 Un tay INE INGREDI 2-19 ity of 00:00: [place] [facility] PENTAZOC DRUG Active Hallucinates 2011-02 [...] Date Stop Date Source Natural brother Diabetes Buddhism [facility] Natural father Cancer Buddhism [facility] Natural father Diabetes [facility] Social History Social Habit Start Date Stop Date Quantity Comments Source Gender identity [facility] Sexual orientation [facility] Hospital Alcohol intake 2022-05-11 2022-05-11 Lifetime Buddhism 00:00:00 00:00:00 non-drinker Hospital (finding) History of Social 2022-05-11 2022-05-[address] function 00:00:00 00:00:00 Hospital Tobacco use and 2022-03-26 2022-03-26 Smokeless Buddhism exposure 00:00:00 00:00:00 tobacco non-user Hospital Exposure to 2021-08-04 2021-08-14 Not sure [facility]-CoV-2 (event) 00:00:00 00:29:00 [facility] [place] Sex Assigned At [birth year] Buddhism 00:00:00 00:00:00 Hospital Smoking Status Start Date Stop Date Source Never smoked tobacco Buddhism H ospital Medications Ordered Filled Start Stop Current Ordering Indication Dosage Frequency Signature Comments Components Source Medication Medication Date Date Medication? Clinician (SIG) Name Name omega-3s-dh Yes Method i a-epa-fish 4-03 st oil 14:32: Hospita 350-100-225 27 l mg capsule ubidecareno Yes Method i ne/vitamin 4-03 st E mixed 14:32: Hospita (COQ10 SG 27 l 100 ORAL) omega-3s-dh Yes Method i a-epa-fish 4-03 st oil 14:32: Hospita 350-100-225 27 l mg capsule ubidecareno Yes Method i ne/vitamin 4-03 st E mixed 14:32: Hospita (COQ10 SG 27 l 100 ORAL) sucralfate 2022- No 1g Q.25D Take 10 mL Methodi (Carafate) -23 04- (1 g st 100 mg/mL 00:00: 04:59 total) by Ho spita suspension 00 :00 mouth 4 l (four) times a day for 30 days. pantoprazol 2022- No 40mg QD Take 1 Met hodi e 2-23 04- tablet (40 st (Protonix) 00:00: 04:59 mg total) H ospita 40 MG EC 00 :00 by mouth l tablet daily for 30 days. sucralfate 2022- No 1g Q.25D Take 10 mL Methodi (Carafate) 2-23 04-19 (1 g st 100 mg/mL 00:00: 04:59 [...] moderate pain for up to 5 days. acetaminoph 2022- No 500mg Q6H Take [...] INJECT 8 UNITS, 140-200 INJECT 6 UNITS NovoLOG Yes INJECT 9 Method i FlexPen [...] at 0900, Until Discontinu ed, Routine MULTI-VITAM 2022-0 Yes alpha-amarilys Univers IN ORAL 7-07 c- [...] ity of mg tablet 13:23: mouth 2 (two) Medical times Branch daily. Alpha Yes [...] Take 1 Tab Univ ers Lipoic Acid 08-14 by mouth ity of (THIOCTIC 13:23: daily. [place] ACID) 200 21 Medical mg Tab Branch [...] Until Discontinu ed Sliding 2021-0 Yes Subcutaneo [facility] ers Scale 08-14 us, TID ity of Insulin - 13:00: MEALS, [place] Lispro 00 First dose Medical (HumaLOG) + on [facility] Branch Fsbg 08/14/21 at Testing 0800, Until [...] ity of bolus 10:42: PRN - SEE [place] infusion 49 INSTRUCTIO Medic al 250 mL [...] Branch at 2345, Routine iopamidol 2021- No [id number] 80mL 80 mL, U nivers (ISOVUE 08-14 Intravenou ity o f 370-500 mL) 04:07: 04:07 s, ONCE, 1 [place] injection 00 :00 dose, On Medica l 80 mL 08/13/21 Branch at 2315, Routine ondansetron Yes 4mg QD Take 1 Meth glenys (ZOFRAN) 4 - tablet (4 st MG tablet 00:00: mg total) Hos seema 00 by mouth l daily. ondansetron 0 Yes 4mg QD Take 1 Meth glenys (ZOFRAN) 4 - tablet (4 st MG tablet 00:00: mg total) Hos seema 00 by mouth l daily. pantoprazol 2021- No [id number] 40mg Take 1 Univers e 40 mg EC 08-14 tablet by ity of tablet 00:00: 04:59 mouth [place] 00 :00 daily for Medical 30 days. [place] pantoprazol 2021- No [id number] 40mg Take 1 Univers e 40 mg EC 08-14 tablet by ity of tablet 00:00: 04:59 mouth [place] 00 :00 daily for Medical 30 days. [place] levothyroxi Yes 25ug QD Take 1 Meth glenys ne 6-13 tablet (25 st (SYNTHROID) 00:00: mcg total) Hospita 25 mcg 00 by mouth l tablet daily. LEVOTHYROXI Yes [id number] TAKE 1 Univers NE 25 mcg 6-13 TABLET BY ity o f tablet 00:00: MOUTH ONCE [place] 00 DAILY IN [facility] MORNING LEVOTHYROXI Yes [id number] TAKE 1 Univers NE 25 mcg 6-13 TABLET BY ity o f tablet 00:00: MOUTH ONCE [place] 00 DAILY IN [facility] MORNING LEVOTHYROXI Yes [id number] TAKE 1 Univers NE 25 mcg 6-13 TABLET BY ity o f tablet 00:00: MOUTH ONCE [place] 00 DAILY IN [facility] MORNING levothyroxi Yes 25ug QD Take 1 Meth glenys ne 6-13 tablet (25 st (SYNTHROID) 00:00: mcg total) Hospita 25 mcg 00 by mouth l tablet daily. insulin Yes [id number] INJECT 5 U nivers aspart 2-20 UNITS ity of U-100 00:00: UNDER THE [place] (NOVOLOG 00 SKIN THREE Medic al FLEXPEN TIMES A Branch U-100 DAY BEFORE INSULIN) MEAL 100 unit/mL injection insulin Yes [id number] INJECT 5 U nivers aspart 2-20 UNITS ity of U-100 00:00: UNDER THE [place] (NOVOLOG 00 SKIN THREE Medic al FLEXPEN TIMES A Branch U-100 DAY BEFORE INSULIN) MEAL 100 unit/mL injection insulin Yes [id number] INJECT 5 U nivers aspart 2-20 UNITS ity of U-100 00:00: UNDER THE [place] (NOVOLOG 00 SKIN THREE Medic al FLEXPEN TIMES A Branch U-100 DAY BEFORE INSULIN) MEAL 100 unit/mL injection Insulin Yes QID, Univers [place], 7 DX:E11.9 ity of Disposable, 00:00: [place] (NOVOFINE 00 Medical 30) 30 Branch gauge x 1/3" Ndle Insulin [id number] Yes QID, Univers [place], 08-12 DX:E11.9 ity of Disposable, 00:00: [place] (NOVOFINE 00 Medical 30) 30 Branch gauge x 1/3" Ndle Insulin [id number] Yes QID, Univers [place], 08-12 DX:E11.9 ity of Disposable, 00:00: [place] (NOVOFINE 00 Medical 30) 30 Branch gauge x 1/3" Ndle estradiol 2016-0 Yes 2g Insert 2 g Un tay (ESTRACE) 1-12 into ity of 0.01 % (0.1 00:00: vagina [place] mg/gram) 00 weekly. Medical vaginal Branch cream estradiol 0 Yes 2g Insert 2 g Un tay [...] directed, ity of DELICA) 33 00:00: TID, [place] gauge Misc 00 DX:E11.9 Medic al Branch blood sugar 0 Yes Use as Univ ers diagnostic 3-28 directed, ity of (ONETOUCH 00:00: TID, [place] VERIO) 00 DX:E11.9 Medical strip Branch lancets 0 Yes Use as Univers (ONE TOUCH 3-28 directed, ity of DELICA) 33 00:00: TID, [place] gauge Misc 00 DX:E11.9 Medic al Branch blood sugar 0 Yes Use as Univ ers diagnostic 3-28 directed, ity of (ONETOUCH 00:00: TID, [place] VERIO) 00 DX:E11.9 Medical strip Branch lancets Yes Use as Univers (ONE TOUCH 3-28 directed, ity of DELICA) 33 00:00: TID, [facility] Mis 00 DX:E11.9 [facility] al Branch bisoprolol 2014-02 Yes 5mg QD Take 1 Metho di (ZEBETA) 5 1-30 tablet (5 st MG tablet 00:00: mg total) Hos seema 00 by mouth l daily. aspirin 2014-02 Yes 81mg QD Chew 1 Metho di mg chewable 1-30 tablet (81 st tablet 00:00: mg total) Hospit a 00 daily. l bisoprolol 2014-02 Yes 5mg QD Take 1 Metho di (ZEBETA) 5 1-30 tablet (5 st MG tablet 00:00: mg total) Hos seema 00 by mouth l daily. aspirin 2014-02 Yes 81mg QD Chew 1 Metho di mg chewable 1-30 tablet (81 st tablet 00:00: mg total) Hospit a 00 daily. l Vital Signs Vital Name Observation Time Observation Value Comments Source Systolic blood 2021-08-14 17:01:00 131 mm[Hg] Univer sity of pressure [facility] [place] Diastolic blood 2021-08-14 17:01:00 66 mm[Hg] Unive rsity of [facility] Heart rate 2021-08-14 17:01:00 55 /min Universi [facility] Body temperature 2021-08-14 17:01:00 35.94 Lita [facility] Respiratory rate 2021-08-14 17:01:00 18 /min [facility] Oxygen saturation in 2021-08-14 17:01:00 95 /min [facility] Arterial blood by [facility] Pulse oximetry Branch Body weight 2021-08-14 09:22:00 65.998 [facility] BMI 2021-08-14 09:22:00 26.61 kg/m2 [facility] Body height 2021-08-14 05:27:00 157.5 cm [facility] Systolic blood 2022-05-11 19:25:00 137 mm[Hg] [facility] pressure Diastolic blood 2022-05-11 19:25:00 81 mm[Hg] [facility] pressure Heart rate 2022-05-11 19:25:00 52 /min [facility] [place] Body temperature 2022-05-11 19:25:00 36.5 Lita [facility] [place] [facility] Body height 2022-05-11 19:25:00 154.9 cm [facility] [place] Body weight 2022-05-11 19:25:00 65.772 kg [facility] [place] BMI 2022-05-11 19:25:00 27.40 kg/m2 [facility] [place] Oxygen saturation in 2022-05-11 19:25:00 98 /min [facility] Arterial blood by Pulse oximetry Respiratory rate 2022-03-27 05:22:00 16 /min [facility] [place] [facility] Procedures Procedure Date / Time Performing Clinician Source Performed LACTIC ACID LEVEL 2022-03-27 03:53:00 Jose العلي [facility] CT ABDOMEN PELVIS W 2022-03-27 00:53:28 Jose العلي [facility] CONTRAST ECG ED PRELIMINARY 2022-03-26 23:04:[address] [facility] INTERPRETATION COVID-19, INFLUENZA A&B, 2022-03-26 22:53:00 [facility] Bruce Amor [facility] AND RSV QUALITATIVE RT-PCR URINALYSIS SCREEN AND 2022-03-26 20:46:00 [facility] MICROSCOPY, WITH REFLEX TO CULTURE URINE CULTURE 2022-03-26 20:45:00 [facility] XR CHEST 2 VW 2022-03-26 20:24:48 Mary [facility] CBC WITH PLATELET AND 2022-03-26 20:06:00 HernandezBruce manley [facility] DIFFERENTIAL COMPREHENSIVE METABOLIC 2022-03-26 20:06:00 HernandezBruec manley [facility] PANEL LIPASE LEVEL 2022-03-26 20:06:00 [facility] TROPONIN T 2022-03-26 20:06:00 Hernandez, [facility] B NATRIURETIC PEPTIDE 2022-03-26 20:06:00 Bruce Hernandez [facility] ESTIMATED GFR 2022-03-26 20:06:00 [facility] ECG 12-LEAD 2022-03-26 19:49:31 Hernandez, [facility] XR CHEST EXTERNAL STUDY 2022-03-19 07:23:35 Wale Christina [facility] [place] [facility] MRI ABD/PELVIC EXTERNAL 2022-03-18 17:55:59 Wale Christina [facility] [place] [facility] STUDY US ABDOMINAL EXTERNAL 2022-03-18 15:23:45 Wale Christina [facility] [place] [facility] STUDY EXTERNAL PROVIDER RECORDS 2022-03-10 06:01:00 Doctor Unassigned, [facility] Boron [facility] POCT GLUCOSE (AUTOMATED) 2021-08-14 17:01:00 Meredith Bae [facility] TRANSTHORACIC ECHO (TTE) 2021-08-14 15:00:00 Meredith Bae [facility] POCT GLUCOSE (AUTOMATED) 2021-08-14 13:04:00 Meredith Bae [facility] SODIUM, URINE RANDOM 2021-08-14 11:46:00 Meredith Bae [facility] PROTEIN CREAT RATIO URINE 2021-08-14 11:46:00 [facility] 2021-08-14 09:54:00 Meredith Bae o f [facility] [place] FREE T4 2021-08-14 09:53:00 [facility] THYROID STIMULATING 2021-08-14 09:53:00 Meredith Bae [facility] HORMONE [facility] BASIC METABOLIC PANEL 2021-08-14 09:53:00 Kathia margarita [facility] (NA, K, CL, CO2, GLUCOSE, Medica l Branch BUN, CREATININE, CA) LIPID PANEL ([id number])(TOTAL 2021-08-14 09:53:00 Meredith Bae [facility] CHOLESTEROL, Medical [place] TRIGLYCERIDES, HDL) PROTHROMBIN TIME / INR 2021-08-14 09:53:00 Kathia margarita [facility] N-TERMINAL PRO-BNP 2021-08-14 09:53:00 Kathia [facility] FREE T3 2021-08-14 09:53:00 [facility] PROCALCITONIN 2021-08-14 09:53:00 Kathia [facility] MAGNESIUM 2021-08-14 09:53:00 Kathia [facility] TROPONIN I 2021-08-14 09:53:00 Kathia margarita [facility] CT CHEST PULMONARY 2021-08-14 04:11:51 Jimi Spring [facility] ANGIOGRAM Medical Branch COVID-19 (ID NOW RAPID 2021-08-14 03:56:00 Jimi Spring [facility] TESTING) [facility] COMP. METABOLIC PANEL 2021-08-14 03:38:00 Jimi Spring [facility] ([id number]) [facility] CBC WITH DIFF 2021-08-14 03:38:[address] [facility] GLYCOSYLATED HEMOGLOBIN 2021-08-14 03:38:00 Kathia [facility] (A1C) [facility] N-TERMINAL PRO-BNP 2021-08-14 03:38:00 Jimi Spring [facility] PHOSPHORUS 2021-08-14 03:38:00 Jimi Spring [facility] MAGNESIUM 2021-08-14 03:38:00 Clementine [facility] Felipe [facility] TROPONIN I 2021-08-14 03:38:00 Jimi Spring [place] o f [facility] [place] HB ECG ROUTINE & RHYTHM 2021-08-14 03:28:10 Jimi Spring [facility] Plan of Care Planned Activity Planned Date Details Comments Source Future Scheduled 2022-06-14 SHINGLES VACCINES (1 [facility] Test 17:44:09 of 2) [code = SHINGLES VACCINES (1 of 2)] Future Scheduled 2022-06-14 65+ PNEUMOCOCCAL [facility] Test 17:44:09 VACCINE (1 - PCV) [code = 65+ PNEUMOCOCCAL VACCINE (1 - PCV)] Future Scheduled 2022-06-14 COVID-19 VACCINE (3 - Me [facility] Test 17:44:09 Booster for Moderna series) [code = COVID-19 VACCINE (3 - Booster for Moderna series)] Future Scheduled 2022-06-14 INFLUENZA VACCINE Method is Hospital Test 17:44:09 [code = INFLUENZA VACCINE] Future Scheduled 2022-06-14 SHINGLES VACCINES (1 [facility] Test 17:44:09 of 2) [code = SHINGLES VACCINES (1 of 2)] Future Scheduled 2022-06-14 65+ PNEUMOCOCCAL [facility] Test 17:44:09 VACCINE (1 - PCV) [code = 65+ PNEUMOCOCCAL VACCINE (1 - PCV)] Future Scheduled 2022-06-14 COVID-19 VACCINE (3 - Me [facility] Test 17:44:09 Booster for Moderna series) [code = COVID-19 VACCINE (3 - Booster for Moderna series)] Future Scheduled 2022-06-14 INFLUENZA VACCINE Method [facility] Hospital Test 17:44:09 [code = INFLUENZA VACCINE] Encounters Start End Encounter Admission Attending Care Care Encounter Source Date/Time Date/Time Type Type Clinicians Facility Department ID 2022-05-11 2022-05-11 [facility] Wale Christina 1.2.840.1 [id number] Methodi 15:41:33 23:59:00 [address]counter [address]el [id number] 3.430.2.7 Hospit a .3.296483 l .8 2022-05-11 2022-05-11 [facility] Wale Christina 1.2.840.1 [id number] Methodi 15:41:33 23:59:00 Encounter Russel [address]8675.1.[address] 3.430.2.7 Hospit a .3.185596 l .8 2022-05-11 2022-05-11 [facility] 1.2.840.1 [id number] Methodi 14:30:00 16:14:02 Visit Russel 42847.1.[address] 3.430.2.7 Hospit a .3.742070 l .8 2022-05-11 2022-05-11 [facility] 1.2.840.1 [id number] Methodi 14:30:00 16:14:02 Visit Russel 86518.1.[address] 3.430.2.7 Hospit a .3.121917 l .8 2022-05-11 2022-05-11 [facility] 1.2.840.1 [id number] Methodi 15:40:24 15:40:24 Encounter Russel [address]189.1.[address] 3.430.2.7 Hospit a .3.985743 l .8 2022-05-11 2022-05-11 [facility] 1.2.840.1 [id number] 2 [id number] Methodi 15:40:24 15:40:24 Encounter Russel 41814.1.[address] 3.430.2.7 Hospit a .3.084381 l .8 2022-05-11 2022-05-11 [facility] 1.2.840.1 [id number] 2 [id number] Methodi 15:33:23 15:39:00 Encounter Russel 73162.1.[address] 3.430.2.7 Hospit a .3.661576 l .8 2022-05-11 2022-05-11 [facility] 1.2.840.1 [id number] 2 [id number] Methodi 15:33:23 15:39:00 Encounter Russel 15908.1.[address] 3.430.2.7 Hospit a .3.634854 l .8 2022-05-11 2022-05-11 Orders Carri, Wale 1.2.840.1 [id number] Methodi 00:00:00 00:00:00 Only Russel [id number] 3.430.2.7 Hospit a .3.887075 l .8 2022-05-11 2022-05-11 Travel 1.2.840.1 1.2.788.672 [id number] Methodi 00:00:00 00:00:[address] 3.430.2.7 0.2.7.3.698 Ho spita .3.579438 084.8 l .8 2022-05-11 2022-05-11 Orders Carri, Wale 1.2.840.1 [id number] Methodi 00:00:00 00:00:00 Only Russel 75882.1.[address] 3.430.2.7 Hospit a .3.100436 l .8 2022-05-11 2022-05-11 Travel 1.2.840.1 1.2.874.053 [id number] Methodi 00:00:00 00:00:[address] 3.430.2.7 0.2.7.3.698 Ho spita .3.094636 084.8 l .8 2022-04-13 2022-04-13 Telephone Carri, Wale 1.2.840.1 [id number] Methodi 00:00:00 00:00:[address] 3.430.2.7 Hospit a .3.536797 l .8 2022-04-13 2022-04-13 Telephone Carri, Wale 1.2.840.1 [id number] Methodi 00:00:00 00:00:[address] 3.430.2.7 Hospit a .3.833449 l .8 2022-03-26 2022-03-26 Emergency Severiano, 1.2.840.1 [id number] Methodi 13:42:00 23:22:[address] Hero 3.430.2.7 Hospit a .3.302636 l .8 2022-03-26 2022-03-26 Emergency Severiano, 1.2.840.1 [id number] Methodi 13:42:00 23:22:[address] Hero 3.430.2.7 Hospit a .3.659767 l .8 2022-03-10 2022-03-10 Orders Doctor DANGELO 1.2.840.114 [id number] Univers 00:00:00 00:00:00 Only Unassigned, BAKARI 350.1.13.10 ity of [place] [facility] 4.2.7.2.686 Jose as [id number] [facility] 009 Branch 2021-10-01 2021-10-01 Outpatient R LUPILLO [facility] [id number] Univers 00:00:00 00:00:00 ANAMARIA [facility] 2021-09-04 2021-09-04 Outpatient TREVOR KELLER [facility] 861 [facility] 00:00:00 00:00:00 HN 0728 da [facility] [place] Program 2021-08-15 2021-08-15 Transition JASON Medina 1.2.840.114 [id number] Univers 00:00:00 00:00:00 of Care Edward THOMPSON 350.1.13.10 ity of [place] 4[place]7.2.686 [place] [id number] [facility] 403 Branch 2021-08-13 2021-08-14 Outpatient X KATHIA [facility] [id number] Univers 22:23:00 13:20:00 MEREDITH [facility] 2021-08-13 2021-08-14 Emergency Jimi Spring [facility] 1.2.840. 114 [id number] Univers 22:23:00 13:20:00 Meredith Bae 350.1.13.10 [facility] 4.2.7.2.686 [facility] [id number] [facility] 081 Branch 2020-03-21 2020-03-21 Outpatient SLE SLE [id number] SLE 00:00:00 00:00:00 Results Test Description Test Time Test Comments Results Result Comments Source ECG 12 lead 2022-03-27 13:30:27 Test Item Value Reference Range Interpretation Comme nts Ventricular rate (test code = 253) 53 Atrial rate (test code = 255) 53 [place] interval (test code = 266) 142 QRSD [...] sinus arrhythmia-Otherwise normal ECG-No previous ECGs available- [facility] [id number] 13:30:27 Test Item Value Reference Range Interpretation Comments Ventricular rate (test 53 code = 253) Atrial rate (test code 53 = 255) [place] interval (test code 142 = 266) QRSD interval (test 78 code = 260) QT interval (test code 418 = 264) QTC interval (test code 392 = 265) P axis 1 (test code = 72 267) QRS axis 1 (test code = 57 268) T wave axis (test code 40 = 270) EKG impression (test Sinus bradycardia with code = 273) sinus arrhythmia-Otherwise normal ECG-No previous ECGs available-Electronical ly Signed By Kendy Hercules MD ([id number]) on 03/27/2022 7:30:20 AM [facility] [id number] 23:23:12 Test Item Value Reference Range Interpretation Comments SARS-CoV-2 (COVID-19) RNA Not detected [Presence] in Respiratory specimen by ANNABELLE with probe detection (test code = 42225-5) Whether patient resides in a No congregate care setting (test code = 25171-8) Date and time of symptom onset Unknown (test code = 84453-5) Whether the patient was No hospitalized for condition of interest (test code = 74961-9) Whether the patient was admitted No to intensive care unit (ICU) for condition of interest (test code = 02152-0) Whether patient is employed in a No healthcare setting (test code = 16606-6) Whether the patient has symptoms No related to condition of interest (test code = 28916-1) status (test code = No 21103-8) [facility] [id number] 22:29:00 Test Item Value Reference Range Interpretation Comments Urine culture (test SEE COMMENT Bacteriu anette screen code = 0266457) negative. [facility] [id number] 22:29:00 Test Item Value Reference Range Interpretation Comments Urine culture (test SEE COMMENT Bacteriu anette screen code = 2316800) negative. [facility] ([facility]E)2021-08-14 17:28:13 Test Item Value Reference Range Interpretation Comments Height (test code = in 1963911073) Weight (test code = lbs 5773090233) Systolic BP (test code = mmHg 8539662226) Diastolic BP (test code mmHg = 4280500313) Heart Rate (test code = bpm 8446188966) BSA (test code = 1.67 m2 3478239195) LVOT diameter (test code 2.01 cm = 6475472378) LA size (test code = 3.6 cm 1780555726) Ao root annulus (test 2.37 cm code = 2705105532) Ao root diam (test code 2.37 cm = 0072206378) Aortic root (test code = 2.37 cm 9074599203) IVS (test code = 0.74 cm 7295961225) Interventricular Septum 0.74 cm Diastolic Thickness by 2D (test code = 3769931) LVIDD (test code = 4.10 cm 7745036744) EF(Teich) (test code = 58.50 % 3785397252) LVIDS (test code = 2.90 cm 9645963602) FS (test code = 31 % 3111567999) EF - 2D (test code = 58.50 % 82858577) LAV(MOD-sp4) (test code 21.90 mL = 4062874983) E wave decelartion time 0.23 s (test code = 5256851746) MV Peak A Jose (test code 69.1 cm/s = 9821337072) MV Peak E Jose (test code 79.6 cm/s = 8509798472) E/A ratio (test code = ratio 7902249891) MV E/e' septal (test 7.4 cm/s code = 3751128863) Tapse (test code = 2.40 cm 6374810319) LVOT stroke volume (test 75.50 cm3 code = 5279881063) LVOT peak jose (test code 104.9 cm/s = 2708278126) LVOT mn grad (test code mmHg = 4054874968) AV LVOT peak gradient mmHg (test code = 0518532939) LVOT peak VTI (test code 23.9 cm = 1470909302) LV V1 mean (test code = 65.20 cm/s 9561160392) Aortic valve mean 73.4 cm/s velocity (test code = 7679422378) Ao peak jose (test code = 109.1 cm/s 7955112719) Ao VTI (test code = 23.8 cm 4010406310) AV area by cont VTI 3.2 cm2 (test code = 8474310847) AV area peak jose (test 3.0 cm2 code = 2768661795) Ao max PG (test code = 4.80 mm[Hg] 0239956569) AV peak gradient (test mmHg code = 9216686489) AV valve area (test code 3.20 cm2 = 3657462335) AV mean gradient (test mmHg code = 0770838085) TR Peak Jose (test code = 223.9 cm/s 5798517947) Triscuspid Valve mmHg Regurgitation Peak Gradient (test code = 7746496724) LA Volume Index (BP) 14.7 mL/m2 (test code = 6548058243) LA volume (BP) (test 24.5 mL code = 9094910296) LAV(MOD-sp2) (test code 27.00 mL = 3868616344) Radiology Study observation (narrative) (test code = 86894-8) TAMI (test code = TAMI) ?Left?Ventricle: Left ventricle size is normal. Normal wall thickness. Normal wall motion. Normal systolic function with a visually estimated EF of 60 - 65%. Indeterminate diastolic function. ?Tricuspid?Valve: Right ventricular systolic pressure is normal. ?RA pressure is 0-5 mmHg. ?Right?Ventricle: Normal systolic function. [facility]21-08-14 17:04:45 Test Item Value Reference Range Interpretation Comments POCT GLU (test code = 1990603883) 137 mg/dL 70-110 H Lab Interpretation (test code = Abnormal 68533-1) [facility]2022-[facility]-07 15:42:38 Test Item Value Reference Range Interpretation Comments Procalcitonin (test 0.02 ng/mL <0.07 code = 2101363024) TAMI (test code = TAMI) INTERPRETATION OF [...] lung abscess/empyema. For further information please refer to:[email or web address] Lab Interpretation Normal (test code = 99997-7) [facility] [id number] 15:39:57 Test Item Value Reference Range Interpretation Comments FREE T3 (test code = 9695341683) 2.88 pg/mL 2.77-5.27 Lab Interpretation (test code = Normal 24252-0) [facility] [id number] 15:39:57 Test Item Value Reference Range Interpretation Comments FREE T4 (test code = See_Comment [Autom ated message] 3056322587) The system [employer] generated this result transmitted ref erence range: 0.78 - 2 .20 ng/dL:. The ref erence range was not u sed to interpret this result as normal/abnor mal. Lab Interpretation (test Normal code = 93165-8) [facility] GLUCOSE (AUTOMATED)2021-08-14 13:12:49 Test Item Value Reference Range Interpretation Comments POCT GLU (test code = 6801021375) 137 mg/dL 70-110 H Lab Interpretation (test code = Abnormal 08985-7) [facility] ST[facility]ULATING [id number] 12:18:53 Test Item Value Reference Range Interpretation Comments TSH (test code = See_Comment H [Automated message] 6567658798) The system [employer] generated this result transmitted ref erence range: 0.45 - 4 .70 mIU/L. The refe rence range was not u sed to interpret this result as normal/abnor mal. Lab Interpretation (test Abnormal code = 67520-6) [facility]IP[facility] (48073)(TOTAL CHOLESTEROL, TRIGLYCERIDES, HDL)2021-08-14 11:48:08 Test Item Value Reference Range Interpretation Comments CHOL (test code = 180 mg/dL 120-200 4900872324) HDL (test code = 47 mg/dL >50 L 2312554169) HDLC RATIO (test code = See_Comment [Au tomated message] 3879337448) The system [employer] generated this result transmit palma reference range : <=4.5. The refe rence range was not u sed to interpret th is result as normal/abnormal . TRIG (test code = 101 mg/dL 30-170 7051262826) LDL CHOL (test code = 113 mg/dL See_Comment [Auto mated message] 19478-7) The system [employer] generated this result transmit palma reference range : <=160. The refe rence range was not u sed to interpret th is result as normal/abnormal . VLDL (test code = 20 mg/dL 5-60 0348114564) Lab Interpretation (test Abnormal code = 49587-6) [facility] [id number] 11:17:30 Test Item Value Reference Interpretation Comments Range TROPONIN I (test 0.003 ng/mL See_Comment [Automated code = 5939058045) message] The system which generated this result [...] biotin. Lab Interpretation Normal (test code = 99654-5) [facility]-TERMINAL [id number] 11:13:08 Test Item Value Reference Range Interpretation Comments NT-proBNP (test code 225 pg/mL See_Comment [Autom ated = 5291778183) message] The system which generated this result transmitted reference range : <=450. The reference range was not used to interpret this result as normal/abnormal . TAMI (test code = TAMI) Biotin has been reported to cause a negative bias, interpret results relative to patient's use of biotin. Lab Interpretation Normal (test code = 31227-0) [facility]2022-07-07 10:54:42 Test Item Value Reference Range Interpretation Comments MAGNESIUM (test code = 9142282122) 1.9 mg/dL 1.7-2.4 Lab Interpretation (test code = Normal 40211-8) [facility] METABOLIC PANEL (NA, K, CL, CO2, GLUCOSE, BUN, CREATININE, CA)2021-08-14 10:54:22 Test Item Value Reference Range Interpretation Comments NA (test code = 138 mmol/L 135-145 6564626717) K (test code = 4.1 mmol/L 3.5-5.0 4279199913) CL (test code = 104 mmol/L 98-108 5779653828) CO2 TOTAL (test code = 27 mmol/L 23-31 9561063445) AGAP (test code = 2-16 2968154974) BUN (test code = 16 mg/dL 7-23 9023802549) GLUCOSE (test code = 149 mg/dL 70-110 H 4064806922) CREATININE (test code = 0.84 mg/dL 0.50-1.04 1985845068) CALCIUM (test code = 9.4 mg/dL 8.6-10.6 5530778887) eGFR (test code = mL/min/1.73m2 4403402261) TAMI (test code = TAMI) Association of [...] tests). Lab Interpretation Abnormal (test code = 51202-7) [facility] IrvingProthrombin Time / [id number] 10:44:01 Test Item Value Reference Range Interpretation Comments PROTIME PATIENT (test See_Comment [Auto mated message] code = 5964-2) The system [employer] generated this result transmitted ref erence range: 12.0 - 1 4.7 Seconds. The re ference range was not u sed to interpret this result as normal/abnor mal. INR (test code = 6301-6) Nor mal INR <1.1; Warfarin Therap eutic range 2.0 to 3. 0 or 2.5 to 3.5, dep ending upon the indica tions. Lab Interpretation (test Normal code = 08927-4) [facility] IrvingGLYCOSYLATED HEMOGLOBIN (A1C)2021-08-14 10:13:38 Test Item Value Reference Range Interpretation Comments HGB A1C (test code = 7.8 % 4.0-5.7 H 4548-4) TAMI (test code = TAMI) Reference RangesNormal: <5.7%Prediabetes: 5.7 - 6.4%Diabetes: > 6.5% Lab Interpretation (test Abnormal code = 08249-0) [facility] IrvingTROP[facility] [id number] 04:14:57 Test Item Value Reference Interpretation Comments Range TROPONIN I (test 0.001 ng/mL See_Comment [Automated code = 5307468129) message] The system which generated this result [...] biotin. Lab Interpretation Normal (test code = 61645-4) [facility]-TERMINAL [id number] 04:11:41 Test Item Value Reference Range Interpretation Comments NT-proBNP (test code 192 pg/mL See_Comment [Autom ated = 0526487632) message] The system which generated this result transmitted reference range : <=450. The reference range was not used to interpret this result as normal/abnormal . TAMI (test code = TAMI) Biotin has been reported to cause a negative bias, interpret results relative to patient's use of biotin. Lab Interpretation Normal (test code = 72074-5) [facility]2022-07-07 04:03:40 Test Item Value Reference Range Interpretation Comments MAGNESIUM (test code = 4989885126) 1.8 mg/dL 1.7-2.4 Lab Interpretation (test code = Normal 38934-5) [facility]. METABOLIC PANEL (17005)2021-08-14 04:03:20 Test Item Value Reference Range Interpretation Comments NA (test code = 138 mmol/L 135-145 9426848726) K (test code = 4.2 mmol/L 3.5-5.0 7761895925) CL (test code = 102 mmol/L 98-108 2394893059) CO2 TOTAL (test code = 27 mmol/L 23-31 0069384560) AGAP (test code = 2-16 4092877447) BUN (test code = 18 mg/dL 7-23 4531875993) GLUCOSE (test code = 207 mg/dL 70-110 H 5535931057) CREATININE (test code = 0.88 mg/dL 0.50-1.04 5945580109) TOTAL BILI (test code = 0.6 mg/dL 0.1-1.4 9914091945) CALCIUM (test code = 9.7 mg/dL 8.6-10.6 1890689617) T PROTEIN (test code = 7.1 g/dL 6.3-8.2 9011394276) ALBUMIN (test code = 4.3 g/dL 3.5-5.0 2987353308) ALK PHOS (test code = 77 U/L 34-122 2030277293) ALTv (test code = 21 U/L 5-35 1742-6) AST(SGOT) (test code = 29 U/L 13-40 6151389508) eGFR (test code = mL/min/1.73m2 7312585078) TAMI (test code = TAMI) Association of [...] tests). Lab Interpretation Abnormal (test code = 85782-8) [facility]PHOSPHORUS2022-07-07 04:03:20 Test Item Value Reference Range Interpretation Comments PHOSPHORUS (test code = 7785201315) 3.3 mg/dL 2.5-5.0 Lab Interpretation (test code = Normal 12103-8) [facility] WITH [id number] 03:51:16 Test Item Value Reference Range Interpretation Comments WBC (test code = See_Comment [Automated message] 6690-2) The system [employer] generated this result transmitted ref erence range: 4.30 - 1 1.10 10*3/?L. The re ference range was not u sed to interpret this result as normal/abnor mal. RBC (test code = See_Comment [Automated message] 789-8) The system [employer] generated this result transmitted ref erence range: [...] RDW-SD (test code 41.0 fL 39.0-49.9 = 32726-0) RDW-CV (test code 13.0 % 12.0-15.5 = 788-0) PLT (test code = See_Comment [Automated message] 777-3) The system whic h generated this result transmitted ref erence range: 166 - 35 8 10*3/?L. The re ference range was not u sed to interpret this result as normal/abnor mal. MPV (test code = 9.9 fL 9.5-12.9 79607-1) NRBC/100 WBC (test See_Comment [Automat ed message] code = 9787648079) The syste m which generated this result transmitted ref erence range: 0.0 - 10 .0 /100 WBCs. The refer ence range was not u sed to interpret this result as normal/abnor mal. NRBC x10^3 (test <0.01 See_Comment [Automated message] code = 8093225974) The syste m which generated this result transmitted ref erence range: 10*3/?L. The reference range was not used to interpr et this result as normal/abnormal . GRAN MAT (NEUT) % 62.2 % (test code = 770-8) IMM GRAN % (test 0.30 % code = 6882540113) LYMPH % (test code 21.3 % = 736-9) MONO % (test code 11.8 % = 5905-5) EOS % (test code = 3.4 % 713-8) BASO % (test code 1.0 % = 706-2) GRAN MAT 4.33 10*3/uL 1.88-7.09 x10^3(ANC) (test code = 1644461417) IMM GRAN x10^3 <0.03 0.00-0.06 (test code = 0847599872) LYMPH x10^3 (test 1.48 10*3/uL 1.32-3.29 code = 731-0) MONO x10^3 (test 0.82 10*3/uL 0.33-0.92 code = 742-7) EOS x10^3 (test 0.24 10*3/uL 0.03-0.39 code = 711-2) BASO x10^3 (test 0.07 10*3/uL 0.01-0.07 code = 704-7) [facility]OLIC [id number] 09:20:00 Test Item Value Reference Range Interpretation [...] code = 9.8 MG/DL 8.4-10.2 N CA) [id number] 09:20:00 Test Item Value Reference Range Interpretation Comments MAGNESIUM (test code = MAG) 2.0 MG/DL 1.6-2.3 N PROTHROMBIN [id number] 09:17:00 Test Item Value Reference Range Interpretation [...] dial infarction. 2. 0 - 3.0 3. Leasing Manager al prosthesis hear t valves, recurre nt systemic emboli sm. 3.0 - 4.5 PTT [id number] 09:17:00 Test Item Value Reference Range Interpretation Comments PTT ACTIVATED (test code = APTT) 29.1 SECONDS 22.0-33.0 N CBC W/AUTO [id number] 09:12:00 Test Item Value Reference Range Interpretation [...] 0.00 K/mm3 0.0-0.1 N NRBC#) BASIC METABOLIC [id number] 13:19:00 Test Item Value Reference Range Interpretation [...] code = 10.3 MG/DL 8.4-10.2 H CA) [id number] 13:19:00 Test Item Value Reference Range Interpretation Comments MAGNESIUM (test code = MAG) 1.8 MG/DL 1.6-2.3 N PROTHROMBIN [id number] 13:08:00 Test Item Value Reference Range Interpretation [...] myocar dial infarction. 2.0 - 3.0 3. Leasing Manager al prosthesis hear t valves, recurre nt systemic emboli sm. 3.0 - 4.5 CBC W/AUTO [id number] 12:57:00 Test Item Value Reference Range Interpretation [...] Notes Date/Time Note Provider Source 2018-05-19 08:22:00-00:00 7835-[address] [place] [address] PATIENT NAME: FAVIAN Peace ADMIT DATE: 05/17/18 ACCOUNT NO: [id number] ROOM NO: [facility] AGE: 77 REPORT TYPE: HISTORY AND [...] chest pressure. She has had a negative myocardi al perfusion scan. HOME MEDICATIONS: Multivitamins, aspirin, metfor [...] AND PHENERGAN. REVIEW OF SYSTEMS: Persistent recurrent palpita tions on a daily basis associated with chest [...] PATIENT NAME: FAVIAN Peace ACCOUNT #: Z [id number] DIAGNOSTIC STUDIES: Event monitor shows 3-beat run [...] Akash Morris MD WT: HP:SIMON/JANE/MARIO ALBERTO Conf#: [id number]/DID#: [id number] Authenticated and Edited by Akash Morris MD On 05/19/18 2:14:13 PM at 1417 PATIENT NAME: FAVIAN Peace ACCOUNT #: Z [id number] 2018-05-19 08:17:00-00:00 2435-[address] [place] [address] PATIENT NAME: FAVIAN Peace ADMIT DATE: 05/17/18 ACCOUNT NO: [id number] ROOM NO: Z.[facility] AGE: 77 REPORT TYPE: DISCHARGE SUMMARY REPORT [...] electrophysiology study. No sustained arrhythmia was inducible. Th e patient was discharged home in stable condition. DISCHARGE DIET: Heart healthy. FOLLOWUP: The patient is to follow up in 1 week. DISCHARGE MEDICATIONS: Per the medical reconcili ation report. Dictated By: Akash Morris MD WT: DS:SIMON/JANE/MARIO ALBERTO Conf#: [id number]/DID#: [id number] Authenticated by Akash Morris MD On 05/21/19 09:26:01 AM at 0926 PATIENT NAME: FAVIAN Peace ACCOUNT #: Z [id number] 2018-05-19 07:36:00-00:00 5866[address] [place] [address] PATIENT NAME: FAVIAN Peace ADMIT DATE: 05/17/18 ACCOUNT NO: [id number] ROOM NO: .[facility] AGE: 77 REPORT TYPE: CARDIAC CATHETERIZATION REPORT [...] Seldinger technique with a micropuncture kit. A 7-Zambian and two 8-Zambian sheaths were placed in left femoral vein. A locking 8-Zambian sheath was placed in the right femoral vein. All sheaths were aspirated and flushed and connected to h eparinized saline infusion. A standard 8-Zambian sheath was also placed in the r ight femoral vein. Ultrasound guidance and micropuncture kit were utilized for access. A Decapolar catheter was advanced via the locking 8-Zambian sheath and chano rocio in the coronary sinus. A 5-Zambian Cournand catheter was advanced via the 6-Zambian sheath and placed in the right ventricular apex. A steerable quadripo lar catheter was advanced via the standard 8-Zambian sheath on the left and chano rocio [...] PATIENT NAME: FAVIAN Peace ACCOUNT #: Z [id number] induced. There was a rare couplet noted. No sust ained ventricular or supraventricular tachycardias were inducible. Re trograde conduction was concentric. CONCLUSIONS: 1. Baseline rhythm normal sinus with normal cond uction intervals. 2. No sustained ventricular or supraventricular arrhythmias were inducible. 3. Estimated blood loss negligible. 4. No complications. Dictated By: Akash Morris MD WT: CATH:AMANUEL/PEPCAROLANN/MARIO ALBERTO Conf#: [id number]/DID#: [id number] cc: Janie Logan MD Authenticated by Akash Morris MD On 05/20/19 08:23:23 AM at 0823 PATIENT NAME: FAVIAN Peace ACCOUNT #: Z [id number] 2018-05-17 09:24:00-00:00 [id number] [place] [address] PATIENT NAME: FAVIAN Peace ADMIT DATE: 05/17/18 ACCOUNT NO: [id number] ROOM NO: Z.358 AGE: 77 REPORT TYPE: ELECTROCARDIOGRAM SEX: F ADMITTING PHYSICIAN:Akash Morris MD ATTENDING PHYSICIAN:Akash Morris MD Order: [id number] Test Reason : VTACH Test Date/Time Stamp: [...] No significant change was found Confirmed by JANIE LOGAN ([id number]) on 05/17/2018 3 :54:22 PM Referred By: Akash Morris Confirmed by:JANIE LOGAN at 1554 PATIENT NAME: FAVIAN Peace ACCOUNT #: Z [id number] 2018-03-03 17:26:00-00:00 [address]95[id number] [place] [address] PATIENT NAME: FAVIAN Peace ADMIT DATE: 03/03/18 ACCOUNT NO: [id number] ROOM NO: AGE: 77 REPORT TYPE: DISCHARGE SUMMARY REPORT SEX: F ADMITTING PHYSICIAN: ATTENDING PHYSICIAN:Akash Morris MD ADMISSION DATE: 03/03/2018 DISCHARGE DATE: 03/03/2018 The patient was scheduled fo r an EP study and ablation today. The procedure was delayed due to an emergent procedure in the mobile lab technician requiring the electrophysiology room. The case was canceled an d will be rescheduled. Dictated By: Akash Morris MD WT: DS:SIMON/JANE/NTS Conf#: [id number]/DID#: [id number] Authenticated by Akash Morris MD On 03/07/19 06:56:45 AM at 0657 PATIENT NAME: FAVIAN Peace ACCOUNT #: Z [id number] 2018-03-03 13:38:00-00:00 2497[id number] [place] [address] PATIENT NAME: FAVIAN Peace ADMIT DATE: 03/03/18 ACCOUNT NO: [id number] ROOM NO: AGE: 77 REPORT TYPE: ELECTROCARDIOGRAM SEX: F ADMITTING PHYSICIAN: ATTENDING PHYSICIAN:Akash Morris MD Order: [id number] Test Reason : CAD Test Date/Time Stamp: [...] No significant change was found Confirmed by CARRIE GARCIA MD ([id number]) on 9 1:18:25 PM Referred By: Akash Morris Confirmed by:CARRIE SALCIDO MD Electronically Signed by Carrie Garcia MD on 0 03/04/18 at 1318 PATIENT NAME: FAVIAN Peace ACCOUNT #: Z [id number]
[2022-07-14 13:46] LABS: Albumin 3.7 g/dL (3.4-5.0); Bilirubin Direct 0.1 mg/dL (0-0.2); Bilirubin Indirect, Calculated 0.4 mg/dL (0.2-0.8); Bilirubin Total 0.5 mg/dL (0.2-1.0); Potassium 4.5 mEq/L (3.5-5.1); Protein, Total 7.9 g/dL (6.4-8.2); Troponin High Sensitivity 8.8 pg/mL (<58.9)
--- NOTE | 2022-07-14 14:23 | EDPHYS ---
Physician Documentation [facility] Name: Marie Puri Age: 81 yrs Sex: Female : 1940 Arrival Date: 07/14/2022 Time: 12:50 Bed 15 Private MD: Leonard Tavares V ED Physician Zac Lester HPI: 07/14 12:55 This 81 yrs old Female presents to ER via Ambulatory with complaints of Chest Pain. jh7 12:55 Onset: The symptoms/episode began/occurred at 10:30. Associated signs and symptoms: jh7 Pertinent positives: chest pain, Nausea, Pertinent negatives: constipation. 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 She reports that she attempted to get in touch with her manager banking Dr. Hager and was unable to. Her PCP is Dr. Tavares. History of 2 cardiac ablations for SVT and colon resection.. Historical: - Allergies: 12:56 Albuterol; jl7 12:56 Morphine; jl7 12:56 PENICILLINS; jl7 12:56 Phenergan; jl7 12:56 Stadol; jl7 12:56 Toprol XL; jl7 - Home Meds: 12:56 levothyroxine 25 mcg oral tablet [Active]; Novolog Sub-Q [Active]; bisoprolol fumarate jl7 5 mg Oral tab 1 tab 1/2 in the morning and 1/2 at night [Active]; CoQ-10 30 mg Oral cap daily [Active]; [place]-3 Oral cap daily [Active]; Protonix 40 mg Oral TbEC 1 tab [Active]; Effient oral [Active]; aspirin 81 mg Oral capsule [Active]; - PMHx: 12:56 Diabetes - IDDM; Diverticulitis; fatty liver; Hypothyroidism; Kidney stones; mitral jl7 valve prolapse; Pancreatitis; Hypertensive disorder; - PSHx: 12:56 Colonresection; Heart ablation X2; cardiac stent; jl7 - Immunization history:: Adult Immunizations unknown. - Social history:: Smoking status: Patient denies any tobacco usage or history of. ROS: 12:55 Constitutional: Negative for fever, chills, and weight loss, Eyes: Negative for injury, jh7 pain, redness, and discharge, Neck: Negative for injury, pain, and swelling, Respiratory: Negative for shortness of breath, cough, wheezing, and pleuritic chest pain, Back: Negative for injury and pain, MS/Extremity: Negative for injury and deformity, Skin: Negative for injury, rash, and discoloration, Neuro: Negative for headache, weakness, numbness, tingling, and seizure. 12:55 Cardiovascular: Positive for chest pain, Negative for palpitations. 12:55 Abdomen/GI: Positive for nausea. 12:55 All other systems are negative. Exam: 12:55 Constitutional: This is a well developed, well nourished patient who is awake, alert, jh7 and in no acute distress. Head/Face: Normocephalic, atraumatic. Eyes: Pupils equal round and reactive to light, extra-ocular motions intact. Lids and lashes normal. Conjunctiva and sclera are non-icteric and not injected. Cornea within normal limits. Periorbital areas with no swelling, redness, or edema. Neck: Trachea midline, no thyromegaly or masses palpated, and no cervical lymphadenopathy. Supple, full range of motion without nuchal rigidity, or vertebral point tenderness. No Meningismus. Cardiovascular: Regular rate and rhythm with a normal S1 and S2. No gallops, murmurs, or rubs. Normal PMI, no JVD. No pulse deficits. Respiratory: Lungs have equal breath sounds bilaterally, clear to auscultation and percussion. No rales, rhonchi or wheezes noted. No increased work of breathing, no retractions or nasal flaring. Abdomen/GI: Soft, non-tender, with normal bowel sounds. No distension or tympany. No guarding or rebound. No evidence of tenderness throughout. Skin: Warm, dry with normal turgor. Normal color with no rashes, no lesions, and no evidence of cellulitis. MS/ Extremity: Pulses equal, no cyanosis. Neurovascular intact. Full, normal range of motion. Neuro: Awake and alert, GCS 15, oriented to person, place, time, and situation. Motor strength 5/5 in all extremities. Sensory grossly intact. Normal gait. Vital Signs: 12:55 BP 170 / 81; Pulse 55; Resp 15; Temp 97.9; Pulse Ox 100% ; Weight 63.5 kg; Height 5 ft. jl7 2 in. ; Pain 9/10; 14:00 BP 148 / 70; Pulse 62; Resp 11; Pulse Ox 100% ; bp 15:00 BP 146 / 68; Pulse 57; Resp 11; Pulse Ox 99% ; bp 16:00 BP 146 / 69; Pulse 61; Resp 18; Pulse Ox 98% ; bp 12:55 Body Mass Index 25.61 (63.50 kg, 157.48 cm) [facility] 12:55 Pain Scale: Adult [facility] MDM: 12:57 Patient medically screened. [facility] 13:50 Scoring Tools HEART Score: History: Age: Risk Factors: > or = 3 Risk factors for [facility] atherosclerotic disease (2), Total Score = 6. 13:50 Differential diagnosis: pneumonia Acute MO, cardiac arrhythmia. Data reviewed: vital [facility] signs, nurses notes, lab test result(s), EKG, radiologic studies, plain films. Consideration of Admission/Observation Patient was admitted/placed on observation. Management of patient was discussed with the following: Railway Shunter: Dr. Stout, cardiology. Primary Care Provider: Dr. Tavares. Dr. Stout originally stated to start the patient on 1 mg/kg of Lovenox twice daily. He called back shortly after and stated that he planned on cathing the patient tomorrow and to put her is n.p.o. status at midnight. Consulted ER attending Dr. Lester who said to cancel the Lovenox and start the patient on heparin drip instead.. I considered the following discharge prescriptions or medication management in the emergency department Medications were administered in the Emergency Department. See MAR. Independent interpretation of the following test(s) in the Emergency Department EKG: See my EKG interpretation above. Care significantly affected by the following chronic conditions: Diabetes, Hypertension. Counseling: I had a detailed discussion with the patient and/or guardian regarding: the historical points, exam findings, and any diagnostic results supporting the discharge/admit diagnosis, the need for further work-up and treatment in the hospital. Response to treatment: the patient's symptoms have mildly improved after treatment. 07/14 13:04 Order name: Basic Metabolic Panel; Complete Time: 13:47 [facility] 07/14 13:04 Order name: CBC with Diff; Complete Time: 13:45 [facility] 07/14 13:04 Order name: LFT's; Complete Time: 13:47 [facility] 07/14 13:04 Order name: Magnesium; Complete Time: 13:47 7 07/14 13:04 Order name: NT PRO-BNP; Complete Time: 13:47 7 07/14 13:04 Order name: PT-INR; Complete Time: 13:45 7 07/14 13:04 Order name: Troponin HS; Complete Time: 13:47 7 07/14 15:46 Order name: Basic Metabolic Panel EDMS 07/14 15:46 Order name: Basic Metabolic Panel EDMS 07/14 15:46 Order name: CBC with Automated Diff EDMS 07/14 15:46 Order name: CBC with Automated Diff EDMS 07/14 15:46 Order name: Troponin High Sensitivity EDMS 07/14 13:04 Order name: XRAY Chest (1 view); Complete Time: 13:45 7 07/14 15:05 Order name: CL LEFT HEART WITHOUT LV EDMS 07/14 13:04 Order name: EKG; Complete Time: 13:05 [facility] 07/14 15:05 Order name: NPO EDMS 07/14 15:46 Order name: CONS Physician Consult EDMS 07/14 15:46 Order name: EKG Electrocardiogram EDMS 07/14 15:46 Order name: EKG Electrocardiogram EDMS 07/14 15:46 Order name: EKG Electrocardiogram EDMS 07/14 15:46 Order name: EKG Electrocardiogram EDMS 07/14 13:04 Order name: Cardiac monitoring; Complete Time: 13:54 7 07/14 13:04 Order name: EKG - Nurse/Tech; Complete Time: 13:54 [facility] 07/14 13:04 Order name: IV Saline Lock; Complete Time: 13:54 7 07/14 13:04 Order name: Labs collected and sent; Complete Time: 13:54 7 07/14 13:04 Order name: O2 Per Protocol; Complete Time: 13:54 [facility] 07/14 13:04 Order name: O2 Sat Monitoring; Complete Time: 13:54 [facility] EC:56 Rate is 55 beats/min. Rhythm is irregular. QRS [place] is Normal. [place] interval is normal at jh7 156 msec. QRS interval is normal at 80 msec. QT interval is normal at 408 msec. No Q waves. T waves are Normal. No ST changes noted. Clinical impression: Sinus bradycardia with sinus arrhythmia. Administered Medications: 14:33 Drug: Aspirin PO Chewable Tablet 243 mg Route: PO; bp 16:16 Follow up: Response: No adverse reaction kb3 16:27 Drug: ALPRAZolam PO Tablet 0.25 mg Route: PO; bp 18:26 Follow up: Response: No adverse reaction bp Disposition Summary: 07/14/22 14:22 Hospitalization Ordered Hospitalization Status: Inpatient Admission [facility] Provider: Leonard Tavares [facility] Location: Telemetry/MedSurg (Inpatient) [facility] Condition: Stable [facility] Problem: new [facility] Symptoms: have worsened [facility] Bed/Room Type: Standard [facility] Room Assignment: 405(07/14/22 16:24) Diagnosis - Chest pain, unspecified [facility] Forms: - Medication Reconciliation Form [facility] - SBAR form [facility] Signatures: Dispatcher [employer] EDMS Violette Deleon Diana RN RN dw Ramon Castro RN RN jl7 Daniel Pastrana RN RN Yvonne Hernandez FNP FNP 7 Marline Coyne RN kb3 Corrections: (The following items were deleted from the chart) 16:24 14:22 [facility] dw 16:24 16:24 405 [facility]
--- NOTE | 2022-07-14 14:23 | ER ---
Nurse's Notes [facility] Name: Marie Puri Age: 81 yrs Sex: Female : 1940 Arrival Date: 07/14/2022 Time: 12:50 Bed 15 Private MD: Leonard Tavares V Diagnosis: Chest pain, unspecified Presentation: 07/14 12:55 Chief complaint: Patient states: Nausea, CP, SOB, weakness all over since 1030 this jl7 morning, Cardiac stent placed 2 weeks ago, unable to get in tough with Dr. Hager. Coronavirus screen: At this time, the client does not indicate any symptoms associated with coronavirus-19. Ebola Screen: No symptoms or risks identified at this time. Initial Sepsis Screen: Does the patient meet any 2 criteria? No. Patient's initial sepsis screen is negative. Does the patient have a suspected source of infection? No. Patient's initial sepsis screen is negative. Risk Assessment: Do you want to hurt yourself or someone else? Patient reports no desire to harm self or others. Onset of symptoms was July 14, 2022 at 10:30. 12:55 Method Of Arrival: Ambulatory jl7 12:55 Acuity: ARGELIA 2 jl7 Triage Assessment: 12:56 General: Appears in no apparent distress. uncomfortable, Behavior is calm, cooperative, jl7 appropriate for age. Pain: Complains of pain in chest Pain currently is 9 out of 10 on a pain scale. Cardiovascular: Patient's skin is warm and dry. Historical: - Allergies: 12:56 Albuterol; jl7 12:56 Morphine; jl7 12:56 PENICILLINS; jl7 12:56 Phenergan; jl7 12:56 Stadol; jl7 12:56 Toprol XL; jl7 - Home Meds: 12:56 levothyroxine 25 mcg oral tablet [Active]; Novolog Sub-Q [Active]; bisoprolol fumarate jl7 5 mg Oral tab 1 tab 1/2 in the morning and 1/2 at night [Active]; CoQ-10 30 mg Oral cap daily [Active]; [place]-3 Oral cap daily [Active]; Protonix 40 mg Oral TbEC 1 tab [Active]; Effient oral [Active]; aspirin 81 mg Oral capsule [Active]; - PMHx: 12:56 Diabetes - IDDM; Diverticulitis; fatty liver; Hypothyroidism; Kidney stones; mitral jl7 valve prolapse; Pancreatitis; Hypertensive disorder; - PSHx: 12:56 Colonresection; Heart ablation X2; cardiac stent; jl7 - Immunization history:: Adult Immunizations unknown. - Social history:: Smoking status: Patient denies any tobacco usage or history of. Screenin:53 [facility] ED Fall Risk Assessment (Adult) History of falling in the last 3 months, bp including since admission. [facility] ED Fall Risk Assessment (Adult) History of falling in the last 3 months, including since admission No falls in past 3 months (0 pts). Abuse screen: Denies threats or abuse. Denies injuries from another. Nutritional screening: No deficits noted. Tuberculosis screening: No symptoms or risk factors identified. Assessment: 13:00 General: SEE TRIAGE NOTE. bp 13:00 Pain: Pain does not radiate. Pain began suddenly. bp 15:00 Reassessment: ADMIT INITIATED. bp 16:56 Reassessment: No changes from previously documented assessment. Patient is alert, bp oriented x 3, equal unlabored respirations, skin warm/dry/pink. 18:29 Reassessment: ADMIT COMPLETE, REPORT TO YASMINE ESPARZA FOR RM 405. bp Vital Signs: 12:55 BP 170 / 81; Pulse 55; Resp 15; Temp 97.9; Pulse Ox 100% ; Weight 63.5 kg; Height 5 ft. jl7 2 in. ; Pain 9/10; 14:00 BP 148 / 70; Pulse 62; Resp 11; Pulse Ox 100% ; bp 15:00 BP 146 / 68; Pulse 57; Resp 11; Pulse Ox 99% ; bp 16:00 BP 146 / 69; Pulse 61; Resp 18; Pulse Ox 98% ; bp 12:55 Body Mass Index 25.61 (63.50 kg, 157.48 cm) jl7 12:55 Pain Scale: Adult jl7 ED Course: 12:52 Patient arrived in ED. mr 12:52 Leonard Tavares MD is Private Physician. mr 12:56 Triage completed. jl7 12:56 Arm band placed on right wrist. EKG completed in triage. Results shown to MD. jl7 12:57 [facility]vonne King FNP [facility] 7 12:57 Zac Lester MD is Attending Physician. 7 12:59 EKG done, by ED staff. tm3 13:25 XRAY Chest (1 view) In Process Unspecified. EDMS 13:51 Daniel Pastrana, RN is Primary Nurse. bp 14:22 Leonard Tavares MD is Hospitalizing Provider. [facility] 16:53 No provider procedures requiring assistance completed. Patient admitted, IV remains in bp place. Patient maintains SpO2 saturation greater than 95% on room air. 16:56 Patient has correct armband on for positive identification. Placed in gown. Bed in low bp position. Call light in reach. Side rails up X2. Client placed on continuous cardiac and pulse oximetry monitoring. NIBP monitoring applied. Administered Medications: 14:33 Drug: Aspirin PO Chewable Tablet 243 mg Route: PO; bp 16:16 Follow up: Response: No adverse reaction kb3 16:27 Drug: ALPRAZolam PO Tablet 0.25 mg Route: PO; bp 18:26 Follow up: Response: No adverse reaction bp Medication: 16:54 VIS not applicable for this client. bp Outcome: 14:22 Decision to Hospitalize by Provider. [facility] 16:53 Condition: stable bp 16:53 Instructed on the need for admit. 18:28 Admitted to Med/surg accompanied by tech, via wheelchair, room 405, with chart, Report bp called to YASMINE ESPARZA 19:21 Patient left the ED. bp Signatures: Dispatcher [employer] EDNC Carl Duran tm3 Kaylie Moore mr GloriaRamon, RN RN [id number] Daniel Pastrana, RN RN bp Yvonne King, CUSTOMER SERVICE VOICE CUSTOMER SERVICE VOICE 7 Marline Coyne, RN RN kb3
[2022-07-14] MEDS ORDERED: ASPIRIN 81 MG CHEWABLE TABLET ONE (14:34)
[2022-07-14] MEDS ORDERED: ONDANSETRON 4 MG/2 ML VIAL ONE (14:34)
[2022-07-14] MEDS ORDERED: HEPARIN/D5W 25,000 UNIT/500 ML BAG IV PRN (16:00)
[2022-07-14] MEDS ORDERED: ALPRAZOLAM 0.25 MG TABLET ONE (16:29)
--- NOTE | 2022-07-14 21:23 | P.SSS ---
Patient History Date of Service: 07/14/22 Reason for admission: CHEST PAIN History of Present Illness: CLIFTON JUST HAD CATH WITH LAD STENT FOR CHEST PAIN SHE HAD. SHE CONTINUES TO HAVE SIMILAR PAIN AND SHE COMES TO ER. SHE IS INTOLERAT TO MANY MEDS AND ALSO HAS MANY DIFFUSE COMPLAINTS. Allergies albuterol Allergy (Verified 05/04/17 12:13) Anaphylaxis amoxicillin [From Augmentin] Allergy (Verified 11/09/17 13:38) Anaphylaxis azithromycin [From Zithromax] Allergy (Verified 11/09/17 13:38) Anaphylaxis cefuroxime [From Ceftin] Allergy (Verified 11/09/17 13:38) Anaphylaxis Cephalosporins Allergy (Verified 11/09/17 13:38) Anaphylaxis ciprofloxacin Allergy (Verified 11/09/17 13:38) Anaphylaxis clavulanic acid [From Augmentin] Allergy (Verified 11/09/17 13:38) Anaphylaxis glimepiride Allergy (Verified 11/09/17 13:38) Nausea/Vomiting insulin aspart Allergy (Verified 11/09/17 13:38) Anaphylaxis insulin detemir [From Levemir U-100 Insulin] Allergy (Verified 11/09/17 13:38) Nausea/Vomiting iodine Allergy (Verified 11/09/17 13:38) Itching levofloxacin [From Levaquin] Allergy (Verified 11/09/17 13:38) Anaphylaxis metformin [From Glucophage] Allergy (Verified 11/09/17 13:38) Nausea/Vomiting metoprolol succinate [From Toprol XL] Allergy (Verified 05/04/17 12:13) Anaphylaxis morphine Allergy (Verified 05/04/17 12:13) Anaphylaxis Penicillins Allergy (Verified 11/09/17 13:38) Anaphylaxis pentazocine [From [place]] Allergy (Verified 11/09/17 13:38) Anaphylaxis Phenothiazines Allergy (Verified 11/09/17 13:38) Anaphylaxis promethazine HCl [From Phenergan] Allergy (Verified 05/04/17 12:13) Anaphylaxis Quinolones Allergy (Verified 11/09/17 13:38) Anaphylaxis sitagliptin [From Januvia] Allergy (Verified 11/09/17 13:38) Nausea/Vomiting Sulfa (Sulfonamide Antibiotics) Allergy (Verified 11/09/17 13:38) Anaphylaxis Stadol NS Allergy (Uncoded 01/07/15 03:44) Anaphylaxis Home Medications: Diazepam [Valium] 5 mg PO BEDTIME 11/09/17 Insulin Aspart [Novolog Flexpen] See Protocol SQ ACHS 11/09/17 Levothyroxine Sodium 25 mcg PO [id number] 11/09/17 Metformin HCl [Metformin ER Osmotic] 500 mg PO BID PRN 11/09/17 bisoproloL fumarate [Zebeta*] 5 mg PO DAILY 11/09/17 Ondansetron [Zofran (Odt)*] 4 mg PO PRN 06/19/22 Pantoprazole Sodium [Protonix] 40 mg PO DAILY 06/19/22 Aspirin [Aspirin EC 81 MG] 81 mg PO DAILY 90 Days #90 tab 06/23/22 Atorvastatin Calcium [Lipitor*] 20 mg PO DAILY 90 Days #90 tab 06/23/22 Clopidogrel Bisulfate [Plavix] 75 mg PO DAILY 90 Days #90 tab 06/23/22 Losartan Potassium 25 mg PO DAILY 90 Days #90 tab 06/23/22 - Past Medical/Surgical History Diabetic: Yes -: Hypothyroidism -: svt- HX OF ARRYTHMIAS -: IDDM -: KIDNEY STONES -: FATTY LIVER -: MVP -: DIVERTICULITIS -: PANCREATITIS -: UTI -: colon resection -: 2 heart ablasions -: Cholesystectomy -: Appendectomy - Family History Father -: Diabetes Notes: dementia Mother Notes: parkinsons - Social History Alcohol use: No CD- Drugs: No Caffeine use: No Review of Systems 10-point ROS is otherwise unremarkable Cardiovascular: Chest Pain, As per HPI Physical Examination - Vital Signs Temperature: 97.9 F Blood Pressure: 146/69 Pulse: 61 Respirations: 18 - Physical Exam General: Oriented x3, Mild distress HEENT: Atraumatic, PERRLA, Mucous membr. moist/pink, EOMI, Sclerae nonicteric Neck: Supple, 2+ carotid pulse no bruit, No LAD, Without JVD or thyroid abnormality Respiratory: Clear to auscultation bilaterally, Normal air movement Cardiovascular: Regular rate/rhythm, Normal S1 S2 Gastrointestinal: Normal bowel sounds, No tenderness Musculoskeletal: No tenderness Integumentary: No rashes Neurological: Normal gait, Normal speech, Normal strength at 5/5 x4 extr, Normal tone, Normal affect Lymphatics: No axilla or inguinal lymphadenopathy - Studies Laboratory Data (last 24 hrs) 07/14/22 13:11: PT 10.3, INR 0.94 07/14/22 13:11: WBC 7.60, Hgb 12.2, Hct 36.9, Plt Count 217 07/14/22 13:11: Sodium 133 L, Potassium 4.5, BUN 17, Creatinine 1.05 H, Glucose 175 H, Magnesium 2.0, Total Bilirubin 0.5, AST 20, ALT 26, Alkaline Phosphatase 100 - Diagnosis (Problem(s)) (1) Unstable angina Current Visit: No Status: Acute Plan: SHE HAS THE PAIN AGAIN. SHE HAS HYPOCHONDRIAC NATURE. SHE IS STUCK WITH THINKING OF CELIAC STENOSIS SOME PA MENTIONED TO HER. HER STENOSIS IS LESS THAN 50% AND SHOULD NOT BE AN ISSUE. I WILL HAVE DR TELLO DO THE CATH FOR CELIAC ARTERY ALSO TO CLEAR HER MIND (2) Diabetes type 2, controlled Current Visit: No Status: Chronic Qualifiers: Diabetes mellitus oven heater insulin use: with oven heater use - Disposition Disposition: ROUTINE DISCHARGE
[2022-07-14] MEDS ORDERED: TRAZODONE 50 MG TABLET PO PRN (22:16)
[2022-07-14 22:48] VITALS: BMI 25.6
--- NOTE | 2022-07-15 07:17 | EKG ---
Test Date: 2022-07-14 Test Time: 12:56:40 Building Insulation Installer: TM MEASUREMENT RESULTS: Intervals: Rate: 55 WA: 156 QRSD: 80 QT: 408 QTc: 390 [place]: P: 45 WA: 156 QRS: 56 T: 46 INTERPRETIVE STATEMENTS: Sinus bradycardia with sinus arrhythmia Otherwise normal ECG Compared to ECG 06/27/2022 22:14:56 Atrial premature complex(es) no longer present ST (T wave) deviation no longer present Electronically Signed On 07-15-22 07:14:07 CDT by Maximilian Hayes
[2022-07-15] MEDS ORDERED: ASPIRIN EC 81 MG TAB PO SCH ×2 (09:00→14:00)
--- NOTE | 2022-07-15 12:17 | CON ---
Date of Consultation: 07/15/2022 History Of Present Illness: Ms. Murillo is an 81. Has a history of 2 ablations in the past for SV T. Has a history of diabetes, dyslipidemia, hypertension, gastroesophageal reflux disease, hypothyro idism. Recently in the last 2 weeks, had an LAD stent by Dr. Hager. Comes back today with similar symptoms that she had before the stent and was admitted by the emergency room physician. She has alr crow had negative EKG, negative chest x-ray, negative troponin. I am concerned about celiac artery s tenosis by MRA that she had recently and we may have to do a celiac artery angiogram. I will discuss that further with Dr. Hager. Past Medical History: Otherwise stated above. Allergies: SHE IS ALLERGIC TO MULTIPLE ANTIBIOTICS WELL GLIMEPIRIDE. Review of Systems: Negative. Social History: Negative. Family History: Negative. Medications: At home include aspirin, Lipitor, Effient, losartan, insulin, Protonix, and Synthroid. Physical Examination: Vital Signs: Stable, afebrile. HEENT: Negative. Neck: Supple with no bruit. Chest: Clear. Cardiac: Revealed a regular rhythm and rate. No murmurs, gallops, or rubs. Abdomen: Benign. Extremities: Revealed no clubbing, cyanosis, or edema. Diagnostic Data: As stated earlier. Impression And Plan: 1.Coronary artery disease, status post recent stent, very unlikely restenosed, but the patient is curran ving similar symptoms, so we will do another catheterization to rule out restenosis. 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 I will discuss the case with Dr. Hager to do a possible celiac artery angiogram if he is able to. 3.Diabetes. 4.Status post ablation for supraventricular tachycardia. 5.Dyslipidemia. 6.Hypothyroidism. 7.Gastroesophageal reflux disease. Again, continue present regimen. A heart catheterization and th en possible celiac angiogram will be done today. May need an event monitor some time as an outpatien t as she is having occasional symptoms of palpitations and feeling very weak sometimes after she eats . NB/MODL Voice ID: [id number] Report ID: [id number]
[2022-07-15 12:32] VITALS: TEMP 97.5
[2022-07-15] MEDS ORDERED: ONDANSETRON 4 MG (ODT) TAB PO PRN (14:00)
[2022-07-15] MEDS ORDERED: BISOPROLOL 5 MG TABLET PO SCH (14:00)
[2022-07-15] MEDS ORDERED: ATORVASTATIN 20 MG TAB PO SCH (14:00)
[2022-07-15] MEDS ORDERED: PRASUGREL (EFFIENT) 10 MG TAB PO SCH (14:00)
[2022-07-15] MEDS ORDERED: LOSARTAN POTASSIUM 50 MG TABLET PO SCH (14:00)
[2022-07-15] MEDS ORDERED: HEPA 1000U/500MLS 2,000 UNIT/1,000 ML BAG IV ONE (14:11)
[2022-07-15] MEDS ORDERED: MIDAZOLAM HCL 2 MG/2 ML INJ ONE (14:12)
[2022-07-15] MEDS ORDERED: LIDOCAINE 1% 20 ML MDV ONE (14:12)
[2022-07-15] MEDS ORDERED: ASPIRIN 325 MG TAB ONE (14:12)
[2022-07-15] MEDS ORDERED: VERAPAMIL HCL 10 MG/4 ML VIAL IV ONE (14:12)
[2022-07-15] MEDS ORDERED: HEPARIN 5000 UNIT/ML 1 ML VIAL ONE (14:12)
[2022-07-15] MEDS ORDERED: FENTANYL CITR 100 MCG/2 ML ONE (14:12)
[2022-07-15] MEDS ORDERED: CLOPIDOGREL 75 MG TABLET ONE (14:12)
[2022-07-15] MEDS ORDERED: HEPARIN 10,000 UNIT/10 ML VIAL IV ONE (14:13)
[2022-07-15] MEDS ORDERED: ATROPINE SULF 1 MG/10 ML SYR IV ONE (14:13)
[2022-07-15] MEDS ORDERED: TICAGRELOR 90 MG TABLET PO ONE (14:13)
[2022-07-15] MEDS ORDERED: NA CHLORIDE 0.9% 1,000 ML ONE (14:40)
[2022-07-15] MEDS ORDERED: ONDANSETRON 4 MG/2 ML VIAL ONE (14:44)
[2022-07-15] MEDS ORDERED: METHYLPREDNISOLONE 125 MG INJ ONE (14:44)
[2022-07-15] MEDS ORDERED: DIPHENHYDRAMINE 50 MG/ML VIAL ONE (14:44)
[2022-07-15] MEDS ORDERED: HYDRALAZINE HCL 20 MG/ML VIAL ONE (15:16)
[2022-07-15 16:27] VITALS: O2SAT 98
[2022-07-15] MEDS ORDERED: NITROGLYCERIN 0.4 MG/TAB SL PRN (17:06)
[2022-07-15] MEDS ORDERED: ACETAMINOPHEN 325 MG TABLET PO PRN (17:06)
[2022-07-15 17:26] VITALS: BP 132/53
[2022-07-15] MEDS ORDERED: NA CHLORIDE 0.9% 1,000 ML IV SCH (18:00)
[2022-07-16] MEDS ORDERED: LEVOTHYROXINE SOD 0.025 MG TAB PO SCH (06:00)
[2022-07-16] MEDS ORDERED: HOME MED 1 EA UNK (Losartan Potassium [Losartan Potassium] 25 MG Tablet) PO SCH (09:00)
--- NOTE | 2022-07-22 15:34 | OP ---
Date of Procedure: 07/15/2022 Surgeon: ERASMO JACKSON Procedures Performed: 1.Selective coronary angiogram. 2.Left heart catheterization. 3.Selective celiac artery angiogram. Indications: 1.Unstable angina. 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 Access: Right femoral artery 6-Bulgarian closed with 6-Bulgarian Angio-Seal. Complications: None. Bleeding: Less than 50 mL. Anesthesia: Total sedation time was 50 minutes. Description Of Procedure: After risks, benefits, alternatives were explained, the patient agreed to procedure and signed informed consent. The [facility], prepped and draped in the usual sterile fashion. Then, I accessed the right femoral artery u sing micropuncture kit, ultrasound guidance and fluoroscopy, placed a 6-Bulgarian Lily sheath. Subs equently, I took a 6-Bulgarian JL4 catheter into the aortic root, engaged in the left main, took standar d views, then exchanged for 6-Bulgarian JEANETTE catheter, engaged the RCA, took standard views and then the catheter was pushed over the wire into the LV, measured the LVEDP, pullback did not record any gradie nt and then using same catheter, I engaged the celiac trunk and performed iliac artery angiogram and then removed the catheter and removed the sheath, and 6-Bulgarian Angio-Seal was used for closure with g ood hemostasis. Findings: The coronary angiogram/left heart catheterization; 1.Left main is normal. 2.LAD; in the proximal segment, there is a widely patent stent. No iSR. The rest of the LAD is nor mal. Normal diagonal branches. 3.Left circumflex is normal. 4.RCA is normal and dominant. 5.LVEDP elevated at 50 mmHg. The celiac artery angiogram; 1.The celiac artery and celiac trunk are normal without any stenosis. 2.The splenic artery is widely patent and normal. No stenosis. 3.Hepatic artery is normal. Conclusions: 1.Widely patent LAD stent and no other coronary artery disease. 2.Normal celiac artery/hepatic/splenic arteries angiogram. 3.Slightly elevated LVEDP. Recommendation: Medical management. SR/MODL Voice ID: [id number] Report ID: [id number]
== END 2022-07-15 19:45 | disposition home or self-care (01) | DRG 287 ==
LOC: ER 12:50 → ERHOLD 15:38 → 4TH 18:54
PROVIDERS: ADMIT Internal Medicine; ATTEND Internal Medicine
PROC: 4A023N7 Measurement of Cardiac Sampling and Pressure, Left Heart, Percutaneous Approach (ICD-10-PCS; principal; 2022-07-15)
PROC: B2111ZZ Fluoroscopy of Multiple Coronary Arteries using Low Osmolar Contrast (ICD-10-PCS; 2022-07-15)
PROC: B4101ZZ Fluoroscopy of Abdominal Aorta using Low Osmolar Contrast (ICD-10-PCS; 2022-07-15)
DX: I25.110 Atherosclerotic heart disease of native coronary artery with unstable angina pectoris (principal); I10 Essential (primary) hypertension; E03.9 Hypothyroidism, unspecified; E11.9 Type 2 diabetes mellitus without complications; K21.9 Gastro-esophageal reflux disease without esophagitis; Z95.5 Presence of coronary angioplasty implant and graft; Z88.0 Allergy status to penicillin; Z88.5 Allergy status to narcotic agent; Z88.8 Allergy status to other drugs, medicaments and biological substances; Z79.4 Long term (current) use of insulin; Z88.1 Allergy status to other antibiotic agents; Z79.02 Long term (current) use of antithrombotics/antiplatelets; Z79.82 Long term (current) use of aspirin; Z90.49 Acquired absence of other specified parts of digestive tract; Z79.899 Other long term (current) drug therapy; Z79.890 Hormone replacement therapy
CPT/HCPCS: 36245; 36415; 71045; 76937; 80048; 80076; 82947; 83735; 83880; 84484; 85025; 85610; 85730; 93005; 93454; 99285; C1887; C1893; G0269; J0360; J0461; J1200; J1644; J2001; J2250; J2405; J2930; J3010; J7030

== ENCOUNTER → 2023-02-24 | Emergency (ER) | payer OTHER ==
--- NOTE | 2023-02-24 17:03 | RAD REPORT ---
EXAM DESCRIPTION: RAD - Chest Single View - 02/24/2023 4:57 pm CLINICAL HISTORY: CHEST PAIN Chest pain. COMPARISON: <Comparisons> FINDINGS: Portable technique limits examination quality. The lungs are grossly clear. The heart is upper limit of normal in size. No displaced fractures. IMPRESSION: No acute intrathoracic process suspected.
[2023-02-24 17:23] LABS: Absolute Lymphocytes (CBC) 1.1 K/uL (0.7-4.9); Hematocrit 38.8 % (36.0-45.0); MCV 86.2 fL (80-100); MPV 7.6 fL (7.6-11.3); Platelets 217 thou/uL (152-406); RBC Red Blood Cell Count 4.49 M/uL (3.86-4.86)
[2023-02-24 17:43] LABS: Albumin 3.9 g/dL (3.4-5.0); Bilirubin Direct 0.2 mg/dL (0-0.2); Bilirubin Indirect, Calculated 0.4 mg/dL (0.2-0.8); Bilirubin Total 0.6 mg/dL (0.2-1.0); Potassium 4.3 mEq/L (3.5-5.1); Protein, Total 8.2 g/dL (6.4-8.2); Troponin High Sensitivity 10.3 pg/mL (<58.9)
--- NOTE | 2023-02-24 18:25 | ER ---
Nurse's Notes [facility] Name: Marie Puri Age: 82 yrs Sex: Female : 1940 Arrival Date: 02/24/2023 Time: 16:17 Bed 12 Private MD: Leonard Tavares V Diagnosis: Nausea with vomiting, unspecified Presentation: 02/24 16:27 Chief complaint: Patient states: I got real sick to my stomach and had an ache in my iw chest, I've been on Macrobid and I've been on plavix after a heart cath , symptoms started about an hour ago. Coronavirus screen: At this time, the client does not indicate any symptoms associated with coronavirus-19. Ebola Screen: Patient negative for fever greater than or equal to 101.5 degrees Fahrenheit, and additional compatible Ebola Virus Disease symptoms Patient denies exposure to infectious person. Patient denies travel to an Ebola-affected area in the 21 days before illness onset. No symptoms or risks identified at this time. Initial Sepsis Screen: Does the patient meet any 2 criteria? No. Patient's initial sepsis screen is negative. Does the patient have a suspected source of infection? No. Patient's initial sepsis screen is negative. Risk Assessment: Do you want to hurt yourself or someone else? Patient reports no desire to harm self or others. Onset of symptoms was February 24, 2023. 16:27 Method Of Arrival: Ambulatory iw 16:27 Acuity: ARGELIA 3 iw Historical: - Allergies: 16:27 Albuterol; iw 16:27 Morphine; iw 16:27 PENICILLINS; iw 16:27 Phenergan; iw 16:27 Stadol; iw 16:27 Toprol XL; iw - Home Meds: 16:53 aspirin 81 mg Oral capsule [Active]; levothyroxine 25 mcg oral tablet daily [Active]; iw bisoprolol fumarate 5 mg Oral tab 1 tab 1/2 in the morning and 1/2 at night [Active]; losartan 25 mg oral tablet daily [Active]; Plavix 75 mg Oral tablet daily [Active]; - PMHx: 16:27 Diverticulitis; fatty liver; Diabetes - IDDM; Hypertensive disorder; Hypothyroidism; iw Kidney stones; mitral valve prolapse; Pancreatitis; - PSHx: 16:27 cardiac stent; Colonresection; Heart ablation X2; iw - Immunization history:: n/a. - Family history:: not pertinent. - Social history:: Smoking status: Patient denies any tobacco usage or history of. Screenin:39 [facility] ED Fall Risk Assessment (Adult) Score/Fall Risk Level 0 - 2 = Low Risk ll1 Oriented to surroundings, Maintained a safe environment, Educated pt \T\ family on fall prevention, incl call for assistance when getting out of bed, Hourly rounding (assess needs \T\ fall precautionary measures) done. Abuse screen: Denies threats or abuse. Nutritional screening: No deficits noted. Tuberculosis screening: No symptoms or risk factors identified. Assessment: 18:05 General: Appears in no apparent distress. Behavior is calm, cooperative, appropriate ll1 for age. Pain: Denies pain. Cardiovascular: Reports chest pain, fatigue, nausea. GI: Bowel sounds present X 4 quads. Abd is soft and non tender X 4 quads. Reports upper abdominal pain, nausea. Vital Signs: 16:27 BP 154 / 70; Pulse 56; Resp 16; Temp 98.1(TE); Pulse Ox 99% ; iw ED Course: 16:18 Patient arrived in ED. rg4 16:18 Leonard Tavares MD is Private Physician. rg4 16:19 Damon Trammell MD is Attending Physician. rt 16:29 Triage completed. iw 16:29 Arm band placed on. iw 16:59 XRAY Chest (1 view) In Process Unspecified. EDMS 17:19 Lipase Sent. bc6 17:19 Basic Metabolic Panel Sent. bc6 17:19 CBC with Diff Sent. bc6 17:19 LFT's Sent. bc6 17:19 Magnesium Sent. bc6 17:19 Troponin HS Sent. bc6 17:19 Inserted saline lock: 20 gauge in right antecubital area, using aseptic technique. bc6 Blood collected. 18:09 Patient placed in an exam room, on a stretcher. ld1 18:24 Leonard Tavares MD is Referral Physician. rt 18:39 Patient has correct armband on for positive identification. Bed in low position. Call ll1 light in reach. Provided Education on: n/a. 18:39 No provider procedures requiring assistance completed. IV discontinued, intact, ll1 bleeding controlled, No redness/swelling at site. Pressure dressing applied. Administered Medications: No medications were administered Medication: 18:40 VIS not applicable for this client. ll1 Outcome: 18:24 Discharge ordered by . rt 18:39 Discharged to home ambulatory, ll1 18:39 Condition: stable 18:39 Discharge instructions given to patient, Instructed on discharge instructions, follow up and referral plans. medication usage, Demonstrated understanding of instructions, follow-up care, medications, Prescriptions given X 2, 18:40 Patient left the ED. ll1 Signatures: Dispatcher [employer] EDSaige Thomas RN RN iw Tomasa Foreman rg4 Mary Reyes RN RN ll1 Chantel Raphael RN RN ld1 Damon Trammell MD MD rt Luly Reed 6 Corrections: (The following items were deleted from the chart) 16:56 16:27 BP 154 / 70; Pulse 56bpm; Resp 16bpm; Pulse Ox 99%; iw iw
--- NOTE | 2023-02-24 18:25 | EDPHYS ---
Physician Documentation [facility] Name: Marie Puri Age: 82 yrs Sex: Female : 1940 Arrival Date: 02/24/2023 Time: 16:17 Bed 12 Private MD: Leonard Tavares V ED Physician Damon Trammell HPI: 02/24 17:00 This 82 yrs old Female presents to ER via Ambulatory with complaints of Abdominal Pain, rt High Blood Pressure. 17:00 This 82 yrs old Female presents to ER via Ambulatory with complaints of Nausea, High rt Blood Pressure. 17:00 Patient presents to the ED with an episode of nausea that occurred when she took her rt Plavix and Macrobid, which she is taking for UTI, but had no episodes of vomiting. She denies any abdominal pain. The patient took a Zofran which improved her symptoms. She stated that when she was nauseated, her blood pressure was over 170, she took an extra dose of blood pressure medicines. Reported chest discomfort. Denies other acute complaints at this time, symptoms are moderate in severity, no other aggravating. Historical: - Allergies: 16:27 Albuterol; iw 16:27 Morphine; iw 16:27 PENICILLINS; iw 16:27 Phenergan; iw 16:27 Stadol; iw 16:27 Toprol XL; iw - Home Meds: 16:53 aspirin 81 mg Oral capsule [Active]; levothyroxine 25 mcg oral tablet daily [Active]; iw bisoprolol fumarate 5 mg Oral tab 1 tab 1/2 in the morning and 1/2 at night [Active]; losartan 25 mg oral tablet daily [Active]; Plavix 75 mg Oral tablet daily [Active]; - PMHx: 16:27 Diverticulitis; fatty liver; Diabetes - IDDM; Hypertensive disorder; Hypothyroidism; iw Kidney stones; mitral valve prolapse; Pancreatitis; - PSHx: 16:27 cardiac stent; Colonresection; Heart ablation X2; iw - Immunization history:: n/a. - Family history:: not pertinent. - Social history:: Smoking status: Patient denies any tobacco usage or history of. ROS: 17:00 Constitutional: Negative for fever, chills, and weight loss, Respiratory: Negative for rt shortness of breath, cough, wheezing, and pleuritic chest pain, MS/Extremity: Negative for injury and deformity, Skin: Negative for injury, rash, and discoloration, Neuro: Negative for headache, weakness, numbness, tingling, and seizure, Psych: Negative for depression, anxiety, suicide ideation, homicidal ideation, and hallucinations, 17:00 Cardiovascular: Positive for Chest pressure, negative for edema, 17:00 Abdomen/GI: Positive for nausea, Negative for vomiting, Exam: 17:00 Constitutional: This is a well developed, well nourished patient who is awake, alert, rt and in no acute distress. Head/Face: Normocephalic, atraumatic. Chest/axilla: Normal chest wall appearance and motion. Nontender with no deformity. No lesions are appreciated. Cardiovascular: Regular rate and rhythm with a normal S1 and S2. No gallops, murmurs, or rubs. Normal PMI, no JVD. No pulse deficits. Respiratory: Lungs have equal breath sounds bilaterally, clear to auscultation and percussion. No rales, rhonchi or wheezes noted. No increased work of breathing, no retractions or nasal flaring. Abdomen/GI: Soft, non-tender, with normal bowel sounds. No distension or tympany. No guarding or rebound. No evidence of tenderness throughout. Skin: Warm, dry with normal turgor. Normal color with no rashes, no lesions, and no evidence of cellulitis. MS/ Extremity: Pulses equal, no cyanosis. Neurovascular intact. Full, normal range of motion. Neuro: Awake and alert, GCS 15, oriented to person, place, time, and situation. Cranial nerves II-XII grossly intact. Motor strength 5/5 in all extremities. Sensory grossly intact. Cerebellar exam normal. Normal gait. Psych: Awake, alert, with orientation to person, place and time. Behavior, mood, and affect are within normal limits. 17:00 ECG was reviewed by the Attending Physician. Vital Signs: 16:27 BP 154 / 70; Pulse 56; Resp 16; Temp 98.1(TE); Pulse Ox 99% ; iw MDM: 16:38 Patient medically screened. rt 02/24 16:39 Order name: Basic Metabolic Panel; Complete Time: 17:46 rt 02/24 16:39 Order name: CBC with Diff; Complete Time: 17:46 rt 02/24 16:39 Order name: LFT's; Complete Time: 17:46 rt 02/24 16:39 Order name: Magnesium; Complete Time: 17:46 rt 02/24 16:39 Order name: Troponin HS; Complete Time: 17:46 rt 02/24 16:39 Order name: Lipase; Complete Time: 17:46 rt 02/24 16:39 Order name: XRAY Chest (1 view); Complete Time: 17:05 rt 02/24 16:39 Order name: EKG; Complete Time: 16:40 rt 02/24 16:39 Order name: Cardiac monitoring rt 02/24 16:39 Order name: EKG - Nurse/Tech; Complete Time: 16:56 rt 02/24 16:39 Order name: IV Saline Lock; Complete Time: 17:19 rt 02/24 16:39 Order name: Labs collected and sent; Complete Time: 17:19 rt 02/24 16:39 Order name: O2 Per Protocol rt 02/24 16:39 Order name: O2 Sat Monitoring rt EC:00 Rate is 51 beats/min. Rhythm is regular, Sinus bradycardia with PACs. QRS [place] is rt Normal. [place] interval is normal. QRS interval is normal. QT interval is normal. No Q waves. T waves are Normal. No ST changes noted. Administered Medications: No medications were administered Disposition Summary: 02/24/23 18:24 Discharge Ordered Notes: Location: Home rt Problem: new rt Symptoms: are resolved rt Condition: Stable rt Diagnosis - Nausea with vomiting, unspecified rt Followup: rt - With: Leonard Tavares MD - When: 2 - 3 days - Reason: Discharge Instructions: - Discharge Summary Sheet rt - Nausea and Vomiting, Adult rt Forms: - Medication Reconciliation Form rt - Thank You Letter rt - Antibiotic Education rt - Prescription Opioid Use rt - Patient Portal Instructions rt - Leadership Thank You Letter rt Prescriptions: - ondansetron 4 mg Oral Tablet,disintegrating - take 1 tablet ORAL route every 6 hours As needed; 30 tablet; Refills: 0, rt Product Selection Permitted - cefpodoxime 200 mg Oral tablet - take 2 tablets ORAL route every 12 hours with food; 14 tablet; Refills: 0, rt Product Selection Permitted Signatures: Dispatcher [employer] Saige Izaguirre RN RN iw Mary Reyes RN RN ll1 [place], Damon, MD MD rt
[2023-02-24 21:53] VITALS: BP 154/70; TEMP 98.1; O2SAT 99
== END ==
LOC: ER 16:17
DX: R11.2 Nausea with vomiting, unspecified (principal); R07.89 Other chest pain; I10 Essential (primary) hypertension; E11.9 Type 2 diabetes mellitus without complications; Z95.818 Presence of other cardiac implants and grafts; Z88.0 Allergy status to penicillin; Z88.5 Allergy status to narcotic agent; Z91.048 Other nonmedicinal substance allergy status
CPT/HCPCS: 36415; 71045; 80048; 80076; 83690; 83735; 84484; 85025; 93005

== ENCOUNTER → 2023-04-25 | Emergency (ER) | payer OTHER ==
[~2023-04-25] MED LIST: ASPIRIN 81 MG CHEWABLE TABLET ONE; MORPHINE 4 MG/ML SYR ONE; ONDANSETRON 4 MG/2 ML VIAL ONE
[2023-04-25 10:26] LABS: Absolute Basophils 0.1 K/uL (0-0.5); Absolute Eosinophils 0.3 K/uL (0-0.5); Absolute Lymphocytes (CBC) 1.2 K/uL (0.7-4.9); Absolute Monocytes 0.6 K/uL (0.1-1.3); Absolute Neutrophil 4.3 K/uL (1.8-8.0); Eosinophils % 3.9 % (0-4.4); Hematocrit 35.7 % (36.0-45.0); Hemoglobin 12.1 g/dL (12.0-15.0); Lymphocytes % 18.2 % (15.3-44.8); MCH 28.6 pg (27.0-35.0); MCHC 33.8 g/dL (32.0-36.0); MCV 84.8 fL (80-100); MPV 8.3 fL (7.6-11.3); Monocytes % 10.1 % (3.3-12.3); Neutrophils % 66.8 % (41.7-73.7); Nucleated Red Blood Cells % 0.1 % (0-0); Platelets 219 thou/uL (152-406); RBC Red Blood Cell Count 4.21 M/uL (3.86-4.86); Red Cell Distribution Width 14.5 % (12.1-15.2)
[2023-04-25 10:28] LABS: PT Prothrombin Time 11.6 SECONDS (9.5-12.5); Protime INR 1.06
[2023-04-25 10:44] LABS: Anion Gap 10.1 mEq/L (5.0-15.0); Potassium 4.1 mEq/L (3.5-5.1); Troponin High Sensitivity 11.3 pg/mL (<58.9)
--- NOTE | 2023-04-25 11:32 | RAD REPORT ---
EXAM DESCRIPTION: RADChest Single View04/25/2023 10:17 am CLINICAL HISTORY: CHEST PAIN COMPARISON: Chest Single View dated 02/24/2023; Chest Single View dated 07/14/2022; Chest Single View d ated 06/27/2022; Chest Single View dated 06/19/2022 TECHNIQUE: Portable AP view of the chest. FINDINGS: The lungs are clear. No pneumothorax or effusion. The cardiomediastinal contours are unre markable. IMPRESSION: No acute cardiopulmonary process.
--- NOTE | 2023-04-25 11:41 | ER ---
Nurse's Notes [facility] Name: Marie Puri Age: 82 yrs Sex: Female : 1940 Arrival Date: 04/25/2023 Time: : Bed 5 Private MD: Diagnosis: chest pain Presentation: 04/24 09:22 Acuity: ARGELIA 2 aa5 09:22 Chief complaint: Chief complaint: Patient states: "I have unstable angina but today I aa5 got a very bad chest pain". 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 09:22 Coronavirus screen: At this time, the client does not indicate any symptoms associated aa5 with coronavirus-19. Ebola Screen: Patient denies travel to an Ebola-affected area in the 21 days before illness onset. Initial Sepsis Screen: Does the patient meet any 2 criteria? No. Patient's initial sepsis screen is negative. Does the patient have a suspected source of infection? No. Patient's initial sepsis screen is negative. Risk Assessment: Do you want to hurt yourself or someone else? Patient reports no desire to harm self or others. 09:22 Method Of Arrival: Ambulatory aa5 09:22 Onset of symptoms was April 25, 2023. aa5 Historical: - Allergies: 09:22 Albuterol; aa5 09:22 Morphine; aa5 09:22 PENICILLINS; aa5 09:22 Phenergan; aa5 09:22 Stadol; aa5 09:22 Toprol XL; aa5 - PMHx: 09:22 Diabetes - IDDM; Diverticulitis; fatty liver; Hypertensive disorder; Hypothyroidism; aa5 Kidney stones; mitral valve prolapse; Pancreatitis; - PSHx: 09:22 cardiac stent; Colonresection; Heart ablation X2; aa5 - Immunization history:: Adult Immunizations unknown. - Social history:: Smoking status: Patient denies any tobacco usage or history of. Screenin:33 [facility] ED Fall Risk Assessment (Adult) History of falling in the last 3 months, rs5 including since admission No falls in past 3 months (0 pts) Confusion or Disorientation No (0 pts) Intoxicated or Sedated No (0 pts) Impaired Gait No (0 pts) Mobility Assist Device Used No (0 pt) Altered Elimination No (0 pt) Score/Fall Risk Level 0 - 2 = Low Risk Oriented to surroundings, Maintained a safe environment. 09:33 Abuse screen: Denies threats or abuse. Nutritional screening: No deficits noted. rs5 Nutritional screening: No deficits noted. Tuberculosis screening: No symptoms or risk factors identified. Assessment: 09:33 General: Appears in no apparent distress. comfortable, Behavior is calm, cooperative. rs5 Pain: Complains of pain in chest Pain does not radiate. Pain currently is 5 out of 10 on a pain scale. Quality of pain is described as aching, Pain began 1 hour ago. Is continuous. 09:33 Neuro: Level of Consciousness is awake, alert, obeys commands, Oriented to person, rs5 place, time, situation. Cardiovascular: Patient's skin is warm and dry. Rhythm is regular. Respiratory: Airway is patent Respiratory effort is even, unlabored, Respiratory pattern is regular, symmetrical. GI: Abdomen is round non-distended, Abd is soft and non tender X 4 quads. : No signs and/or symptoms were reported regarding the genitourinary system. EENT: No signs and/or symptoms were reported regarding the EENT system. Derm: Skin is intact, Skin is pink, warm \\T\\ dry. Musculoskeletal: Range of motion: intact in all extremities. 10:40 Reassessment: Patient and/or family updated on plan of care and expected duration. Pain rs5 level reassessed. Patient is alert, oriented x 3, equal unlabored respirations, skin warm/dry/pink. Patient denies pain at this time. Patient states feeling better. Patient states symptoms have improved. 11:55 Reassessment: No changes from previously documented assessment. rs5 12:00 Reassessment: awaiting repeat troponin prior to discharge per md orders. rs5 12:00 Reassessment: Patient and/or family updated on plan of care and expected duration. Pain rs5 level reassessed. Patient is alert, oriented x 3, equal unlabored respirations, skin warm/dry/pink. Pain: Denies pain. Cardiovascular: Rhythm is regular. Vital Signs: 09:22 BP 143 / 70; Pulse 56; Resp 18 S; Temp 98(TE); Pulse Ox 98% on R/A; Weight 67.13 kg aa5 (R); Height 5 ft. 2 in. (R); Pain 4/10; 09:33 BP 138 / 70; Pulse 80; Resp 18; Temp 97.8(O); Pulse Ox 99% ; rs5 11:57 BP 140 / 72; Pulse 78; Resp 18; Pulse Ox 99% on R/A; rs5 09:22 Body Mass Index 27.07 (67.13 kg, 157.48 cm) aa5 09:22 Pain Scale: Adult aa5 ED Course: 09:22 Patient arrived in ED. im 09:22 Arm band placed on Patient placed in an exam room, on a stretcher. aa5 09:30 EKG done, by ED staff, reviewed by Cindy Davis MD. aa5 09:33 Patient has correct armband on for positive identification. Placed in gown. Bed in low rs5 position. Call light in reach. Side rails up X2. Client placed on continuous cardiac and pulse oximetry monitoring. NIBP monitoring applied. cardiac monitor technician on. Pulse ox on. NIBP on. 09:33 No provider procedures requiring assistance completed. Patient maintains SpO2 rs5 saturation greater than 95% on room air. 09:34 Cindy Davis MD is Attending Physician. cp3 09:39 Triage completed. aa5 09:42 Jason Juarez, ISAIAS is Primary Nurse. rs5 10:19 XRAY Chest (1 view) In Process Unspecified. EDMS 11:40 Kenneth Hager MD is Referral Physician. cp3 11:58 Troponin High Sensitivity Sent. rs5 12:25 IV discontinued, intact, bleeding controlled, No redness/swelling at site. Pressure rs5 dressing applied. Administered Medications: 10:30 Drug: Aspirin PO Chewable Tablet 324 mg PO once; 81 mg tablets x 4 Route: PO; bp 11:30 Follow up: Response: No adverse reaction rs5 11:01 Not Given (Patient Refused): morphineor iv 4 mg IVP once over 4 mins bp 11:01 Not Given (Patient Refused): ondansetron 4 mg IVP once; over 2 minutes bp Medication: 09:45 VIS not applicable for this client. rs5 Outcome: 11:41 Discharge ordered by . cp3 12:26 Patient left the ED. rs5 12:26 Discharged to home ambulatory, rs5 12:26 Condition: stable 12:26 Discharge instructions given to patient, family, Instructed on discharge instructions, follow up and referral plans. Demonstrated understanding of instructions, follow-up care, Signatures: Dispatcher [employer] Cindy Alvares MD MD cp3 Eva Chavarria RN RN aa5 Daniel Pastrana, ISAIAS RN Jason Narayanan RN RN rs5 Janis Salazar Corrections: (The following items were deleted from the chart) 09:44 09:22 Chief complaint: aa5 aa5 09:46 09:22 BP 143 / 70; Pulse 56bpm; Resp 18bpm; Spontaneous; Pulse Ox 98% RA; Temp 98F aa5 Temporal; 67.13 kg Reported; Height 5 ft. 2 in. Reported; BMI: 27.0; aa5 13:01 12:38 Patient left the ED. rs5 rs5 13:02 12:10 Reassessment: awaiting repeat troponin prior to discharge per md orders. rs5 rs5 13:02 12:00 Reassessment: awaiting repeat troponin prior to discharge per md orders. rs5 rs5
--- NOTE | 2023-04-25 11:41 | EDPHYS ---
Physician Documentation [facility] Name: Marie Puri Age: 82 yrs Sex: Female : 1940 Arrival Date: 04/25/2023 Time: 09:22 Bed 5 Private MD: ED Physician Cindy Davis HPI: 04/24 10:09 This 82 yrs old Female presents to ER via Ambulatory with complaints of Chest Pain. cp3 10:09 The patient is a 82-year-old female who presents to the ED secondary to acute chest cp3 pain that started roughly 2 hours ago. The patient denies shortness of breath, nausea, vomiting, diaphoresis, syncope, dizziness. The patient has a history of coronary disease and has a heart cath planned for Wednesday with Dr. Madan Garcia: Albuterol; Morphine; PENICILLINS; Phenergan; Stadol; Toprol XL; Home Meds: (Nothing Entered) PMHx: Diabetes - IDDM; Diverticulitis; fatty liver; Hypertensive disorder; Hypothyroidism; Kidney stones; mitral valve prolapse; Pancreatitis; PSHx: cardiac stent; Colonresection; Heart ablation X2; Time B/P Pulse Resp Temp Pulse Ox Weight Height Pain 04/24 09:33 138/70 80 18 97.8 99% 04/24 09:22 143/70 56 18 98 98% on R/A 67.13 kg (R) 5 ft. 2 in. (R) 05/18 . Historical: - Allergies: 09:22 Albuterol; aa5 09:22 Morphine; aa5 09:22 PENICILLINS; aa5 09:22 Phenergan; aa5 09:22 Stadol; aa5 09:22 Toprol XL; aa5 - PMHx: 09:22 Diabetes - IDDM; Diverticulitis; fatty liver; Hypertensive disorder; Hypothyroidism; aa5 Kidney stones; mitral valve prolapse; Pancreatitis; - PSHx: 09:22 cardiac stent; Colonresection; Heart ablation X2; aa5 - Immunization history:: Adult Immunizations unknown. - Social history:: Smoking status: Patient denies any tobacco usage or history of. ROS: 10:09 Constitutional: Negative for fever, chills, and weight loss, Eyes: Negative for injury, cp3 pain, redness, and discharge, ENT: Negative for injury, pain, and discharge, Neck: Negative for injury, pain, and swelling, Respiratory: Negative for shortness of breath, cough, wheezing, and pleuritic chest pain, Abdomen/GI: Negative for abdominal pain, nausea, vomiting, diarrhea, and constipation, Back: Negative for injury and pain, : Negative for injury, bleeding, discharge, and swelling, MS/Extremity: Negative for injury and deformity, Skin: Negative for injury, rash, and discoloration, Neuro: Negative for headache, weakness, numbness, tingling, and seizure, Psych: Negative for depression, anxiety, suicide ideation, homicidal ideation, and hallucinations, Allergy/Immunology: Negative for hives, rash, and allergies, Endocrine: Negative for neck swelling, polydipsia, polyuria, polyphagia, and marked weight changes, Hematologic/Lymphatic: Negative for swollen nodes, abnormal bleeding, and unusual bruising, 10:09 Cardiovascular: Positive for chest pain, Exam: 10:09 Constitutional: This is a well developed, well nourished patient who is awake, alert, cp3 and in no acute distress. Head/Face: Normocephalic, atraumatic. Eyes: Pupils equal round and reactive to light, extra-ocular motions intact. Lids and lashes normal. Conjunctiva and sclera are non-icteric and not injected. Cornea within normal limits. Periorbital areas with no swelling, redness, or edema. ENT: Nares patent. No nasal discharge, no septal abnormalities noted. Tympanic membranes are normal and external auditory canals are clear. Oropharynx with no redness, swelling, or masses, exudates, or evidence of obstruction, uvula midline. Mucous membranes moist. Neck: Trachea midline, no thyromegaly or masses palpated, and no cervical lymphadenopathy. Supple, full range of motion without nuchal rigidity, or vertebral point tenderness. No Meningismus. Chest/axilla: Normal chest wall appearance and motion. Nontender with no deformity. No lesions are appreciated. Cardiovascular: Regular rate and rhythm with a normal S1 and S2. No gallops, murmurs, or rubs. Normal PMI, no JVD. No pulse deficits. Respiratory: Lungs have equal breath sounds bilaterally, clear to auscultation and percussion. No rales, rhonchi or wheezes noted. No increased work of breathing, no retractions or nasal flaring. Abdomen/GI: Soft, non-tender, with normal bowel sounds. No distension or tympany. No guarding or rebound. No evidence of tenderness throughout. Back: No spinal tenderness. No costovertebral tenderness. Full range of motion. Skin: Warm, dry with normal turgor. Normal color with no rashes, no lesions, and no evidence of cellulitis. MS/ Extremity: Pulses equal, no cyanosis. Neurovascular intact. Full, normal range of motion. Neuro: Awake and alert, GCS 15, oriented to person, place, time, and situation. Cranial nerves II-XII grossly intact. Motor strength 5/5 in all extremities. Sensory grossly intact. Cerebellar exam normal. Normal gait. Psych: Awake, alert, with orientation to person, place and time. Behavior, mood, and affect are within normal limits. Vital Signs: 09:22 BP 143 / 70; Pulse 56; Resp 18 S; Temp 98(TE); Pulse Ox 98% on R/A; Weight 67.13 kg aa5 (R); Height 5 ft. 2 in. (R); Pain 4/10; 09:33 BP 138 / 70; Pulse 80; Resp 18; Temp 97.8(O); Pulse Ox 99% ; rs5 11:57 BP 140 / 72; Pulse 78; Resp 18; Pulse Ox 99% on R/A; rs5 09:22 Body Mass Index 27.07 (67.13 kg, 157.48 cm) aa5 09:22 Pain Scale: Adult aa5 Procedures: 10:09 Performed EKG interpreted by me at 8:30 AM: Patient has sinus bradycardia, rate 50, QT cp3 of 418, no evidence of acute PR. MDM: 09:34 Patient medically screened. cp3 10:09 Differential diagnosis: acute myocardial infarction, coronary artery disease chest wall cp3 pain, congestive heart failure stable angina, unstable angina. The patient was given aspirin in the Emergency Department. Consideration of Admission/Observation Escalation of care including admission/observation considered. 11:41 Data reviewed: vital signs, nurses notes, lab test result(s), EKG, radiologic studies, cp3 plain films. I considered the following discharge prescriptions or medication management in the emergency department Medications were administered in the Emergency Department. See MAR. Independent interpretation of the following test(s) in the Emergency Department EKG: See my EKG interpretation above X-Ray: My interpretation is cxr negative for acute cardiopulmonary process. Response to treatment: the patient's symptoms have markedly improved after treatment. 11:43 ED course: results reviewed with patient and son. seems to be a recurrent theme of some cp3 anxiety. will try short course of ativan to see if that helps with sympotms. 04/24 10:09 Order name: Basic Metabolic Panel; Complete Time: 11:09 3 04/24 10:09 Order name: CBC with Diff; Complete Time: 11:09 3 04/24 10:09 Order name: NT PRO-BNP; Complete Time: 11:09 3 04/24 10:09 Order name: PT-INR; Complete Time: 11:09 3 04/24 10:09 Order name: Troponin HS; Complete Time: 11: 3 04/24 11:36 Order name: Troponin High Sensitivity 3 04/24 10:09 Order name: XRAY Chest (1 view); Complete Time: 11:36 3 04/24 10:09 Order name: EKG; Complete Time: 10:10 3 04/24 10:09 Order name: Cardiac monitoring; Complete Time: 10: 3 04/24 10:09 Order name: EKG - Nurse/Tech; Complete Time: 10: 3 04/24 10:09 Order name: IV Saline Lock; Complete Time: 10: 3 04/24 10:09 Order name: Labs collected and sent; Complete Time: 10: 3 04/24 10:09 Order name: O2 Per Protocol; Complete Time: : 3 04/24 10:09 Order name: O2 Sat Monitoring; Complete Time: 10:17 cp3 Administered Medications: 10:30 Drug: Aspirin PO Chewable Tablet 324 mg PO once; 81 mg tablets x 4 Route: PO; bp 11:30 Follow up: Response: No adverse reaction rs5 11:01 Not Given (Patient Refused): morphineor iv 4 mg IVP once over 4 mins bp 11:01 Not Given (Patient Refused): ondansetron 4 mg IVP once; over 2 minutes bp Disposition Summary: 04/25/23 11:41 Discharge Ordered Notes: Location: Home cp3 Condition: Stable cp3 Diagnosis - chest pain cp3 Followup: cp3 - With: Kenneth Hager MD - When: As needed - Reason: Continuance of care Discharge Instructions: - Discharge Summary Sheet cp3 Forms: - Medication Reconciliation Form cp3 - Thank You Letter cp3 - Antibiotic Education cp3 - Prescription Opioid Use cp3 - Patient Portal Instructions cp3 - Leadership Thank You Letter cp3 Prescriptions: - Ativan 0.5 mg Oral Tablet - take 1 tablet ORAL route every 8 hours As needed; 20 tablet; Refills: 0, cp3 Product Selection Permitted Signatures: Dispatcher [employer] Cindy Alvares MD MD cp3 Eva Chavarria RN RN aa5 Daniel Pastrana RN RN bp Jason Juarez RN RN rs5
[2023-04-25 13:26] VITALS: BP 140/72; TEMP 97.8; O2SAT 99
--- NOTE | 2023-04-27 14:13 | EKG ---
Test Date: 2023-04-25 Test Time: 08:30:13 Med Dir: MARIAM MEASUREMENT RESULTS: Intervals: Rate: 50 KS: 166 QRSD: 84 QT: 418 QTc: 381 [place]: P: 30 KS: 166 QRS: 15 T: 19 INTERPRETIVE STATEMENTS: Sinus bradycardia with sinus arrhythmia Otherwise normal ECG Compared to ECG 02/24/2023 16:47:31 Atrial premature complex(es) no longer present Electronically Signed On 04-27-23 14:07:08 CDT by Kenneth Hager
== END ==
LOC: ER 09:22
DX: R07.9 Chest pain, unspecified (principal); I10 Essential (primary) hypertension; E11.9 Type 2 diabetes mellitus without complications; E03.9 Hypothyroidism, unspecified; Z95.818 Presence of other cardiac implants and grafts; Z88.0 Allergy status to penicillin; Z88.5 Allergy status to narcotic agent; Z88.8 Allergy status to other drugs, medicaments and biological substances
CPT/HCPCS: 93005; 85025; 80048; 36415; 85610; 84484 ×2; 83880; 71045; J2405; 99285

== ENCOUNTER 2023-04-26 16:00 | Observation (INO) | payer OTHER ==
[2023-04-26 18:16] LABS: Absolute Eosinophils 0.2 K/uL (0-0.5); Absolute Lymphocytes (CBC) 1.4 K/uL (0.7-4.9); Absolute Monocytes 0.7 K/uL (0.1-1.3); Absolute Neutrophil 5.2 K/uL (1.8-8.0); Basophils % 0.7 % (0-1.3); Eosinophils % 3.1 % (0-4.4); Hematocrit 36.9 % (36.0-45.0); Hemoglobin 12.6 g/dL (12.0-15.0); Lymphocytes % 18.8 % (15.3-44.8); MCV 85.1 fL (80-100); MPV 7.8 fL (7.6-11.3); Monocytes % 8.7 % (3.3-12.3); Neutrophils % 68.7 % (41.7-73.7); Nucleated Red Blood Cells % 0.1 % (0-0); Platelets 244 thou/uL (152-406); RBC Red Blood Cell Count 4.34 M/uL (3.86-4.86); Red Cell Distribution Width 14.5 % (12.1-15.2)
[2023-04-26 18:54] LABS: Albumin 4.2 g/dL (3.4-5.0); Anion Gap 6.9 mEq/L (5.0-15.0); Bilirubin Direct 0.2 mg/dL (0-0.2); Bilirubin Indirect, Calculated 0.4 mg/dL (0.2-0.8); Bilirubin Total 0.6 mg/dL (0.2-1.0); Globulin 4.3 g/dL (2.3-3.5); Phosphorus 2.8 mg/dL (2.5-4.9); Potassium 3.9 mEq/L (3.5-5.1); Protein, Total 8.5 g/dL (6.4-8.2); Thyroid Stimulating Hormone 2.73 uIU/mL (0.358-3.740); Troponin High Sensitivity 13.5 pg/mL (<58.9)
[2023-04-26 19:52] VITALS: BMI 25.6
[2023-04-26] MEDS ORDERED: DIPHENHYDRAMINE 25 MG TAB/CAP PO PRN (20:10)
[2023-04-26] MEDS ORDERED: ACETAMINOPHEN 325 MG TABLET PO PRN (20:10)
[2023-04-26] MEDS ORDERED: POLYETHYL GLY 3350 17 GM/DOSE PO PRN (20:10)
[2023-04-26] MEDS ORDERED: GLUCAGON 1 MG/VIAL IM PRN (20:12)
[2023-04-26] MEDS ORDERED: D50W 25 GM/50 ML SYRINGE IV PRN (20:12)
[2023-04-26] MEDS ORDERED: D10W 125 ML IV PRN (20:29)
[2023-04-26] MEDS: NACHLORIDE 0.45% 1,000 ML IV SCH ×2 (21:03→21:42)
[2023-04-26] MEDS: INSULIN REGULAR (HUMAN) 100 UNIT/ML IV SCH (21:04)
[2023-04-26] MEDS ORDERED: ONDANSETRON 4 MG (ODT) TAB PO PRN (22:00)
[2023-04-26] MEDS: HEPARIN/D5W 25,000 UNIT/500 ML BAG IV SCH (22:09)
--- NOTE | 2023-04-26 23:27 | RAD REPORT ---
EXAM DESCRIPTION: RAD - Chest Pa And Lat (2 Views) - 04/26/2023 8:45 pm CLINICAL HISTORY: chest pain COMPARISON: Chest Single View dated 04/25/2023; Chest Single View dated 02/24/2023; Chest Single View dated 07/14/2022; Chest Single View dated 06/27/2022 TECHNIQUE: PA and lateral views of the chest were obtained. FINDINGS: The lungs are clear. Heart size is normal and central vasculature is within normal limits. No pleural effusion or pneumothorax seen. No acute bony finding noted. IMPRESSION: No acute cardiopulmonary process.
[2023-04-27 02:30] LABS: Specific Gravity 1.008 (1.005-1.030); Urine Bilirubin NEGATIVE (Negative); Urine Blood Negative (Negative); Urine Clarity Clear (Clear); Urine Color Light-Yellow (Yellow); Urine Glucose NEGATIVE (Negative); Urine Ketones NEGATIVE (Negative); Urine Microscopic Reflex YN NO UMIC; Urine Nitrite NEGATIVE (Negative); Urine Protein NEGATIVE (Negative); Urine Urobilinogen Normal (Normal)
[2023-04-27 02:45] LABS: Anion Gap 5.3 mEq/L (5.0-15.0); Potassium 4.3 mEq/L (3.5-5.1)
[2023-04-27 03:57] LABS: MA/CREAT RATIO ND (< 30.0); UR MICROALBUMIN < 0.5 mg/dL (< 1.9)
[2023-04-27] MEDS: LEVOTHYROXINE SOD 0.025 MG TAB PO SCH (05:28)
[2023-04-27] MEDS ORDERED: VERAPAMIL HCL 10 MG/4 ML VIAL IV ONE (06:22)
[2023-04-27] MEDS ORDERED: LIDOCAINE 1% 20 ML MDV ONE (06:22)
[2023-04-27] MEDS ORDERED: HEPA 1000U/500MLS 2,000 UNIT/1,000 ML BAG IV ONE (06:22)
[2023-04-27] MEDS ORDERED: NITROGLYCERIN/D5W 50 MG/250 ML BTL IV ONE (06:22)
[2023-04-27] MEDS ORDERED: FENTANYL CITR 100 MCG/2 ML ONE (06:23)
[2023-04-27] MEDS ORDERED: MIDAZOLAM HCL 2 MG/2 ML INJ ONE (06:23)
[2023-04-27] MEDS ORDERED: HEPARIN 5000 UNIT/ML 1 ML VIAL ONE (06:23)
[2023-04-27] MEDS ORDERED: ATROPINE SULF 1 MG/10 ML SYR IV ONE (06:23)
[2023-04-27] MEDS ORDERED: CLOPIDOGREL 75 MG TABLET ONE (06:24)
[2023-04-27] MEDS ORDERED: ASPIRIN 325 MG TAB ONE (06:24)
[2023-04-27] MEDS ORDERED: HEPARIN 10,000 UNIT/10 ML VIAL IV ONE (06:24)
[2023-04-27] MEDS ORDERED: TICAGRELOR 90 MG TABLET PO ONE (06:24)
[2023-04-27] MEDS ORDERED: DIPHENHYDRAMINE 50 MG/ML VIAL ONE (06:25)
[2023-04-27] MEDS ORDERED: METHYLPREDNISOLONE 125 MG INJ ONE (06:25)
[2023-04-27] MEDS ORDERED: NA CHLORIDE 0.9% 500 ML ONE (06:54)
[2023-04-27] MEDS ORDERED: ONDANSETRON 4 MG/2 ML VIAL ONE (08:21)
--- NOTE | 2023-04-27 08:53 | CON ---
Date of Consultation: 04/27/2023 Reason For Consultation: Chest pain. History Of Present Illness: An 82-year-old female, history of coronary artery disease, status post P CI, proximal LAD, history of hypertension, dyslipidemia, has been having chest pain, pressure-like on minimal movements, very short of breath with activities, and generally feels very weak. Denies havi ng any nausea, vomiting, or diaphoresis. She was admitted with unstable angina. Past Medical History: As outlined above in the HPI. Medications: Refer to reconciliation sheet for detailed list. Allergies: IODINE. Family History: No premature coronary artery disease or cancer. Social History: She does not smoke or drink. Does not use any drugs. Review of Systems: All systems reviewed and they were negative except as mentioned in the HPI. Physical Examination: Vital Signs: Reviewed. Head and Neck: Pupils are equal, reactive to light. Intact eye movements. No JVD. No cervical lym phadenopathy. Neck is supple. Thyroid is not enlarged. Lungs: Clear to auscultation bilaterally. No rhonchi, rales, or crackles. No accessory muscle use. Heart: Regular rate and rhythm. No extra sounds. Abdomen: Soft, nontender. Bowel sounds positive. No organomegaly. No masses or hernia. No rigidi ty or rebound. Extremities: No edema, clubbing, or cyanosis. Intact pulses. Skin: No rash. Neurologic: Alert, awake, oriented x3. No acute focal deficits appreciated. Lymph Nodes: No cervical or axillary lymphadenopathy. Investigations: Labs reviewed. Assessment/recommendation: 1.Unstable angina. Keep n.p.o. Plan for coronary angiogram today. Stop the heparin drip 1 hour pr ior to the procedure. Continue aspirin and Plavix. 2.Dyslipidemia. Continue Lipitor 40 mg q.h.s. 3.Hypertension. Blood pressure is controlled. Continue current management. SR/MODL Voice ID: [id number] Report ID: [id number]
--- NOTE | 2023-04-27 08:59 | OP ---
Date of Procedure: 04/27/2023 Surgeon: ERASMO JACKSON Procedures Performed: 1.Selective coronary angiogram. 2.Left heart catheterization. 3.PCI of severe in-stent restenosis in proximal LAD, used 3.5 x 16 mm Synergy drug-eluting stent, po st dilated using 4.0 x 50 mm NC balloon. Indication: Unstable angina. Access: Right radial artery 6-British, closed with TR band. Complications: None. Bleeding: Less than 50 mL. Anesthesia: Total sedation time was 45 minutes. Description Of Procedure: After risks, benefits, and alternatives were explained, the patient agreed to procedure and signed informed consent. The patient was brought into cardiac catheterization [facility], prepped and draped in the usual sterile fashion. Then, I accessed right radial artery using pediatric micropuncture kit, placed a 6-British Slender sheath and took 5-British tiger 4 catheter into the aortic root over a J-wire, engaged left main and the right coronary artery, took standard views, and catheter was pushed over the wire into the LV, measured the LVEDP. Pullback did not record any gradient and then exchanged for a 6-British EBU 3 guide and engaged the left main, gave systemic hepar in to assure ACT level above 250 and loaded with 180 mg of Brilinta. The patient already received as pirin today and then we took a run-through wire into the LAD past the area of the stenosis and using a 3.5 x 15 mm NC balloon, the ISR was pre-dilated, however, did not open the stent completely. Then, I decided to place another 3.5 x 16 mm drug-eluting stent and then used a 4.0 x 50 mm NC balloon to post dilate with excellent results at the end, 0% residual stenosis and BRITTNI-3 flow. After removal o f the wire, final angiogram was satisfactory and then removed the guide and the sheath, placed TR ban d with good hemostasis. Findings: 1.Left main; large, normal. 2.LAD; proximal LAD in-stent restenoses 99%, status post successful PCI as above. Rest of the LAD i s normal. Normal diagonal branches. 3.Left circumflex is normal. 4.RCA; moderate size and normal. 5.LVEDP elevated at 20 mmHg. Conclusion: 1.Severe proximal LAD in-stent restenosis, status post successful PCI as above. 2.Elevated LVEDP. Plan: 1.Discontinue Plavix. Change to Brilinta 90 mg twice a day and baby aspirin 81 mg daily. The patie nt is likely resistant to Plavix and high-dose statin. 2.Diuretics. SR/MODL Voice ID: [id number] Report ID: [id number]
[2023-04-27] MEDS: BISOPROLOL 5 MG TABLET PO SCH (09:00)
[2023-04-27] MEDS: LOSARTAN POTASSIUM 50 MG TABLET PO SCH ×2 (09:00→16:14)
[2023-04-27 13:28] VITALS: O2SAT 97
--- NOTE | 2023-04-27 14:07 | EKG ---
Test Date: 2023-04-26 Test Time: 19:54:20 Manager Personnel Selection: ALONA MEASUREMENT RESULTS: Intervals: Rate: 54 MD: 158 QRSD: 80 QT: 420 QTc: 398 Kirvin: P: 49 MD: 158 QRS: 54 T: 45 INTERPRETIVE STATEMENTS: Sinus bradycardia with sinus arrhythmia Otherwise normal ECG Compared to ECG 04/25/2023 08:30:13 No significant changes Electronically Signed On 04-27-23 14:05:08 CDT by Kenneth Hager
[2023-04-27] MEDS: ONDANSETRON 4 MG/2 ML VIAL IV PRN (21:22)
[2023-04-27] MEDS: TICAGRELOR 90 MG TABLET PO SCH (21:22)
[2023-04-27] MEDS: ATORVASTATIN 40 MG TAB PO SCH (21:22)
--- NOTE | 2023-04-27 21:45 | P.PN ---
Subjective Date of Service: 04/27/23 Chief Complaint: CAME TO SEE HER TODAY. SHE WAS IN CATH ROOM. DR. JACKSON CALLED. SHE HAS 99% BLOCK OF THE STENT JUST PLACED. SHE COULD NOT TOLERATE BRILLINTA SO SHE HAS SENOSIS OF THE STENT NOW. SHE WILL HAVE TO TAKE BRILLINTA EVEN WITH SE SE IS NOT AN ALLERGIC REACTION. Physical Examination - Vital Signs Temperature: 97.2 F Blood Pressure: 131/60 Pulse: 59 Respirations: 17 Pulse Ox (%): 98 - Studies Laboratory Data (last 24 hrs) 04/27/23 04/27/23 04/27/23 07:00 06:50 02:02 APTT Cancelled 103.3 H Sodium 139 Potassium 4.3 BUN 19 H Creatinine 1.27 H Glucose 159 H 04/27/23 02:02 APTT 223.1 H* Sodium Potassium BUN Creatinine Glucose
[2023-04-28] MEDS: ASPIRIN EC 81 MG TAB PO SCH (08:56)
[2023-04-28] MEDS ORDERED: ASPIRIN EC 81 MG TAB PO SCH (09:00)
[2023-04-28 09:13] VITALS: BP 159/71
[2023-04-28 09:44] VITALS: TEMP 97.3
--- NOTE | 2023-04-28 21:43 | P.DS ---
Admission Date: 04/26/23 Discharge Date: 04/28/23 Disposition: ROUTINE DISCHARGE Discharge Condition: FAIR Reason for Admission: CAME TO SEE HER TODAY. SHE WAS IN CATH ROOM. Hospital Course: NEGRITA CAME WITH CHEST PAIN AND RADIATION TO BACK AND ARM. SHE HAD 99% BLOCK OF THE STENT. THIS IS BEC OF HER HAVING SE OF BRILLINTA. SHE NOW MUST TAKE IT AFTER STENT BEING REOPENED. SHE WILL TOLERATE THE SE. SHE HAS NOT ABLE TO TOLERATE THE MEDICINES MANY TIMES. SHE IS STABLE TO GO HOME. RX CALLED IN Vital Signs/Physical Exam: Temp Pulse Resp BP Pulse Ox 97.3 F 62 16 159/71 H 99 04/28/23 08:00 04/28/23 08:55 04/28/23 08:00 04/28/23 08:55 04/28/23 08:00 Laboratory Data at Discharge: WBC 7.60 thou/uL (4.3-10.9) 04/26/23 17:59 Hgb 12.6 g/dL (12.0-15.0) 04/26/23 17:59 Hct 36.9 % (36.0-45.0) 04/26/23 17:59 Plt Count 244 thou/uL (152-406) 04/26/23 17:59 APTT Cancelled 04/27/23 07:00 Sodium 139 mEq/L (136-145) 04/27/23 02:02 Potassium 4.3 mEq/L (3.5-5.1) 04/27/23 02:02 BUN 19 mg/dL (7-18) H 04/27/23 02:02 Creatinine 1.27 mg/dL (0.55-1.02) H 04/27/23 02:02 Glucose 159 mg/dL (74-106) H 04/27/23 02:02 Phosphorus 2.8 mg/dL (2.5-4.9) 04/26/23 17:59 Magnesium 2.0 mg/dL (1.6-2.4) 04/26/23 17:59 Total Bilirubin 0.6 mg/dL (0.2-1.0) 04/26/23 17:59 AST 22 U/L (15-37) 04/26/23 17:59 ALT 30 U/L (13-56) 04/26/23 17:59 Alkaline Phosphatase 86 U/L (45-117) 04/26/23 17:59 Home Medications: Insulin Aspart [Novolog Flexpen] See Protocol SQ ACHS 11/09/17 Levothyroxine Sodium 25 mcg PO [id number] 11/09/17 bisoproloL fumarate [Zebeta*] 5 mg PO DAILY 11/09/17 Ondansetron [Zofran (Odt)*] 4 mg PO Q8H PRN 06/19/22 Pantoprazole Sodium [Protonix] 40 mg PO DAILY 06/19/22 Aspirin [Aspirin EC 81 MG] 81 mg PO DAILY 90 Days #90 tab 06/23/22 Losartan Potassium 25 mg PO DAILY 90 Days #90 tab 06/23/22 L.acidoph,Paracasei, B.lactis [Probiotic] See Rx Instructions .ROUTE .COMPLEX 04/26/23 Ubidecarenone [Co Q-10] See Rx Instructions .ROUTE .COMPLEX 04/26/23 Ticagrelor [Brilinta*] 90 mg PO BID #180 04/28/23 New Medications: Ticagrelor [Brilinta*] 90 mg PO BID #180
== END 2023-04-28 10:40 | disposition home or self-care (01) ==
LOC: 4TH 16:00
PROVIDERS: ADMIT Internal Medicine; ATTEND Internal Medicine
PROC: 4A023N7 Measurement of Cardiac Sampling and Pressure, Left Heart, Percutaneous Approach (ICD-10-PCS; principal; 2023-04-27)
PROC: B2111ZZ Fluoroscopy of Multiple Coronary Arteries using Low Osmolar Contrast (ICD-10-PCS; 2023-04-27)
PROC: 027034Z Dilation of Coronary Artery, One Artery with Drug-eluting Intraluminal Device, Percutaneous Approach (ICD-10-PCS; 2023-04-27)
DX: T82.855A Stenosis of coronary artery stent, initial encounter (principal); I25.110 Atherosclerotic heart disease of native coronary artery with unstable angina pectoris; I10 Essential (primary) hypertension; E78.5 Hyperlipidemia, unspecified; Z79.899 Other long term (current) drug therapy; Z91.041 Radiographic dye allergy status; Z88.2 Allergy status to sulfonamides; Z88.5 Allergy status to narcotic agent; Z88.8 Allergy status to other drugs, medicaments and biological substances
CPT/HCPCS: 93005; 87040; 85025; 80048 ×2; 36415; 83735; 84100; 82947 ×7; 80076; 85730 ×3; 84443; 81003; 83036; 82570; 84484 ×3; 82607; 82306; 82043; 71046; 93458; 76937; C1893; Q9967; C1725; C9600; J1815 ×2; J1644 ×2; J2001; J1200; J2930; J2405 ×2; J7040; 99152; G0378; G0379; J0461; J2250; J3010

== ENCOUNTER 2023-06-01 00:30 | Emergency (ER) | payer OTHER ==
[2023-06-01 01:35] LABS: Absolute Basophils 0.1 K/uL (0-0.5); Absolute Eosinophils 0.2 K/uL (0-0.5); Absolute Lymphocytes (CBC) 1.6 K/uL (0.7-4.9); Absolute Monocytes 0.8 K/uL (0.1-1.3); Absolute Neutrophil 4.9 K/uL (1.8-8.0); Basophils % 0.8 % (0-1.3); Eosinophils % 3.2 % (0-4.4); Hematocrit 35.5 % (36.0-45.0); Hemoglobin 11.8 g/dL (12.0-15.0); Lymphocytes % 21.3 % (15.3-44.8); MCH 28.5 pg (27.0-35.0); MCHC 33.4 g/dL (32.0-36.0); MCV 85.5 fL (80-100); Monocytes % 11.1 % (3.3-12.3); Neutrophils % 63.6 % (41.7-73.7); Platelets 232 thou/uL (152-406); RBC Red Blood Cell Count 4.15 M/uL (3.86-4.86); Red Cell Distribution Width 14.8 % (12.1-15.2)
[2023-06-01 01:47] LABS: Anion Gap 8.1 mEq/L (5.0-15.0); Potassium 4.1 mEq/L (3.5-5.1)
[2023-06-01] MEDS ORDERED: NITROGLYCERIN 0.4 MG/TAB SL ONE (03:04)
[2023-06-01] MEDS ORDERED: MAGNES/ALUMIN/SIMET 30ML UCUP ONE (03:16)
[2023-06-01] MEDS ORDERED: LIDOCAINE VISCOUS 2% 10ML ORAL SOLN ONE (03:16)
[2023-06-01] MEDS ORDERED: FAMOTIDINE 20 MG/2 ML VIAL IV ONE (03:17)
[2023-06-01] MEDS ORDERED: ASPIRIN 81 MG CHEWABLE TABLET ONE (03:37)
[2023-06-01] MEDS ORDERED: LORAZEPAM 0.5 MG TABLET ONE (03:37)
[2023-06-01 03:57] LABS: Albumin 3.5 g/dL (3.4-5.0); Albumin/Globulin Ratio 0.9 (1.1-1.8); Bilirubin Direct 0.2 mg/dL (0-0.2); Bilirubin Indirect, Calculated 0.5 mg/dL (0.2-0.8); Bilirubin Total 0.7 mg/dL (0.2-1.0); Globulin 3.8 g/dL (2.3-3.5); Protein, Total 7.3 g/dL (6.4-8.2); Troponin High Sensitivity 12.7 pg/mL (<58.9)
--- NOTE | 2023-06-01 04:56 | ER ---
Nurse's Notes [facility] Name: Marie Puri Age: 82 yrs Sex: Female : 1940 Arrival Date: 06/01/2023 Time: 00:30 Bed 6 Private MD: Diagnosis: Chest pain, unspecified Presentation: 05/31 00:36 Chief complaint: Patient states: I am feeling chest pain and I have a history of heart ha1 blockage and I am afraid is happening again. Took Nitrostat at home and my pain has got better. 00:36 Coronavirus screen: Vaccine status: Patient reports receiving the 2nd dose of the covid ha1 vaccine. Moderna. Ebola Screen: No symptoms or risks identified at this time. Initial Sepsis Screen: Does the patient meet any 2 criteria? No. Patient's initial sepsis screen is negative. Does the patient have a suspected source of infection? No. Patient's initial sepsis screen is negative. Risk Assessment: Do you want to hurt yourself or someone else? Patient reports no desire to harm self or others. Onset of symptoms was June 01, 2023. 00:36 Method Of Arrival: Wheelchair ha1 00:36 Acuity: ARGELIA 2 ha1 Triage Assessment: 00:52 General: Appears comfortable, Behavior is calm, cooperative. Pain: Complains of pain in ha1 chest Pain does not radiate. Pain currently is 7 out of 10 on a pain scale. Quality of pain is described as pressure. Neuro: Level of Consciousness is awake, alert, obeys commands, Oriented to person, place, time, situation. Cardiovascular: Reports chest pain, Heart tones S1 S2 present Capillary refill < 3 seconds Patient's skin is warm and dry. Respiratory: Airway is patent Respiratory effort is even, unlabored, Respiratory pattern is regular, symmetrical. GI: No signs and/or symptoms were reported involving the gastrointestinal system. Abdomen is round non-distended. : No signs and/or symptoms were reported regarding the genitourinary system. Derm: Skin is pale. Derm: Skin is healthy with good turgor, Skin is moist, Skin is. Musculoskeletal: Circulation, motion, and sensation intact. Range of motion: intact in all extremities. Historical: - Allergies: 00:52 Albuterol; ha1 00:52 Morphine; ha1 00:52 PENICILLINS; ha1 00:52 Phenergan; ha1 00:52 Stadol; ha1 00:52 Toprol XL; ha1 - Home Meds: 00:52 aspirin 81 mg Oral capsule [Active]; levothyroxine 25 mcg tablet daily [Active]; ha1 Nitrostat SL [Active]; bisoprolol fumarate 5 mg Oral tab 1 tab 1/2 in the morning and 1/2 at night [Active]; CoQ-10 30 mg Oral cap daily [Active]; losartan 25 mg Oral tablet daily [Active]; Protonix 40 mg Oral TbEC 1 tab [Active]; [place]-3 Oral cap daily [Active]; Plavix 75 mg Oral tablet daily [Active]; Effient oral [Active]; atorvastatin 20 mg oral tablet [Active]; Zofran Oral as needed [Active]; - PMHx: 01:11 Diabetes - IDDM; Diverticulitis; fatty liver; Hypertensive disorder; Hypothyroidism; km8 Kidney stones; mitral valve prolapse; Pancreatitis; - PSHx: 00:52 cardiac stent; Colonresection; Heart ablation X2; ha1 - Immunization history:: Adult Immunizations up to date, Last tetanus immunization: unknown, Pneumococcal vaccine is not up to date, Flu vaccine is not up to date. - Infectious Disease History:: Denies. - Social history:: Smoking status: Patient denies any tobacco usage or history of. - History obtained from: son. Screenin:59 [facility] ED Fall Risk Assessment (Adult) History of falling in the last 3 months, ha1 including since admission. Abuse screen: Denies threats or abuse. Denies injuries from another. Nutritional screening: No deficits noted. Tuberculosis screening: No symptoms or risk factors identified. Assessment: 01:33 Reassessment: Patient appears in no apparent distress at this time. No changes from km8 previously documented assessment. Patient and/or family updated on plan of care and expected duration. Pain level reassessed. Patient is alert, oriented x 3, equal unlabored respirations, skin warm/dry/pink. General: Appears in no apparent distress. comfortable, Behavior is calm, cooperative, appropriate for age. Pain: Complains of pain in chest Pain currently is 5 out of 10 on a pain scale. Pain began 1 day ago. Neuro: Level of Consciousness is awake, alert, obeys commands, Oriented to person, place, time, situation. Cardiovascular: Reports chest pain, shortness of breath, Patient's skin is warm and dry. Rhythm is sinus bradycardia Chest pain is described as diffuse, is located in anterior chest wall. Respiratory: Reports shortness of breath on exertion Airway is patent Respiratory effort is even, unlabored, Respiratory pattern is regular, symmetrical. GI: Reports nausea. : No signs and/or symptoms were reported regarding the genitourinary system. EENT: No signs and/or symptoms were reported regarding the EENT system. Derm: No signs and/or symptoms reported regarding the dermatologic system. Skin is intact, is healthy with good turgor, Skin is dry, Skin is pink, warm \\T\\ dry. normal, Skin temperature is warm. Musculoskeletal: No signs and/or symptoms reported regarding the musculoskeletal system. Range of motion: intact in all extremities. 02:03 Reassessment: Patient appears in no apparent distress at this time. No changes from [facility] previously documented assessment. Patient and/or family updated on plan of care and expected duration. Pain level reassessed. Patient is alert, oriented x 3, equal unlabored respirations, skin warm/dry/pink. 03:00 Reassessment: Patient appears in no apparent distress at this time. No changes from km8 previously documented assessment. Patient and/or family updated on plan of care and expected duration. Pain level reassessed. Patient is alert, oriented x 3, equal unlabored respirations, skin warm/dry/pink. 04:28 Reassessment: Patient appears in no apparent distress at this time. Patient and/or [facility] family updated on plan of care and expected duration. Pain level reassessed. Patient is alert, oriented x 3, equal unlabored respirations, skin warm/dry/pink. pt reports feeling "much better"; when asked if she feels like she is ok going home, she stated "yes" Patient denies pain at this time. Patient states feeling better. Patient states symptoms have improved. Vital Signs: 00:36 BP 156 / 87; Pulse 51; Resp 17 S; Temp 97.2; Pulse Ox 100% ; Weight 66.22 kg; Height 5 ha1 ft. 1 in. ; 01:15 BP 134 / 83; Pulse 54; Resp 16; Pulse Ox 98% on R/A; km8 01:45 BP 128 / 62; Pulse 52; Resp 16; Pulse Ox 99% on R/A; km8 02:00 BP 141 / 63; Pulse 51; Resp 16; Pulse Ox 96% on R/A; km8 02:30 BP 127 / 63; Pulse 57; Resp 16; Pulse Ox 97% on R/A; km8 03:15 BP 132 / 95; Pulse 59; Resp 16; Pulse Ox 97% on R/A; km8 04:00 BP 113 / 57; Pulse 51; Resp 16; Pulse Ox 98% on R/A; km8 04:15 BP 106 / 55; Pulse 50; Resp 13; Pulse Ox 97% on R/A; km8 04:30 BP 110 / 59; Pulse 52; Resp 16; Pulse Ox 97% on R/A; km8 04:45 BP 112 / 61; Pulse 55; Resp 16; Pulse Ox 99% on R/A; km8 00:36 Body Mass Index 27.59 (66.22 kg, 154.94 cm) ha1 [place] Coma Score: 01:35 Eye Response: spontaneous(4). Motor Response: obeys commands(6). Verbal Response: km8 oriented(5). Total: 15. ED Course: 00:36 Patient arrived in ED. jb4 00:36 Patient has correct armband on for positive identification. Bed in low position. Call ha1 light in reach. Side rails up X 1. Adult w/ patient. 00:42 Abigail Barker is Attending Physician. ci 00:52 Triage completed. ha1 01:09 Ruth Mckeon, RN is Primary Nurse. 01:09 Inserted saline lock: 20 gauge in right antecubital area, using aseptic technique. ha1 Blood collected. 01:11 Basic Metabolic Panel Sent. 01:11 CBC with Diff Sent. 01:11 Magnesium Sent. 01:11 NT PRO-BNP Sent. 01:11 Troponin HS Sent. 8 01:35 Client placed on continuous cardiac and pulse oximetry monitoring. NIBP monitoring 8 applied. personnel monitor on. Pulse ox on. NIBP on. Door closed. Warm blanket given. Assisted to bedside commode. 01:35 No provider procedures requiring assistance completed. O2 via room air. 01:36 Arm band placed on right wrist. 02:02 XRAY Chest (1 view) In Process Unspecified. EDMS 03:20 LFT's Sent. jb4 03:20 Lipase Sent. jb4 03:33 Primary Nurse role handed off by Ruth Mckeon, RN km8 04:57 Provided Education on: d/c teaching. km8 04:57 IV discontinued, intact, bleeding controlled, No redness/swelling at site. Pressure km8 dressing applied. Administered Medications: 03:18 Drug: Nitroglycerin Sublingual 0.4 mg Sublingual once Route: Sublingual; km8 03:40 Follow up: Response: No adverse reaction km8 03:24 Drug: GI Cocktail without - (Maalox PO 30 ml, Lidocaine Mucous Membrane 2 % 15 bm8 ml) PO once {Note: pt was only able to tolerate about half the dose. stating that it tasted awful and she didnt want to finish the cocktail.} Route: PO; 04:18 Follow up: Response: No adverse reaction km8 03:25 Drug: Famotidine IVP 20 mg IVP once; dilute with 10 mL 0.9% NaCl; give over 2 minutes bm8 Route: IVP; Site: right antecubital; 04:18 Follow up: Response: No adverse reaction km8 03:40 Drug: Aspirin PO Chewable Tablet 324 mg PO once; 81 mg tablets x 3 Route: PO; km8 04:18 Follow up: Response: No adverse reaction km8 03:40 Drug: LORazepam PO 0.5 mg PO once Route: PO; km8 04:18 Follow up: Response: No adverse reaction; Anxiety decreased km8 Medication: 01:35 VIS not applicable for this client. km8 Outcome: 04:56 Discharge ordered by MD. wong 05:18 Discharged to home via wheelchair, with family, km8 05:18 Condition: good 05:18 Discharge instructions given to patient, family, Instructed on discharge instructions, follow up and referral plans. Demonstrated understanding of instructions, follow-up care, 05:19 Patient left the ED. km8 Signatures: Dispatcher [employer] EDMS Brooks Aguilar, RN RN jb4 Nini Richard, RN RN ha1 IheonunekwuAbigail Katie, RN RN km8 Dung Jamison RN RN bm8 Corrections: (The following items were deleted from the chart) 03:37 03:20 Troponin High Sensitivity+C.LAB.BRZ drawn and sent. jb4 EDMS
--- NOTE | 2023-06-01 04:57 | EDPHYS ---
Physician Documentation [facility] Name: Marie Puri Age: 82 yrs Sex: Female : 1940 Arrival Date: 06/01/2023 Time: 00:30 Bed 6 Private MD: ED Physician Abigail Barker HPI: 05/31 03:22 This 82 yrs old Female presents to ER via Wheelchair with complaints of Chest Pain. ci 03:22 Patient is an 82-year-old female with PMH of insulin-dependent diabetes, ci diverticulitis, hypertension, hypothyroidism who presents to the ED with chief complaint of left-sided chest pain that began 3 days ago. Pain is dull, radiates into her jaw, no aggravating factors, relieved by nitro. Patient's daughter bedside reports patient was seen in the ED in April and had a negative workup but she followed up with nutrition faculty member and was found to have 98% blockage of LAD and had 1 stent placed. Son reports they have been trying to get an appointment with Dr. Hager. Patient took 1 nitro prior to arrival, compliant with her Brilinta.. Historical: - Allergies: 00:52 Albuterol; ha1 00:52 Morphine; ha1 00:52 PENICILLINS; ha1 00:52 Phenergan; ha1 00:52 Stadol; ha1 00:52 Toprol XL; ha1 - Home Meds: 00:52 aspirin 81 mg Oral capsule [Active]; levothyroxine 25 mcg tablet daily [Active]; ha1 Nitrostat SL [Active]; bisoprolol fumarate 5 mg Oral tab 1 tab 1/2 in the morning and 1/2 at night [Active]; CoQ-10 30 mg Oral cap daily [Active]; losartan 25 mg Oral tablet daily [Active]; Protonix 40 mg Oral TbEC 1 tab [Active]; [place]-3 Oral cap daily [Active]; Plavix 75 mg Oral tablet daily [Active]; Effient oral [Active]; atorvastatin 20 mg oral tablet [Active]; Zofran Oral as needed [Active]; - PMHx: 01:11 Diabetes - IDDM; Diverticulitis; fatty liver; Hypertensive disorder; Hypothyroidism; km8 Kidney stones; mitral valve prolapse; Pancreatitis; - PSHx: 00:52 cardiac stent; Colonresection; Heart ablation X2; ha1 - Immunization history:: Adult Immunizations up to date, Last tetanus immunization: unknown, Pneumococcal vaccine is not up to date, Flu vaccine is not up to date. - Infectious Disease History:: Denies. - Social history:: Smoking status: Patient denies any tobacco usage or history of. - History obtained from: son. ROS: 03:22 Constitutional: Negative for fever, chills, and weight loss, ci 03:22 Cardiovascular: Positive for chest pain, Negative for edema, orthopnea, palpitations, 03:22 Respiratory: Negative for cough, hemoptysis, orthopnea, pleurisy, shortness of breath, wheezing, 03:22 Abdomen/GI: Negative for abdominal pain, nausea, vomiting, and diarrhea, Exam: 03:22 Constitutional: This is a well developed, well nourished patient who is awake, alert, ci and in no acute distress. Head/Face: Normocephalic, atraumatic. Eyes: Pupils equal round and reactive to light, extra-ocular motions intact. Lids and lashes normal. Conjunctiva and sclera are non-icteric and not injected. Cornea within normal limits. Periorbital areas with no swelling, redness, or edema. ENT: Nares patent. No nasal discharge, no septal abnormalities noted. Tympanic membranes are normal and external auditory canals are clear. Oropharynx with no redness, swelling, or masses, exudates, or evidence of obstruction, uvula midline. Mucous membranes moist. Neck: Trachea midline, no thyromegaly or masses palpated, and no cervical lymphadenopathy. Supple, full range of motion without nuchal rigidity, or vertebral point tenderness. No Meningismus. Chest/axilla: Normal chest wall appearance and motion. Nontender with no deformity. No lesions are appreciated. Cardiovascular: Regular rate and rhythm with a normal S1 and S2. No gallops, murmurs, or rubs. Normal PMI, no JVD. No pulse deficits. Respiratory: Lungs have equal breath sounds bilaterally, clear to auscultation and percussion. No rales, rhonchi or wheezes noted. No increased work of breathing, no retractions or nasal flaring. Abdomen/GI: Soft, non-tender, with normal bowel sounds. No distension or tympany. No guarding or rebound. No evidence of tenderness throughout. Back: No spinal tenderness. No costovertebral tenderness. Full range of motion. Skin: Warm, dry with normal turgor. Normal color with no rashes, no lesions, and no evidence of cellulitis. MS/ Extremity: Pulses equal, no cyanosis. Neurovascular intact. Full, normal range of motion. Neuro: Awake and alert, GCS 15, oriented to person, place, time, and situation. Cranial nerves II-XII grossly intact. Motor strength 5/5 in all extremities. Sensory grossly intact. Cerebellar exam normal. Normal gait. Psych: Awake, alert, with orientation to person, place and time. Behavior, mood, and affect are within normal limits. 03:22 ECG was reviewed by the Attending Physician. EKG at 0047 sinus bradycardia with sinus arrhythmia, no acute ischemic changes, HR 52, QTc 396 ms. EKG at 0311 normal sinus rhythm with sinus arrhythmia, no acute ischemic changes, HR 61, QTc 432 Vital Signs: 00:36 BP 156 / 87; Pulse 51; Resp 17 S; Temp 97.2; Pulse Ox 100% ; Weight 66.22 kg; Height 5 ha1 ft. 1 in. ; 01:15 BP 134 / 83; Pulse 54; Resp 16; Pulse Ox 98% on R/A; km8 01:45 BP 128 / 62; Pulse 52; Resp 16; Pulse Ox 99% on R/A; km8 02:00 BP 141 / 63; Pulse 51; Resp 16; Pulse Ox 96% on R/A; km8 02:30 BP 127 / 63; Pulse 57; Resp 16; Pulse Ox 97% on R/A; km8 03:15 BP 132 / 95; Pulse 59; Resp 16; Pulse Ox 97% on R/A; km8 04:00 BP 113 / 57; Pulse 51; Resp 16; Pulse Ox 98% on R/A; km8 04:15 BP 106 / 55; Pulse 50; Resp 13; Pulse Ox 97% on R/A; km8 04:30 BP 110 / 59; Pulse 52; Resp 16; Pulse Ox 97% on R/A; km8 04:45 BP 112 / 61; Pulse 55; Resp 16; Pulse Ox 99% on R/A; km8 00:36 Body Mass Index 27.59 (66.22 kg, 154.94 cm) ha1 [place] Coma Score: 01:35 Eye Response: spontaneous(4). Motor Response: obeys commands(6). Verbal Response: km8 oriented(5). Total: 15. MDM: 00:43 Patient medically screened. ci 03:22 Differential diagnosis: abnormal EKG, coronary artery disease chest wall pain, ci congestive heart failure gastritis, pancreatitis, peptic ulcer disease, stable angina, unstable angina. HEART Score: History: Moderately Suspicious (1), ECG: Normal (0), Age: > or = 65 years (2), Risk Factors: 1 or 2 risk factors (1), Troponin: < or = 1 x Normal Limit (0), Total Score = 4. The patient was given aspirin in the Emergency Department. Data reviewed: vital signs, nurses notes. ED course: . ED course: Patient presents for evaluation of chest pain. History of CAD s/p PCI last month. EKG with no acute ischemic changes, high-sensitivity troponin is negative. Patient was given 1 nitro in the ER. Continue to complain of chest pain, given she is high risk for chest pain will admit for ACS rule out.. 04:53 Care significantly affected by the following chronic conditions: Diabetes, ci Hypertension. Counseling: I had a detailed discussion with the patient and/or guardian regarding the historical points, exam findings, and any diagnostic results supporting the discharge/admit diagnosis, lab results, radiology results, the need for outpatient follow up, to return to the emergency department if symptoms worsen or persist or if there are any questions or concerns that arise at home. Response to treatment: the patient's symptoms have resolved after treatment. Special discussion: Based on the patient's history, exam, and Dx evaluation, there is no indication for emergent intervention or inpatient Tx. It is understood by the patient/guardian that if the Sx's persist or worsen they need to return immediately for re-evaluation. ED course: Chest pain resolved. Patient requesting to be discharged. Patient scheduled to see her nutrition faculty member in [address] Hager for a closer appointment.. 05/31 01:08 Order name: Basic Metabolic Panel; Complete Time: 02:02 ci 05/31 03:11 Interpretation: Abnormal: CRE 1.16. ci 05/31 01:08 Order name: CBC with Diff; Complete Time: 02:02 ci 05/31 03:11 Interpretation: HGB 11.8. ci 05/31 01:08 Order name: Magnesium; Complete Time: 02:02 ci 05/31 01:08 Order name: NT PRO-BNP; Complete Time: 02:02 ci 05/31 01:08 Order name: Troponin HS; Complete Time: 02:02 ci 05/31 03:34 Interpretation: Within normal limits. ci 05/31 03:12 Order name: LFT's; Complete Time: 03:58 ci 05/31 03:12 Order name: Lipase; Complete Time: 03:58 ci 05/31 03:37 Order name: Troponin High Sensitivity; Complete Time: 03:58 EDMS 05/31 01:08 Order name: XRAY Chest (1 view) ci 05/31 01:08 Order name: Cardiac monitoring; Complete Time: 01:09 ci 05/31 01:08 Order name: EKG - Nurse/Tech; Complete Time: 01:09 ci 05/31 01:08 Order name: IV Saline Lock; Complete Time: 01:09 ci 05/31 01:08 Order name: Labs collected and sent; Complete Time: 01:09 ci 05/31 01:08 Order name: O2 Per Protocol; Complete Time: 01:09 ci 05/31 01:08 Order name: O2 Sat Monitoring; Complete Time: 01:09 ci 05/31 03:19 Order name: EKG - Nurse/Tech; Complete Time: 03:19 km8 Administered Medications: 03:18 Drug: Nitroglycerin Sublingual 0.4 mg Sublingual once Route: Sublingual; km8 03:40 Follow up: Response: No adverse reaction km8 03:24 Drug: GI Cocktail without - (Maalox PO 30 ml, Lidocaine Mucous Membrane 2 % 15 bm8 ml) PO once {Note: pt was only able to tolerate about half the dose. stating that it tasted awful and she didnt want to finish the cocktail.} Route: PO; 04:18 Follow up: Response: No adverse reaction km8 03:25 Drug: Famotidine IVP 20 mg IVP once; dilute with 10 mL 0.9% NaCl; give over 2 minutes bm8 Route: IVP; Site: right antecubital; 04:18 Follow up: Response: No adverse reaction km8 03:40 Drug: Aspirin PO Chewable Tablet 324 mg PO once; 81 mg tablets x 3 Route: PO; km8 04:18 Follow up: Response: No adverse reaction km8 03:40 Drug: LORazepam PO 0.5 mg PO once Route: PO; km8 04:18 Follow up: Response: No adverse reaction; Anxiety decreased km8 Disposition Summary: 06/01/23 04:56 Discharge Ordered Notes: Location: Home ci Condition: Stable ci Diagnosis - Chest pain, unspecified ci Followup: ci - With: Private Physician - When: 1 - 2 days - Reason: Recheck today's complaints, Re-evaluation by your physician Discharge Instructions: - Discharge Summary Sheet ci - Nonspecific Chest Pain, Adult, [id number] ci Forms: - Medication Reconciliation Form ci - Antibiotic Education ci - Prescription Opioid Use ci - Patient Portal Instructions ci - Leadership Thank You Letter ci Signatures: Dispatcher [employer] Nini [place], RN RN ha1 IheonunekwMaury elrdidgesera Ruth Mckeon RN RN km8 Dung Jamison RN RN bm8 Corrections: (The following items were deleted from the chart) 03:37 03:19 Troponin High Sensitivity+C.LAB.BRZ ordered. EDPR EDMS
[2023-06-01 05:49] VITALS: BP 112/61; TEMP 97.2; O2SAT 99
--- NOTE | 2023-06-01 14:37 | RAD REPORT ---
EXAM DESCRIPTION: RAD - Chest Single View - 06/01/2023 2:00 am CLINICAL HISTORY: CHEST PAIN TECHNIQUE: AP chest COMPARISON: None available for comparison FINDINGS: CHEST: Heart: The cardiomediastinal silhouette is within normal limits. Lungs: No focal consolidation. Mediastinum: Unremarkable Pleura: No appreciable effusion. No pneumothorax. Bones: Intact IMPRESSION: No acute cardiopulmonary disease. Electronically signed by: Dhruv Hernandez MD 06/01/2023 02:56 AM CDT Due to temporary technical issues with the PACS/Fluency reporting system, reports are being signed by the in house radiologists without review as a courtesy to insure prompt reporting. The interpreting radiologist is fully responsible for the content of the report
== END 2023-06-01 05:19 | disposition home or self-care (01) ==
LOC: ER 00:30
DX: R07.9 Chest pain, unspecified (principal); I10 Essential (primary) hypertension; E11.9 Type 2 diabetes mellitus without complications; Z95.818 Presence of other cardiac implants and grafts; Z79.01 Long term (current) use of anticoagulants; Z79.82 Long term (current) use of aspirin; Z88.5 Allergy status to narcotic agent; Z88.8 Allergy status to other drugs, medicaments and biological substances
CPT/HCPCS: 36415; 71045; 80048; 80076; 83690; 83735; 83880; 84484; 85025; 93005

== ENCOUNTER 2024-03-30 04:42 | Observation (INO) | payer OTHER ==
[2024-03-30 05:24] LABS: Absolute Basophils 0.1 K/uL (0-0.5); Absolute Eosinophils 0.4 K/uL (0-0.5); Absolute Lymphocytes (CBC) 2.6 K/uL (0.7-4.9); Absolute Monocytes 0.9 K/uL (0.1-1.3); Absolute Neutrophil 4.6 K/uL (1.8-8.0); Basophils % 0.8 % (0-1.3); Eosinophils % 4.5 % (0-4.4); Hematocrit 37.4 % (36.0-45.0); Hemoglobin 12.7 g/dL (12.0-15.0); Lymphocytes % 30.4 % (15.3-44.8); MCH 29.1 pg (27.0-35.0); MCHC 33.9 g/dL (32.0-36.0); MCV 85.8 fL (80-100); MPV 8.5 fL (7.6-11.3); Monocytes % 10.2 % (3.3-12.3); Neutrophils % 54.1 % (41.7-73.7); Platelets 242 thou/uL (152-406); RBC Red Blood Cell Count 4.36 M/uL (3.86-4.86); Red Cell Distribution Width 14.3 % (12.1-15.2)
[2024-03-30] MEDS ORDERED: NITROGLYCERIN 1 GM PKT TD ONE (05:50)
[2024-03-30] MEDS ORDERED: METOCLOPRAMIDE 10 MG/2mL INJ ONE (05:51)
[2024-03-30 06:07] LABS: PT Prothrombin Time 11.4 SECONDS (9.4-12.5); PTT, Activated Partial Thromb 32.4 SECONDS (24.3-36.9); Protime INR 1.09
--- NOTE | 2024-03-30 06:16 | RAD REPORT ---
EXAM: XR Chest, 1 View CLINICAL HISTORY: The patient is 83 years old and is Female; CHEST PAIN TECHNIQUE: Frontal view of the chest. COMPARISON: No relevant prior studies available. FINDINGS: Lungs: Unremarkable. No consolidation. Pleural space: Unremarkable. No pneumothorax. Heart: Unremarkable. Mediastinum: Unremarkable. Normal mediastinal contour. Bones/joints: No acute findings. IMPRESSION: No acute findings in the chest. Electronically signed by: Landon Hernandes MD 03/30/2024 06:[address] [facility] 8 Due to temporary technical issues with the PACS/[employer] reporting system, reports are being rosa elena d by the in-house radiologist without review as a courtesy to ensure prompt reporting the interpreting radiologist is fully responsible for the content of the report. Transcribed Date/Time: 03/30/2024 6:15 AM
[2024-03-30 06:21] LABS: Albumin 3.5 g/dL (3.4-5.0); Albumin/Globulin Ratio 0.9 (1.1-1.8); Anion Gap 9.1 mEq/L (5.0-15.0); Bilirubin Direct 0.2 mg/dL (0-0.2); Bilirubin Indirect, Calculated 0.4 mg/dL (0.2-0.8); Bilirubin Total 0.6 mg/dL (0.2-1.0); Globulin 3.9 g/dL (2.3-3.5); Potassium 4.1 mEq/L (3.5-5.1); Protein, Total 7.4 g/dL (6.4-8.2); Troponin High Sensitivity 11.3 pg/mL (<58.9)
[2024-03-30 06:29] LABS: Thyroid Stimulating Hormone 4.82 uIU/mL (0.358-3.740)
--- NOTE | 2024-03-30 07:14 | ER ---
Nurse's Notes [facility] Name: Marie Campos Age: 83 yrs Sex: Female : 1940 Arrival Date: 03/30/2024 Time: 04:42 Bed 18 Private MD: Diagnosis: Unstable angina Presentation: 03/30 05:10 Chief complaint: Patient states: chest pain. Coronavirus screen: Client denies travel ay out of the [place] in the last 14 days. Ebola Screen: No symptoms or risks identified at this time. Initial Sepsis Screen: Does the patient meet any 2 criteria? No. Patient's initial sepsis screen is negative. Does the patient have a suspected source of infection? No. Patient's initial sepsis screen is negative. Risk Assessment: Do you want to hurt yourself or someone else? Patient reports no desire to harm self or others. Note Pt woke up to a left chest pain that started about 0430, + nausea, +SOB. Alert and oriented x4. Hx of cardiac stent x2. Pt on pvc monitor. Onset of symptoms was March 30, 2024 at 04:30. 05:10 Method Of Arrival: Wheelchair ay 05:10 Acuity: ARGELIA 3 ay Triage Assessment: 05:10 General: Appears in no apparent distress. uncomfortable, Behavior is calm, cooperative. ay Pain: Complains of pain in chest. EENT: No signs and/or symptoms were reported regarding the EENT system. Neuro: Level of Consciousness is awake, alert, obeys commands, Oriented to person, place, time, situation, Speech is normal. Cardiovascular: Capillary refill < 3 seconds Rhythm is sinus bradycardia. Respiratory: Airway is patent Respiratory effort is even, unlabored, Respiratory pattern is regular, symmetrical. GI: Bowel sounds present X 4 quads. : No signs and/or symptoms were reported regarding the genitourinary system. Derm: No signs and/or symptoms reported regarding the dermatologic system. Historical: - Allergies: 05:16 Albuterol; ay 05:16 Morphine; ay 05:16 PENICILLINS; ay 05:16 Phenergan; ay 05:16 Stadol; ay 05:16 Toprol XL; ay - Home Meds: 05:16 aspirin 81 mg Oral capsule [Active]; atorvastatin 20 mg Oral tablet [Active]; ay bisoprolol fumarate 5 mg Oral tab 1 tab 1/2 in the morning and 1/2 at night [Active]; CoQ-10 30 mg Oral cap daily [Active]; Effient oral [Active]; levothyroxine 25 mcg tablet daily [Active]; losartan 25 mg Oral tablet daily [Active]; Nitrostat SL [Active]; [place]-3 Oral cap daily [Active]; Plavix 75 mg Oral tablet daily [Active]; Protonix 40 mg Oral TbEC 1 tab [Active]; Zofran Oral as needed [Active]; - PMHx: 05:16 Diabetes - IDDM; Diverticulitis; fatty liver; Hypertensive disorder; Hypothyroidism; ay Kidney stones; mitral valve prolapse; Pancreatitis; - PSHx: 05:16 cardiac stent; Colonresection; Heart ablation X2; ay - Immunization history:: Client reports receiving the 2nd dose of the Covid vaccine, Pneumococcal vaccine is up to date. - Infectious Disease History:: Denies. - Family history:: not pertinent. - Social history:: Smoking status: Patient denies any tobacco usage or history of. Screenin:16 [facility] ED Fall Risk Assessment (Adult) History of falling in the last 3 months, ay including since admission No falls in past 3 months (0 pts) Confusion or Disorientation No (0 pts) Intoxicated or Sedated No (0 pts) Impaired Gait No (0 pts) Mobility Assist Device Used No (0 pt) Altered Elimination No (0 pt) Score/Fall Risk Level 0 - 2 = Low Risk Oriented to surroundings, Maintained a safe environment, Educated pt \T\ family on fall prevention, incl call for assistance when getting out of bed. Abuse screen: Denies threats or abuse. Nutritional screening: No deficits noted. Tuberculosis screening: No symptoms or risk factors identified. Assessment: 05:13 General: Appears in no apparent distress. uncomfortable, Behavior is calm, cooperative. ay Pain: Complains of pain in chest Pain does not radiate. Pain currently is 9 out of 10 on a pain scale. Pain began 2 hours ago. Neuro: Level of Consciousness is awake, alert, obeys commands, Oriented to person, place, time, situation, Speech is normal. Cardiovascular: Reports chest pain, nausea, Denies vomiting, Rhythm is sinus rhythm. Respiratory: Airway is patent Respiratory effort is even, unlabored, Respiratory pattern is regular, symmetrical. GI: Reports nausea. : No signs and/or symptoms were reported regarding the genitourinary system. EENT: No signs and/or symptoms were reported regarding the EENT system. 07:00 General: Appears in no apparent distress. comfortable, well groomed, well developed, kc6 Behavior is calm, cooperative, appropriate for age. Neuro: Level of Consciousness is awake, alert, obeys commands, Oriented to person, place, time, situation, Appropriate for age. Cardiovascular: Reports chest pain, Heart tones S1 S2 present Capillary refill < 3 seconds Rhythm is sinus bradycardia. Respiratory: Airway is patent Trachea midline Respiratory effort is even, unlabored, Respiratory pattern is regular, symmetrical. GI: No signs and/or symptoms were reported involving the gastrointestinal system. : No signs and/or symptoms were reported regarding the genitourinary system. EENT: No signs and/or symptoms were reported regarding the EENT system. Derm: No signs and/or symptoms reported regarding the dermatologic system. Skin is intact, is healthy with good turgor, Skin is dry, Skin is pale, Skin temperature is warm. Musculoskeletal: No signs and/or symptoms reported regarding the musculoskeletal system. Circulation, motion, and sensation intact. Range of motion: intact in all extremities. 07:45 Respiratory: Reports shortness of breath on exertion. [facility] 08:00 Reassessment: Patient appears in no apparent distress at this time. No changes from 6 previously documented assessment. Patient and/or family updated on plan of care and expected duration. Pain level reassessed. Patient is alert, oriented x 3, equal unlabored respirations, skin warm/dry/pink. 08:19 Reassessment: amanuel campos (son) [phone]. [facility] 19:07 Reassessment: voicemail left with 4th floor stating pt is on her way up in a wheelchair.[facility] Vital Signs: 05:00 BP 175 / 82; Pulse 53; Resp 20; Pulse Ox 96% ; ay 05:10 Weight 65.77 kg; Height 5 ft. 2 in. ; Pain 9/10; ay 05:15 BP 147 / 69; Pulse 51; Resp 20; Pulse Ox 96% ; ay 05:45 BP 147 / 69; Pulse 53; Resp 19; Temp 97.6; Pulse Ox 98% ; ay 06:45 BP 122 / 78; Pulse 45; Resp 18; Pulse Ox 98% ; ay 08:13 BP 110 / 64; Pulse 58; Resp 16 S; Pulse Ox 100% on R/A; kc6 05:10 Body Mass Index 26.52 (65.77 kg, 157.48 cm) ay 05:10 Pain Scale: Adult ay [place] Coma Score: 07:06 Eye Response: spontaneous(4). Motor Response: obeys commands(6). Verbal Response: sp4 oriented(5). Total: 15. ED Course: 04:49 Patient arrived in ED. vc1 04:50 Rachel León RN is Primary Nurse. ay 04:55 Keanu Antonio MD is Attending Physician. vc1 04:55 Door closed. Noise minimized. Warm blanket given. kmf 04:55 Inserted saline lock: 20 gauge in right antecubital area, using aseptic technique. kmf Blood collected. Flushed with 10 mL NS. 04:56 Client placed on continuous cardiac and pulse oximetry monitoring. NIBP monitoring kmf applied. 05:31 XRAY Chest (1 view) In Process Unspecified. EDMS 06:43 Triage completed. ay 07:00 Patient has correct armband on for positive identification. Placed in gown. Bed in low kc6 position. Call light in reach. Side rails up X2. Adult w/ patient. pvc monitor on. Pulse ox on. NIBP on. Door closed. Noise minimized. Lights dimmed. Warm blanket given. Pillow given. Verbal reassurance given. 07:00 Report received from ISAIAS Ramos. kc6 07:00 Arm band placed on. kc6 07:00 Patient maintains SpO2 saturation greater than 95% on room air. kc6 07:12 Oumar Duncan is Hospitalizing Provider. sp4 07:45 Assisted to bathroom. kc6 08:17 No provider procedures requiring assistance completed. Patient admitted, IV remains in kc6 place. Administered Medications: 06:01 Drug: metoCLOPramide IVP 10 mg IVP once; over 1 to 2 minutes Route: IVP; Site: right ay antecubital; 08:16 Follow up: Response: No adverse reaction kc6 06:01 Drug: Nitroglycerin Transdermal Ointment 2 % 0.5 inches Transdermal once Route: ay Transdermal; Site: anterior chest wall; 08:17 Follow up: Response: No adverse reaction kc6 07:22 Drug: Brilinta - Ticagrelor PO 90 mg PO once; maintenance dose Route: PO; kc6 08:16 Follow up: Response: No adverse reaction kc6 Medication: 08:18 VIS not applicable for this client. kc6 Outcome: 07:13 Decision to Hospitalize by Provider. sp4 08:17 Admitted to ER Hold. Please see [facility] for further documentation. kc6 08:17 Condition: good 08:17 Instructed on the need for admit, 19:08 Patient left the ED. kc6 Signatures: Dispatcher [employer] EDMS Halina Gorman RN RN vc1 Amy Juarez RN RN kc6 Keanu Antonio MD MD sp4 Lyndsey Torres Rachel León RN RN ay
--- NOTE | 2024-03-30 07:14 | EDPHYS ---
Physician Documentation [facility] Name: Marie Puri Age: 83 yrs Sex: Female : 1940 Arrival Date: 03/30/2024 Time: 04:42 Bed 18 Private MD: ED Physician Keanu Antonio HPI: 03/30 05:14 This 83 yrs old Female presents to ER via Unassigned with complaints of Chest sp4 Pain > 30 y/o. 07:06 Patient with history of coronary artery disease presents with acute moderate chest wall sp4 pressure associated with shortness of breath. . Historical: - Allergies: 05:16 Albuterol; ay 05:16 Morphine; ay 05:16 PENICILLINS; ay 05:16 Phenergan; ay 05:16 Stadol; ay 05:16 Toprol XL; ay - Home Meds: 05:16 aspirin 81 mg Oral capsule [Active]; atorvastatin 20 mg Oral tablet [Active]; ay bisoprolol fumarate 5 mg Oral tab 1 tab 1/2 in the morning and 1/2 at night [Active]; CoQ-10 30 mg Oral cap daily [Active]; Effient oral [Active]; levothyroxine 25 mcg tablet daily [Active]; losartan 25 mg Oral tablet daily [Active]; Nitrostat SL [Active]; [place]-3 Oral cap daily [Active]; Plavix 75 mg Oral tablet daily [Active]; Protonix 40 mg Oral TbEC 1 tab [Active]; Zofran Oral as needed [Active]; - PMHx: 05:16 Diabetes - IDDM; Diverticulitis; fatty liver; Hypertensive disorder; Hypothyroidism; ay Kidney stones; mitral valve prolapse; Pancreatitis; - PSHx: 05:16 cardiac stent; Colonresection; Heart ablation X2; ay - Immunization history:: Client reports receiving the 2nd dose of the Covid vaccine, Pneumococcal vaccine is up to date. - Infectious Disease History:: Denies. - Family history:: not pertinent. - Social history:: Smoking status: Patient denies any tobacco usage or history of. ROS: 07:06 Constitutional: Negative for fever, chills, and weight loss, positive for chest sp4 pressure and shortness of breath 07:06 All other systems are negative, Exam: 07:06 Constitutional: This is a well developed, well nourished patient who is awake, alert, sp4 and in no acute distress. Head/Face: Normocephalic, atraumatic. Eyes: Pupils equal round and reactive to light, extra-ocular motions intact. Lids and lashes normal. Conjunctiva and sclera are not injected. Cornea within normal limits. Periorbital areas with no swelling, redness, or edema. ENT: Nares patent. No nasal discharge, no septal abnormalities noted. Tympanic membranes are normal and external auditory canals are clear. Oropharynx with no redness, swelling, or masses, exudates, or evidence of obstruction, uvula midline. Mucous membranes moist. Neck: Trachea midline, no thyromegaly or masses palpated, and no cervical lymphadenopathy. Supple, full range of motion without nuchal rigidity, or vertebral point tenderness. Chest/axilla: Normal chest wall appearance and motion. Nontender with no deformity. No lesions are appreciated. Cardiovascular: Regular rate and rhythm with a normal S1 and S2. No gallops, murmurs, or rubs. Normal PMI, no JVD. No pulse deficits. Respiratory: Lungs have equal breath sounds bilaterally, clear to auscultation and percussion. No rales, rhonchi or wheezes noted. No increased work of breathing, no retractions or nasal flaring. Abdomen/GI: Soft, with normal bowel sounds. No distension or tympany. No guarding or rebound. No evidence of tenderness throughout. Back: No spinal tenderness. No costovertebral tenderness. Skin: Warm, dry with normal turgor. Normal color with no rashes, no lesions, and no evidence of cellulitis. MS/ Extremity: Pulses equal, no cyanosis. Neurovascular intact. Full, normal range of motion. Neuro: Awake and alert, GCS 15, oriented to person, place, time, and situation. Cranial nerves II-XII grossly intact. Motor strength 5/5 in all extremities. Sensory grossly intact. Psych: Awake, alert, with orientation to person, place and time. Behavior, mood, and affect are within normal limits 07:06 ECG was reviewed by the Attending Physician. EKG at 0 450 EKG normal sinus rhythm rate 72. Sinus arrhythmia PACs Vital Signs: 05:00 BP 175 / 82; Pulse 53; Resp 20; Pulse Ox 96% ; ay 05:10 Weight 65.77 kg; Height 5 ft. 2 in. ; Pain 9/10; ay 05:15 BP 147 / 69; Pulse 51; Resp 20; Pulse Ox 96% ; ay 05:45 BP 147 / 69; Pulse 53; Resp 19; Temp 97.6; Pulse Ox 98% ; ay 06:45 BP 122 / 78; Pulse 45; Resp 18; Pulse Ox 98% ; ay 08:13 BP 110 / 64; Pulse 58; Resp 16 S; Pulse Ox 100% on R/A; kc6 05:10 Body Mass Index 26.52 (65.77 kg, 157.48 cm) ay 05:10 Pain Scale: Adult ay [place] Coma Score: 07:06 Eye Response: spontaneous(4). Motor Response: obeys commands(6). Verbal Response: sp4 oriented(5). Total: 15. MDM: 06:37 ED course: EXAM: XR Chest, 1 View CLINICAL HISTORY: The patient is 83 years old and is sp4 Female; CHEST PAIN TECHNIQUE: Frontal view of the chest. COMPARISON: No relevant prior studies available. FINDINGS: Lungs: Unremarkable. No consolidation. Pleural space: Unremarkable. No pneumothorax. Heart: Unremarkable. Mediastinum: Unremarkable. Normal mediastinal contour. Bones/joints: No acute findings. IMPRESSION: No acute findings in the chest. Electronically signed by: Landon Hernandes MD 03/30/2024 . 07:09 Differential diagnosis: acute myocardial infarction, acute pericarditis, anxiety, sp4 coronary artery disease chest wall pain, congestive heart failure. HEART Score: History: Highly Suspicious (2), ECG: Non specific repolarization disturbance / LBTB / PM (1), Age: > or = 65 years (2), Risk Factors: > or = 3 Risk factors for atherosclerotic disease (2), Troponin: < or = 1 x Normal Limit (0), Total Score = 7. The patient was not given aspirin in the Emergency Department. Patient reports taking aspirin within the past 24 hours. 07:10 Medical Screening Exam initiated sp4 07:10 Data reviewed: vital signs, old medical records, lab test result(s), EKG, radiologic sp4 studies, plain films. ED course: EXAM: XR Chest, 1 View CLINICAL HISTORY: The patient is 83 years old and is Female; CHEST PAIN TECHNIQUE: Frontal view of the chest. COMPARISON: No relevant prior studies available. FINDINGS: Lungs: Unremarkable. No consolidation. Pleural space: Unremarkable. No pneumothorax. Heart: Unremarkable. Mediastinum: Unremarkable. Normal mediastinal contour. Bones/joints: No acute findings. IMPRESSION: No acute findings in the chest. Electronically signed by: Landon Hernandes MD 03/30/2024. 03/30 04:54 Order name: Basic Metabolic Panel; Complete Time: 07:04 vc1 03/30 04:54 Order name: CBC with Diff; Complete Time: 06:38 vc1 03/30 04:54 Order name: Troponin HS; Complete Time: 07:04 vc1 03/30 05:26 Order name: Ptt, Activated; Complete Time: 06:38 sp4 03/30 05:26 Order name: PT-INR; Complete Time: 06:38 sp4 03/30 05:32 Order name: Liver (Hepatic) Function; Complete Time: 07:04 EDMS 03/30 05:32 Order name: NT PRO-BNP; Complete Time: 07:04 EDMS 03/30 05:32 Order name: Thyroid Stimulating Hormone; Complete Time: 07:04 EDMS 03/30 06:32 Order name: T4 Free; Complete Time: 07:04 EDMS 03/30 06:38 Order name: Troponin High Sensitivity sp4 03/30 07:28 Order name: Urinalysis w/ reflexes EDMS 03/30 07:29 Order name: Basic Metabolic Panel EDMS 03/30 07:29 Order name: Basic Metabolic Panel EDMS 03/30 07:29 Order name: CBC with Automated Diff EDMS 03/30 07:29 Order name: CBC with Automated Diff EDMS 03/30 07:29 Order name: Lipid Profile EDMS 03/30 07:29 Order name: Lipid Profile EDMS 03/30 07:29 Order name: Magnesium EDMS 03/30 07:29 Order name: Magnesium EDMS 03/30 07:29 Order name: Phosphorus EDMS 03/30 07:29 Order name: Phosphorus EDMS 03/30 07:29 Order name: Troponin High Sensitivity EDMS 03/30 07:29 Order name: Troponin High Sensitivity EDMS 03/30 07:29 Order name: Troponin High Sensitivity EDMS 03/30 07:32 Order name: Hemoglobin A1c EDMS 03/30 07:32 Order name: Hemoglobin A1c EDMS 03/30 09:40 Order name: Glucose, Ancillary Testing EDMS 03/30 04:54 Order name: XRAY Chest (1 view) 03/30 04:54 Order name: Cardiac monitoring; Complete Time: 06:01 03/30 04:54 Order name: EKG - Nurse/Tech; Complete Time: 06:01 03/30 04:54 Order name: IV Saline Lock; Complete Time: 06:01 03/30 04:54 Order name: Labs collected and sent; Complete Time: 06:03/30 04:54 Order name: O2 Per Protocol; Complete Time: 06:03/30 04:54 Order name: O2 Sat Monitoring; Complete Time: 06:03/30 05:29 Order name: Misc. Order: RECOLLECT BLUE AND LIGHT GREEN; Complete Time: :02 rv1 EC:50 Rate is 72 beats/min. Rhythm is irregular, Sinus arrythmia with PACs. QRS [place] is sp4 Normal. GA interval is normal. QRS interval is normal. QT interval is normal. No Q waves. T waves are Normal. No ST changes noted. Clinical impression: No evidence of ischemia. Interpreted by me. Reviewed by me. Administered Medications: 06:01 Drug: metoCLOPramide IVP 10 mg IVP once; over 1 to 2 minutes Route: IVP; Site: right ay antecubital; 08:16 Follow up: Response: No adverse reaction kc6 06:01 Drug: Nitroglycerin Transdermal Ointment 2 % 0.5 inches Transdermal once Route: ay Transdermal; Site: anterior chest wall; 08:17 Follow up: Response: No adverse reaction kc6 07:22 Drug: Brilinta - Ticagrelor PO 90 mg PO once; maintenance dose Route: PO; kc6 08:16 Follow up: Response: No adverse reaction kc6 Disposition Summary: 03/30/24 07:13 Hospitalization Ordered Notes: Hospitalization Status: Inpatient Admission sp4 Provider: Oumar Duncan Location: Telemetry/MedSurg (observation) sp4 Condition: Fair sp4 Problem: new sp4 Symptoms: have improved sp4 Bed/Room Type: Standard sp4 Room Assignment: 408(03/30/24 18:12) bc6 Diagnosis - Unstable angina sp4 Forms: - Medication Reconciliation Form sp4 - SBAR form sp4 - Leadership Thank You Letter sp4 Signatures: Dispatcher [employer] EDMS Halina Gorman RN RN vc1 Amy Juarez RN RN kc6 Audelia Rucker rv1 Luly Reed bc6 Keanu Antonio MD MD sp4 Rachel León RN RN ay Corrections: (The following items were deleted from the chart) 04:55 04:55 Chest Single View+RAD.RAD.BRZ ordered. EDMS EDMS 05:27 05:27 PTT, ACTIVATED+COAG.LAB.BRZ ordered. EDMS EDMS 05:27 05:27 PROTIME (+INR)+COAG.LAB.BRZ ordered. EDMS EDMS 05:32 05:27 PROBNP+C.LAB.BRZ ordered. EDMS EDMS 05:32 05:27 THYROID STIMULAT HORMONE+C.LAB.BRZ ordered. EDMS EDMS 05:32 05:27 HEPATIC FUNCTION+C.LAB.BRZ ordered. EDMS EDMS 18:12 07:13 sp4 bc6
[2024-03-30] MEDS ORDERED: TICAGRELOR 90 MG TABLET PO ONE (07:17)
[2024-03-30] MEDS ORDERED: MORPHINE 2 MG/ML SYR IV PRN (07:22)
[2024-03-30] MEDS ORDERED: NITROGLYCERIN 0.4 MG/TAB SL PRN (07:22)
[2024-03-30] MEDS ORDERED: ACETAMINOPHEN 325 MG TABLET PO PRN (07:22)
--- NOTE | 2024-03-30 07:51 | P.HP ---
Certification for Inpatient Patient admitted to: Observation With expected LOS: <2 Midnights Patient will require the following post-hospital care: None Practitioner: I am a practitioner with admitting privileges, knowledge of patient current condition, hospital course, and medical plan of care. Services: Services provided to patient in accordance with Admission requirements found in Title 42 Section 412.3 of the Code of Federal Regulations Patient History Date of Service: 03/30/24 Reason for admission: Chest pain r/o History of Present Illness: Marie Puri is an 83 year old female with pMhx fatty liver, diverticulitis, pancreatitis, cardiac ablations, mitral valve prolapse, kidney stones, CAD status post stent, diabetes mellitusIDDM, hypertension who presents to the ED with chest pain and pressure to midsternal that began early this morning associated with nausea and upset stomach. On examination she reports midsternal chest pain and pressure continues. She reports having a heart cath April of last year when she had a second heart cath with a additional stent placed. According to Dr. Hager's operative note LAD was 99% in-stent occlusion with successful restenting. Heart score 6, troponin and EKG negative, hemodynamically stable, and chest x-ray with no acute findings. Marie will be admitted to hospitalist service for further evaluation of chest pain, Cardiology consulted. Allergies albuterol Allergy (Verified 04/22/23 14:27) Anaphylaxis amoxicillin [From Augmentin] Allergy (Verified 04/22/23 14:27) Anaphylaxis azithromycin [From Zithromax] Allergy (Verified 04/22/23 14:27) Anaphylaxis cefuroxime [From Ceftin] Allergy (Verified 04/22/23 14:27) Anaphylaxis Cephalosporins Allergy (Verified 04/22/23 14:27) Anaphylaxis ciprofloxacin Allergy (Verified 04/22/23 14:27) Anaphylaxis clavulanic acid [From Augmentin] Allergy (Verified 04/22/23 14:27) Anaphylaxis glimepiride Allergy (Verified 04/22/23 14:27) Nausea/Vomiting insulin aspart Allergy (Verified 04/22/23 14:27) Anaphylaxis insulin detemir [From Levemir U-100 Insulin] Allergy (Verified 04/22/23 14:25) Nausea/Vomiting iodine Allergy (Verified 04/22/23 14:25) Itching levofloxacin [From Levaquin] Allergy (Verified 04/22/23 14:25) Anaphylaxis metformin [From Glucophage] Allergy (Verified 04/22/23 14:25) Nausea/Vomiting metoprolol succinate [From Toprol XL] Allergy (Verified 04/22/23 14:25) Anaphylaxis morphine Allergy (Verified 04/22/23 14:25) Anaphylaxis Penicillins Allergy (Verified 04/22/23 14:25) Anaphylaxis pentazocine [From Talwin] Allergy (Verified 04/22/23 14:25) Anaphylaxis Phenothiazines Allergy (Verified 04/22/23 14:25) Anaphylaxis promethazine HCl [From Phenergan] Allergy (Verified 04/22/23 14:25) Anaphylaxis Quinolones Allergy (Verified 04/22/23 14:26) Anaphylaxis sitagliptin [From Januvia] Allergy (Verified 04/22/23 14:26) Nausea/Vomiting Sulfa (Sulfonamide Antibiotics) Allergy (Verified 04/22/23 14:26) Anaphylaxis Stadol NS Allergy (Uncoded 04/22/23 14:26) Anaphylaxis Home Medications: Insulin Aspart [Novolog Flexpen] See Protocol SQ ACHS 11/09/17 Levothyroxine Sodium 25 mcg PO [id number] 11/09/17 bisoproloL fumarate [Zebeta*] 5 mg PO DAILY 11/09/17 Ondansetron [Zofran (Odt)*] 4 mg PO Q8H PRN 06/19/22 Pantoprazole Sodium [Protonix] 40 mg PO DAILY 06/19/22 Aspirin [Aspirin EC 81 MG] 81 mg PO DAILY 90 Days #90 tab 06/23/22 Losartan Potassium 25 mg PO DAILY 90 Days #90 tab 06/23/22 L.acidoph,Paracasei, B.lactis [Probiotic] See Rx Instructions .ROUTE .COMPLEX 04/26/23 Ubidecarenone [Co Q-10] See Rx Instructions .ROUTE .COMPLEX 04/26/23 Ticagrelor [Brilinta*] 90 mg PO BID #180 04/28/23 - Past Medical/Surgical History Diabetic: Yes -: Hypothyroidism -: svt- HX OF ARRYTHMIAS -: IDDM -: KIDNEY STONES -: FATTY LIVER -: MVP -: DIVERTICULITIS -: PANCREATITIS -: UTI -: colon resection -: 2 heart ablasions -: Cholesystectomy -: Appendectomy -: stent 06/22/22 - Family History Brother -: Heart disease Notes: quad bipass - Social History Smoking Status: Never smoker Alcohol use: No CD- Drugs: No Caffeine use: No Review of Systems Other: Per HPI Physical Examination - Physical Exam General: Alert, In no apparent distress, Oriented x3 HEENT: Atraumatic, Normocephalic, PERRLA Neck: Supple, 2+ carotid pulse no bruit Respiratory: Clear to auscultation bilaterally, Normal air movement Cardiovascular: No edema, Normal pulses, Regular rate/rhythm, Normal S1 S2 Capillary refill: <2 Seconds Gastrointestinal: Normal bowel sounds, Soft and benign Musculoskeletal: No clubbing Integumentary: No rashes Neurological: Normal speech, Normal tone - Studies Laboratory Data (last 24 hrs) 03/30/24 03/30/24 03/30/24 05:37 05:37 05:26 WBC Hgb Hct Plt Count PT 11.4 INR 1.09 APTT 32.4 Sodium 139 Potassium 4.1 BUN 19 H Creatinine 0.98 Glucose 130 H Total Bilirubin 0.6 Cancelled AST 18 Cancelled ALT 23 Cancelled Alkaline Phosphatase 66 Cancelled 03/30/24 04:57 WBC 8.50 Hgb 12.7 Hct 37.4 Plt Count 242 PT INR APTT Sodium Potassium BUN Creatinine Glucose Total Bilirubin AST ALT Alkaline Phosphatase Assessment and Plan - Plan Assessment and plan Chest Pain r/o CAD status post stent Cardiac ablations Mitral valve prolapse - EKG: No obvious ST segment changes - troponin negative, Serial pending - Ordered transthoracic echocardiogram - chest x-ray with no acute findings - Consult Cardiology - NPO at midnight, Stress test in the AM - Start daily baby aspirin and statin - Symptom control with PRN acetaminophen, nitroglycerin, morphine - continuous telemetry - TSH/FreeT4 WNL - A1C, lipid panel pending Diabetes MellitusIDDM -Accu-Chek with sliding scale insulin -A1c in the a.m. Fatty liver Diverticulitis Pancreatitis Kidney stones Hypertension Continue home medication DVT PPx Lovenox weight-based Full code LOS 24 OBS Discharge Plan: Home Plan to discharge in: 24 Hours - Advance Directives Does patient have a Living Will: No Does patient have a Durable POA for Healthcare: No
[2024-03-30] MEDS ORDERED: ASPIRIN EC 81 MG TAB PO ONE (08:33)
[2024-03-30] MEDS ORDERED: ENOXAPARIN 80 MG/0.8 ML SQ ONE (08:33)
[2024-03-30] MEDS: ENOXAPARIN 80 MG/0.8 ML SQ SCH (09:00)
[2024-03-30] MEDS: ASPIRIN EC 81 MG TAB PO SCH (09:00)
[2024-03-30 09:16] VITALS: BMI 26.3
[2024-03-30 09:35] LABS: Specific Gravity 1.006 (1.005-1.030); Urine Bilirubin NEGATIVE (Negative); Urine Blood Negative (Negative); Urine Clarity Clear (Clear); Urine Color Colorless (Yellow); Urine Glucose NEGATIVE (Negative); Urine Ketones NEGATIVE (Negative); Urine Microscopic Reflex YN NO UMIC; Urine Nitrite NEGATIVE (Negative); Urine Protein NEGATIVE (Negative); Urine Urobilinogen Normal (Normal); Urine pH 6.5 (5.0-7.0)
--- NOTE | 2024-03-30 13:05 | P.CNS ---
Date of Consult: 03/30/24 Chief Complaint: Chest pain r/o History of Present Illness: Patient with PMH of CAD with PCI of LAD restenosis on 04/2023 presented with not feeling good sensation, abdominal pain, nausea, vomiting and diarrhea, also report chest pain, left sided, pressure, no radiation. no syncope, no SOB. Allergies albuterol Allergy (Verified 04/22/23 14:27) Anaphylaxis amoxicillin [From Augmentin] Allergy (Verified 04/22/23 14:27) Anaphylaxis azithromycin [From Zithromax] Allergy (Verified 04/22/23 14:27) Anaphylaxis cefuroxime [From Ceftin] Allergy (Verified 04/22/23 14:27) Anaphylaxis Cephalosporins Allergy (Verified 04/22/23 14:) Anaphylaxis ciprofloxacin Allergy (Verified 04/22/23:) Anaphylaxis clavulanic acid [From Augmentin] Allergy (Verified 04/22/23 14:) Anaphylaxis glimepiride Allergy (Verified 04/22/23 14:27) Nausea/Vomiting insulin aspart Allergy (Verified 04/22/23 14:27) Anaphylaxis insulin detemir [From Levemir U-100 Insulin] Allergy (Verified 04/22/23 14:25) Nausea/Vomiting iodine Allergy (Verified 04/22/23 14:25) Itching levofloxacin [From Levaquin] Allergy (Verified 04/22/23 14:25) Anaphylaxis metformin [From Glucophage] Allergy (Verified 04/22/23 14:25) Nausea/Vomiting metoprolol succinate [From Toprol XL] Allergy (Verified 04/22/23 14:25) Anaphylaxis morphine Allergy (Verified 04/22/23 14:25) Anaphylaxis Penicillins Allergy (Verified 04/22/23 14:25) Anaphylaxis pentazocine [From Talwin] Allergy (Verified 04/22/23 14:25) Anaphylaxis Phenothiazines Allergy (Verified 04/22/23 14:25) Anaphylaxis promethazine HCl [From Phenergan] Allergy (Verified 04/22/23 14:25) Anaphylaxis Quinolones Allergy (Verified 04/22/23 14:26) Anaphylaxis sitagliptin [From Januvia] Allergy (Verified 04/22/23 14:26) Nausea/Vomiting Sulfa (Sulfonamide Antibiotics) Allergy (Verified 04/22/23 14:26) Anaphylaxis Stadol NS Allergy (Uncoded 04/22/23 14:26) Anaphylaxis Home medications list reviewed: Yes Home Medications: Insulin Aspart [Novolog Flexpen] See Protocol SQ ACHS 11/09/17 Levothyroxine Sodium 25 mcg PO [id number] 11/09/17 bisoproloL fumarate [Zebeta*] 5 mg PO DAILY 11/09/17 Ondansetron [Zofran (Odt)*] 4 mg PO Q8H PRN 06/19/22 Pantoprazole Sodium [Protonix] 40 mg PO DAILY 06/19/22 Aspirin [Aspirin EC 81 MG] 81 mg PO DAILY 90 Days #90 tab 06/23/22 Losartan Potassium 25 mg PO DAILY 90 Days #90 tab 06/23/22 L.acidoph,Paracasei, B.lactis [Probiotic] See Rx Instructions .ROUTE .COMPLEX 04/26/23 Ubidecarenone [Co Q-10] See Rx Instructions .ROUTE .COMPLEX 04/26/23 Ticagrelor [Brilinta*] 90 mg PO BID #180 04/28/23 - Past Medical/Surgical History Diabetic: Yes -: Hypothyroidism -: svt- HX OF ARRYTHMIAS -: IDDM -: KIDNEY STONES -: FATTY LIVER -: MVP -: DIVERTICULITIS -: PANCREATITIS -: UTI -: colon resection -: 2 heart ablasions -: Cholesystectomy -: Appendectomy -: stent 06/22/22 - Family History Brother Medical History: Heart disease Notes: quad bipass - Social History Smoking Status: Unknown if ever smoked Alcohol use: No CD- Drugs: No Caffeine use: No Place of Residence: Home Review of Systems 10-point ROS is otherwise unremarkable Physical Examination Temp Pulse Resp BP Pulse Ox 98.3 F 56 16 157/69 H 100 03/30/24 12:00 03/30/24 12:00 03/30/24 12:00 03/30/24 12:00 03/30/24 12:00 General: Alert, In no apparent distress HEENT: Atraumatic, PERRLA, Mucous membr. moist/pink, EOMI, Sclerae nonicteric Neck: Supple, 2+ carotid pulse no bruit, No LAD, Without JVD or thyroid abn ormality Respiratory: Clear to auscultation bilaterally, Normal air movement Cardiovascular: Regular rate/rhythm, Normal S1 S2 Gastrointestinal: Normal bowel sounds, No tenderness Musculoskeletal: No tenderness Integumentary: No rashes Neurological: Normal gait, Normal speech, Normal tone, Normal affect Lymphatics: No axilla or inguinal lymphadenopathy Laboratory Data (last 24 hrs) 03/30/24 03/30/24 03/30/24 05:37 05:37 05:26 WBC Hgb Hct Plt Count PT 11.4 INR 1.09 APTT 32.4 Sodium 139 Potassium 4.1 BUN 19 H Creatinine 0.98 Glucose 130 H Total Bilirubin 0.6 Cancelled AST 18 Cancelled ALT 23 Cancelled Alkaline Phosphatase 66 Cancelled 03/30/24 04:57 WBC 8.50 Hgb 12.7 Hct 37.4 Plt Count 242 PT INR APTT Sodium Potassium BUN Creatinine Glucose Total Bilirubin AST ALT Alkaline Phosphatase - Problems (1) CAD (coronary artery disease) Current Visit: Yes Status: Acute Plan: patient with history of LAD in stent re stenosis PCI back on 04/2023, thought to be seconary to plavix resistance. she has been complaint with Brilinta and ASA, EKG is normal and troponin are negative so far. recommend Lexiscan stress test in am continue ASA 81 mg daily continue Brilinta 90 mg po BID continue lipitor 40 mg daily (2) Pain in the abdomen Current Visit: No Status: Acute Plan: patient with PMH of abdominal surgeries, primary team to work it up. Qualifiers: Abdominal location: upper abdomen, unspecified Qualified Code(s): R10.10 - Upper abdominal pain, unspecified (3) HTN (hypertension) Current Visit: Yes Status: Acute Plan: continue Bisoprolol continue to monitor.
[2024-03-30] MEDS: INSULIN REGULAR (HUMAN) 100 UNIT/ML SQ SCH (16:50)
[2024-03-30] MEDS ORDERED: D10W 125 ML IV PRN (16:58)
[2024-03-30] MEDS ORDERED: GLUCAGON 1 MG/VIAL IM PRN (16:58)
[2024-03-30] MEDS: ATORVASTATIN 40 MG TAB PO SCH (21:05)
[2024-03-30] MEDS: ALPRAZOLAM 0.5 MG TABLET PO ONE (21:08)
[2024-03-31 06:09] LABS: Absolute Eosinophils 0.3 K/uL (0-0.5); Absolute Lymphocytes (CBC) 1.9 K/uL (0.7-4.9); Absolute Monocytes 0.7 K/uL (0.1-1.3); Absolute Neutrophil 4.2 K/uL (1.8-8.0); Basophils % 0.6 % (0-1.3); Eosinophils % 4.1 % (0-4.4); Hematocrit 35.6 % (36.0-45.0); Hemoglobin 11.9 g/dL (12.0-15.0); Lymphocytes % 26.1 % (15.3-44.8); MCH 28.9 pg (27.0-35.0); MCHC 33.4 g/dL (32.0-36.0); MCV 86.4 fL (80-100); MPV 8.7 fL (7.6-11.3); Monocytes % 10.3 % (3.3-12.3); Neutrophils % 58.9 % (41.7-73.7); Nucleated Red Blood Cells % 0.1 % (0-0); Platelets 198 thou/uL (152-406); RBC Red Blood Cell Count 4.11 M/uL (3.86-4.86); Red Cell Distribution Width 13.9 % (12.1-15.2)
[2024-03-31 06:23] LABS: Anion Gap 8.1 mEq/L (5.0-15.0); Phosphorus 2.7 mg/dL (2.5-4.9); Potassium 4.1 mEq/L (3.5-5.1)
--- NOTE | 2024-03-31 06:55 | ECHO ---
HEIGHT: 5 ft 2 in WEIGHT: 144 lb 0 oz DATE OF STUDY: 03/30/[address]: Olya Macias NP 2-DIMENSIONAL: YES M.MODE: YES DOPPLER: YES COLOR FLOW: YES TDS: PORTABLE: YES DEFINITY: BUBBLE STUDY: DIAGNOSIS: CHEST PAIN CARDIAC HISTORY: CATHERIZATION: YES SURGERY: NO PROSTHETIC VALVE: NO PACEMAKER: NO MEASUREMENTS (cm) DIASTOLIC (NORMALS) SYSTOLIC (NORMALS) IVSd 1.1 (0.6-1.2) LA Diam 2.7 (1.9-4.0) LVEF 55-60% LVIDd 3.7 (3.5-5.7) LVIDs 2.7 (2.0-3.5) %FS 25% LVPWd 1.1 (0.6-1.2) Ao Diam 2.7 (2.0-3.7) 2 DIMENSIONAL ASSESSMENT: RIGHT ATRIUM: NORMAL LEFT ATRIUM: NORAL RIGHT VENTRICLE: NORMAL LEFT VENTRICLE: LEFT VENTRICULAR HYPERTROPHY TRICUSPID VALVE: MILD TRICUSPID REGURGITATION MITRAL VALVE: MILD MITRAL REGURGITATION PULMONIC VALVE: MILD PULMONIC INSUFFICIENCY AORTIC VALVE: NORMAL PERICARDIAL EFFUSION: NONE AORTIC ROOT: NORMAL LEFT VENTRICULAR WALL MOTION: NORMAL DOPPLER/COLOR FLOW: SEE BELOW COMMENTS: 1. NORMAL LEFT VENTRICULAR EJECTION FRACTION 55-60% WITH NORMAL WALL MOTION 2. MODERATE CONCENTRIC LEFT VENTRICULAR HYPERTROPHY 3. GRADE I DIASTOLIC DYSFUNCTION 4. MILD MITRAL REGURGITATION, TRICUSPID REGURGITATION, PULMONIC INSUFFICIENCY TECHNOLOGIST: JERONIMO PLUMMER
[2024-03-31] MEDS ORDERED: HEPA 1000U/500MLS 2,000 UNIT/1,000 ML BAG IV ONE (10:21)
[2024-03-31] MEDS ORDERED: HEPARIN 10,000 UNIT/10 ML VIAL IV ONE (10:21)
[2024-03-31] MEDS ORDERED: VERAPAMIL HCL 10 MG/4 ML VIAL IV ONE (10:22)
[2024-03-31] MEDS ORDERED: ATROPINE SULF 1 MG/10 ML SYR IV ONE (10:22)
[2024-03-31] MEDS ORDERED: FENTANYL CITR 100 MCG/2 ML ONE (10:22)
[2024-03-31] MEDS ORDERED: HEPARIN 5000 UNIT/ML 1 ML VIAL ONE (10:22)
[2024-03-31] MEDS ORDERED: LIDOCAINE 1% 20 ML MDV ONE (10:22)
[2024-03-31] MEDS ORDERED: MIDAZOLAM HCL 2 MG/2 ML INJ ONE (10:22)
[2024-03-31] MEDS ORDERED: METHYLPREDNISOLONE 125 MG INJ ONE (10:39)
[2024-03-31] MEDS ORDERED: DIPHENHYDRAMINE 50 MG/ML VIAL ONE (10:39)
[2024-03-31] MEDS: NA CHLORIDE 0.9% 500 ML ONE (11:30)
--- NOTE | 2024-03-31 11:47 | OP ---
Date of Procedure: 03/31/2024 Surgeon: ERASMO JACKSON Procedure Performed: Selective coronary angiogram. Indication: Unstable angina. Access: Right radial artery, 6-Serbian, closed with TR band. Complications: None. Bleedin mL. Total Sedation Time: 45 minutes. Description Of Procedure: After risks, benefits, and alternatives were explained, the patient agreed to procedure and signed informed consent. The patient was brought into cardiac catheterization [facility], prepped and draped in usual sterile fashion. Then, I accessed right radial artery using pedi atric micropuncture kit and ultrasound guidance. Placed 6-Serbian slender sheath. Took 5-Serbian Tige r 4 catheter over J-wire into the aortic root, engaged left main, took standard views and then the RC A, took standard views, and then removed the catheter and the sheath, placed TR band with good hemost asis, Findings: 1. Left main is normal. 2. LAD has proximal LAD stent with 70% in-stent restenosis. The rest of the LAD is normal. Normal d iagonal branches. 3. Left circumflex is normal, codominant. 4. RCA: Codominant and normal. 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 Recommendation: Since she failed this PCI twice and she had ISR requiring intervention twice over e past year and a half, I recommend single-vessel bypass. SR/MODL Voice ID: [id number] Report ID: [id number]
--- NOTE | 2024-03-31 13:47 | P.PN ---
Date of Service: 03/31/24 Subjective:. Seen resting comfortably in bed her son is at bedside. Chest pain has improved. She denies cough, fevers, chills. Going for heart catheterization this morning. Review of Systems Other: Per HPI Physical Examination - Physical Exam General: Alert, In no apparent distress, Oriented x3 HEENT: Atraumatic, Normocephalic, PERRLA Neck: Supple, 2+ carotid pulse no bruit Respiratory: Clear to auscultation bilaterally, Normal air movement Cardiovascular: No edema, Normal pulses, Regular rate/rhythm, Normal S1 S2 Capillary refill: <2 Seconds Gastrointestinal: Normal bowel sounds, Soft and benign Musculoskeletal: No clubbing Integumentary: No rashes Neurological: Normal speech, Normal tone - Studies Laboratory Data (last 24 hrs) 03/30/24 03/30/24 03/30/24 05:37 05:37 05:26 WBC Hgb Hct Plt Count PT 11.4 INR 1.09 APTT 32.4 Sodium 139 Potassium 4.1 BUN 19 H Creatinine 0.98 Glucose 130 H Total Bilirubin 0.6 Cancelled AST 18 Cancelled ALT 23 Cancelled Alkaline Phosphatase 66 Cancelled 03/30/24 04:57 WBC 8.50 Hgb 12.7 Hct 37.4 Plt Count 242 PT INR APTT Sodium Potassium BUN Creatinine Glucose Total Bilirubin AST ALT Alkaline Phosphatase Assessment and Plan Unstable angina CAD status post stent Diabetes mellitus with hyperglycemia Cardiac ablations Hypertension Mitral valve prolapse History of diverticulitis History of kidney stones History of pancreatitis - EKG: No obvious ST segment changes -Negative high-sensitivity troponin -Echo with LVH, and grade 1 diastolic dysfunction, normal EF - chest x-ray with no acute findings - Cardiology following -Op report reviewed and cardiology recommending single-vessel bypass -Continue aspirin and statin - Symptom control with PRN acetaminophen, nitroglycerin, morphine - continuous telemetry -Lipid panel reviewed -A1c at 7.6 -Blood sugars improving on sliding scale DVT PPx Lovenox weight-based Full code LOS 24 OBS Discharge Plan: Home Plan to discharge in: 24 Hours - Advance Directives Does patient have a Living Will: No Does patient have a Durable POA for Healthcare: No
--- NOTE | 2024-03-31 19:12 | PN ---
Date of Progress Note: 03/31/2024 Subjective: Seen by bedside, doing well. Review of Systems: No chest pain, shortness of breath, orthopnea, cough. No nausea, vomiting, diarrhea. All other syst ems reviewed are negative. Physical Examination: Vital Signs: Reviewed. Head and Neck: Pupils are equal, reactive to light. Intact eye movements. No JVD. No cervical lym phadenopathy. Neck supple. Thyroid is not enlarged. Lungs: Clear to auscultation bilaterally. No crackles no accessory muscle use. Heart: Regular rate and rhythm. No extra sounds. Abdomen: Soft, nontender. Bowel sounds positive. No organomegaly. No masses or hernia. No rigidi ty or rebound. Extremities: No edema, clubbing, cyanosis. Intact pulses. Skin: No rash. No nodules. Neurologic: Alert, awake, oriented x3. No acute focal deficits appreciated. Investigations: BUN 21, creatinine 1.09. Troponin is negative. Hemoglobin is 11.9. Assessment/recommendation: 1. Chest pain, status post coronary angiogram. She has 60% to 70% ISR of the LAD stent. At this poi nt I recommend to continue aspirin and statin and I recommend outpatient single-vessel bypass. 2. Dyslipidemia. Continue Lipitor. 3. Hypertension. Blood pressure is controlled. From Cardiology standpoint, patient can be released to follow up with me in the office early next week Wednesday or Wednesday and we will arrange for outpatient single-vessel CABG. SR/MODL Voice ID: [id number] Report ID: [id number]
--- NOTE | 2024-04-01 11:48 | P.PN ---
Subjective Date of Service: 04/01/24 Chief Complaint: Chest pain r/o Seen resting comfortably. Had heart cath yesterday. States the doctor told her she needs a bypass surgery. She is eating and drinking. She has not had a bowel movement yet. She denies fevers and chills Review of Systems 10-point ROS is otherwise unremarkable Physical Examination - Vital Signs Temperature: 97.4 F Blood Pressure: 119/59 Pulse: 57 Respirations: 16 Pulse Ox (%): 95 - Physical Exam General: Alert, In no apparent distress HEENT: Atraumatic, Normocephalic Neck: Supple Respiratory: Clear to auscultation bilaterally, Normal air movement Cardiovascular: Normal pulses Capillary refill: <2 Seconds Gastrointestinal: Normal bowel sounds Musculoskeletal: No clubbing, No swelling Integumentary: No rashes Neurological: Normal gait, Normal speech Lymphatics: No axilla or inguinal lymphadenopathy Assessment And Plan - Plan Unstable angina CAD status post stent Diabetes mellitus with hyperglycemia Cardiac ablations Hypertension Mitral valve prolapse History of diverticulitis History of kidney stones History of pancreatitis - EKG: No obvious ST segment changes - Negative high-sensitivity troponin - Echo with LVH, and grade 1 diastolic dysfunction, normal EF - chest x-ray with no acute findings - Cardiology following, she has 60% to 70% restenosis of the LAD stent - Op report reviewed and cardiology recommending single-vessel bypass - Continue aspirin and statin - Symptom control with PRN acetaminophen, nitroglycerin, morphine - continuous telemetry - Lipid panel reviewed - A1c at 7.6 -Add Lantus to improve blood pressure control -Follow-up with cardiology on Wednesday of next week for outpatient single-vessel CABG DVT PPx Lovenox weight-based Full code LOS 24 OBS Discharge Plan: Home Plan to discharge in: 24 Hours - Advance Directives Does patient have a Living Will: No Does patient have a Durable POA for Healthcare: No
[2024-04-01 12:03] VITALS: O2SAT 100
[2024-04-01 12:05] VITALS: BP 138/59; TEMP 97.9
--- NOTE | 2024-04-01 12:24 | P.DS ---
Admission Date: 03/30/24 Discharge Date: 04/01/24 Discharge Condition: GOOD Reason for Admission: Chest pain r/o Consultations: Cardiology Hospital Course: 83-year-old female with a past medical history of CAD status post stents, type 2 diabetes, hypothyroidism, hypertension, history of diverticulitis and pancreatitis who presented with chest. Initial serial troponin and EKG were without any acute changes. Cardiology was consulted and she underwent heart cath. She was found to have restenosis 60 to 70% of the LAD. She has been advised to follow-up with cardiology as outpatient for single-vessel bypass. Her blood sugar has improved over the course of her stay. She will continue aspirin, statin, and Brilinta as per home medications. The remainder of her hospital course has been without complication and she is medically optimized for discharge Vital Signs/Physical Exam: Temp Pulse Resp BP Pulse Ox 97.9 F 63 17 138/59 L 100 04/01/24 12:00 04/01/24 12:00 04/01/24 12:00 04/01/24 12:00 04/01/24 12:00 General: Alert, In no apparent distress HEENT: Atraumatic, Normocephalic Neck: Supple Respiratory: Clear to auscultation bilaterally, Normal air movement Cardiovascular: No edema, Normal pulses Gastrointestinal: Normal bowel sounds Musculoskeletal: No clubbing Integumentary: No rashes Neurological: Normal gait Lymphatics: No axilla or inguinal lymphadenopathy Laboratory Data at Discharge: WBC 7.20 thou/uL (4.3-10.9) 03/31/24 05:33 Hgb 11.9 g/dL (12.0-15.0) L 03/31/24 05:33 Hct 35.6 % (36.0-45.0) L 03/31/24 05:33 Plt Count 198 thou/uL (152-406) 03/31/24 05:33 PT 11.4 SECONDS (9.4-12.5) 03/30/24 05:37 INR 1.09 03/30/24 05:37 APTT 32.4 SECONDS (24.3-36.9) 03/30/24 05:37 Sodium 138 mEq/L (136-145) 03/31/24 05:33 Potassium 4.1 mEq/L (3.5-5.1) 03/31/24 05:33 BUN 21 mg/dL (7-18) H 03/31/24 05:33 Creatinine 1.09 mg/dL (0.55-1.02) H 03/31/24 05:33 Glucose 159 mg/dL (74-106) H 03/31/24 05:33 Phosphorus 2.7 mg/dL (2.5-4.9) 03/31/24 05:33 Magnesium 2.0 mg/dL (1.6-2.4) 03/31/24 05:33 Total Bilirubin 0.6 mg/dL (0.2-1.0) 03/30/24 05:37 AST 18 U/L (15-37) 03/30/24 05:37 ALT 23 U/L (13-56) 03/30/24 05:37 Alkaline Phosphatase 66 U/L (45-117) 03/30/24 05:37 Triglycerides 94 mg/dL (<150) 03/31/24 05:33 Cholesterol 117 mg/dL (<200) 03/31/24 05:33 HDL Cholesterol 51 mg/dL (40-60) 03/31/24 05:33 Cholesterol/HDL Ratio 2.29 03/31/24 05:33 Home Medications: Insulin Aspart [Novolog Flexpen] See Protocol SQ ACHS 11/09/17 bisoproloL fumarate [Zebeta*] 5 mg PO BID 11/09/17 Losartan Potassium 25 mg PO DAILY 90 Days #90 tab 06/23/22 Ticagrelor [Brilinta*] 90 mg PO BID #180 04/28/23 ALPRAZolam [Alprazolam] 0.5 mg PO DAILY 03/30/24 Pantoprazole Sodium 20 mg PO DAILY 03/30/24 Rosuvastatin [Crestor] 10 mg PO BEDTIME 03/30/24 Levothyroxine Sodium 25 mcg PO DAILY 03/31/24 Diet: Low sodium Activity: Ad joyce Followup: Pb Bergman MD [ACTIVE - CAN ADMIT] - Gilberto Martinez MD [Primary Care Provider] -
[2024-04-01] MEDS ORDERED: INSULIN GLARGINE 100 UNIT/ML SQ SCH (21:00)
--- NOTE | 2024-04-03 12:18 | EKG ---
Test Date: 2024-03-30 Test Time: 04:50:04 Melter Supervisor: RV MEASUREMENT RESULTS: Intervals: Rate: 72 IL: 166 QRSD: 84 QT: 410 QTc: 448 [place]: P: 70 IL: 166 QRS: 52 T: 42 INTERPRETIVE STATEMENTS: Sinus rhythm with premature atrial complexes Otherwise normal ECG Compared to ECG 06/01/2023 03:11:20 Atrial premature complex(es) now present Sinus arrhythmia no longer present Electronically Signed On 04-03-24 12:13:11 FRAME CATCHER by Pb Bergman
== END 2024-04-01 13:15 | disposition home or self-care (01) ==
LOC: ER 04:42 → ERHOLD 07:22 → 4TH 19:33
PROVIDERS: ADMIT Internal Medicine; ATTEND Family Medicine
PROC: B2111ZZ Fluoroscopy of Multiple Coronary Arteries using Low Osmolar Contrast (ICD-10-PCS; principal; 2024-03-30)
DX: T82.855A Stenosis of coronary artery stent, initial encounter (principal); I25.110 Atherosclerotic heart disease of native coronary artery with unstable angina pectoris; I34.1 Nonrheumatic mitral (valve) prolapse; I10 Essential (primary) hypertension; E11.65 Type 2 diabetes mellitus with hyperglycemia; R10.9 Unspecified abdominal pain; E78.5 Hyperlipidemia, unspecified; E03.9 Hypothyroidism, unspecified; K57.92 Diverticulitis of intestine, part unspecified, without perforation or abscess without bleeding; K85.90 Acute pancreatitis without necrosis or infection, unspecified; N20.0 Calculus of kidney; K76.0 Fatty (change of) liver, not elsewhere classified; Z79.82 Long term (current) use of aspirin; Z79.4 Long term (current) use of insulin; Z79.899 Other long term (current) drug therapy; Z88.0 Allergy status to penicillin; Z88.2 Allergy status to sulfonamides; Z88.5 Allergy status to narcotic agent; Z88.8 Allergy status to other drugs, medicaments and biological substances; Z91.041 Radiographic dye allergy status; Z90.49 Acquired absence of other specified parts of digestive tract; Z82.49 Family history of ischemic heart disease and other diseases of the circulatory system
CPT/HCPCS: 93005; 93306; 85025 ×2; 80048 ×2; 36415 ×2; 83735; 84100; 85610; 80061; 82947 ×9; 80076; 85730; 84443; 81003; 83036; 84484 ×4; 84439; 83880; 71045; 93454; 76937; 96374; 99285; C1893; Q9966; J1644; J2003; J2765; J1200; J2919; G0378 ×7; J7040; 99152; 99153; J0461; J2250; J3010

== ENCOUNTER 2024-04-25 12:14 | Inpatient (IN) | payer OTHER ==
[2024-04-25] MEDS ORDERED: ACETAMINOPHEN 500 MG TAB PO PRN (21:56)
[2024-04-25] MEDS ORDERED: IPRATROPIUM BROM 0.5MG/2.5ML NEB PRN (21:58)
[2024-04-25] MEDS ORDERED: HYDROCODONE/APAP 5/325 MG TAB PO PRN (22:05)
[2024-04-25] MEDS ORDERED: DOCUSATE NA/SENNA CONC 1 TAB PO PRN (22:07)
[2024-04-25] MEDS ORDERED: POLYETHYL GLY 3350 17 GM/DOSE PO PRN (22:08)
[2024-04-25] MEDS ORDERED: BISACODYL 10 MG RECTAL SUPP PR PRN (22:09)
[2024-04-25] MEDS ORDERED: ATORVASTATIN 40 MG TAB ONE (22:19)
[2024-04-25] MEDS ORDERED: AMIODARONE HCL 200 MG TAB ONE (22:19)
[2024-04-25] MEDS ORDERED: MAGNESIUM OXIDE 400 MG TAB ONE (22:21)
[2024-04-25] MEDS: ALPRAZOLAM 0.25 MG TABLET PO PRN (22:30)
[2024-04-25] MEDS: ATORVASTATIN 40 MG TAB PO SCH (22:30)
[2024-04-25] MEDS: AMIODARONE HCL 200 MG TAB PO SCH (22:30)
[2024-04-25] MEDS: MAGNESIUM OXIDE 400 MG TAB PO SCH (22:30)
[2024-04-25 23:41] LABS: Specific Gravity 1.012 (1.005-1.030); Sqamous Epithelial <5 /HPF (None Seen); Urine Bacteria None Seen /HPF (<20); Urine Bilirubin NEGATIVE (Negative); Urine Blood Negative (Negative); Urine Clarity Turbid (Clear); Urine Color Light-Yellow (Yellow); Urine Culture Reflex Order NOT NEEDED; Urine Glucose NEGATIVE (Negative); Urine Ketones NEGATIVE (Negative); Urine Micro Reflex YN NO BILL MICROSCOPIC; Urine Nitrite NEGATIVE (Negative); Urine Protein NEGATIVE (Negative); Urine RBC <5 /HPF (None Seen); Urine Urobilinogen Normal (Normal); Urine WBC <5 /HPF (<5)
[2024-04-26] MEDS: LEVOTHYROXINE SOD 0.025 MG TAB PO SCH (07:09)
[2024-04-26] MEDS: PANTOPRAZOLE 40MG TABLET PO SCH (07:09)
[2024-04-26] MEDS: INSULIN REGULAR (HUMAN) 100 UNIT/ML SQ SCH (07:30)
[2024-04-26] MEDS: DOCUSATE NA 100 MG CAP PO SCH (08:00)
[2024-04-26 08:10] LABS: Absolute Eosinophils 0.4 K/uL (0-0.5); Absolute Lymphocytes (CBC) 1.5 K/uL (0.7-4.9); Absolute Monocytes 1.3 K/uL (0.1-1.3); Absolute Neutrophil 5.7 K/uL (1.8-8.0); Basophils % 0.4 % (0-1.3); Eosinophils % 4.7 % (0-4.4); Hematocrit 22.3 % (36.0-45.0); Hemoglobin 7.8 g/dL (12.0-15.0); Lymphocytes % 16.7 % (15.3-44.8); MCH 29.5 pg (27.0-35.0); MCHC 34.8 g/dL (32.0-36.0); MCV 84.8 fL (80-100); Monocytes % 14.9 % (3.3-12.3); Neutrophils % 63.3 % (41.7-73.7); Platelets 249 thou/uL (152-406); RBC Red Blood Cell Count 2.63 M/uL (3.86-4.86); Red Cell Distribution Width 14.9 % (12.1-15.2)
[2024-04-26] MEDS: ASPIRIN 81 MG CHEWABLE TABLET PO SCH (08:11)
[2024-04-26] MEDS: CYANOCOBALAMIN 1,000 MCG TAB PO SCH (08:11)
[2024-04-26] MEDS: CLOPIDOGREL 75 MG TABLET PO SCH (08:11)
[2024-04-26] MEDS: FERROUS SULFATE 325 MG TAB PO SCH (08:12)
[2024-04-26] MEDS: INSULIN GLARGINE 100 UNIT/ML SQ SCH (08:15)
[2024-04-26 08:26] LABS: Albumin 2.5 g/dL (3.4-5.0); Prealbumin 10.2 mg/dL (20-40)
[2024-04-26] MEDS ORDERED: D10W 125 ML IV PRN (14:03)
[2024-04-26] MEDS ORDERED: GLUCAGON 1 MG/VIAL IM PRN (14:03)
[2024-04-26] MEDS: MELATONIN 3 MG TABLET PO SCH (20:34)
[2024-04-26] MEDS: APIXABAN 2.5 MG TABLET PO SCH (20:34)
[2024-04-26] MEDS: ONDANSETRON 4 MG (ODT) TAB PO PRN (20:35)
--- NOTE | 2024-04-26 21:51 | HP ---
Date of Admission: 04/25/2024 Time Of Service: 1:00 p.m. Chief Complaint: "I had heart surgery." History Of Present Illness: Ms. Murillo is an 83-year-old patient with coronary artery disease, st atus post percutaneous angioplasty in addition to open-heart surgery involving the bypass of coronary occlusion to the left anterior descending from the JANES artery. She lives with her son and is normal ly independent. At baseline, ambulating without an assistive device, drives independently, and is ve ry active, but began having unstable angina. Her drop press hand did an evaluation including a coronary angiogram, which showed left main artery being normal, but the left anterior descending artery had a proximal stenosis of about 70%. The rest of the artery was normal. She had normal diagonal branche s. The left circumflex was normal. Right coronary artery was codominant. Echocardiogram on the Mar showed ejection fraction of 55% to 60% with mild mitral regurgitation, mild tricuspid regurg itation, and mild pulmonic insufficiency. She had carotid ultrasound study completed on 04/11/2024 s howing no significant stenosis of both carotid arteries. Chest CT scan on 04/11/2024 showed no acute findings. She was brought to [facility] on 04/20 for an off-pump coronary artery bypass graftin g from the SPARKS artery to the LAD and to have a left atrial appendage clipping. Postoperatively, she was admitted to the cardiovascular ICU where she became confused on the April 21. She pulled out he r central line and was found unstable overnight on April 22. Her mentation did appear to be back to normal. 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 The patient was on also Xanax at home and biso prolol 2.5 mg daily. Those medications were changed to metoprolol. She continued with the dual anti platelet therapy and had Lipitor and amiodarone on board. She began to tolerate a good diet of heart healthy glycemic control diet with insulin sliding scale and long-acting insulin. A chest tube was discontinued on the April 22 and she was able to remain on room air and had a hemoglobin around 8.1, hematocrit 25.1, white blood cell count was around 15. She did require further medical monitoring an d was evaluated by the therapy service and found to be in significant physical decline. Now requdelfin g maximal assistance for bed mobility due to sternal precautions, minimal assistance for transfers, a nd was able to ambulate about 200 feet with minimum assistance with a rolling walker. She was medica lly cleared by the Cardiology service and internal medicine service to begin intensive rehab to help her return towards her prior level of independent functioning and to minimize the risk of rehospitali zation. Admission to a senior living or home will likely not result the patient thriving or do carlos y well and potentially worsening and requiring rehospitalization in acute care. It is therefore nece ssary admission to the inpatient rehabilitation unit. Past Medical History: As noted. Allergies: ALBUTEROL, AMOXICILLIN, AZITHROMYCIN, CEFTIN, CEPHALOSPORINS, CIPROFLOXACIN, CLAVULANIC A JOYCELYN, GLIMEPIRIDE, INSULIN DETEMIR, METFORMIN, MORPHINE, METOPROLOL, PENICILLINS, QUINOLONES, PROMETHA ZINE, JANUVIA, STADOL, SULFA ANTIBIOTICS. Current Medications: Tylenol 500 mg every 4 hours as needed, Xanax 0.5 mg at bedtime as needed, Cord arone 200 mg 3 times daily, Vitamin B12 500 mcg daily, Dulcolax 10 per rectum as needed, Colace 100 m g twice daily, ferrous sulfate 325 mg daily glucagon 1 IM as needed for low blood sugar, [place] 5/325 every 4 hours as needed, Semglee insulin 20 units daily, ipratropium 0.5 mg nebulizer every 4 hours, Synthroid 0.025 mg daily, magnesium oxide 400 mg twice daily, melatonin 6 mg at bedtime, Zofran 4 mg every 6 hours as needed, Protonix 40 mg daily, Senokot 2 at bedtime. Laboratory Studies: White blood cell count 9.0, hemoglobin 7.8, platelets 249. Sodium 140, potassiu m 4.0, chloride 109, carbon dioxide 26, BUN 18, creatinine 1, glucose ranged from 152 to 241. Hemogl obin A1c elevated 8.0. Calcium 8.5. Magnesium 2.0. Albumin 2.5, prealbumin 10.2. Urinalysis shows turbid clarity and is otherwise unremarkable. X-ray/imaging: Chest x-ray from 04/23 shows bibasilar subsegmental atelectasis, mild central pulmona ry vasculature with interstitial edema, trace left apical pneumothorax that persisted. Family History: Noncontributory. Social History: No alcohol, tobacco, or IV drug use. Lives in single family home. Past Surgical History: Surgeries as noted, coronary artery bypass grafting with atrial appendage cli pping. Review of Systems: Denies any significant chest pain. No fevers, chills. No current myalgias arthralgias just pain is rated around 2-3. No rash. No psychiatric issues. No genitourinary complaints. No dermatological complaints. No other complaints. Current Level Of Functioning: Currently, she is independent with eating; setup assistance for groomi ng; maximum assistance for bathing; moderate assistance for upper body dressing and lower body dressi ng along with donning and doffing footwear; moderate assistance for transferring to the toilet, wheel chair, tub, bench; moderate assistance for ambulation 200 feet with a rolling walker. Physical Examination: Vital Signs: Blood pressure 125/57, pulse 60, respiratory rate 16, temperature 97.2, oxygen saturati on 97%. General: Ms. Murillo is sitting in a chair beside her bed. She has friends at the bedside. Skin: Her median sternotomy wound is in good hemostasis. Note her graft donation site has good hemo stasis. Extremities: She has no clubbing, cyanosis, or edema. Lungs: She has good air movement. Some decreased breath sounds bilaterally. Neuro: Otherwise, no abnormal examination findings such as focal deficits in the face, arms, legs an d in terms of motor, sensory, or coordination deficits. Medical And Rehabilitation Assessment And Plan: Ms. Murillo is an 83-year-old patient admitted to the inpatient rehabilitation unit with impairment category 14, cardiac. Her impairment group code is 09, cardiac. Her etiologic diagnosis is coronary artery disease, status post bypass grafting. Her comorbids do include decreased mobility, decreased physical functioning, hypertension, dyslipidemia, diabetes mellitus, coronary artery disease, and psychosis that has resolved, that is related to ICU p ostoperative state. Plan: 1. She will have physical and occupational therapy 3 hours a day, 5 of 7 days. If need be, [facility]en sanches will be involved. 2. She will continue with all of the comorbid condition medications including for DVT prophylaxis, El iquis 2.5 mg twice daily along with aspirin 81 mg daily. She will have amiodarone 200 mg 3 times yuri ly; [place] for pain; Lipitor for dyslipidemia; Vitamin B12 on board for decreased hemoglobin, from [facility] she has mild anemia. Ferrous sulfate as well is on board, Semglee insulin for her diabetes mellit us, Synthroid for hypothyroidism, melatonin for insomnia, Senokot for constipation, Protonix for GE r eflux. Comorbidities That Are Impacting Rehabilitation: In terms of additional comorbids, she has had the e pisode of psychosis that will be watched more carefully. She at this point is oxygenating well. The re is no evidence of additional episodes of confusion, disorientation, but given that, she may have a chair alarm, bed alarm. She is right at the nurses' station just in case that does happen. Otherwi se, she was fully independent previously and she is not expected to have any significant difficulties with her comorbid interrupting her rehabilitation. Rehab Specific Plan: She will have physical and occupational therapy 3 hours a day, 5 of 7 days to i mprove her ability to safely transfer from bed to chair, to a wheelchair, to a rolling walker, ambula te at least 250 feet with independence, mobilize wheelchair 250 feet, to go up and down 10 steps with bilateral handrails. She will also be working on maintaining her sternal precautions given her medi an sternotomy in addition to helping reduce the risk of edema given the harvesting site in the lower extremity. Ms. Murillo has a good understanding of the process of admission to the inpatient rehabilitation un it and how she will benefit from physical and occupational therapy. She will have 24 hours a day, 7 days a week skilled rehabilitation nursing, daily physician evaluation and management, and social ser vices evaluation and management for discharge planning, home equipment, physician followup, and to co ntinue therapy. If need be, additional help will be sought from hospitalist service and cardiology s nick. Barriers To Discharge: Currently, the episode of psychosis potentially could be a barrier to dischar ge. She may require an extended stay if she is not thriving; however, at this point, she appears to be ready to mobilize and do very well, so it is not anticipated that would stop her. In addition, i f there is swelling and infection that could prolong her stay because she may need IV antibiotics. Length Of Stay: About 10-12 days. Disposition: Expected to be able to be discharged home to continue therapy via outpatient physical t herapy perhaps cardiac therapy if she is doing very well. Prognosis: Good. Code Status: Full code. Rehab Specific Goals: 1. Become independent with upper and lower body dressing and donning and doffing footwear. 2. Independently mobilize a wheelchair 250 feet and ambulate 250 feet with a rolling walker. 3. Independently go up and down 10 steps with bilateral handrails maintaining sternal precautions. 4. She should be able to independently perform all of her activities of daily living. 5. She should be independent in terms of her cognitive functioning and safety awareness and planning and continue all therapy, taking all medicines properly. The above goals were reviewed with Ms. Murillo. She is in agreement. By signing this document, I acknowledge, I personally performed a full physical examination on Ms. Smith no later than 24 hours after her admission to the inpatient rehabilitation unit and determine d she is able to tolerate the above course of treatment at an intensive level for reasonable period o f time. A detailed individualized plan of care for her will be completed by hospital day 4 based on the preadmission screen, history and physical, and therapy evaluations. JEROME Voice ID: [id number]
[2024-04-27] MEDS: CYANOCOBALAMIN 1000MCG/ML INJ IM ONE (15:45)
[2024-04-27] MEDS: ALPRAZOLAM 0.25 MG TABLET PO SCH (19:48)
--- NOTE | 2024-04-28 13:30 | P.RH.PN ---
Estimated Length of Stay: 8 Expected Discharge Date: 05/02/24 Discharge Disposition Plan: Home Family Support: Yes Microbiological Lab Technician Goal: Mobility, Transfers, Self Care Vital Signs: Last Vital Signs Temp 97.9 F 04/28/24 07:22 Pulse 72 04/28/24 07:22 Resp 16 04/28/24 07:22 BP 138/63 04/28/24 07:22 Pulse Ox 98 04/28/24 07:22 Laboratory: Laboratory Last Values WBC 9.00 thou/uL (4.3-10.9) 04/26/24 07:42 RBC 2.63 M/uL (3.86-4.86) L 04/26/24 07:42 Hgb 7.8 g/dL (12.0-15.0) L 04/26/24 07:42 Hct 22.3 % (36.0-45.0) L 04/26/24 07:42 MCV 84.8 fL (80-100) 04/26/24 07:42 MCH 29.5 pg (27.0-35.0) 04/26/24 07:42 MCHC 34.8 g/dL (32.0-36.0) 04/26/24 07:42 RDW 14.9 % (12.1-15.2) 04/26/24 07:42 Plt Count 249 thou/uL (152-406) 04/26/24 07:42 MPV 8.0 fL (7.6-11.3) 04/26/24 07:42 Neutrophils % 63.3 % (41.7-73.7) 04/26/24 07:42 Lymphocytes % 16.7 % (15.3-44.8) 04/26/24 07:42 Monocytes % 14.9 % (3.3-12.3) H 04/26/24 07:42 Eosinophils % 4.7 % (0-4.4) H 04/26/24 07:42 Basophils % 0.4 % (0-1.3) 04/26/24 07:42 Absolute Neutrophils 5.7 K/uL (1.8-8.0) 04/26/24 07:42 Absolute Lymphocytes 1.5 K/uL (0.7-4.9) 04/26/24 07:42 Absolute Monocytes 1.3 K/uL (0.1-1.3) 04/26/24 07:42 Absolute Eosinophils 0.4 K/uL (0-0.5) 04/26/24 07:42 Absolute Basophils 0.0 K/uL (0-0.5) 04/26/24 07:42 Sodium 140 mEq/L (136-145) 04/26/24 07:42 Potassium 4.0 mEq/L (3.5-5.1) 04/26/24 07:42 Chloride 109 mEq/L (98-107) H 04/26/24 07:42 Carbon Dioxide 26 mEq/L (21-32) 04/26/24 07:42 Anion Gap 9.0 mEq/L (5.0-15.0) 04/26/24 07:42 BUN 18 mg/dL (7-18) 04/26/24 07:42 Creatinine 1.00 mg/dL (0.55-1.02) 04/26/24 07:42 Est GFR (CKD-EPI) 56 ml/min (=/>90) L 04/26/24 07:42 Glucose 161 mg/dL (74-106) H 04/26/24 07:42 POC Glucose 198 mg/dL (65-120) H 04/28/24 11:32 Hemoglobin A1c 8.0 % (4.2-6.3) H 04/26/24 07:42 Calcium 8.5 mg/dL (8.5-10.1) 04/26/24 07:42 Magnesium 2.0 mg/dL (1.6-2.4) 04/26/24 07:42 Albumin 2.5 g/dL (3.4-5.0) L 04/26/24 07:42 Prealbumin 10.2 mg/dL (20-40) L 04/26/24 07:42 Urine Color Light-yellow (Yellow) 04/25/24 23:00 Urine Clarity Turbid (Clear) H 04/25/24 23:00 Urine pH 6.0 (5.0-7.0) 04/25/24 23:00 Ur Specific [place] 1.012 (1.005-1.030) 04/25/24 23:00 Glucose (UA)(Auto) Negative (Negative) 04/25/24 23:00 Urine Ketones Negative (Negative) 04/25/24 23:00 Urine Blood Negative (Negative) 04/25/24 23:00 Urine Nitrite Negative (Negative) 04/25/24 23:00 Urine Bilirubin Negative (Negative) 04/25/24 23:00 Urine Urobilinogen Normal (Normal) 04/25/24 23:00 Ur Leukocyte Esterase Negative Lexx/uL (Negative) 04/25/24 23:00 Urine RBC <5 /HPF (None Seen) 04/25/24 23:00 Urine WBC <5 /HPF (<5) 04/25/24 23:00 Ur Squamous Epith Cells <5 /HPF (None Seen) 04/25/24 23:00 Urine Bacteria None seen /HPF (<20) 04/25/24 23:00 Urine Culture Reflexed Not needed 04/25/24 23:00 Urine Total Protein Negative (Negative) 04/25/24 23:00 Weight: 152 lb 8 oz Wound Present: No Closed Surgical Incision Present: Yes Negative Pressure Wound Therapy Present: No Physician Update: Low prealbumin will add Glucerna. Mild difficulty with sternal precautions. Left leg graft donation site has good hemostasis. SLUMS 25. Participating well with speech. SBA with all transfers, RW 250' and not assistive device. Up an down 15 steps. Setup assist with ADLs. Summary: Patient's care plan and buttermaker continuous churn goals have been reviewed and revised as necessary. Please see the Rehabilitation Signature page for all necessary signatures.
[2024-04-28] MEDS: GLUCERNA SHAKE 237 ML CAN PO SCH (19:27)
[2024-04-29 05:02] VITALS: BMI 28.7
[2024-04-29] MEDS: CRANBERRY FRUIT EXTRACT 425 MG CAPSULE PO SCH (08:59)
[2024-04-29] MEDS: FE SULF/FA/VIT B COMP & C TAB PO SCH (09:00)
[2024-04-29] MEDS: CIPROFLOXACIN HCL 500 MG TAB PO SCH (09:01)
[2024-04-29] MEDS: CHLORASEPTIC LOZENGES PO PRN (09:10)
[2024-04-29] MEDS: CARBOXYMETHYLCELLULOSE SODIUM 0.5% 15 ML EACH EYE PRN (09:10)
--- NOTE | 2024-04-29 20:29 | PN ---
Date of Progress Note: 04/29/2024 Time Of Service: 3:10 p.m. Subjective: Ms. Murillo is resting comfortably. She finished therapy. She is happy. Pain is man aged. Denies any significant chest pain. The harvest site for the vein on the left lower extremity, no significant issues. Mild edema in the lower extremity. Objective: No fevers, chills, nausea, vomiting. Mild edema again in lower extremity. No significan t chest pain to speak of. The median sternotomy site has good hemostasis. Physical Examination: Vital Signs: Blood pressure 125/60, pulse of 72, respiratory rate 16, temperature 97.6, oxygen satur ation 96%. Weight 157 pounds. Height 5 feet 2 inches. BMI 28.7 cm. General: Ms. Murillo is resting well. HEENT: She is normocephalic, atraumatic. Sclerae anicteric. Oropharynx pink, moist. Skin: She has good hemostasis at the surgical site in the midsternal area and the left leg vein harv est site. Extremities: Mild edema in the left lower extremity otherwise. Neurologic: No focal deficits. Diffuse weakness of lower extremities. Laboratory Studies: White blood cell count 9.0, hemoglobin 7.8, platelets 249. Blood sugars range f rom 121-163. Urinalysis from the showed turbid clarity, otherwise unremarkable. X-ray/imaging: No new x-rays or imaging. Medications: Tylenol 500 mg every 4 hours as needed, [place] 5/325 every 4 hours as needed, Xanax 0.25 mg twice daily, Cordarone 200 mg 3 times daily, Eliquis 2.5 mg twice daily, Artificial Tears 1 drop each eye every 4 hours as needed, aspirin 81 mg daily, Lipitor 40 mg at bedtime, she has Dulcolax 10 mg per rectum as needed for constipation, Cipro 500 mg twice daily, was just started today after her urinalysis suggested urine tract infection. She is on vitamin B12 500 mcg daily. She has Colace 100 mg twice daily, Glucerna 237 mL twice daily, ferrous sulfate 325 mg daily. She has insulin sliding scale, Atrovent 0.5 mg nebulizer every 3-4 hours as needed for shortness of breath, Synthroid 0.025 m g daily, magnesium oxide 400 mg twice daily, melatonin 6 mg at bedtime, Hemocyte Plus 1 tablet daily with breakfast, Zofran 4 mg every 6 hours as needed, Protonix 40 mg daily, Senokot 2 at bedtime, thro at lozenges for sore throat. Progress Made With Physical, Occupational Therapy: With physical therapy, she completed 3 sets of 15 repetitions of [id number] in the low mat, did very well. Performed lower extremity ergociser for 10 minutes. In addition, she was able to ambulate without an assistive device with standby assistanc e of 100 feet, 325 feet, 250 feet, 120 feet. Again, no assistive device. She was up and down 20 sony ps with bilateral handrails with standby assistance, occasionally requiring cuing for maintaining sony rnal precautions. Assessment: Ms. Murillo is an 83-year-old patient who is doing very well in physical and occupatio nal therapy. She does have coronary artery disease, status post coronary artery bypass grafting. Sh e has median sternotomy wound that is healing very well. Left lower extremity graft donation site al so doing very well. She has comorbid diabetes mellitus, iron deficiency, dyslipidemia, hypertension, hypothyroidism, decreased mobility, decreased physical functioning. Plan: She will continue with physical and occupational therapy 3 hours a day, 5/7 days. She has a l ist of comorbid condition medications that has been noted and will be continued. DVT prophylaxis als o on board. She has strong fall precautions on board and sternal precautions that will be maintained . In terms of comorbidities impacting rehabilitation, comorbidities are stably managed. She is doin g excellent and do not negatively impact her rehabilitation. CHRISTINA/ROSALBA Voice ID: [id number] Report ID: [id number]
[2024-04-30] MEDS: levoFLOXacin 500 MG TAB PO SCH (09:22)
[2024-05-01 07:54] LABS: Absolute Basophils 0.1 K/uL (0-0.5); Absolute Eosinophils 0.4 K/uL (0-0.5); Absolute Lymphocytes (CBC) 1.5 K/uL (0.7-4.9); Absolute Monocytes 0.9 K/uL (0.1-1.3); Absolute Neutrophil 7.4 K/uL (1.8-8.0); Basophils % 0.7 % (0-1.3); Eosinophils % 3.8 % (0-4.4); Hematocrit 26.6 % (36.0-45.0); Hemoglobin 8.9 g/dL (12.0-15.0); Lymphocytes % 14.4 % (15.3-44.8); MCH 28.6 pg (27.0-35.0); MCHC 33.4 g/dL (32.0-36.0); MCV 85.4 fL (80-100); MPV 7.2 fL (7.6-11.3); Monocytes % 8.7 % (3.3-12.3); Neutrophils % 72.4 % (41.7-73.7); Platelets 439 thou/uL (152-406); RBC Red Blood Cell Count 3.12 M/uL (3.86-4.86); Red Cell Distribution Width 14.9 % (12.1-15.2)
[2024-05-01] MEDS ORDERED: HOME MED 1 EA UNK PO SCH (08:00)
[2024-05-01 08:20] LABS: Albumin 2.9 g/dL (3.4-5.0); Anion Gap 5.7 mEq/L (5.0-15.0); Magnesium 2.3 mg/dL (1.6-2.4); Potassium 4.7 mEq/L (3.5-5.1)
[2024-05-01] MEDS ORDERED: SMZ./TMP. 800/160 MG TABLET PO SCH (20:00)
[2024-05-01] MEDS: NITROFURAN MACRO 100 MG CAP PO SCH (20:01)
--- NOTE | 2024-05-02 00:17 | PN ---
Date of Progress Note: 05/01/2024 Time Of Service: 1 p.m. Subjective: Ms. Murillo is ambulating around the hallway without an assistive device. She has gai t belt and the therapist is holding onto gait belt. She has excellent in terms of her progress. She denies any chest pain where she has median sternotomy and no pain in the left lower extremity where she has vein harvest site. She is very happy with going home in the morning. Objective: No fevers, chills, nausea, vomiting. No myalgias, arthralgias. No significant edema not ed in lower extremities and she is doing very well otherwise. Physical Examination: Vital Signs: Blood pressure 131/62, pulse 83, respiratory rate 18, temperature 97.6, oxygen saturati on 96%. General: Again, Ms. Murillo is resting comfortably. She is in no acute distress. HEENT: Normocephalic, atraumatic. Sclerae anicteric. Oropharynx pink, moist. Neck: Supple. Chest: Clear. Median sternotomy has good hemostasis. Laboratory Studies: White blood cell count 10.2, hemoglobin 8.9, platelets 439. Sodium 135, potassi um 4.7, chloride 105, carbon dioxide 29, BUN 18, creatinine 1.29, glucose ranged from 185 to 244, favian cium 9.4, magnesium 2.3, albumin 2.9, prealbumin 14.8. X-ray/imaging: No new x-rays or imaging. Medications: Medications have been reviewed and remain unchanged. Progress Made With Physical, Occupational, And Speech Therapy: Today with physical therapy, she comp leted gait training 250 feet with modified independence, up and down 15 steps with modified independe nce, 250 feet with rolling walker used as well. With her occupational therapy, [id number] transfer s, functionally ambulated from room to shower, all independently, shower was done independently. Tub transfer independent, independent with ADLs. With speech, she did improve her BIMS score to a 15/15 and her SLUMS score to 26/30. She does have mild short-term memory issues and issues of some functi onal processing. Assessment And Plan: Ms. Murillo is an 83-year-old patient in rehabilitation unit with coronary ar aristeo disease, status post median sternotomy for cardiac bypass. She has vein harvest site from the l t lower extremity, all those have good hemostasis. She has risk of DVT addressed with Eliquis and dry eyes addressed with Artificial Tears, stroke risk reduction with aspirin, ferrous sulfate for ane ksenia, hypothyroidism addressed with Synthroid, magnesium oxide for muscle spasm, Hemocyte Plus for ane ksenia, Protonix for GE reflux, throat lozenges for cough, Senokot-S for constipation. In terms of plan , she will continue with physical, occupational, and speech therapy until discharge and ready for the morning. Continue with all comorbid condition medications. She will continue with therapy. She ac tually will benefit greater from cardiac rehab after her discharge and follow up with cardiothoracic surgeons and primary care physician as scheduled. CHRISTINA/ROSALBA Voice ID: [id number] Report ID: [id number]
[2024-05-02 06:37] VITALS: BP 120/58; TEMP 97.8
--- NOTE | 2024-05-04 08:53 | EKG ---
Test Date: 2024-04-26 Test Time: 19:17:35 Structures Technician: PAUL MEASUREMENT RESULTS: Intervals: Rate: 72 NV: 144 QRSD: 80 QT: 408 QTc: 446 [place]: P: 37 NV: 144 QRS: 25 T: 50 INTERPRETIVE STATEMENTS: Normal sinus rhythm T wave abnormality, consider anterior ischemia Abnormal ECG Compared to ECG 03/30/2024 04:50:04 T-wave abnormality now present Possible ischemia now present Atrial premature complex(es) no longer present Electronically Signed On 05-04-24 08:42:21 CDT by Pb Bergman
== END 2024-05-02 11:22 | disposition home health service (06) | DRG 950 ==
LOC: 5TH 20:20
PROVIDERS: ADMIT Psychiatry & Neurology Neurology with Special Qualifications in Child Neurology; ATTEND Psychiatry & Neurology Neurology with Special Qualifications in Child Neurology
DX: Z48.812 Encounter for surgical aftercare following surgery on the circulatory system (principal); I25.10 Atherosclerotic heart disease of native coronary artery without angina pectoris; Z95.1 Presence of aortocoronary bypass graft; I10 Essential (primary) hypertension; E78.5 Hyperlipidemia, unspecified; E11.9 Type 2 diabetes mellitus without complications; F29 Unspecified psychosis not due to a substance or known physiological condition; E03.9 Hypothyroidism, unspecified; D64.9 Anemia, unspecified; M62.838 Other muscle spasm
CPT/HCPCS: 36415; 80048; 81001; 82040; 82947; 83036; 83735; 84134; 85025; 87077; 87086; 87088; 87186; 92523; 93005; 97110; 97112; 97116; 97129; 97161; 97165; 97530; J1815; J3420; Q0162

== ENCOUNTER 2024-09-23 23:42 | Inpatient (IN) | payer OTHER ==
[2024-09-24] MEDS ORDERED: ONDANSETRON 4 MG/2 ML VIAL ONE ×3 (00:01→05:27)
[2024-09-24] MEDS ORDERED: MORPHINE 4 MG/ML SYR ONE (00:01)
[2024-09-24] MEDS ORDERED: FAMOTIDINE 20 MG/2 ML VIAL IV ONE (00:01)
[2024-09-24] MEDS ORDERED: ACETAMINOPHEN 500 MG TAB ONE (00:01)
[2024-09-24 00:06] LABS: Absolute Lymphocytes (CBC) 2.0 K/uL (0.7-4.9); Hematocrit 36.9 % (36.0-45.0); Hemoglobin 12.3 g/dL (12.0-15.0); MCH 28.1 pg (27.0-35.0); MCHC 33.2 g/dL (32.0-36.0); MCV 84.7 fL (80-100); MPV 7.9 fL (7.6-11.3); Nucleated RBC Absolute Count 0.0 (0-0); Nucleated Red Blood Cells % 0.1 % (0-0); RBC Red Blood Cell Count 4.36 M/uL (3.86-4.86); White Blood Count 7.30 thou/uL (4.3-10.9)
[2024-09-24] MEDS ORDERED: FENTANYL CITR 100 MCG/2 ML ONE (00:10)
[2024-09-24 00:27] LABS: ALT/SGPT 22 U/L (13-56); AST/SGOT 15 U/L (15-37); Albumin 3.5 g/dL (3.4-5.0); Albumin/Globulin Ratio 1.0 (1.1-1.8); Alkaline Phosphatase 67 U/L (45-117); Anion Gap 11.2 mEq/L (5.0-15.0); BUN Blood Urea Nitrogen 26 mg/dL (7-18); Globulin 3.6 g/dL (2.3-3.5); Glucose Level 181 mg/dL (74-106); Lipase 51 U/L (13-75); Magnesium 1.9 mg/dL (1.6-2.4); NT PRO-BNP 416 pg/mL (<450); Potassium 4.2 mEq/L (3.5-5.1); Troponin High Sensitivity 17.0 pg/mL (<58.9)
[2024-09-24 00:29] LABS: Bilirubin Indirect, Calculated 0.3 mg/dL (0.2-0.8)
[2024-09-24 00:33] LABS: PT Prothrombin Time 11.8 SECONDS (10-13.0); Protime INR 1.05
--- NOTE | 2024-09-24 02:20 | ER ---
Nurse's Notes [facility] Name: Marie Puri Age: 83 yrs Sex: Female : 1940 Arrival Date: 09/23/2024 Time: 23:42 Bed 19 Private MD: Diagnosis: Chest pain, unspecified Presentation: 09/23 23:45 Chief complaint: Patient states: c/o chest pressure and SOB waking her up out of sleep zm \T\2300. 23:45 Care prior to arrival: Glucose check: 170. zm 23:56 Coronavirus screen: Vaccine status: Patient reports receiving the 2nd dose of the covid zm vaccine. Patient reports receiving the 1st dose of the Covid vaccine. Client denies travel out of the [place] in the last 14 days. At this time, the client does not indicate any symptoms associated with coronavirus-19. Ebola Screen: Patient denies travel to an Ebola-affected area in the 21 days before illness onset. No symptoms or risks identified at this time. Initial Sepsis Screen: Does the patient meet any 2 criteria? No. Patient's initial sepsis screen is negative. Does the patient have a suspected source of infection? No. Patient's initial sepsis screen is negative. Risk Assessment: Do you want to hurt yourself or someone else? Patient reports no desire to harm self or others. Onset of symptoms was September 23, 2024 at 23:00. Care prior to arrival: Medication(s) given: zofran 4 mg, 324mg Aspirin IV initiated. 20 GA, in the right antecubital area. 23:56 Method Of Arrival: EMS: [facility] 23:56 Acuity: ARGELIA 3 zm Triage Assessment: 09/24 00:00 General: Appears in no apparent distress. uncomfortable, Behavior is calm, cooperative, zm appropriate for age. Pain: Complains of pain in diaphragm, xiphoid area and mid-sternal area Pain currently is 7 out of 10 on a pain scale. Quality of pain is described as pressure, Pain began 1 hour ago. Is continuous. Historical: - Allergies: 00:00 Morphine; zm 00:00 Phenergan; zm 00:00 Stadol; zm 00:00 Toprol XL; zm 00:00 PENICILLINS; zm 00:00 Albuterol; zm - Home Meds: 02:14 aspirin 81 mg Oral capsule [Active]; atorvastatin 20 mg Oral tablet [Active]; zm bisoprolol fumarate 5 mg Oral tab 1 tab 1/2 in the morning and 1/2 at night [Active]; CoQ-10 30 mg Oral cap daily [Active]; Effient oral [Active]; levothyroxine 25 mcg tablet daily [Active]; losartan 25 mg Oral tablet daily [Active]; Nitrostat SL [Active]; [place]-3 Oral cap daily [Active]; Plavix 75 mg Oral tablet daily [Active]; Protonix 40 mg Oral TbEC 1 tab [Active]; Zofran Oral as needed [Active]; - PMHx: 00:00 Diabetes - IDDM; Diverticulitis; Kidney stones; Pancreatitis; mitral valve prolapse; zm Hypothyroidism; Hypertensive disorder; fatty liver; - PSHx: 00:00 cardiac stent; Colonresection; Heart ablation X2; zm 02:10 cardiac bypass; zm - Immunization history:: Adult Immunizations up to date. - Infectious Disease History:: Denies. - Social history:: Smoking status: Patient denies any tobacco usage or history of. Screenin:[address] [facility] ED Fall Risk Assessment (Adult). Abuse screen: Denies threats or abuse. zm Nutritional screening: No deficits noted. Tuberculosis screening: No symptoms or risk factors identified. 01:[address] [facility] ED Fall Risk Assessment (Adult) History of falling in the last 3 months, bm8 including since admission No falls in past 3 months (0 pts) Confusion or Disorientation No (0 pts) Intoxicated or Sedated No (0 pts) Impaired Gait No (0 pts) Mobility Assist Device Used No (0 pt) Altered Elimination No (0 pt) Score/Fall Risk Level 0 - 2 = Low Risk Oriented to surroundings, Maintained a safe environment, Educated pt \T\ family on fall prevention, incl call for assistance when getting out of bed, Assessed \T\ reinforced patient's understanding of fall precautions, Hourly rounding (assess needs \T\ fall precautionary measures) done, Used ambulatory aids as needed (educated on \T\ assisted with), Used gait belt as appropriate. Assessment: 00:09 Reassessment:. Reassessment: Patient appears in no apparent distress at this time. No zm changes from previously documented assessment. Patient is alert, oriented x 3, equal unlabored respirations, skin warm/dry/pink. Pain: Pain does not radiate. Cardiovascular: No deficits noted. Reports chest pain, shortness of breath, Heart tones S1 S2 present Capillary refill < 3 seconds in bilateral fingers Patient's skin is warm and dry. Rhythm is regular. Respiratory: Reports shortness of breath at rest Airway is patent Respiratory effort is even, unlabored, Respiratory pattern is regular, symmetrical, Breath sounds are clear Onset: The symptoms/episode began/occurred today. 01:13 Reassessment: Patient appears in no apparent distress at this time. Patient and/or bm8 family updated on plan of care and expected duration. Pain level reassessed. Patient is alert, oriented x 3, equal unlabored respirations, skin warm/dry/pink. Patient denies pain at this time. Patient states feeling better. Patient states symptoms have improved. 02:04 Reassessment: Patient appears in no apparent distress at this time. No changes from zm previously documented assessment. Reassessment: Patient and/or family updated on plan of care and expected duration. Pain level reassessed. Patient is alert, oriented x 3, equal unlabored respirations, skin warm/dry/pink. Patient denies pain at this time. Patient states symptoms have improved. 04:56 Reassessment: Patient appears in no apparent distress at this time. Patient and/or bm8 family updated on plan of care and expected duration. Pain level reassessed. Patient is alert, oriented x 3, equal unlabored respirations, skin warm/dry/pink. Patient denies pain at this time. Patient states feeling better. Patient states symptoms have improved. Pain: Denies pain. Vital Signs: 09/23 23:56 BP 180 / 87; Pulse 68; Resp 16; Temp 98; Pulse Ox 99% on R/A; Weight 70.76 kg; Height 5 zm ft. 2 in. ; Pain 7/10; 09/24 01:13 BP 131 / 62; Pulse 51; Resp 18; Temp 98; Pulse Ox 98% ; Pain 0/10; bm8 02:06 BP 105 / 81; Pulse 86; Resp 17; Temp 98.2; Pulse Ox 100% on R/A; Pain 0/10; zm 04:56 BP 145 / 57; Pulse 50; Resp 14; Temp 98.2; Pulse Ox 97% ; Pain 0/10; bm8 05:47 BP 141 / 54; Pulse 52; Resp 15; Temp 98.2; Pulse Ox 100% ; Pain 0/10; bm8 09/23 23:56 Body Mass Index 28.53 (70.76 kg, 157.48 cm) 09/23 23:56 Pain Scale: Adult zm 09/24 01:13 Pain Scale: Adult bm8 02:06 Pain Scale: Adult zm 04:56 Pain Scale: Adult bm8 05:47 Pain Scale: Adult bm8 Jina Coma Score: 01:13 Eye Response: spontaneous(4). Motor Response: obeys commands(6). Verbal Response: bm8 oriented(5). Total: 15. 04:56 Eye Response: spontaneous(4). Motor Response: obeys commands(6). Verbal Response: bm8 oriented(5). Total: 15. ED Course: 09/23 23:44 Patient arrived in ED. rv1 23:48 Zac Lemus PA is PHCP. cp 23:48 Chidi Raphael DO is Attending Physician. cp 23:[address], ISAIAS is Primary Nurse. 09/24 00:00 Triage completed. zm 00:00 Arm band placed on right wrist. 00:09 Patient has correct armband on for positive identification. Call light in reach. Side zm rails up X2. Adult w/ patient. Client placed on continuous cardiac and pulse oximetry monitoring. NIBP monitoring applied. public health assistant on. Pulse ox on. NIBP on. Door closed. Noise minimized. Lights dimmed. Warm blanket given. Pillow given. Verbal reassurance given. Head of bed elevated. 00:09 Maintain EMS IV. Dressing intact. Good blood return noted. Site clean \T\ dry. Gauge \T\ site: 20G RAC. Flushed with 10 mL NS. Patient maintains SpO2 saturation greater than 95% on room air. 00:30 XRAY Chest (1 view) In Process Unspecified. EDMS 02:19 Rajan Mejia, RN is Hospitalizing Provider. cp 03:55 Diet: Patient given snack. Tolerated well. Assisted to bathroom. 04:56 Provided Education on: NEED FOR ADMISSION. bm8 04:56 No provider procedures requiring assistance completed. Patient admitted, IV remains in bm8 place. Administered Medications: 00:01 CANCELLED (Physician Discretion): nitroglycerin0.4 mg Sublingual once cp 00:07 Not Given (Physician Discretion): morphineor iv 4 mg IVP once over 4 mins bm8 00:08 Drug: Acetaminophen PO 1000 mg PO once Route: PO; bm8 01:14 Follow up: Response: No adverse reaction bm8 00:08 Drug: Famotidine IVP 20 mg IVP once; dilute with 10 mL 0.9% NaCl; give over 2 minutes bm8 Route: IVP; Site: right antecubital; 01:14 Follow up: Response: No adverse reaction bm8 00:08 Drug: Ondansetron IVP 4 mg IVP once; over 2 minutes Route: IVP; Site: right antecubital;bm8 01:14 Follow up: Response: No adverse reaction bm8 00:19 Drug: fentaNYL (PF) IVP 25 mcg IVP once Route: IVP; Site: right antecubital; bm8 01:14 Follow up: Response: No adverse reaction bm8 05:29 Drug: Ondansetron IVP 4 mg IVP once; over 2 minutes Route: IVP; Site: right antecubital;bm8 05:47 Follow up: Response: No adverse reaction bm8 Medication: 00:09 VIS not applicable for this client. zm Outcome: 02:20 Decision to Hospitalize by Provider. cp 05:48 Admitted to Tele accompanied by nurse, via wheelchair, room 403, with chart, bm8 05:48 Condition: stable 05:48 Instructed on follow up and referral plans. the need for admit, Demonstrated understanding of follow-up care, medications, 05:57 Patient left the ED. bm8 Signatures: Dispatcher [employer] EDSC Zac Lemus PA-C PA-C cp Martinez, Zaina, RN Audelia Tapia rv1 Dung Jamison RN RN bm8 Corrections: (The following items were deleted from the chart) 01:43 08/16 23:56 Chief complaint: Patient states: c/o chest pressure and SOB waking her up zm out of sleep \T\2300 zm
--- NOTE | 2024-09-24 02:20 | EDPHYS ---
Physician Documentation [facility] Name: Marie Puri Age: 83 yrs Sex: Female : 1940 Arrival Date: 09/23/2024 Time: 23:42 Bed 19 Private MD: ED Physician Chidi Raphael HPI: 09/23 23:55 This 83 yrs old Female presents to ER via EMS with complaints of Chest Pressure, cp Shortness Of Breath. 23:55 The patient or guardian reports chest pain that is located primarily in the anterior cp chest wall. 23:55 Onset: tonight at about 2300, awoke patient from sleep. Associated signs and symptoms: cp Pertinent positives: nausea. Historical: - Allergies: 09/24 00:00 Morphine; 00:00 Phenergan; 00:00 Stadol; 00:00 Toprol XL; 00:00 PENICILLINS; zm 00:00 Albuterol; zm - Home Meds: 02:14 aspirin 81 mg Oral capsule [Active]; atorvastatin 20 mg Oral tablet [Active]; bisoprolol fumarate 5 mg Oral tab 1 tab 1/2 in the morning and 1/2 at night [Active]; CoQ-10 30 mg Oral cap daily [Active]; Effient oral [Active]; levothyroxine 25 mcg tablet daily [Active]; losartan 25 mg Oral tablet daily [Active]; Nitrostat SL [Active]; [place]-3 Oral cap daily [Active]; Plavix 75 mg Oral tablet daily [Active]; Protonix 40 mg Oral TbEC 1 tab [Active]; Zofran Oral as needed [Active]; - PMHx: 00:00 Diabetes - IDDM; Diverticulitis; Kidney stones; Pancreatitis; mitral valve prolapse; zm Hypothyroidism; Hypertensive disorder; fatty liver; - PSHx: 00:00 cardiac stent; Colonresection; Heart ablation X2; zm 02:10 cardiac bypass; zm - Immunization history:: Adult Immunizations up to date. - Infectious Disease History:: Denies. - Social history:: Smoking status: Patient denies any tobacco usage or history of. ROS: 09/23 23:59 Constitutional: Negative for body aches, chills, fever, poor PO intake, cp 23:59 Cardiovascular: Positive for chest pain, cp 23:59 Abdomen/GI: Positive for nausea, Negative for vomiting, diarrhea, constipation, 23:59 Back: Negative for pain at rest, pain with movement, 23:59 Respiratory: Positive for shortness of breath, at rest. Negative for cough, wheezing, cp 23:59 Neuro: Negative for altered mental status, dizziness, headache, numbness, syncope, near cp syncope, weakness, 23:59 All other systems are negative, Exam: 23:57 ECG was reviewed by the Attending Physician. cp 23:59 Head/Face: Normocephalic, atraumatic. cp 23:59 Constitutional: The patient appears in no acute distress, alert, awake, non-diaphoretic, non-toxic, well developed, well nourished, uncomfortable, 23:59 Eyes: Periorbital structures: appear normal, Conjunctiva: normal, no exudate, no injection, Sclera: no appreciated abnormality, Lids and lashes: appear normal, bilaterally, 23:59 ENT: External ear(s): are unremarkable, Nose: is normal, Mouth: Lips: moist, Oral mucosa: moist, 23:59 Chest/axilla: Inspection: normal, Palpation: is normal, no crepitus, no tenderness, 23:59 Cardiovascular: Rate: normal, Rhythm: regular, Edema: ankle edema, that is mild, JVD: is not appreciated, 23:59 Respiratory: the patient does not display signs of respiratory distress, Respirations: normal, no use of accessory muscles, no retractions, labored breathing, is not present, Breath sounds: are clear throughout, no decreased breath sounds, no stridor, no wheezing, 23:59 Abdomen/GI: Inspection: abdomen appears normal, Bowel sounds: active, all quadrants, Palpation: soft, in all quadrants, mild abdominal tenderness, in the epigastric area, 23:59 Neuro: Orientation: to person, place \T\ time. Mentation: is normal, Motor: moves all cp fours, strength is normal, Sensation: is normal, Vital Signs: 23:56 BP 180 / 87; Pulse 68; Resp 16; Temp 98; Pulse Ox 99% on R/A; Weight 70.76 kg; Height 5 zm ft. 2 in. ; Pain 7/10; 09/24 01:13 BP 131 / 62; Pulse 51; Resp 18; Temp 98; Pulse Ox 98% ; Pain 0/10; bm8 02:06 BP 105 / 81; Pulse 86; Resp 17; Temp 98.2; Pulse Ox 100% on R/A; Pain 0/10; zm 04:56 BP 145 / 57; Pulse 50; Resp 14; Temp 98.2; Pulse Ox 97% ; Pain 0/10; bm8 05:47 BP 141 / 54; Pulse 52; Resp 15; Temp 98.2; Pulse Ox 100% ; Pain 0/10; bm8 09/23 23:56 Body Mass Index 28.53 (70.76 kg, 157.48 cm) zm 09/23 23:56 Pain Scale: Adult zm 09/24 01:13 Pain Scale: Adult bm8 02:06 Pain Scale: Adult zm 04:56 Pain Scale: Adult bm8 05:47 Pain Scale: Adult bm8 Jina Coma Score: 01:13 Eye Response: spontaneous(4). Motor Response: obeys commands(6). Verbal Response: bm8 oriented(5). Total: 15. 04:56 Eye Response: spontaneous(4). Motor Response: obeys commands(6). Verbal Response: bm8 oriented(5). Total: 15. MDM: 09/23 23:52 Medical Screening Exam initiated cp 09/24 02:00 The patient was not given aspirin in the Emergency Department. Administered by EMS. 04:54 Differential diagnosis: abnormal EKG, acute myocardial infarction, coronary artery ms3 disease congestive heart failure. Data reviewed: vital signs, nurses notes, lab test result(s), EKG, radiologic studies, and as a result, I will admit patient. Consideration of Admission/Observation Patient was admitted/placed on observation. Management of patient was discussed with the following: Hospitalist: Ezekiel Mejia. I considered the following discharge prescriptions or medication management in the emergency department Medications were administered in the Emergency Department. See MAR. Independent interpretation of the following test(s) in the Emergency Department EKG: See my EKG interpretation above X-Ray: My interpretation is CXR image reviewed by me reveals mildly enlarged cardiac silhouette, haziness bibasilar . Historians other than the Patient: EMS: [facility]. Care significantly affected by the following chronic conditions: Diabetes, Hypertension, Liver Disease. Counseling: I had a detailed discussion with the patient and/or guardian regarding the historical points, exam findings, and any diagnostic results supporting the discharge/admit diagnosis, lab results, radiology results, the need for further work-up and treatment in the hospital. 09/23 23:51 Order name: Basic Metabolic Panel; Complete Time: 00:33 cp 09/24 00:34 Interpretation: Normal except: GLUC 181; BUN 26; CRE 1.32; GFR 40; CA 10.5. cp 09/23 23:51 Order name: CBC with Diff; Complete Time: 00:33 cp 09/24 00:34 Interpretation: Normal except: RDW 15.8. cp 09/23 23:51 Order name: LFT's; Complete Time: 00:33 cp 09/24 00:34 Interpretation: Normal except: GLOB 3.6; A/G 1.0. cp 09/23 23:51 Order name: Magnesium; Complete Time: 00:33 cp 09/23 23:51 Order name: NT PRO-BNP; Complete Time: 00:33 cp 09/23 23:51 Order name: PT-INR; Complete Time: 00:33 cp 09/23 23:51 Order name: Troponin HS; Complete Time: 00:33 cp 09/24 00:34 Interpretation: Reviewed. cp 09/23 23:51 Order name: Lipase; Complete Time: 00:33 cp 09/24 01:11 Order name: Troponin High Sensitivity; Complete Time: 01:49 cp 09/24 03:58 Order name: Glucose, Ancillary Testing; Complete Time: 03:59 EDMS 09/24 04:58 Order name: CBC with Automated Diff EDMS 09/24 04:58 Order name: CBC with Automated Diff EDMS 09/24 04:58 Order name: Troponin High Sensitivity EDMS 09/24 04:58 Order name: Troponin High Sensitivity EDMS 09/24 04:58 Order name: Troponin High Sensitivity EDMS 09/24 04:58 Order name: Troponin High Sensitivity EDMS 09/24 04:58 Order name: Troponin High Sensitivity EDMS 09/23 23:51 Order name: XRAY Chest (1 view) cp 09/24 04:58 Order name: EKG Electrocardiogram EDMS 09/24 04:58 Order name: EKG Electrocardiogram EDMS 09/24 04:58 Order name: EKG Electrocardiogram EDMS 09/24 04:58 Order name: EKG Electrocardiogram EDMS 09/23 23:51 Order name: Cardiac monitoring; Complete Time: 23:56 cp 09/23 23:51 Order name: EKG - Nurse/Tech; Complete Time: 23:56 cp 09/23 23:51 Order name: IV Saline Lock; Complete Time: 23:56 cp 09/23 23:51 Order name: Labs collected and sent; Complete Time: 23:56 cp 09/23 23:51 Order name: O2 Per Protocol; Complete Time: 23:56 cp 09/23 23:51 Order name: O2 Sat Monitoring; Complete Time: 23:56 cp EC/16 23:57 Rate is 61 beats/min. Rhythm is regular. WA interval is normal. QRS interval is normal. cp QT interval is normal. T waves are Inverted in lead aVR. Interpreted by me. Reviewed by me. Administered Medications: 09/24 00:01 CANCELLED (Physician Discretion): nitroglycerin0.4 mg Sublingual once cp 00:07 Not Given (Physician Discretion): morphineor iv 4 mg IVP once over 4 mins bm8 00:08 Drug: Acetaminophen PO 1000 mg PO once Route: PO; bm8 01:14 Follow up: Response: No adverse reaction bm8 00:08 Drug: Famotidine IVP 20 mg IVP once; dilute with 10 mL 0.9% NaCl; give over 2 minutes bm8 Route: IVP; Site: right antecubital; 01:14 Follow up: Response: No adverse reaction bm8 00:08 Drug: Ondansetron IVP 4 mg IVP once; over 2 minutes Route: IVP; Site: right antecubital;bm8 01:14 Follow up: Response: No adverse reaction bm8 00:19 Drug: fentaNYL (PF) IVP 25 mcg IVP once Route: IVP; Site: right antecubital; bm8 01:14 Follow up: Response: No adverse reaction bm8 05:29 Drug: Ondansetron IVP 4 mg IVP once; over 2 minutes Route: IVP; Site: right antecubital;bm8 05:47 Follow up: Response: No adverse reaction bm8 Disposition: 02:38 I was immediately available on-site in the Emergency Department for consultation in the ms3 care of the patient. 09/25 00:19 Chart complete. cp Disposition Summary: 09/24/24 02:20 Hospitalization Ordered Notes: Hospitalization Status: Observation cp Provider: Ngole, Rajan cp Location: Telemetry/MedSurg (observation) cp Condition: Stable cp Problem: new cp Symptoms: have improved cp Bed/Room Type: Standard cp Room Assignment: 403(09/24/24 05:17) rv1 Diagnosis - Chest pain, unspecified cp Forms: - Medication Reconciliation Form cp - SBAR form cp - Leadership Thank You Letter cp Signatures: Dispatcher [employer] EDMS Zac Lemus PA-C PA-C cp Chidi Raphael DO DO ms3 Audrey Lane, RN RN Audelia Rucker rv1 Dung Jamison, RN RN bm8 Corrections: (The following items were deleted from the chart) 09/23 23:51 23:51 BASIC METABOLIC PANEL+C.LAB.BRZ ordered. EDMS EDMS 23:51 23:51 CBC+H.LAB.BRZ ordered. EDMS EDMS 23:51 23:51 HEPATIC FUNCTION+C.LAB.BRZ ordered. EDMS EDMS 23:51 23:51 MAGNESIUM+C.LAB.BRZ ordered. EDMS EDMS 23:51 23:51 PROBNP+C.LAB.BRZ ordered. EDMS EDMS 23:51 23:51 PROTIME (+INR)+COAG.LAB.BRZ ordered. EDMS EDMS 23:51 23:51 Troponin High Sensitivity+C.LAB.BRZ ordered. EDMS EDMS 23:51 23:51 LIPASE+C.LAB.BRZ ordered. EDMS EDMS 23:51 23:51 Chest Single View+RAD.RAD.BRZ ordered. EDMS EDMS 09/24 00:01 09/23 23:51 Nitroglycerin Sublingual 0.4 mg Sublingual once ordered. cp cp 09/24 05:17 02:20 cp rv1
[2024-09-24] MEDS ORDERED: NITROGLYCERIN 0.4 MG/TAB SL PRN (04:53)
[2024-09-24] MEDS ORDERED: MORPHINE 4 MG/ML SYR IV PRN (04:53)
--- NOTE | 2024-09-24 05:11 | P.HP ---
Certification for Inpatient Patient admitted to: Observation With expected LOS: <2 Midnights Patient will require the following post-hospital care: None Practitioner: I am a practitioner with admitting privileges, knowledge of patient current condition, hospital course, and medical plan of care. Services: Services provided to patient in accordance with Admission requirements found in Title 42 Section 412.3 of the Code of Federal Regulations Patient History Date of Service: 09/24/24 Reason for admission: Chest pain. History of Present Illness: Patient is an 83-year-old female with past medical history of fatty liver disease, hypothyroidism, hypercholesteremia, constipation, diverticulitis, pancreatitis, kidney stones, UTI, arrhythmia, bradycardia, type 2 diabetes mellitus, CABG 4 months ago Maker repair. Patient presents to the ER tonight complaining of chest pain which she describes as midsternal pressure type pain, and elevated blood pressure, with associated mild shortness of breath. Patient states she woke up around 11 PM to use the restroom, and suddenly felt chest pain midsternum, describes the chest pain as pressure type pain, states it did not radiate. Patient states she did not just feel good at all, but could not give details how she actually felt except the chest pain which she mentioned. Patient states out of concern she checked her blood pressure and it was 190/94 which then prompted her to report to the ER. Patient states she takes losartan 25 mg p.o. daily, states she took it in the morning, states when she realized that her blood pressure was elevated to night, she took losartan 50 mg prior to arrival to ER. Patient states she has been having abdominal pain, and bloating, states she is scheduled for colonoscopy with Dr. Barreto in . Patient also mentioned that she have had 2 failed coronary stents placement, and states she had a CABG 4 months ago for maker repair. Patient initial troponin negative, EKG sinus rhythm. During admission assessment, patient in no acute distress, states the chest pain pressure is relieved at this time, denies of any respiratory difficulty, patient bradycardia in the 50s, when inquired from the patient she states she has history of bradycardia. Patient EKG with no ST abnormality. Allergies levofloxacin [From Levaquin] Allergy (Mild, Verified 05/01/24 06:30) diarrhea albuterol Allergy (Verified 04/22/23 14:27) Anaphylaxis amoxicillin [From Augmentin] Allergy (Verified 04/22/23 14:27) Anaphylaxis azithromycin [From Zithromax] Allergy (Verified 04/22/23 14:27) Anaphylaxis cefuroxime [From Ceftin] Allergy (Verified 04/22/23 14:27) Anaphylaxis Cephalosporins Allergy (Verified 04/22/23 14:27) Anaphylaxis clavulanic acid [From Augmentin] Allergy (Verified 04/22/23 14:27) Anaphylaxis glimepiride Allergy (Verified 04/22/23 14:27) Nausea/Vomiting insulin aspart Allergy (Verified 04/22/23 14:27) Anaphylaxis insulin detemir [From Levemir U-100 Insulin] Allergy (Verified 04/22/23 14:25) Nausea/Vomiting iodine Allergy (Verified 04/22/23 14:25) Itching metformin [From Glucophage] Allergy (Verified 04/22/23 14:25) Nausea/Vomiting metoprolol succinate [From Toprol XL] Allergy (Verified 04/22/23 14:25) Anaphylaxis morphine Allergy (Verified 04/22/23 14:25) Anaphylaxis Penicillins Allergy (Verified 04/22/23 14:25) Anaphylaxis pentazocine [From Talwin] Allergy (Verified 04/22/23 14:25) Anaphylaxis Phenothiazines Allergy (Verified 04/22/23 14:25) Anaphylaxis promethazine HCl [From Phenergan] Allergy (Verified 04/22/23 14:25) Anaphylaxis Quinolones Allergy (Verified 04/22/23 14:26) Anaphylaxis sitagliptin [From Januvia] Allergy (Verified 04/22/23 14:26) Nausea/Vomiting Sulfa (Sulfonamide Antibiotics) Allergy (Verified 04/22/23 14:26) Anaphylaxis ciprofloxacin Adverse Reaction (Verified 04/30/24 08:57) diarrhea Stadol NS Allergy (Uncoded 04/22/23 14:26) Anaphylaxis Home Medications: ALPRAZolam [Xanax*] 0.25 mg PO BEDTIME PRN 04/25/24 Amiodarone HCl [Cordarone*] 200 mg PO TID 04/25/24 Aspirin Chewable [Aspirin Chewable*] 81 mg PO DAILY 04/25/24 Atorvastatin Calcium [Lipitor] 40 mg PO BEDTIME 04/25/24 Clopidogrel Bisulfate [Plavix*] 75 mg PO DAILY 04/25/24 Cyanocobalamin (Vitamin B-12) [Vitamin B-12] 1 tab PO DAILY 04/25/24 Ferrous Sulfate [Ferrous Sulfate*] 325 mg PO DAILY 04/25/24 Docusate [Colace Cap*] 100 mg PO BID 04/26/24 Levothyroxine Sodium 25 mcg PO AC 04/26/24 Magnesium Oxide [Mag 0X*] 400 mg PO BID 04/26/24 Pantoprazole [Protonix Tab*] 40 mg PO DAILY 04/26/24 Benzocaine/Menthol [Chloraseptic Sore Throat Lozng] 1 val PO TID PRN val 05/01/24 Carboxymethylcellulose Sodium [Refresh Tears] 1 drops EACH EYE Q4H PRN bottle 05/01/24 - Past Medical/Surgical History Diabetic: Yes -: Hypothyroidism -: svt- HX OF ARRYTHMIAS -: IDDM -: KIDNEY STONES -: FATTY LIVER -: MVP -: DIVERTICULITIS -: PANCREATITIS -: UTI -: colon resection -: 2 heart ablasions -: Cholesystectomy -: Appendectomy -: stent 06/22/22 -: CABG ( maker repair.). - Family History Brother -: Heart disease Notes: quad bipass - Social History Smoking Status: Never smoker Alcohol use: No CD- Drugs: No Caffeine use: No Place of Residence: Home Review of Systems 10-point ROS is otherwise unremarkable Cardiovascular: Chest Pain, Other (Hypertension.) Gastrointestinal: Nausea, Other (Abdominal bloating) Physical Examination - Physical Exam General: Alert, In no apparent distress, Oriented x3 HEENT: Atraumatic, Normocephalic, PERRLA, Mucous membr. moist/pink, Sclerae nonicteric Neck: Supple, 2+ carotid pulse no bruit, No LAD, Without JVD or thyroid abnormality Respiratory: Clear to auscultation bilaterally, Normal air movement Cardiovascular: No edema, Normal pulses, Regular rate/rhythm, Normal S1 S2, No gallops, No rubs, No murmurs, Other (Bradycardia) Capillary refill: <2 Seconds Gastrointestinal: Normal bowel sounds, Soft and benign, No ascites, No tenderness, No masses, No rebound, No guarding Musculoskeletal: No clubbing, No swelling, No contractures, No erythema, No tenderness, No warmth Integumentary: No rashes, No breakdown, No significant lesion, No tend erness/swelling, No erythema, No warmth, No cyanosis Neurological: Normal gait, Normal speech, Normal strength at 5/5 x4 extr, Normal tone, Sensation intact, Cranial nerves 3-12 intact, Normal reflexes 2+, Normal affect Lymphatics: No axilla or inguinal lymphadenopathy - Studies Laboratory Data (last 24 hrs) 09/24/24 09/24/24 09/24/24 00:01 00:01 00:01 WBC 7.30 Hgb 12.3 Hct 36.9 Plt Count 179 PT 11.8 INR 1.05 Sodium 136 Potassium 4.2 BUN 26 H Creatinine 1.32 H Glucose 181 H Magnesium 1.9 Total Bilirubin 0.5 AST 15 ALT 22 Alkaline Phosphatase 67 Lipase 51 Female Exam - Breasts Breasts: Normal configuration Assessment and Plan - Plan Patient is a 83-year-old female who reports to ER complaint of chest pain, and elevated blood pressure with associated mild shortness of breath. Troponin negative at this time EKG no ST abnormalities. (1)Chest Pain. - Initiated chest pain protocol including nitroglycerin 0.4 mg sublingual as needed every 5 minutes x 3, and morphine 4 mg as needed every 4 hours. -Troponin every 8 hours x 3. Initial troponin negative. - EKG every 8 hours x 3. Initial EKG no ST abnormality. -Telemetry. -Consult carpet installer helper - Order for echocardiogram. -Will continue to monitor patient blood pressure, and further intervention if necessary. Patient blood pressure in ER was normal. (2)Chronic type 2 diabetes mellitus. -Order hemoglobin A1c to evaluate patient current diabetic status. - ACHS with moderate sliding scale coverage. - To resume patient diabetic medication when reconciled. (3)Chronic hypertension. -Continue home medication losartan 25 mg p.o. daily. - Hydralazine 10 mg as needed IV every 6 hours for systolic of 160 or greater and diastolic of 90 or greater. -Patient blood pressure medication may be optimized if necessary. (4)To resume rest of patient medications after reconciliation. (5)Explained the entire treatment plan to the patient, solicit questions answered and voiced understanding. Discharge Plan: Home Plan to discharge in: 72 Hours - Advance Directives Does patient have a Living Will: No Does patient have a Durable POA for Healthcare: No - Code Status/Comfort Care Code Status Assessed: No Code Status: Full Code Critical Care: No Time Spent Managing Pts Care (In Minutes): 55
[2024-09-24] MEDS ORDERED: HYDRALAZINE HCL 20 MG/ML VIAL IV PRN (05:43)
--- NOTE | 2024-09-24 06:22 | RAD REPORT ---
EXAM DESCRIPTION: Chest Single View CLINICAL HISTORY: 83 years Female CHEST PAIN COMPARISON: None TECHNIQUE: AP view of the chest was obtained. FINDINGS: Cardiac silhouette is mildly enlarged. Central vessels are mildly increased. No effusions bilaterally. Mild airspace opacities infrahilar regions bilaterally. Prior median sterno tenisha. Mediastinal surgical clips. No pneumothorax. IMPRESSION: Mildly enlarged heart with mild central congestion. Atelectatic change versus infiltrate infrahilar r egions bilaterally. Electronically signed by: Gloria Lara MD 09/24/2024 01:29 AM CDT RP Due to temporary technical issues with the [email or web address] reporting system, reports are being rosa elena d by the in-house radiologist without review as a courtesy to ensure prompt reporting the interpreting radiologist is fully responsible for the content of the report. Transcribed Date/Time: 09/24/2024 6:22 AM
--- NOTE | 2024-09-24 07:57 | P.PN ---
Date of Service: 09/24/24 Subjective: states she was woken up with chest pressure last night has been dealing with intermittent abdominal pain and nausea for several weeks/months has c-scope planned with Dr. Hansen on the feels bloated Physical Exam: GEN: Alert, oriented, NAD CV: Regular rate and rhythm, no edema Pulm:Nonlabored respirations on room air, clear bilaterally ABD: soft, nontender, nondistended Neuro: Normal speech, normal affect Problem List: NSTMEI CAD s/p CABG x1 - SPARKS to LAD (04/2024) Abdominal pain CKD3 Hypertension Hypothyroidism Hyperlipidemia IDDM2 Fatty Liver Anxiety GERD Hx ablation x2 NSTEMI CAD s/p CABG x1 - SPARKS to LAD (04/2024) on admission, presents with chest pressure associated with shortness of breath. BP at home prior to arrival in 190/90s Hx 2 failed cardiac PCI now s/p off-pump CABG x1 (SPARKS to LAD) and left atrial appendage clipping at [facility] (04/2024) CXR (09/23): mild cardiomegaly with mild central congestion. Atelectasis vs infiltrate infrahilar regions bilaterally Trend troponins until peak; 17 -> 54 -> 221 Monitor on telemetry, check EKG Cardiology consulted Echo ordered to eval EF / stenosis resume plavix, asa 81mg Start heparin drip Abdominal pain Patient also endorses ongoing abdominal pain associated with bloating and nausea at home for several weeks Has history of diverticulitis/pancreatitis/GERD. Had partial colon resection in 2008 She mentions having c-scope/EGD planned with Dr. Hansen on 10/04/24 recent prescriptions for Cipro/Flagyl on 09/14/24 by PCP in addition to recent Carafate prescriptions last 1-2 months PO Protonix BID CKD3 Monitor renal function, electrolytes Stable ~baseline. Sees Dr. Jigar carreon Hypertension resume home losartan IV hydralazine Hypothyroidism Hyperlipidemia IDDM2 Fatty Liver Anxiety GERD confirm home meds, restart as appropriate VTE: heparin Code: Full Dispo: Home, 2-3 days Time Spent Managing Pts Care (In Minutes): 55
[2024-09-24] MEDS: HEPARIN 10,000 UNIT/10 ML VIAL IV ONE (08:07)
[2024-09-24] MEDS: ASPIRIN EC 81 MG TAB PO SCH (09:00)
[2024-09-24] MEDS ORDERED: HEPARIN 5000 UNIT/ML 1 ML VIAL SQ SCH (09:00)
[2024-09-24] MEDS: CLOPIDOGREL 75 MG TABLET PO SCH (09:25)
[2024-09-24] MEDS: LOSARTAN POTASSIUM 50 MG TABLET PO SCH (09:25)
[2024-09-24] MEDS: PANTOPRAZOLE 40MG TABLET PO SCH (09:25)
[2024-09-24] MEDS: INSULIN REGULAR (HUMAN) 100 UNIT/ML SQ SCH (09:26)
[2024-09-24 09:37] VITALS: BMI 28.5
[2024-09-24 09:47] LABS: PT Prothrombin Time 11.6 SECONDS (10-13.0); PTT, Activated Partial Thromb 27.3 SECONDS (27.2-37.4); Protime INR 1.03
[2024-09-24] MEDS: HEPARIN/D5W 25,000 UNIT/500 ML BAG IV PRN (10:50)
--- NOTE | 2024-09-24 21:27 | CON ---
Date of Consultation: 09/24/2024 Reason For Consultation: Chest pain and elevated troponin. History Of Present Illness: This is an 83-year-old female, very well known to me, known to have roxanna nary artery disease, status post multi PCIs of the LAD and kept restenosing her stent and then we did 1-vessel CABG about 4 months ago. She came in with chest pain, describes it as pressure, radiates t o the neck and left upper extremity along with dyspnea on exertion. Troponin is elevated and she fee ls nauseated with it. Her troponin is borderline elevated. At the present time, she has no chest pa in. Past Medical History: As outlined above in the HPI. Medications: Refer reconciliation sheet for detailed list. Allergies: LEVAQUIN, AMOXICILLIN, AZITHROMYCIN, ALBUTEROL. Family History: No mature coronary artery disease or cancer. Social History: She does not smoke or drink. Does not use any drugs. Review of Systems: All systems reviewed. They are negative except as mentioned in HPI. Past Surgical History: Cardiac artery bypass surgery as well as multiple stents. Physical Examination: Vital Signs: Reviewed. Head and Neck: Pupils are equal, reactive to light. Intact eye movements. No JVD. No cervical lym phadenopathy. Neck : Supple. Thyroid is not enlarged. Lungs: Clear to auscultation bilaterally. No rhonchi, wheezing, or crackles. No accessory muscle u se. Heart: Regular rate and rhythm. No extra sounds. Abdomen: Soft, nontender. Bowel sounds positive. No organomegaly. No masses or hernia. No rigidi ty or rebound. Extremities: No edema, clubbing, cyanosis. Intact pulses. Skin: No rash noted. Neurologic: Alert, awake, and oriented x3. No acute focal deficits appreciated. Investigations: Troponin peaked at 221. BUN is 26, creatinine 1.32. Assessment/recommendation: 1. Pml-YV-[id number] myocardial infarction, very typical symptoms with elevated troponin. Keep n.p.o. past midnight and keep her on heparin drip, baby aspirin and plan for coronary angiogram. She has o nly single-vessel bypass, SPARKS to LAD, will be evaluated tomorrow. 2. Dyslipidemia. Recommend atorvastatin 40 mg at bedtime. 3. Mildly elevated creatinine and her kidney function. She is around her baseline. We will hydrate gently and monitor. Case discussed with primary hospitalist. SR/MODL Voice ID: [id number] Report ID: [id number]
[2024-09-24] MEDS: ALPRAZOLAM 0.25 MG TABLET PO PRN (22:09)
[2024-09-25 05:30] LABS: Absolute Lymphocytes (CBC) 1.7 K/uL (0.7-4.9); Hematocrit 36.0 % (36.0-45.0); Hemoglobin 12.1 g/dL (12.0-15.0); MCH 28.5 pg (27.0-35.0); MCHC 33.5 g/dL (32.0-36.0); MCV 85.1 fL (80-100); MPV 8.2 fL (7.6-11.3); Nucleated RBC Absolute Count 0.0 (0-0); Nucleated Red Blood Cells % 0.1 % (0-0); RBC Red Blood Cell Count 4.23 M/uL (3.86-4.86); White Blood Count 7.20 thou/uL (4.3-10.9)
[2024-09-25 05:46] LABS: Albumin 3.5 g/dL (3.4-5.0); Anion Gap 11.1 mEq/L (5.0-15.0); BUN Blood Urea Nitrogen 24.0 mg/dL (7-18); Glucose Level 147.0 mg/dL (74-106); Magnesium 2.0 mg/dL (1.6-2.4); Potassium 4.1 mEq/L (3.5-5.1)
[2024-09-25] MEDS: HEPARIN 5000 UNIT/ML 1 ML VIAL IV ONE (07:08)
[2024-09-25] MEDS: FENTANYL CITR 100 MCG/2 ML ONE (08:27)
[2024-09-25] MEDS: MIDAZOLAM HCL 2 MG/2 ML INJ ONE (08:27)
--- NOTE | 2024-09-25 08:31 | P.PN ---
Date of Service: 09/25/24 Subjective: no events overnight family updated at bedside wanting to get heart cath done Physical Exam: GEN: Alert, oriented, NAD CV: Regular rate and rhythm, no edema Pulm:Nonlabored respirations on room air, clear bilaterally ABD: soft, nontender, nondistended Neuro: Normal speech, normal affect Problem List: NSTMEI CAD s/p CABG x1 - SPARKS to LAD (04/2024) Abdominal pain CKD3 Hypertension Hypothyroidism Hyperlipidemia IDDM2 Fatty Liver Anxiety GERD Hx ablation x2 NSTEMI CAD s/p CABG x1 - SPARKS to LAD (04/2024) on admission, presents with chest pressure associated with shortness of breath. BP at home prior to arrival in 190/90s Hx 2 failed cardiac PCI now s/p off-pump CABG x1 (SPARKS to LAD) and left atrial appendage clipping at [facility] (04/2024) CXR (09/23): mild cardiomegaly with mild central congestion. Atelectasis vs infiltrate infrahilar regions bilaterally Troponins elevated but trended flat. Monitor on telemetry Echo ordered to eval EF / stenosis resume plavix, asa 81mg continue heparin drip Cardiology consulted. Planning for [facility] today. Abdominal pain Patient also endorses ongoing abdominal pain associated with bloating and nausea at home for several weeks Has history of diverticulitis/pancreatitis/GERD. Had partial colon resection in 2008 She mentions having c-scope/EGD planned with Dr. Hansen on 10/04/24 Recent prescriptions for Cipro/Flagyl on 09/14/24 by PCP in addition to recent Carafate prescriptions last 1-2 months PO Protonix BID CKD3 Monitor renal function, electrolytes Stable ~baseline. Nephrology consulted Hypertension resume home losartan IV hydralazine Hypothyroidism Hyperlipidemia IDDM2 Fatty Liver Anxiety GERD confirm home meds, restart as appropriate VTE: heparin Code: Full Dispo: Home, 1-2 days Pending [facility] Time Spent Managing Pts Care (In Minutes): 55
[2024-09-25] MEDS: NA CHLORIDE 0.9% 500 ML ONE (09:22)
[2024-09-25] MEDS ORDERED: HEPA 1000U/500MLS 2,000 UNIT/1,000 ML BAG IV ONE (09:47)
[2024-09-25] MEDS ORDERED: HEPARIN 5000 UNIT/ML 1 ML VIAL ONE (09:48)
[2024-09-25] MEDS ORDERED: HEPARIN 10,000 UNIT/10 ML VIAL IV ONE (09:48)
[2024-09-25] MEDS ORDERED: TICAGRELOR 90 MG TABLET PO ONE (09:48)
[2024-09-25] MEDS ORDERED: ASPIRIN 325 MG TAB ONE (09:48)
[2024-09-25] MEDS ORDERED: LIDOCAINE 1% 20 ML MDV ONE ×2 (09:48→10:05)
[2024-09-25] MEDS ORDERED: ATROPINE SULF 1 MG/10 ML SYR IV ONE (09:49)
[2024-09-25] MEDS ORDERED: DIPHENHYDRAMINE 50 MG/ML VIAL ONE (10:07)
[2024-09-25] MEDS ORDERED: METHYLPREDNISOLONE 125 MG INJ ONE (10:07)
[2024-09-25] MEDS ORDERED: REGADENOSON 0.4 MG/5 ML SYR IV ONE (10:43)
[2024-09-25 11:40] VITALS: O2SAT 96
--- NOTE | 2024-09-25 11:43 | P.PN ---
Subjective Date of Service: 09/25/24 Chief Complaint: Chest pain. Subjective: No new changes, No C/O voiced, Tolerating diet, Ambulating, Improving Review of Systems 10-point ROS is otherwise unremarkable Physical Examination - Vital Signs Temperature: 97.6 F Blood Pressure: 126/54 Pulse: 50 Respirations: 18 Pulse Ox (%): 98 - Physical Exam General: Alert, In no apparent distress HEENT: Atraumatic, PERRLA, EOMI Neck: Supple, JVD not distended Respiratory: Clear to auscultation bilaterally, Normal air movement Cardiovascular: Regular rate/rhythm, Normal S1 S2 Gastrointestinal: Normal bowel sounds, No tenderness Musculoskeletal: No tenderness Integumentary: No rashes Neurological: Normal speech, Normal tone, Normal affect Lymphatics: No axilla or inguinal lymphadenopathy - Studies Laboratory Data (last 24 hrs) 09/24/24 09/24/24 12:15 08:15 APTT Cancelled Cancelled Medications List Reviewed: Yes Assessment And Plan - Current Problems (Diagnosis) (1) NSTEMI (non-ST elevated myocardial infarction) Current Visit: Yes Status: Acute Plan: Patient with 2 layers of stents in LAD, last time she was diagnosed with ISR so sent to SPARKS-LAD bypass, patient repeated coronary angiogram done today shown moderate proximal LAD stent ISR, with atretic SPARKS, FFR done and it was negative. continue ASA 81 mg daily switch palvix to prasugrel 10 mg daily continue lipitor 40 mg daily continue Losartan add Imdur 30 mg daily continue to follow up with cardiology as outpatient for repeated cardiac PET in 6 months Cardiology will sign off, please call with any questions. (2) HLD (hyperlipidemia) Current Visit: Yes Status: Acute Plan: lipitor 40 mg daily (3) HTN (hypertension) Current Visit: No Status: Acute Plan: adjust medications as above.
--- NOTE | 2024-09-25 17:04 | OP ---
Date of Procedure: 09/25/2024 Surgeon: Pb Bergman Procedures Performed: 1. Selective coronary angiogram. 2. FFR of the LAD ISR. Indication For Procedure: History of CAD, ISR of the LAD stent with CABG and presented with chest pa in and mild leak of troponin. Complications: None. Estimated Blood Loss: Less than 50 cc. Access: Right common femoral artery, closed by Mynx. Sedation Time: 30 minutes with 1 of Versed and 50 of fentanyl. Description Of Procedure: After risks, and benefits, and alternatives were explained to the patient, patient agreed to proceed with procedure and signed informed consent. The patient was brought back to the medical laboratory assistant, prepped and draped in sterile fashion. Time-out was performed. Sedation was admini stered. Next, right common femoral artery access was obtained using ultrasound-guided micropuncture technique. A JL4 catheter was advanced over a J-wire to the aortic root. Selective angiogram of the left system was done using that catheter. That catheter was later exchanged with JR4 catheter for t he right coronary angiogram. It was pulled later to the subclavian artery for SPARKS angiogram. That catheter was later exchanged with an XB LAD 3.5 mm guide. Heparin was administered. ACT was therape utic. FFR wire was passed across the lesion. Baseline FFR was 0.96, peak was 0.90. No drift on pul lback. Final angiogram shows BRITTNI-3 flow. Guide was removed over a J-wire. Sheath was removed. My nx was applied. Hemostasis was achieved and the patient was moved back to recovery in stable conditi on. Findings: 1. Left main normal. 2. LAD; there is a proximal to mid two layers of stent. With that, stent got diffuse 50% to 60% ISR, FFR was done that was negative. Then, mid to distal LAD with mild luminal irregularities. 3. Left circ; mild luminal irregularities. 4. RCA; mild luminal irregularities. Assessment And Plan: 1. Moderate proximal LAD stent ISR, FFR negative. 2. Atretic SPARKS to LAD. We will continue aggressive medical management for CAD. RUIZ/MODL Voice ID: [id number] Report ID: [id number]
--- NOTE | 2024-09-25 20:08 | P.CNS ---
Date of Consult: 09/25/24 Reason for Consult: LOYD Requesting Physician: Seb Pacheco Chief Complaint: Chest pain. History of Present Illness: Patient is an 83-year-old female with past medical history of fatty liver disease, hypothyroidism, hypercholesteremia, constipation, diverticulitis, pancreatitis, kidney stones, UTI, arrhythmia, bradycardia, type 2 diabetes mellitus, CABG 4 months ago Maker repair. Patient presents to the ER tonight complaining of chest pain which she describes as midsternal pressure type pain, and elevated blood pressure, with associated mild shortness of breath. Patient states she woke up around 11 PM to use the restroom, and suddenly felt chest pain midsternum, describes the chest pain as pressure type pain, states it did not radiate. Patient states she did not just feel good at all, but could not give details how she actually felt except the chest pain which she mentioned. Patient states out of concern she checked her blood pressure and it was 190/94 which then prompted her to report to the ER. Patient states she takes losartan 25 mg p.o. daily, states she took it in the morning, states when she realized that her blood pressure was elevated to night, she took losartan 50 mg prior to arrival to ER. Patient states she has been having abdominal pain, and bloating, states she is scheduled for colonoscopy with Dr. Barreto in . Patient also mentioned that she have had 2 failed coronary stents placement, and states she had a CABG 4 months ago for maker repair. Patient initial troponin negative, EKG sinus rhythm. During admission assessment, patient in no acute distress, states the chest pain pressure is relieved at this time, denies of any respiratory difficulty, patient bradycardia in the 50s, when inquired from the patient she states she has history of bradycardia. Patient EKG with no ST abnormality. [id number] 23:55 This 83 yrs old Female presents to ER via EMS with complaints of Chest Pressure, cp Shortness Of Breath. 23:55 The patient or guardian reports chest pain that is located primarily in the anterior cp chest wall. 23:55 Onset: tonight at about 2300, awoke patient from sleep. Associated signs and symptoms: cp Pertinent positives: nausea. Allergies levofloxacin [From Levaquin] Allergy (Mild, Verified 05/01/24 06:30) diarrhea albuterol Allergy (Verified 04/22/23 14:27) Anaphylaxis amoxicillin [From Augmentin] Allergy (Verified 04/22/23 14:27) Anaphylaxis azithromycin [From Zithromax] Allergy (Verified 04/22/23 14:27) Anaphylaxis cefuroxime [From Ceftin] Allergy (Verified 04/22/23 14:27) Anaphylaxis Cephalosporins Allergy (Verified 04/22/23 14:27) Anaphylaxis clavulanic acid [From Augmentin] Allergy (Verified 04/22/23 14:27) Anaphylaxis glimepiride Allergy (Verified 04/22/23 14:27) Nausea/Vomiting insulin aspart Allergy (Verified 04/22/23 14:27) Anaphylaxis insulin detemir [From Levemir U-100 Insulin] Allergy (Verified 04/22/23 14:25) Nausea/Vomiting iodine Allergy (Verified 04/22/23 14:25) Itching metformin [From Glucophage] Allergy (Verified 04/22/23 14:25) Nausea/Vomiting metoprolol succinate [From Toprol XL] Allergy (Verified 04/22/23 14:25) Anaphylaxis morphine Allergy (Verified 04/22/23 14:25) Anaphylaxis Penicillins Allergy (Verified 04/22/23 14:25) Anaphylaxis pentazocine [From Talwin] Allergy (Verified 04/22/23 14:25) Anaphylaxis Phenothiazines Allergy (Verified 04/22/23 14:25) Anaphylaxis promethazine HCl [From Phenergan] Allergy (Verified 04/22/23 14:25) Anaphylaxis Quinolones Allergy (Verified 04/22/23 14:26) Anaphylaxis sitagliptin [From Januvia] Allergy (Verified 04/22/23 14:26) Nausea/Vomiting Sulfa (Sulfonamide Antibiotics) Allergy (Verified 04/22/23 14:26) Anaphylaxis ciprofloxacin Adverse Reaction (Verified 04/30/24 08:57) diarrhea Stadol NS Allergy (Uncoded 04/22/23 14:26) Anaphylaxis Home medications list reviewed: Yes Home Medications: ALPRAZolam [Xanax*] 0.25 mg PO BEDTIME PRN 04/25/24 Aspirin Chewable [Aspirin Chewable*] 81 mg PO DAILY 04/25/24 Atorvastatin Calcium [Lipitor] 40 mg PO BEDTIME 04/25/24 Ferrous Sulfate [Ferrous Sulfate*] 325 mg PO DAILY 04/25/24 Docusate [Colace Cap*] 100 mg PO BID 04/26/24 Levothyroxine Sodium 25 mcg PO AC 04/26/24 Magnesium Oxide [Mag 0X*] 400 mg PO BID 04/26/24 Pantoprazole [Protonix Tab*] 20 mg PO DAILY 04/26/24 Losartan Potassium [Cozaar] 25 mg PO DAILY 09/24/24 bisoproloL fumarate [Bisoprolol Fumarate] 2.5 mg PO DAILY 09/24/24 Isosorbide Mononitrate [Isosorbide Mononitrate ER] 30 mg PO DAILY 30 Days #30 tab 09/25/24 prasugrel HCL [Effient] 10 mg PO DAILY 30 Days #30 tab 09/25/24 - Past Medical/Surgical History Diabetic: Yes -: Hypothyroidism -: svt- HX OF ARRYTHMIAS -: IDDM -: KIDNEY STONES -: FATTY LIVER -: MVP -: DIVERTICULITIS -: PANCREATITIS -: UTI -: colon resection -: 2 heart ablasions -: Cholesystectomy -: Appendectomy -: stent 06/22/22 -: CABG ( maker repair.). -: lumpectomy x2 left breast - Family History Brother Medical History: Heart disease Notes: quad bipass - Social History Smoking Status: Unknown if ever smoked Alcohol use: No CD- Drugs: No Caffeine use: No Place of Residence: Home Review of Systems 10-point ROS is otherwise unremarkable General: Weakness, Malaise Physical Examination Temp Pulse Resp BP Pulse Ox 97.6 F 67 16 142/64 H 94 09/25/24 16:00 09/25/24 16:00 09/25/24 16:00 09/25/24 16:00 09/25/24 16:00 General: In no apparent distress, Oriented x3, Cooperative HEENT: Atraumatic Neck: Supple Respiratory: Normal air movement Cardiovascular: No edema, Regular rate/rhythm Gastrointestinal: Soft and benign, Non-distended Musculoskeletal: No clubbing, No contractures Integumentary: No rashes, No cyanosis Neurological: Normal speech Laboratory Data (last 24 hrs) 09/24/24 09/24/24 12:15 08:15 APTT Cancelled Cancelled Imagings Data: [id number] EXAM DESCRIPTION: Chest Single View CLINICAL HISTORY: 83 years Female CHEST PAIN COMPARISON: None TECHNIQUE: AP view of the chest was obtained. FINDINGS: Cardiac silhouette is mildly enlarged. Central vessels are mildly increased. No effusions bilaterally. Mild airspace opacities infrahilar regions bilaterally. Prior median sternotomy. Mediastinal surgical clips. No pneumothorax. IMPRESSION: Mildly enlarged heart with mild central congestion. Atelectatic change versus infiltrate infrahilar regions bilaterally. Conclusions/Impression: CKD III -No NSAIDs -May experience LELA sp angiogram 09-25-24 -Gentle IVF X1 liter Hypercalcemia -Resolved HTN with CKD/ CKD -Continue Losartan Diastolic CHF, chronic LVF -Daily weight DM II with Hyperglycemia -RISS CAD sp angiogram 09-25-24 -Medical management per cardiology -Continue Plavix Hospitalist, ER and Cardiology notes reviewed Thank you kindly for the consultation
[2024-09-25] MEDS: NACHLORIDE 0.45% 1,000 ML IV SCH (20:31)
[2024-09-25] MEDS: DOCUSATE NA 100 MG CAP PO SCH (20:31)
[2024-09-26 05:38] LABS: Albumin 3.2 g/dL (3.4-5.0); Anion Gap 7.9 mEq/L (5.0-15.0); BUN Blood Urea Nitrogen 28.0 mg/dL (7-18); Glucose Level 162.0 mg/dL (74-106); Magnesium 2.0 mg/dL (1.6-2.4); Potassium 4.9 mEq/L (3.5-5.1)
--- NOTE | 2024-09-26 11:57 | ECHO ---
HEIGHT: 5 ft 2 in WEIGHT: 156 lb 0 oz DATE OF STUDY: 09/25/[address]: Rajan Mejia NP 2-DIMENSIONAL: YES M.MODE: YES DOPPLER: YES COLOR FLOW: YES TDS: NO PORTABLE: YES DEFINITY: NO BUBBLE STUDY: NO DIAGNOSIS: CHEST PAIN CARDIAC HISTORY: CATHERIZATION: YES SURGERY: NO PROSTHETIC VALVE: NO PACEMAKER: NO MEASUREMENTS (cm) DIASTOLIC (NORMALS) SYSTOLIC (NORMALS) IVSd 0.8 (0.6-1.2) LA Diam 3.4 (1.9-4.0) LVEF 60-65% LVIDd 4.1 (3.5-5.7) LVIDs 2.2 (2.0-3.5) %FS 47% LVPWd 0.9 (0.6-1.2) Ao Diam 2.6 (2.0-3.7) 2 DIMENSIONAL ASSESSMENT: RIGHT ATRIUM: NORMAL LEFT ATRIUM: NORMAL RIGHT VENTRICLE: NORMAL LEFT VENTRICLE: NORMAL TRICUSPID VALVE: TRACE OF TRICUSPID REGURGITATION MITRAL VALVE: NORMAL PULMONIC VALVE: NORMAL AORTIC VALVE: NORMAL PERICARDIAL EFFUSION: NONE AORTIC ROOT: NORMAL LEFT VENTRICULAR WALL MOTION: NORMAL. DOPPLER/COLOR FLOW: GRADE II DIASTOLIC DYSFUNCTION. COMMENTS: 1. NORMAL LEFT VENTRICULAR SYSTOLIC FUNCTION, EJECTION FRACTION 60-65%, NORMAL WALL MOTION. 2. GRADE II DIASTOLIC DYSFUNCTION. TECHNOLOGIST: CHARLES WILLS
[2024-09-26 16:32] VITALS: BP 116/60; TEMP 97.4
--- NOTE | 2024-09-26 16:44 | P.DS ---
Admission Date: 09/24/24 Discharge Date: 09/26/24 Disposition: ROUTINE DISCHARGE Discharge Condition: GOOD Reason for Admission: Chest pain. Hospital Course: Problem List: NSTMEI CAD s/p CABG x1 - SPARKS to LAD (04/2024) Abdominal pain CKD3 Hypertension Hypothyroidism Hyperlipidemia IDDM2 Fatty Liver Anxiety GERD Hx ablation x2 Patient presented with chest pressure associated with shortness of breath and palpitations. She is known to have a history of CAD with recent off-pump CABG x1 (SPARKS to LAD) and left atrial appendage clipping at [facility] in April 2024. Chest xray on admission showed mild cardiomegaly with mild central congestion. Troponins were mildly elevated but trended flat. Patient was admitted for further monitoring and started on a heparin drip. Cardiology was consulted and recommended left heart catheterization to further evaluate which noted moderate proximal LAD stent ISR, with atretic SPARKS, FFR done and it was negative. (official report pending upon dc) No evidence to warrant further cardiac workup. Follow up with primary underpresser hand in 1-2 weeks for further management. Repeat cardiac PET scan in 6 months. Patient was feeling better, chest pain improved and deemed stable for discharge. On admission patient also endorsed ongoing abdominal pain associated bloating and nausea at home for several weeks. She mentions having a colonoscopy/EGD scheduled with Dr. Hansen planned on 10/04/24 to further evaluate these ongoing symptoms. Follow up with Dr. Hansen for colonoscopy as previously scheduled. Vital Signs/Physical Exam: Temp Pulse Resp BP Pulse Ox 97.4 F 57 18 116/60 98 09/26/24 16:00 09/26/24 16:00 09/26/24 16:00 09/26/24 16:00 09/26/24 16:00 General: Alert, In no apparent distress, Oriented x3 HEENT: Mucous membr. moist/pink, Sclerae nonicteric Neck: Supple, JVD not distended Respiratory: Clear to auscultation bilaterally, Normal air movement Cardiovascular: No edema, Regular rate/rhythm, Normal S1 S2 Gastrointestinal: Normal bowel sounds, Soft and benign, Non-distended, No tenderness Musculoskeletal: No swelling Integumentary: No rashes, No cyanosis Neurological: Normal strength at 5/5 x4 extr Laboratory Data at Discharge: WBC 7.20 thou/uL (4.3-10.9) 09/25/24 05:16 Hgb 12.1 g/dL (12.0-15.0) 09/25/24 05:16 Hct 36.0 % (36.0-45.0) 09/25/24 05:16 Plt Count 172 thou/uL (152-406) 09/25/24 05:16 PT 11.6 SECONDS (10-13.0) 09/24/24 08:37 INR 1.03 09/24/24 08:37 APTT 26.7 SECONDS (27.2-37.4) L 09/26/24 04:45 Sodium 136 mEq/L (136-145) 09/26/24 04:45 Potassium 4.9 mEq/L (3.5-5.1) D 09/26/24 04:45 BUN 28 mg/dL (7-18) H 09/26/24 04:45 Creatinine 1.22 mg/dL (0.55-1.02) H 09/26/24 04:45 Glucose 162 mg/dL (74-106) H 09/26/24 04:45 Phosphorus 2.6 mg/dL (2.5-4.9) 09/26/24 04:45 Magnesium 2.0 mg/dL (1.6-2.4) 09/26/24 04:45 Total Bilirubin 0.5 mg/dL (0.2-1.0) 09/24/24 00:01 AST 15 U/L (15-37) 09/24/24 00:01 ALT 22 U/L (13-56) 09/24/24 00:01 Alkaline Phosphatase 67 U/L (45-117) 09/24/24 00:01 Lipase 51 U/L (13-75) 09/24/24 00:01 Home Medications: ALPRAZolam [Xanax*] 0.25 mg PO BEDTIME PRN 04/25/24 Aspirin Chewable [Aspirin Chewable*] 81 mg PO DAILY 04/25/24 Atorvastatin Calcium [Lipitor] 40 mg PO BEDTIME 04/25/24 Ferrous Sulfate [Ferrous Sulfate*] 325 mg PO DAILY 04/25/24 Docusate [Colace Cap*] 100 mg PO BID 04/26/24 Levothyroxine Sodium 25 mcg PO AC 04/26/24 Magnesium Oxide [Mag 0X*] 400 mg PO BID 04/26/24 Pantoprazole [Protonix Tab*] 20 mg PO DAILY 04/26/24 Losartan Potassium [Cozaar] 25 mg PO DAILY 09/24/24 bisoproloL fumarate [Bisoprolol Fumarate] 2.5 mg PO DAILY 09/24/24 Isosorbide Mononitrate [Isosorbide Mononitrate ER] 30 mg PO DAILY 30 Days #30 tab 09/25/24 prasugrel HCL [Effient] 10 mg PO DAILY 30 Days #30 tab 09/25/24 New Medications: prasugrel HCL [Effient] 10 mg PO DAILY 30 Days #30 tab Isosorbide Mononitrate [Isosorbide Mononitrate ER] 30 mg PO DAILY 30 Days #30 tab Physician Discharge Instructions: Physician discharge instructions: Patient presented with chest pressure associated with shortness of breath and palpitations. She is known to have a history of CAD with recent off-pump CABG x1 (SPARKS to LAD) and left atrial appendage clipping at [facility] in April 2024. Chest xray on admission showed mild cardiomegaly with mild central congestion. Troponins were mildly elevated but trended flat. Patient was admitted for further monitoring and started on a heparin drip. Cardiology was consulted and recommended left heart catheterization to further evaluate which noted moderate proximal LAD stent ISR, with atretic SPARKS, FFR done and it was negative. (official report pending upon dc) No evidence to warrant further cardiac workup. Follow up with primary underpresser hand in 1-2 weeks for further management. Repeat cardiac PET scan in 6 months. Patient was feeling better, chest pain improved and deemed stable for discharge. On admission patient also endorsed ongoing abdominal pain associated bloating and nausea at home for several weeks. She mentions having a colonoscopy/EGD scheduled with Dr. Hansen planned on 10/04/24 to further evaluate these ongoing symptoms. Follow up with Dr. Hansen for colonoscopy as previously scheduled. No evidence to warrant further inpatient work up. Medications: Switch Plavix to Prasugrel 10mg daily Imdur 30 mg daily Follow up: PCP 3-5 days Cardiology in 1-[address] Hansen as scheduled Please call to schedule / confirm appointments Diet: AHA Activity: Ad joyce Followup: Clemencia Henao MD [Primary Care Provider] - Time spent managing pt's care (in minutes): 33
--- NOTE | 2024-09-26 20:50 | P.PN ---
Date of Service: 09/26/24 Vital Signs Temp Pulse Resp BP Pulse Ox 97.4 F 57 18 116/60 98 09/26/24 16:00 09/26/24 16:00 09/26/24 16:00 09/26/24 16:00 09/26/24 16:00 Assessment/ Plan: Nephrology No dyspnea No chest pain No acute events overnight Vitals, medications, blood work and imaging reviewed in the chart General: In no apparent distress, Oriented x3, Cooperative HEENT: Atraumatic Neck: Supple Respiratory: Normal air movement Cardiovascular: No edema, Regular rate/rhythm Gastrointestinal: Soft and benign, Non-distended Musculoskeletal: No clubbing, No contractures Integumentary: No rashes, No cyanosis Neurological: Normal speech Laboratory Data (last 24 hrs) 09/24/24 09/24/24 12:15 08:15 APTT Cancelled Cancelled Imagings Data: EXAM DESCRIPTION: Chest Single View CLINICAL HISTORY: 83 years Female CHEST PAIN AP view of the chest was obtained. FINDINGS: Cardiac silhouette is mildly enlarged. Central vessels are mildly increased. No effusions bilaterally. Mild airspace opacities infrahilar regions bilaterally. Prior median sternotomy. Mediastinal surgical clips. No pneumothorax. IMPRESSION: Mildly enlarged heart with mild central congestion. Atelectatic change versus infiltrate infrahilar regions bilaterally. Conclusions/Impression: CKD III -No NSAIDs -May experience LELA sp angiogram 09-25-24 Hypercalcemia -Resolved HTN with CKD/ CKD -Continue Losartan Diastolic CHF, chronic LVF -Daily weight DM II with Hyperglycemia -RISS CAD sp angiogram 09-25-24 -Medical management per cardiology -Continue Plavix Case reviewed with Dr. Duncan
== END 2024-09-26 18:31 | disposition home or self-care (01) | DRG 281 ==
LOC: ER 23:42 → 4TH 09-24 04:51 → OBSVTOIN 09-24 13:03
PROVIDERS: ADMIT Hospitalist; ATTEND Internal Medicine
PROC: B211YZZ Fluoroscopy of Multiple Coronary Arteries using Other Contrast (ICD-10-PCS; principal; 2024-09-25)
DX: I21.4 Non-ST elevation (NSTEMI) myocardial infarction (principal); I13.0 Hypertensive heart and chronic kidney disease with heart failure and stage 1 through stage 4 chronic kidney disease, or unspecified chronic kidney disease; K57.92 Diverticulitis of intestine, part unspecified, without perforation or abscess without bleeding; I50.32 Chronic diastolic (congestive) heart failure; I25.10 Atherosclerotic heart disease of native coronary artery without angina pectoris; Z95.1 Presence of aortocoronary bypass graft; E03.9 Hypothyroidism, unspecified; E11.22 Type 2 diabetes mellitus with diabetic chronic kidney disease; N18.30 Chronic kidney disease, stage 3 unspecified; K76.0 Fatty (change of) liver, not elsewhere classified; F41.9 Anxiety disorder, unspecified; K21.9 Gastro-esophageal reflux disease without esophagitis; Z98.890 Other specified postprocedural states; Z79.82 Long term (current) use of aspirin; Z79.890 Hormone replacement therapy; Z79.899 Other long term (current) drug therapy; Z88.5 Allergy status to narcotic agent; Z88.0 Allergy status to penicillin; Z88.8 Allergy status to other drugs, medicaments and biological substances; Z79.02 Long term (current) use of antithrombotics/antiplatelets; Z87.442 Personal history of urinary calculi; Z95.5 Presence of coronary angioplasty implant and graft; I34.1 Nonrheumatic mitral (valve) prolapse; Z79.4 Long term (current) use of insulin; Z88.2 Allergy status to sulfonamides; Z79.84 Long term (current) use of oral hypoglycemic drugs; Z90.49 Acquired absence of other specified parts of digestive tract; Z88.1 Allergy status to other antibiotic agents; E78.5 Hyperlipidemia, unspecified; Z87.440 Personal history of urinary (tract) infections; E83.52 Hypercalcemia; E11.65 Type 2 diabetes mellitus with hyperglycemia
CPT/HCPCS: 36415; 71045; 76937; 80048; 80069; 80076; 82947; 83036; 83690; 83735; 83880; 84484; 85025; 85347; 85610; 85730; 93005; 93306; 93458; 93571; 96374; 96375; 99152; 99153; 99285; C1769; C1877; C1893; G0378; J0461; J1200; J1644; J1815; J2003; J2250; J2405; J2785; J2919; J3010; J7040; Q9966